=== PATIENT | female | born 1945 | race Caucasian/White ===

== ENCOUNTER → 2017-12-18 14:57 | Outpatient (CLI) | payer MEDICARE, OTHER, SELFPAY ==
--- NOTE | 2017-12-18 14:59 | RAD_ITS ---
STUDY: X-RAY CHEST REASON FOR EXAM: Female, 72 years old. COPD with acute exacerbation. TECHNIQUE: PA and lateral views of the chest. COMPARISON: October 24, 2016. FINDINGS: The lungs are hyperexpanded with chronic interstitial changes. There is no new mass or infiltrate. There is no demonstrated pleural abnormality. Normal size heart. There is evidence of median sternotomy and cardiac valvuloplasty unchanged from the prior study. Normal mediastinum and michele. Normal visualized pulmonary arteries. There is atherosclerotic calcification of the aortic arch with tortuosity. There are diffuse degenerative changes of the visualized thoracic spine. There is degenerative osteoarthritis of the bilateral shoulders. There is no demonstrated abnormality of the visualized soft tissue structures of the upper abdomen. RAD/Chest PA and Lateral IMPRESSION: Question COPD. There is no acute cardiopulmonary disease or interval change. Electronically Signed: Hector Alberts DO at 15:41 EDT Tel [phone], Service support ,
== END ==
PROVIDERS: Family Provider Nurse Practitioner; PCP Nurse Practitioner; Visit Provider Nurse Practitioner
DX: J44.1 Chronic obstructive pulmonary disease with (acute) exacerbation (principal)
CPT/HCPCS: 71046

== ENCOUNTER 2017-12-20 10:15 | Inpatient (IN) | payer MEDICARE, OTHER, SELFPAY ==
[2017-12-20] VITALS (12 sets, daily range): BP systolic 113–138; BP diastolic 53–75; PULSE 99–112; RESP 16–27; TEMP 36.6–37.3; O2SAT 92–96; BMI 27.9; BMI 28.0; BMI 28.1
--- NOTE | 2017-12-20 10:38 | EKG12_ITS ---
Test Reason : SOB Blood Pressure : / mmHG Vent. Rate : 108 BPM Atrial Rate : 108 BPM P-R Int : 152 ms QRS Dur : 078 ms QT Int : 362 ms P-R-T Axes : 080 -18 064 degrees QTc Int : 485 ms Sinus tachycardia Otherwise normal ECG Confirmed by KRISTOPHER WHATLEY, SERENA ([id number]), visual effects editor MAIKOL MCDOWELL ([id number] on 12/21/2017 2:32:38 PM Referred By: Mercy Elliott Confirmed By:SERENA SUMMERS MD
--- NOTE | 2017-12-20 10:38 | CT_ITS ---
STUDY: CTA CHEST REASON FOR EXAM: Female, 72 years old. Shortness of breath, cough and chest congestion. Check for pulmonary embolus. Antibiotics not working. RADIATION DOSAGE (If Supplied By Facility): CTDIvol = ( 10.87 ) mGy, DLP = ( 549.95 ) mGycm TECHNIQUE: The examination was performed with the intravenous administration of 100ML ml of Isovue 370 contrast material. Post-processing of the angiographic images was performed, with multiplanar reformation and 3D reconstruction. Individualized dose optimization techniques were used for this CT. COMPARISON: CTA chest 07/05/2015. FINDINGS: Admissions Recruiter scanogram imaging shows midline sternal wires, mitral valve replacement and an aortic valve replacement. Normal appearing enhancement of the dilated main pulmonary artery and right and left pulmonary arteries. Normal enhancement of the bilateral peripheral pulmonary arteries. There is no demonstrated pulmonary embolism. Normal thoracic aorta and visualized great vessels without dissection/transection or aneurysm identified. Normal heart and pericardium except mitral valve replacement and aortic valve replacements are seen. No pericardial effusion identified. Normal mediastinum. Normal hilar regions. Normal visualized trachea and bronchi. The lungs appear well expanded. Moderate bilateral upper lobe and left lower lobe peribronchial thickening is seen with fairly severe right lower lobe peribronchial thickening and moderate bronchiectasis. Normal pulmonary parenchyma except minimal bibasal groundglass and thin linear opacities are seen most consistent with atelectasis/scarring. Minimal biapical scarring noted without adjacent bony destruction/erosion. Normal chest wall structures. Normal osseous structures. Mild anterior loss pressing T1 vertebral body appears unchanged consistent with old compression fracture. Osteopenia. Normal visualized upper abdomen. No large adrenal identified. Liver again shows multiple round smooth margin low-attenuation lesions, largest is seen in the left hepatic lobe dome near the midline posteriorly, proximal and 1.4 x 1.6 cm with central Hounsfield units 12.3 consistent with a simple cyst which appears unchanged. Other scattered rounded low-attenuation hepatic lesions are seen, too small to characterize but are most likely cysts and also appear unchanged where comparable. Large body habitus suggested. CT/CTA Chest W/WO Contrast IMPRESSION: No CT finding of a demonstrated pulmonary embolism or arterial dissection. Bilateral moderate to severe peribronchial thickening and moderate right lower lobe bronchiectasis which can be seen in chronic infections. Fairly severe centrilobular emphysema, apparently upper lobes. Mitral valve replacement and aortic valve replacement. Old mild T1 anterior wedge compression fracture. No change hepatic low-attenuation lesions, likely cysts. Electronically Signed: Dave Borjas, at 12:43 EDT Tel , Service support ,
--- NOTE | 2017-12-20 10:44 | ED.VISSUMM ---
- ER Visit Summary Date of Service: 12/20/17 Chief Complaint: COPD exacerbation History of Present Illness: The patient is a 72 F with a COPD exacerbation. She has a history of COPD, asthma, pulmonary hypertension, bronchiectasis, seasonal allergies, rheumatic heart disease, and remote pulmonary embolism. She also has a history of CABG and heart valve replacements. She has had increasing shortness of breath over the past several days. She saw her PCP and had a normal x-ray. She had steroids, nebulizer treatments, and started on doxycycline, her symptoms are worsening. She does not have fever or chest pain. Physical Examination: Tachycardic but otherwise vitals are unremarkable. She has a dry cough. She is speaking in full sentences. She appears slightly uncomfortable but not in distress. Lungs show respiratory wheeze throughout. Heart regular. Extremities unremarkable. Test Results: We will check EKG, lab work, CT. Emergency Department Course and Treatment: Patient received nebulizers and Solu-Medrol while awaiting results. EKG showed sinus rhythm at a rate of 108. No sign of acute ischemia or infarction. CTA showed no PE or dissection. She has chronic and postoperative changes. Lab work was all unremarkable she has a white count of 25 and this is likely from steroid use. Creatinine is slightly elevated at 1.21 from her baseline. Troponin normal. BNP 270. I reevaluated the patient after her treatments, and she did not feel much better. Still had a little bit increased work of breathing. She was 90% on room air. She was 80% on room air with ambulation and felt short of breath. I called the hospitalist for admission. Treatment Plan: Above Disposition: Admission Impression: 1. COPD exacerbation 2. Hypoxia This note was generated with [facility] dictation software. It may contain incorrect words, spelling, and punctuation that were not noted in review of the chart prior to signing ED Disposition - Plan for ED Patient: Chief Complaint: Shortness of Breath Referrals: Mercy Elliott [Primary Care Provider] -
[2017-12-20] MEDS: MethylPREDNISolone 125 MG/2 ML Vial IV (10:54)
[2017-12-20] MEDS: Albuterol 2.5 MG/3 ML VIAL.NEB. INHALATION ×2 (10:58)
[2017-12-20 11:13] LABS: Absolute Lymphocyte Count 0.92 X10^3/ul (0.83-4.51); Absolute Neutrophil Count 22.5 X10^3/uL (2.0-7.7); Basophil# 0.01 X10^3/uL; Differential Indicated SCAN CRITERIA MET; Hematocrit 41.6 % (37-47); Hemoglobin 13.4 g/dl (12.0-15.0); Lymphocyte # 0.92 X10^3/ul (4.0); Lymphocyte % 3.6 % (19-41); Mean Corp Hgb Conc 32.2 g/gl (32-36); Mean Corpuscular Hgb 30.9 pg (27.0-32.0); Mean Corpuscular Volume 96.1 fL (81-99); Mean Platelet Vol. 11.4 fl (6.2-12.0); Monocyte# 2.04 X10^3/uL; Neutrophil # 22.53 X10^3/uL (2.7-7.7); Neutrophil % 88.1 % (47-70); POSITIVE COUNT NO; POSITIVE DIFFERENTIAL YES; POSITIVE MORPHOLOGY NO; Platelet Count 170 K/mm3 (150-450); RBC Distribution Width CV 14.4 % (11.6-14.6); RBC Distribution Width SD 50.9 fl (35.1-43.9); Red Blood Count 4.33 M/mm3 (4.2-5.4); White Blood Count 25.6 K/mm3 (4.4-11.0)
[2017-12-20 11:26] LABS: Anion Gap 11 (5-15); BUN 19 mg/dL (7-18); BUN/Creat Ratio 15.7 RATIO (10-20); Calcium,Total 8.8 mg/dL (8.5-10.1); Chloride 105 mmol/L (98-107); Creatinine, Serum 1.21 mg/dL (0.55-1.02); EST Glomerular Filtration Rate 47 mL/min (>60); Est Glom Filt Rate - Afr Amer 56 mL/min (>60); Estimated Creatinine Clearance 36.82 ml/min; Glucose 133 mg/dL (74-106); Potassium 3.8 mmol/L (3.5-5.1); Sodium Level 142 mmol/L (136-145)
--- NOTE | 2017-12-20 13:31 | PCM.HP.STD ---
Problem List (1) HTN (hypertension) Status: Chronic Qualifiers: Hypertension type: essential hypertension Qualified Code(s): I10 - Essential (primary) hypertension (2) COPD exacerbation Status: Acute (3) Rheumatic aortic stenosis with regurgitation Status: Chronic (4) Atherosclerotic heart disease of kaibab coronary artery without angina pectoris Status: Chronic Qualifiers: [place] vs. transplanted heart: unspecified whether kaibab or transplanted heart Qualified Code(s): I25.10 - Atherosclerotic heart disease of kaibab coronary artery without angina pectoris (5) H/O mitral valve replacement Status: Chronic Comment: MVR w/ 27mm Ivan-Menon bovine pericardial mitral valve. 10/14/15 (6) H/O coronary artery bypass surgery Status: Chronic Comment: CABG X 1 SVG- RCA, AVR w/ 19mm St Rusty Trifecta aortic valve (7) Occlusion and stenosis of right carotid artery Status: Chronic (8) Chronic diastolic heart failure Status: Chronic (9) Other secondary pulmonary hypertension Status: Chronic (10) Stroke Status: Chronic Qualifiers: CVA mechanism: unspecified Qualified Code(s): I63.9 - Cerebral infarction, unspecified (11) S/P PTCA (percutaneous transluminal coronary angioplasty) Status: Chronic Comment: PCI BMS to CX/OM 12/03/13 @ [facility] (12) CAD (coronary artery disease) Status: Chronic Qualifiers: Coronary Disease-Associated Artery/Lesion type: unspecified vessel or lesion type [place] vs. transplanted heart: unspecified whether kaibab or transplanted heart Associated angina: angina presence unspecified Qualified Code(s): I25.10 - Atherosclerotic heart disease of kaibab coronary artery without angina pectoris (13) COPD (chronic obstructive pulmonary disease) Status: Chronic Qualifiers: COPD type: unspecified COPD Qualified Code(s): J44.9 - Chronic obstructive pulmonary disease, unspecified (14) Essential tremor Status: Chronic (15) Chronic back pain Status: Chronic Qualifiers: Back pain location: back pain in unspecified location Back pain laterality: unspecified Qualified Code(s): M54.9 - Dorsalgia, unspecified; G89.29 - Other chronic pain (16) HLD (hyperlipidemia) Status: Chronic Qualifiers: Hyperlipidemia type: unspecified Qualified Code(s): E78.5 - Hyperlipidemia, unspecified (17) Asthma Status: Chronic Qualifiers: Asthma severity: unspecified severity Asthma persistence: unspecified Asthma complication type: unspecified Qualified Code(s): J45.909 - Unspecified asthma, uncomplicated History of Present Illness Date of Admission: 12/20/17 Chief Complaint: Dyspnea, cough, congestion The patient is a 72 y/o F w/ PMHx: HTN, HLD, GERD, Valvular Heart Disease s/p MVR (Bovine) and Aortic Stenosis s/p AVR (St Rusty Trifecta), CAD s/p CABG x 1 and PCI x 1, Essential Tremor, Asthma/Chronic COPD/Bronchiectasis, Hx PE Remotely, Hx CVA, Chronic Diastolic CHF, R Carotid Artery Stenosis who presents to the [facility] ED on 12/20/17 with history of ongoing cough, productive sputum, dyspnea worse with exertion x ~ 1 week despite PCP initiation of steroid taper and oral doxycycline regimen x 2 days. She notes several ill contacts with similar symptoms. In the ED work-up included AF, HR 103-->110, BP 114/58, RR 18-->20s, 94% on RA, CBC w/ WBC 25.6, Hgb 13.4, Plts 170 with L shift, BMP w/ BUN/Cr 19/1.21, glucose 133, trop 0.02, BNP 270, CTPA w/ no evidence PE/dissection/pneumonia. In the ED patient was administered duoneb, solumedrol. With exertion attempts while in the ED patient oxygen decreased to 87% on RA. Past Medical History Past Medical History (Chronic Problems): Chronic Problems (Last Updated 11/22/17 @ 09:25 by Francisco Javier Calvo) HTN (hypertension) (Chronic) Rheumatic aortic stenosis with regurgitation (Chronic) Atherosclerotic heart disease of kaibab coronary artery without angina pectoris (Chronic) H/O mitral valve replacement (Chronic) MVR w/ 27mm Ivan-Menon bovine pericardial mitral valve. 10/14/15 H/O coronary artery bypass surgery (Chronic) CABG X 1 SVG- RCA, AVR w/ 19mm St Rusty Trifecta aortic valve Occlusion and stenosis of right carotid artery (Chronic) Chronic diastolic heart failure (Chronic) Other secondary pulmonary hypertension (Chronic) Rheumatic mitral stenosis with insufficiency (Chronic) Stroke (Chronic) S/P PTCA (percutaneous transluminal coronary angioplasty) (Chronic) PCI BMS to CX/OM 12/03/13 @ [facility] CAD (coronary artery disease) (Chronic) Aortic valve disease (Chronic) Mitral valve disease (Chronic) MVR w/ 27mm Ivan-Menon bovine pericardial mitral valve. 10/14/15 COPD (chronic obstructive pulmonary disease) (Chronic) Essential tremor (Chronic) Chronic back pain (Chronic) HLD (hyperlipidemia) (Chronic) Asthma (Chronic) Allergies atorvastatin calcium [From Lipitor] Allergy (Verified 12/20/17 10:17) Unknown clopidogrel [From Plavix] Adverse Reaction (Intermediate, Verified 12/20/17 10:17) Blood Blisters levofloxacin [From Levaquin] Adverse Reaction (Verified 12/20/17 10:17) Itching pollen,animals Allergy (Uncoded 12/20/17 10:17) Unknown Home Medications: Ambulatory Orders Medication Instructions Recorded Cholecalciferol (Vitamin D3) 2,000 unit PO DAILY 02/25/14 [Vitamin D] Levothyroxine [Synthroid] 50 mcg PO DAILY 02/25/14 Tiotropium [place] [Spiriva 18 MCG] 1 puff INHALATION DAILY 02/25/14 Aspirin [Aspirin, Baby] 81 mg PO DAILY@0800 07/05/15 Calcium Carbonate/Vitamin D3 1 ea PO BID 11/23/15 [Calcium 600 + Vit D 800 Tab] Magnesium Oxide [Magnesium] 250 mg PO BID 11/23/15 Multivitamin [Daily Multiple 1 ea PO 11/23/15 Vitamin] omeprazole 20 mg capsule,delayed 20 mg PO BID 11/16/17 release fluticasone 200 mcg-vilanterol 25 1 puff INHALATION DAILY 30 Days #60 11/22/17 mcg/dose powder for inhalation montelukast 10 mg tablet 10 mg PO DAILY 30 Days #30 11/22/17 Albuterol Aerosols [Ventolin 2.5 mg INHALATION BID 12/20/17 Aerosols] Cheratussin Ac 6 mg PO QHS PRN 12/20/17 Cyclobenzaprine [Flexeril] 10 mg PO TID PRN PRN 12/20/17 Diltiazem CD [Cardizem CD] 180 mg PO DAILY 12/20/17 Doxycycline 100 mg PO BID 12/20/17 Furosemide [Lasix] 20 mg PO DAILY PRN 12/20/17 Oxycodone HCl/Acetaminophen 1 tablet PO Q6H PRN PRN 12/20/17 [Percocet 5/325] Prednisone 10 mg PO DAILY 12/20/17 Ranitidine HCl [Zantac 75] 75 mg PO DAILY 12/20/17 Rosuvastatin Calcium [Crestor] 5 mg PO QODAY 12/20/17 Ubidecarenone [Co Q-10] 200 mg PO DAILY 12/20/17 Surgical History: - - MVR and AVR, BL foot surgery, Nephrolithiasis interventions, PCI, CABG x 1, L THR. Psychiatric History: No pertinent psych hx GAMBLING BOX PERSON History: No pertinent GAMBLING BOX PERSON history Lives: Spouse/ Significant Other Smoking Status: Former smoker - Quit 3 years prior, 1 ppd usage since youth. Tobacco Use: Non-smoker Alcohol: Rare Drugs: None - *Family History Paternal History Items: Heart Disease, Hypertension Maternal History Items: Heart Disease, Hypertension Review of Systems Constitutional: Reports: Anorexia, Malaise, Weakness, Fatigue. Denies: Chills, Fever, Weight Change HEENT: Reports: Nasal Congestion, Post Nasal Drip, Sinus Congestion, Sinus Drainage, Sore Throat. Denies: Head Aches Cardiovascular: Denies: Chest Pain, Palpitations Respiratory: Reports: Cough, Shortness of Breath, Shortness of breath at rest, Shortness of breath upon exertion, Sputum production, Wheezing Gastrointestinal: Denies: Abdominal Pain, Nausea, Vomiting Genitourinary: Denies: Dysuria Musculoskeletal: Denies: Joint Pain, Joint Tenderness Skin: Denies: Rash, Wounds Neurological: Denies: Numbness, Tingling, Focal weakness Psychiatric: Denies: Anxiety, Depression, Homicidal Ideations, Suicidal Ideations Hematologic/ Lymphatic: Denies: Easy Bruising, Easy Bleeding VTE Information - Inpt Only VTE Present on Admission: No VTE Mechan Device Prophylaxis: SCD's VTE Pharm Prophylaxis ordered?: Yes Patient Problems: Active and Suspected Problems (Last Updated 11/22/17 @ 09:25 by Francisco Javier Calvo) COPD exacerbation (Acute) Subjective: Seated upright in the ED bed, fatigued appearance, some coughing with examination. Objective: Physical Examination: General: awake, alert, oriented x 3 and cooperative, seated upright in the ED bed in no apparent distress, fatigued appearance. Skin: normal color, turgor, no icterus, cyanosis. HEENT: AT/NC, EOMI, PERRLA, mildly dry MM, no carotid bruits or JVD noted, posterior OP erythema. Lungs: Diminished BS BL, > bases, mildly coarse, expiratory wheezing, decreased effort, coughing w/ increased effort. Heart: Mildly tachycardic with regular rhythm; no gallop, rub audible, s/p AVR, MVR. Abdomen: soft, overweight, NTTP, ND, normal BS, no HSM. Extremities: no cyanosis, clubbing, or edema. Neurological: patient awake, alert, oriented x 3; cognitive function intact; pupils equally reactive to light and accomodation; cranial nerves II-XII grossly normal, moving all 4 extremities, no focal deficits, strength moderately to severely globally decreased secondary to acute presentation. Psychiatric: affect appears normal, no acute evidence of depressive or anxiety feelings. - Physical Exam Vital Signs Temp Pulse Resp BP Pulse Ox 98 F 110 H 27 H 121/53 H 92 12/20/17 10:16 12/20/17 13:05 12/20/17 13:05 12/20/17 13:05 12/20/17 13:05 Oxygen Delivery Method Room Air Weight: 163 lb Body Mass Index (BMI) 27.9 Laboratory Tests Past 24 Hrs 12/20/17 12/20/17 12/20/17 10:55 10:55 10:55 WBC 25.6 H RBC 4.33 Hgb 13.4 Hct 41.6 MCV 96.1 MCH 30.9 MCHC 32.2 RDW 14.4 RDW Differential 50.9 H Plt Count 170 MPV 11.4 Immature Gran % (Auto) 0.300 Neut % (Auto) 88.1 H Lymph % (Auto) 3.6 L Long % (Auto) 8.0 Eos % (Auto) 0.0 Baso % (Auto) 0.0 Absolute Neuts (auto) 22.5 H Absolute Lymphs (auto) 0.92 Total Counted Not Reportable Differential Comment COMMENT Diff Path Review May foll Sodium 142 Potassium 3.8 Chloride 105 Carbon Dioxide 26.0 Anion Gap 11 BUN 19 H Creatinine 1.21 H Estim Creat Clear Calc 36.82 Est GFR (MDRD) Af Amer 56 L Est GFR (MDRD) Non-Af 47 L BUN/Creatinine Ratio 15.7 Glucose 133 H Calcium 8.8 Troponin I 0.02 B-Natriuretic Peptide 270.0 H Assessment/Plan Active and Suspected Problems (Last Updated 11/22/17 @ 09:25 by Francisco Javier Calvo) COPD exacerbation (Acute) The patient is a 72 y/o F w/ PMHx: HTN, HLD, GERD, Valvular Heart Disease s/p MVR (Bovine) and Aortic Stenosis s/p AVR (St Rusty Trifecta), CAD s/p CABG x 1 and PCI x 1, Essential Tremor, Asthma/Chronic COPD/Bronchiectasis, Hx PE Remotely, Hx CVA, Chronic Diastolic CHF, R Carotid Artery Stenosis who presents to the [facility] ED on 12/20/17 with history of ongoing cough, productive sputum, dyspnea worse with exertion x ~ week despite PCP initiation of steroid taper and oral doxycycline regimen x 2 days. (1) Acute Hypoxia with Acute on chronic COPD exacerbation, Failed outpatient therapies: CTPA w/ chronic changes, CBC on admission w/ WBC 25.6 with L shift but recent steroid regimen, afebrile upon ED presentation. Will admit to [facility], maintain on oxygen with wean as tolerated to room air, continue ATC duonebs, PRN albuterol, IV methylprednisolone, HOB, IS parameters, IV Doxycycline with pending sputum cultures, viral respiratory panel. (2) CAD: s/p CABG x 1 and PCI x 1, maintain on asa, statin, not on BB as on cardizem. (3) Hypertension: Maintain on home regimen cardizem, PRN hydralazine. (4) Hyperlipidemia: Maintain on home statin regimen. (5) Hx PE: Remotely, CTPA upon ED presentation without acute evidence PE or acute process. (6) Hypothyroidism: Continue home synthroid regimen. (7) Hx CVA: Maintain on asa, statin, BP regimen. (8) Chronic Diastolic CHF: Maintain on asa, statin, cardizem regimen. Not on diuretic or ACEI. (9) R Carotid Artery Stenosis, Hx: Encourage regular outpatient assessment/monitoring. (10) Valvular Heart Disease: s/p MVR (Bovine) and Aortic Stenosis s/p AVR (St Rusty Trifecta). (11) GERD: Famotidine. (12) DVT Prophylaxis: SCDs, heparin. Code Visit Inpatient E&M: 52659 Init Hosp L3
--- NOTE | 2017-12-20 13:36 | HP.PCM_ITS ---
Problem List (1) HTN (hypertension) Status: Chronic Qualifiers: Hypertension type: essential hypertension Qualified Code(s): I10 - Essential (primary) hypertension (2) COPD exacerbation Status: Acute (3) Rheumatic aortic stenosis with regurgitation Status: Chronic (4) Atherosclerotic heart disease of [place] coronary artery without angina pectoris Status: Chronic Qualifiers: [place] vs. transplanted heart: unspecified whether [place] or transplanted heart Qualified Code(s): I25.10 - Atherosclerotic heart disease of [place] coronary artery without angina pectoris (5) H/O mitral valve replacement Status: Chronic Comment: MVR w/ 27mm Ivan-Menon bovine pericardial mitral valve. 10/14/15 (6) H/O coronary artery bypass surgery Status: Chronic Comment: CABG X 1 SVG- RCA, AVR w/ 19mm [place] Rusty Trifecta aortic valve (7) Occlusion and stenosis of right carotid artery Status: Chronic (8) Chronic diastolic heart failure Status: Chronic (9) Other secondary pulmonary hypertension Status: Chronic (10) Stroke Status: Chronic Qualifiers: CVA mechanism: unspecified Qualified Code(s): I63.9 - Cerebral infarction, unspecified (11) S/P PTCA (percutaneous transluminal coronary angioplasty) Status: Chronic Comment: PCI BMS to CX/OM 12/03/13 @ [facility] (12) CAD (coronary artery disease) Status: Chronic Qualifiers: Coronary Disease-Associated Artery/Lesion type: unspecified vessel or lesion type [place] vs. transplanted heart: unspecified whether [place] or transplanted heart Associated angina: angina presence unspecified Qualified Code(s): I25.10 - Atherosclerotic heart disease of [place] coronary artery without angina pectoris (13) COPD (chronic obstructive pulmonary disease) Status: Chronic Qualifiers: COPD type: unspecified COPD Qualified Code(s): J44.9 - Chronic obstructive pulmonary disease, unspecified (14) Essential tremor Status: Chronic (15) Chronic back pain Status: Chronic Qualifiers: Back pain location: back pain in unspecified location Back pain laterality : unspecified Qualified Code(s): M54.9 - Dorsalgia, unspecified; G89.29 - Other chronic pain (16) HLD (hyperlipidemia) Status: Chronic Qualifiers: Hyperlipidemia type: unspecified Qualified Code(s): E78.5 - Hyperlipidemia , unspecified (17) Asthma Status: Chronic Qualifiers: Asthma severity: unspecified severity Asthma persistence: unspecified Asthma complication type: unspecified Qualified Code(s): J45.909 - Unspecified asthma, uncomplicated History of Present Illness Date of Admission: 12/20/17 Chief Complaint: Dyspnea, cough, congestion The patient is a 72 y/o F w/ PMHx: HTN, HLD, GERD, Valvular Heart Disease s/p MVR (Bovine) and Aortic Stenosis s/p AVR (St Rusty Trifecta), CAD s/p CABG x 1 and PCI x 1, Essential Tremor, Asthma/Chronic COPD/Bronchiectasis, Hx PE Remotely, Hx CVA, Chronic Diastolic CHF, R Carotid Artery Stenosis who presents to the [facility] ED on 12/20/17 with history of ongoing cough, productive sputum, dyspnea worse with exertion x ~ 1 week despite PCP initiation of steroid taper and oral doxycycline regimen x 2 days. She notes several ill contacts with similar symptoms. In the ED work-up included AF, HR 103-->110, BP 114/58, RR 18- ->20s, 94% on RA, CBC w/ WBC 25.6, Hgb 13.4, Plts 170 with L shift, BMP w/ BUN/ Cr 19/1.21, glucose 133, trop 0.02, BNP 270, CTPA w/ no evidence PE/dissection/ pneumonia. In the ED patient was administered duoneb, solumedrol. With exertion attempts while in the ED patient oxygen decreased to 87% on RA. Past Medical History Past Medical History (Chronic Problems): Chronic Problems (Last Updated 11/22/17 @ 09:25 by Francisco Javier Calvo) HTN (hypertension) (Chronic) Rheumatic aortic stenosis with regurgitation (Chronic) Atherosclerotic heart disease of [place] coronary artery without angina pectoris (Chronic) H/O mitral valve replacement (Chronic) MVR w/ 27mm Ivan-Menon bovine pericardial mitral valve. 10/14/15 H/O coronary artery bypass surgery (Chronic) CABG X 1 SVG- RCA, AVR w/ 19mm St Rusty Trifecta aortic valve Occlusion and stenosis of right carotid artery (Chronic) Chronic diastolic heart failure (Chronic) Other secondary pulmonary hypertension (Chronic) Rheumatic mitral stenosis with insufficiency (Chronic) Stroke (Chronic) S/P PTCA (percutaneous transluminal coronary angioplasty) (Chronic) PCI BMS to CX/OM 12/03/13 @ [facility] CAD (coronary artery disease) (Chronic) Aortic valve disease (Chronic) Mitral valve disease (Chronic) MVR w/ 27mm Ivan-Menon bovine pericardial mitral valve. 10/14/15 COPD (chronic obstructive pulmonary disease) (Chronic) Essential tremor (Chronic) Chronic back pain (Chronic) HLD (hyperlipidemia) (Chronic) Asthma (Chronic) Allergies atorvastatin calcium [From Lipitor] Allergy (Verified 12/20/17 10:17) Unknown clopidogrel [From Plavix] Adverse Reaction (Intermediate, Verified 12/20/17 10: 17) Blood Blisters levofloxacin [From Levaquin] Adverse Reaction (Verified 12/20/17 10:17) Itching pollen,animals Allergy (Uncoded 12/20/17 10:17) Unknown Home Medications: Ambulatory Orders Medication Instructions Recorded Cholecalciferol (Vitamin D3) 2,000 unit PO DAILY 02/25/14 [Vitamin D] Levothyroxine [Synthroid] 50 mcg PO DAILY 02/25/14 Tiotropium [place] [Spiriva 18 MCG] 1 puff INHALATION DAILY 02/25/14 Aspirin [Aspirin, Baby] 81 mg PO DAILY@0800 07/05/15 Calcium Carbonate/Vitamin D3 1 ea PO BID 11/23/15 [Calcium 600 + Vit D 800 Tab] Magnesium Oxide [Magnesium] 250 mg PO BID 11/23/15 Multivitamin [Daily Multiple 1 ea PO 11/23/15 Vitamin] omeprazole 20 mg capsule,delayed 20 mg PO BID 11/16/17 release fluticasone 200 mcg-vilanterol 25 1 puff INHALATION DAILY 30 Days #60 11/22/17 mcg/dose powder for inhalation montelukast 10 mg tablet 10 mg PO DAILY 30 Days #30 11/22/17 Albuterol Aerosols [Ventolin 2.5 mg INHALATION BID 12/20/17 Aerosols] Cheratussin Ac 6 mg PO QHS PRN 12/20/17 Cyclobenzaprine [Flexeril] 10 mg PO TID PRN PRN 12/20/17 Diltiazem CD [Cardizem CD] 180 mg PO DAILY 12/20/17 Doxycycline 100 mg PO BID 12/20/17 Furosemide [Lasix] 20 mg PO DAILY PRN 12/20/17 Oxycodone HCl/Acetaminophen 1 tablet PO Q6H PRN PRN 12/20/17 [Percocet 5/325] Prednisone 10 mg PO DAILY 12/20/17 Ranitidine HCl [Zantac 75] 75 mg PO DAILY 12/20/17 Rosuvastatin Calcium [Crestor] 5 mg PO QODAY 12/20/17 Ubidecarenone [Co Q-10] 200 mg PO DAILY 12/20/17 Surgical History: - - MVR and AVR, BL foot surgery, Nephrolithiasis interventions, PCI, CABG x 1, L THR. Psychiatric History: No pertinent psych hx REFRACTIVE SURGEON History: No pertinent REFRACTIVE SURGEON history Lives: Spouse/ Significant Other Smoking Status: Former smoker - Quit 3 years prior, 1 ppd usage since youth. Tobacco Use: Non-smoker Alcohol: Rare Drugs: None - *Family History Paternal History Items: Heart Disease, Hypertension Maternal History Items: Heart Disease, Hypertension Review of Systems Constitutional: Reports: Anorexia, Malaise, Weakness, Fatigue. Denies: Chills, Fever, Weight Change HEENT: Reports: Nasal Congestion, Post Nasal Drip, Sinus Congestion, Sinus Drainage, Sore Throat. Denies: Head Aches Cardiovascular: Denies: Chest Pain, Palpitations Respiratory: Reports: Cough, Shortness of Breath, Shortness of breath at rest, Shortness of breath upon exertion, Sputum production, Wheezing Gastrointestinal: Denies: Abdominal Pain, Nausea, Vomiting Genitourinary: Denies: Dysuria Musculoskeletal: Denies: Joint Pain, Joint Tenderness Skin: Denies: Rash, Wounds Neurological: Denies: Numbness, Tingling, Focal weakness Psychiatric: Denies: Anxiety, Depression, Homicidal Ideations, Suicidal Ideations Hematologic/ Lymphatic: Denies: Easy Bruising, Easy Bleeding VTE Information - Inpt Only VTE Present on Admission: No VTE Mechan Device Prophylaxis: SCD's VTE Pharm Prophylaxis ordered?: Yes Patient Problems: Active and Suspected Problems (Last Updated 11/22/17 @ 09:25 by Francisco Javier Calvo) COPD exacerbation (Acute) Subjective: Seated upright in the ED bed, fatigued appearance, some coughing with examination. Objective: Physical Examination: General: awake, alert, oriented x 3 and cooperative, seated upright in the ED bed in no apparent distress, fatigued appearance. Skin: normal color, turgor, no icterus, cyanosis. HEENT: AT/NC, EOMI, PERRLA, mildly dry MM, no carotid bruits or JVD noted, posterior OP erythema. Lungs: Diminished BS BL, > bases, mildly coarse, expiratory wheezing, decreased effort, coughing w/ increased effort. Heart: Mildly tachycardic with regular rhythm; no gallop, rub audible, s/p AVR, MVR. Abdomen: soft, overweight, NTTP, ND, normal BS, no HSM. Extremities: no cyanosis, clubbing, or edema. Neurological: patient awake, alert, oriented x 3; cognitive function intact; pupils equally reactive to light and accomodation; cranial nerves II-XII grossly normal, moving all 4 extremities, no focal deficits, strength moderately to severely globally decreased secondary to acute presentation. Psychiatric: affect appears normal, no acute evidence of depressive or anxiety feelings. - Physical Exam Vital Signs Temp Pulse Resp BP Pulse Ox 98 F 110 H 27 H 121/53 H 92 12/20/17 10:16 12/20/17 13:05 12/20/17 13:05 12/20/17 13:05 12/20/17 13:05 Oxygen Delivery Method Room Air Weight: 163 lb Body Mass Index (BMI) 27.9 Laboratory Tests Past 24 Hrs 12/20/17 12/20/17 12/20/17 10:55 10:55 10:55 WBC 25.6 H RBC 4.33 Hgb 13.4 Hct 41.6 MCV 96.1 MCH 30.9 MCHC 32.2 RDW 14.4 RDW Differential 50.9 H Plt Count 170 MPV 11.4 Immature Gran % (Auto) 0.300 Neut % (Auto) 88.1 H Lymph % (Auto) 3.6 L [place] % (Auto) 8.0 Eos % (Auto) 0.0 Baso % (Auto) 0.0 Absolute Neuts (auto) 22.5 H Absolute Lymphs (auto) 0.92 Total Counted Not Reportable Differential Comment COMMENT Diff Path Review May foll Sodium 142 Potassium 3.8 Chloride 105 Carbon Dioxide 26.0 Anion Gap 11 BUN 19 H Creatinine 1.21 H Estim Creat Clear Calc 36.82 Est GFR (MDRD) Af Amer 56 L Est GFR (MDRD) Non-Af 47 L BUN/Creatinine Ratio 15.7 Glucose 133 H Calcium 8.8 Troponin I 0.02 B-Natriuretic Peptide 270.0 H Assessment/Plan Active and Suspected Problems (Last Updated 11/22/17 @ 09:25 by Francisco Javier Calvo) COPD exacerbation (Acute) The patient is a 72 y/o F w/ PMHx: HTN, HLD, GERD, Valvular Heart Disease s/p MVR (Bovine) and Aortic Stenosis s/p AVR (St Rusty Trifecta), CAD s/p CABG x 1 and PCI x 1, Essential Tremor, Asthma/Chronic COPD/Bronchiectasis, Hx PE Remotely, Hx CVA, Chronic Diastolic CHF, R Carotid Artery Stenosis who presents to the [facility] ED on 12/20/17 with history of ongoing cough, productive sputum, dyspnea worse with exertion x ~ week despite PCP initiation of steroid taper and oral doxycycline regimen x 2 days. (1) Acute Hypoxia with Acute on chronic COPD exacerbation, Failed outpatient therapies: CTPA w/ chronic changes, CBC on admission w/ WBC 25.6 with L shift but recent steroid regimen, afebrile upon ED presentation. Will admit to [facility], maintain on oxygen with wean as tolerated to room air, continue ATC duonebs, PRN albuterol, IV methylprednisolone, HOB, IS parameters, IV Doxycycline with pending sputum cultures, viral respiratory panel. (2) CAD: s/p CABG x 1 and PCI x 1, maintain on asa, statin, not on BB as on cardizem. (3) Hypertension: Maintain on home regimen cardizem, PRN hydralazine. (4) Hyperlipidemia: Maintain on home statin regimen. (5) Hx PE: Remotely, CTPA upon ED presentation without acute evidence PE or acute process. (6) Hypothyroidism: Continue home synthroid regimen. (7) Hx CVA: Maintain on asa, statin, BP regimen. (8) Chronic Diastolic CHF: Maintain on asa, statin, cardizem regimen. Not on diuretic or ACEI. (9) R Carotid Artery Stenosis, Hx: Encourage regular outpatient assessment/ monitoring. (10) Valvular Heart Disease: s/p MVR (Bovine) and Aortic Stenosis s/p AVR (St Rusty Trifecta). (11) GERD: Famotidine. (12) DVT Prophylaxis: SCDs, heparin. Code Visit Inpatient E&M: 62352 Init Hosp L3
[2017-12-20] MEDS: 0.9% Normal Saline 1,000 ML 75 ML IV (15:53)
[2017-12-20 16:08] LABS: Magnesium 2.5 mg/dL (1.6-2.6)
[2017-12-20] MEDS: Acetaminophen 325 MG Tablet 650 MG PO (17:54)
[2017-12-20] MEDS: 0.9% NaCl Peripheral Flush Adult/Peds IV (18:54)
[2017-12-20] MEDS: Ipratropium/Albuterol Sulfate 3 ML AMPUL.NEB INHALATION ×2 (19:03→22:52)
[2017-12-20] MEDS: Magnesium Oxide 400 MG Tablet PO (21:28)
[2017-12-20] MEDS: guaiFENesin 1,200 MG Tablet 1200 MG PO (21:28)
[2017-12-21] VITALS (11 sets, daily range): BP systolic 123–139; BP diastolic 60–78; PULSE 98–115; RESP 15–20; TEMP 36.5–37.1; O2SAT 95–96
[2017-12-21] MEDS: guaiFENesin Dm 10 ML UDC PO (02:01)
[2017-12-21] MEDS: Acetaminophen 325 MG Tablet 650 MG PO ×3 (02:07→21:35)
[2017-12-21] MEDS: Ipratropium/Albuterol Sulfate 3 ML AMPUL.NEB INHALATION ×6 (02:45→22:55)
[2017-12-21] MEDS: 0.9% NaCl Peripheral Flush Adult/Peds IV ×3 (04:58→18:26)
[2017-12-21] MEDS: Levothyroxine 50 MCG Tablet PO (05:01)
[2017-12-21 06:18] LABS: Absolute Lymphocyte Count 0.89 X10^3/ul (0.83-4.51); Absolute Neutrophil Count 16.7 X10^3/uL (2.0-7.7); Basophil# 0.04 X10^3/uL; Basophil% 0.2 % (0-1); Hematocrit 38.9 % (37-47); Hemoglobin 12.7 g/dl (12.0-15.0); Lymphocyte # 0.89 X10^3/ul (4.0); Lymphocyte % 4.8 % (19-41); Mean Corp Hgb Conc 32.6 g/gl (32-36); Mean Corpuscular Hgb 31.7 pg (27.0-32.0); Mean Platelet Vol. 11.8 fl (6.2-12.0); Monocyte# 0.77 X10^3/uL; Monocyte% 4.2 % (0-10); Neutrophil % 90.3 % (47-70); Platelet Count 158 K/mm3 (150-450); RBC Distribution Width CV 14.8 % (11.6-14.6); RBC Distribution Width SD 50.5 fl (35.1-43.9); Red Blood Count 4.01 M/mm3 (4.2-5.4); White Blood Count 18.5 K/mm3 (4.4-11.0)
[2017-12-21 06:20] LABS: Differential Indicated SCAN CRITERIA MET; POSITIVE COUNT NO; POSITIVE DIFFERENTIAL NO; POSITIVE MORPHOLOGY YES
[2017-12-21 06:30] LABS: Anion Gap 11 (5-15); BUN 19 mg/dL (7-18); BUN/Creat Ratio 17.4 RATIO (10-20); Calcium,Total 8.3 mg/dL (8.5-10.1); Chloride 109 mmol/L (98-107); Creatinine, Serum 1.09 mg/dL (0.55-1.02); EST Glomerular Filtration Rate 53 mL/min (>60); Est Glom Filt Rate - Afr Amer 64 mL/min (>60); Estimated Creatinine Clearance 40.88 ml/min; Glucose 126 mg/dL (74-106); Potassium 3.8 mmol/L (3.5-5.1); Sodium Level 142 mmol/L (136-145)
[2017-12-21 07:49] LABS: Hemoglobin A1c 6.1 % (4.2-6.3)
[2017-12-21] MEDS: Aspirin 81 MG TAB.CHEW PO (08:20)
[2017-12-21] MEDS: Famotidine 20 MG Tablet PO (10:02)
[2017-12-21] MEDS: Doxycycline 100 MG CAPSULE PO ×2 (10:02→21:36)
[2017-12-21] MEDS: guaiFENesin 1,200 MG Tablet 1200 MG PO ×2 (10:02→21:35)
[2017-12-21] MEDS: Montelukast 10 MG Tablet PO (10:02)
[2017-12-21] MEDS: Magnesium Oxide 400 MG Tablet PO ×2 (10:02→21:34)
[2017-12-21] MEDS: dilTIAZem CD 180 MG Capsule PO (10:02)
[2017-12-21] MEDS: Rosuvastatin Calcium 5 MG Tablet PO (10:02)
--- NOTE | 2017-12-21 10:34 | CASEMGMT ---
CHRISTOPHER BETANCUR Face to Face with patient for initial transition planning/care coordination assessment. CHRISTOPHER BETANCUR introduced self and role at [facility]. Patient sitting in chair, alert and oriented. Patient willing to participate in assessment and is able to answer all questions appropriately. Care providers, pharmacy, and demographics verified. See link attached. Patient wishes to discharge home, denies need for home health at this time. Patient is requiring oxygen at this time and will continue to monitor need for home oxygen. Patient states she has no further needs or concerns at this time. CM to follow for discharge planning needs that may arise. Disposition Plan: Patient to discharge home with family support and follow-up plans in place. Will monitor for need for home oxygen.
--- NOTE | 2017-12-21 10:45 | PN_ITS ---
Patient Problems: Active and Suspected Problems (Last Updated 11/22/17 @ 09:25 by Francisco Javier Calvo) COPD exacerbation (Acute) Subjective: Patient is very short of breath, wheezing and coughing. She able to bring up mucus phlegm. Vitals/I&O's: Vital Signs Temp Pulse Resp BP Pulse Ox 98.2 F 115 H 20 H 139/71 H 96 12/21/17 08:17 12/21/17 08:17 12/21/17 08:17 12/21/17 08:17 12/21/17 08:17 Oxygen Flow Rate (L/min) 2 Oxygen Delivery Method Nasal Cannula Weight: 164 lb 3.91 oz Body Mass Index (BMI) 28.1 Intake and Output for Last 24 Hours 12/19/17 12/20/17 12/21/17 23:59 23:59 23:59 Intake Total 555 / 555 Balance 555 / 555 General: Alert, Oriented x3, Cooperative HEENT: Atraumatic, PERRLA, EOMI, Normocephalic Neck: Supple, No JVD, Negative Carotid Bruits Lungs: Diminished, Rhonchi, Short of Breath Cardiovascular: Regular rate, Regular Rhythm, Normal S1, No murmurs Abdomen: Bowel Sounds Present, Soft, Non Tender, Non-Distended Extremities: No edema, Capillary Refill Less than 3 Seconds Skin: No rashes, No breakdown Musculoskeletal: No Tenderness to Palpation of Joints or Extremities Neurological: Cranial nerves II-XII grossly intact Psych/Mental Status: Normal Affect, Appropriate Microbiology Past 72 Hours 12/20/17 16:00 Sputum, Expectorated/Coughed Gram Stain - Final 12/20/17 19:09 Mucosa - Nasopharyngeal Respiratory Panel (PCR) - Final Human [place] Laboratory Results 12/21/17 05:42: Hemoglobin A1c 6.1 12/21/17 05:42: Sodium 142, Potassium 3.8, Chloride 109 H, Carbon Dioxide 22.0, Anion Gap 11, BUN 19 H, Creatinine 1.09 H, Estim Creat Clear Calc 40.88, Est GFR (MDRD) Af Amer 64, Est GFR (MDRD) Non-Af 53 L, BUN/Creatinine Ratio 17.4, Glucose 126 H, Calcium 8.3 L 12/21/17 05:42: WBC 18.5 H, RBC 4.01 L, Hgb 12.7, Hct 38.9, MCV 97.0, MCH 31.7, MCHC 32.6, RDW 14.8 H, RDW Differential 50.5 H, Plt Count 158, MPV 11.8, Immature Gran % (Auto) 0.500, Neut % (Auto) 90.3 H, Lymph % (Auto) 4.8 L, [place] % (Auto) 4.2, Eos % (Auto) 0.0, Baso % (Auto) 0.2, Absolute Neuts (auto) 16.7 H , Absolute Lymphs (auto) 0.89, Total Counted Not Reportable Current Medications Acetaminophen (Tylenol) 650 mg PO Q6H PRN PRN PRN Reason: Mild Pain (scale 0-3)/T>100.7 Last Admin: 12/21/17 02:07 Dose: 650 mg Al Hydroxide/Mg Hydroxide (Mylanta Ii) 30 ml PO Q6H PRN PRN PRN Reason: Gastric burning Albuterol Sulfate (Ventolin Aerosols) 2.5 mg INHALATION Q2H PRN PRN PRN Reason: SHORTNESS OF BREATH Albuterol/Ipratropium (Duoneb) 3 ml INHALATION Q4H.RT [facility] Last Admin: 12/21/17 10:24 Dose: 3 ml Aspirin (Aspirin, Baby) 81 mg PO DAILY@0800 [facility] Last Admin: 12/21/17 08:20 Dose: 81 mg Cyclobenzaprine HCl (Flexeril) 10 mg PO TID PRN PRN PRN Reason: PAIN Diltiazem HCl (Cardizem Cd) 180 mg PO DAILY [facility] Last Admin: 12/21/17 10:02 Dose: 180 mg Diphenhydramine HCl (Benadryl) 25 mg IV Q6H PRN PRN PRN Reason: ITCHING Doxycycline Monohydrate (Doxycycline) 100 mg PO BID [facility] Last Admin: 12/21/17 10:02 Dose: 100 mg Famotidine (Pepcid) 20 mg PO DAILY [facility] Last Admin: 12/21/17 10:02 Dose: 20 mg Guaifenesin (Mucinex) 1,200 mg PO BID [facility] Last Admin: 12/21/17 10:02 Dose: 1,200 mg Guaifenesin (Robitussin Dm) 10 ml PO Q6H PRN PRN PRN Reason: COUGH Last Admin: 12/21/17 02:01 Dose: 10 ml Heparin Sodium (Porcine) (Heparin Na) 5,000 unit SC BID [facility] Last Admin: 12/21/17 10:02 Dose: 5,000 u Hydralazine HCl (Apresoline Iv) 10 mg IV Q4H PRN PRN PRN Reason: SBP > 160 Levothyroxine Sodium (Synthroid) 50 mcg PO DAILY@0600 [facility] Last Admin: 12/21/17 05:01 Dose: 50 mcg Magnesium Hydroxide (Milk Of Magnesia) 30 ml PO DAILY PRN PRN PRN Reason: Constipation Magnesium Oxide (Mag-Ox 400) 400 mg PO BID [facility] Last Admin: 12/21/17 10:02 Dose: 400 mg Methylprednisolone (Solu-Medrol) 40 mg IV Q8H [facility] Last Admin: 12/21/17 10:03 Dose: 40 mg Montelukast Sodium (Singulair) 10 mg PO DAILY [facility] Last Admin: 12/21/17 10:02 Dose: 10 mg Morphine Sulfate () 1 - 2 mg IV Q4H PRN PRN PRN Reason: Moderate Pain (pain scale 4-5) Morphine Sulfate () 2 - 4 mg IV Q3H PRN PRN PRN Reason: Severe Pain (pain scale 6-10) Ondansetron HCl (Zofran) 4 mg IV Q8H PRN PRN PRN Reason: NAUSEA Oxycodone HCl (Oxyir) 5 mg PO Q4H PRN PRN PRN Reason: Moderate Pain (pain scale 4-5) Promethazine HCl (Phenergan Iv) 12.5 mg IV Q6H PRN PRN PRN Reason: NAUSEA/VOMITING Rosuvastatin Calcium (Crestor) 5 mg PO QODAY [facility] Last Admin: 12/21/17 10:02 Dose: 5 mg Sodium Chloride () 5 - 30 ml IV UD PRN PRN Reason: SALINE FLUSH Last Admin: 12/21/17 10:03 Dose: 5 ml Medical Necessity - Tobacco Use Smoking Status: Former smoker Tobacco Use: Non-smoker Assessment/Plan Active and Suspected Problems (Last Updated 11/22/17 @ 09:25 by Francisco Javier Calvo) COPD exacerbation (Acute) This 72 year female with history of hypertension, dyslipidemia, GERD, Valvular Heart Disease s/p MVR (Bovine) and Aortic Stenosis s/p AVR (St Rusty Trifecta), CAD s/p CABG x 1 and PCI x 1, Essential Tremor, Asthma/Chronic COPD/ Bronchiectasis, Hx PE Remotely, Hx CVA, Chronic Diastolic CHF, R Carotid Artery Stenosis treated for severe cough with productive mucus sputum, dyspnea with mild exertion for about 1 week. She failed outpatient treatment with the steroid taper and oral doxycycline for about 2 days. 1. Acute hypoxic respiratory failure secondary to COPD exacerbation with moderate acute bronchitis; failed outpatient therapy: [facility]ogram chest shows chronic changes but no PE. On oxygen, bronchodilator, IV Solu-Medrol, incentive spirometry and IV doxycycline. Respiratory panel is positive of human [place] pneumo virus. Patient has leukocytosis most probably reactive secondary to steroid 2. Coronary artery disease status post CABG and PCI ?1 with valvular heart disease status post MVR, bovine aortic stenosis status post AVR as mentioned above: On aspirin, statin and on Cardizem. Patient is allergic or probably could not tolerate beta-bismark in the past. 3. Chronic diastolic heart failure: As mentioned above 4 other comorbidities include right carotid artery stenosis, history of CVA, hypothyroidism, hypertension, dyslipidemia, GERD: This complicates the present care and prolong recovery. Home medication reconciliation done. 5. DVT prophylaxis: SCDs and heparin. Code Visit Inpatient E&M: [id number] [facility] L3
[2017-12-21] MEDS: Acetylcysteine 800 MG/4 ML VIAL.NEB. INHALATION ×2 (13:29→17:04)
--- NOTE | 2017-12-21 15:39 | CHAPLAIN ---
Type of Pastoral Visit _x__ Initial Visit ___ Follow-up Visit ___ On-call Visit ___ General Patient Visit ___ Spiritual Assessment ___ Family Conference ___ Bereavement ___ Rapid Response ___ Code Blue ___ Other (describe below) Pastoral Care Referral From _x__ Patient ___ Family ___ Nurse ___ Physician ___ Instrumentation Engineer ___ Marine Electrician Apprentice ___ Other (describe below) Sacrament/Intervention _x__ Active listening ___ Anointing ___ Jain ___ Bereavement ___ Communion ___ Sarah exploration ___ _x__ Life review _x_ Prayer ___ Reconciliation ___ Sacrament of Sick ___ Supportive presence ___ Wedding ___ Other (describe below) Pastoral Comments
[2017-12-22] VITALS (13 sets, daily range): BP systolic 129–136; BP diastolic 69–95; PULSE 98–114; RESP 16–24; TEMP 36.5–36.8; O2SAT 91–94
[2017-12-22] MEDS: Ipratropium/Albuterol Sulfate 3 ML AMPUL.NEB INHALATION ×6 (03:15→23:08)
[2017-12-22] MEDS: 0.9% NaCl Peripheral Flush Adult/Peds IV ×3 (03:24→17:56)
[2017-12-22] MEDS: Levothyroxine 50 MCG Tablet PO (05:24)
[2017-12-22] MEDS: NYSTATIN 500,000 UNIT/5 ML UDC 500000 UNIT PO ×4 (05:24→22:28)
[2017-12-22] MEDS: Acetylcysteine 800 MG/4 ML VIAL.NEB. INHALATION ×4 (07:09→19:46)
[2017-12-22] MEDS: Aspirin 81 MG TAB.CHEW PO (10:45)
[2017-12-22] MEDS: Magnesium Oxide 400 MG Tablet PO ×2 (10:46→22:30)
[2017-12-22] MEDS: Doxycycline 100 MG CAPSULE PO ×2 (10:46→22:28)
[2017-12-22] MEDS: guaiFENesin 1,200 MG Tablet 1200 MG PO ×2 (10:46→22:30)
[2017-12-22] MEDS: dilTIAZem CD 180 MG Capsule PO (10:46)
[2017-12-22] MEDS: Famotidine 20 MG Tablet PO (10:46)
[2017-12-22] MEDS: Acetaminophen 325 MG Tablet 650 MG PO ×2 (10:46→17:56)
[2017-12-22] MEDS: Montelukast 10 MG Tablet PO (10:46)
[2017-12-22] MEDS: guaiFENesin Dm 10 ML UDC PO ×2 (10:47→17:53)
[2017-12-22 14:03] LABS: Pathologist Review Reviewed
--- NOTE | 2017-12-22 16:20 | PN_ITS ---
Patient Problems: Active and Suspected Problems (Last Updated 11/22/17 @ 09:25 by Francisco Javier Calvo) COPD exacerbation (Acute) Subjective: Patient is still short of breath with wheezing although better than yesterday. No fever overnight. Still requires 2 L oxygen. Patient is not on home oxygen. Vitals/I&O's: Vital Signs Temp Pulse Resp BP Pulse Ox 97.7 F L 104 H 18 136/69 H 94 12/22/17 16:00 12/22/17 16:00 12/22/17 16:00 12/22/17 16:00 12/22/17 16:00 Oxygen Flow Rate (L/min) 2 Oxygen Delivery Method Nasal Cannula Weight: 164 lb 3.91 oz Body Mass Index (BMI) 28.1 Intake and Output for Last 24 Hours 12/20/17 12/21/17 12/22/17 23:59 23:59 23:59 Intake Total 555 / 555 1800 / 1800 500 / 500 Balance 555 / 555 1800 / 1800 500 / 500 General: Alert, Oriented x3, Cooperative HEENT: Atraumatic, PERRLA, EOMI, Normocephalic Neck: Supple, No JVD, Negative Carotid Bruits Lungs: Diminished, Rhonchi, Short of Breath, - - Oxygen Cardiovascular: Regular rate, Regular Rhythm, Normal S1, Normal S2, No murmurs Abdomen: Bowel Sounds Present, Soft, Non Tender Extremities: No edema, Capillary Refill Less than 3 Seconds Skin: No rashes, No breakdown Musculoskeletal: No Tenderness to Palpation of Joints or Extremities Neurological: Cranial nerves II-XII grossly intact Psych/Mental Status: Normal Affect, Appropriate Microbiology Past 72 Hours 12/20/17 16:00 Sputum, Expectorated/Coughed Gram Stain - Final 12/20/17 16:00 Sputum, Expectorated/Coughed Respiratory Culture - Final 12/20/17 19:09 Mucosa - Nasopharyngeal Respiratory Panel (PCR) - Final Human [place] Current Medications Acetaminophen (Tylenol) 650 mg PO Q6H PRN PRN PRN Reason: Mild Pain (scale 0-3)/T>100.7 Last Admin: 12/22/17 10:46 Dose: 650 mg Acetylcysteine (Mucomyst) 800 mg INHALATION Q4HWA.RT JIM Last Admin: 12/22/17 15:37 Dose: 800 mg Al Hydroxide/Mg Hydroxide (Mylanta Ii) 30 ml PO Q6H PRN PRN PRN Reason: Gastric burning Albuterol Sulfate (Ventolin Aerosols) 2.5 mg INHALATION Q2H PRN PRN PRN Reason: SHORTNESS OF BREATH Albuterol/Ipratropium (Duoneb) 3 ml INHALATION Q4H.RT [facility] Last Admin: 12/22/17 15:37 Dose: 3 ml Aspirin (Aspirin, Baby) 81 mg PO DAILY@0800 [facility] Last Admin: 12/22/17 10:45 Dose: 81 mg Cyclobenzaprine HCl (Flexeril) 10 mg PO TID PRN PRN PRN Reason: PAIN Last Admin: 12/22/17 10:45 Dose: 10 mg Diltiazem HCl (Cardizem Cd) 180 mg PO DAILY [facility] Last Admin: 12/22/17 10:46 Dose: 180 mg Diphenhydramine HCl (Benadryl) 25 mg IV Q6H PRN PRN PRN Reason: ITCHING Doxycycline Monohydrate (Doxycycline) 100 mg PO BID [facility] Last Admin: 12/22/17 10:46 Dose: 100 mg Famotidine (Pepcid) 20 mg PO DAILY [facility] Last Admin: 12/22/17 10:46 Dose: 20 mg Guaifenesin (Mucinex) 1,200 mg PO BID [facility] Last Admin: 12/22/17 10:46 Dose: 1,200 mg Guaifenesin (Robitussin Dm) 10 ml PO Q6H PRN PRN PRN Reason: COUGH Last Admin: 12/22/17 10:47 Dose: 10 ml Heparin Sodium (Porcine) (Heparin Na) 5,000 unit SC BID [facility] Last Admin: 12/22/17 10:44 Dose: 5,000 u Hydralazine HCl (Apresoline Iv) 10 mg IV Q4H PRN PRN PRN Reason: SBP > 160 Levothyroxine Sodium (Synthroid) 50 mcg PO DAILY@0600 [facility] Last Admin: 12/22/17 05:24 Dose: 50 mcg Magnesium Hydroxide (Milk Of Magnesia) 30 ml PO DAILY PRN PRN PRN Reason: Constipation Magnesium Oxide (Mag-Ox 400) 400 mg PO BID [facility] Last Admin: 12/22/17 10:46 Dose: 400 mg Methylprednisolone (Solu-Medrol) 40 mg IV Q8H [facility] Last Admin: 12/22/17 10:44 Dose: 40 mg Montelukast Sodium (Singulair) 10 mg PO DAILY [facility] Last Admin: 12/22/17 10:46 Dose: 10 mg Morphine Sulfate () 1 - 2 mg IV Q4H PRN PRN PRN Reason: Moderate Pain (pain scale 4-5) Morphine Sulfate () 2 - 4 mg IV Q3H PRN PRN PRN Reason: Severe Pain (pain scale 6-10) Nutritional Formula (Lactose Free) (Ensure Enlive) 120 ml PO 4X/DAY [facility] Last Admin: 12/22/17 15:19 Dose: 120 ml Nystatin (Nystatin) 500,000 unit PO 4X/DAY [facility] Last Admin: 12/22/17 15:19 Dose: 500,000 unit Ondansetron HCl (Zofran) 4 mg IV Q8H PRN PRN PRN Reason: NAUSEA Oxycodone HCl (Oxyir) 5 mg PO Q4H PRN PRN PRN Reason: Moderate Pain (pain scale 4-5) Promethazine HCl (Phenergan Iv) 12.5 mg IV Q6H PRN PRN PRN Reason: NAUSEA/VOMITING Rosuvastatin Calcium (Crestor) 5 mg PO QODAY [facility] Last Admin: 12/21/17 10:02 Dose: 5 mg Sodium Chloride () 5 - 30 ml IV UD PRN PRN Reason: SALINE FLUSH Last Admin: 12/22/17 10:52 Dose: 10 ml Medical Necessity - Tobacco Use Smoking Status: Former smoker Tobacco Use: Non-smoker Assessment/Plan Active and Suspected Problems (Last Updated 11/22/17 @ 09:25 by Francisco Javier Calvo) COPD exacerbation (Acute) This 72 year female with history of hypertension, dyslipidemia, GERD, Valvular Heart Disease s/p MVR (Bovine) and Aortic Stenosis s/p AVR (St Rusty Trifecta), CAD s/p CABG x 1 and PCI x 1, Essential Tremor, Asthma/Chronic COPD/ Bronchiectasis, Hx PE Remotely, Hx CVA, Chronic Diastolic CHF, R Carotid Artery Stenosis treated for severe cough with productive mucus sputum, dyspnea with mild exertion for about 1 week. She failed outpatient treatment with the steroid taper and oral doxycycline for about 2 days. 1. Acute hypoxic respiratory failure secondary to COPD exacerbation with moderate acute bronchitis; failed outpatient therapy: [facility] angiogram chest shows chronic changes but no PE. On oxygen, bronchodilator, IV Solu-Medrol, incentive spirometry and IV doxycycline. Respiratory panel is positive of human [place] pneumo virus. Patient has leukocytosis most probably reactive secondary to steroid. 2. Coronary artery disease status post CABG and PCI ?1 with valvular heart disease status post MVR, bovine aortic stenosis status post AVR as mentioned above: On aspirin, statin and on Cardizem. Patient is allergic or probably could not tolerate beta-bismark in the past. 3. Chronic diastolic heart failure: As mentioned above 4 other comorbidities include right carotid artery stenosis, history of CVA, hypothyroidism, hypertension, dyslipidemia, GERD: This complicates the present care and prolong recovery. Home medication reconciliation done. 5. DVT prophylaxis: SCDs and heparin. Microbiology Past 72 Hours 12/20/17 16:00 Sputum, Expectorated/Coughed Gram Stain - Final 12/20/17 16:00 Sputum, Expectorated/Coughed Respiratory Culture - Final 12/20/17 19:09 Mucosa - Nasopharyngeal Respiratory Panel (PCR) - Final Human [place] Laboratory Results 12/20/17 10:55: Diff Path Review Reviewed Clinical Impression(s) from Imaging Studies Chest CTA 12/20/17 10:38 IMPRESSION: No CT finding of a demonstrated pulmonary embolism or arterial dissection. Bilateral moderate to severe peribronchial thickening and moderate right lower lobe bronchiectasis which can be seen in chronic infections. Fairly severe centrilobular emphysema, apparently upper lobes. Mitral valve replacement and aortic valve replacement. Old mild T1 anterior wedge compression fracture. No change hepatic low-attenuation lesions, likely cysts. Electronically Signed: Dave Borjas, at 12:43 EDT Tel , Service support , Code Visit Inpatient E&M: [id number] Subs Hosp L3
[2017-12-22] MEDS: oxyCODONE 5 MG Tablet PO ×2 (17:57→22:48)
[2017-12-23] VITALS (14 sets, daily range): BP systolic 113–121; BP diastolic 64–65; PULSE 102–110; RESP 16–20; TEMP 36.8–36.9; O2SAT 2–95
[2017-12-23] MEDS: Ipratropium/Albuterol Sulfate 3 ML AMPUL.NEB INHALATION ×6 (02:58→22:40)
[2017-12-23] MEDS: 0.9% NaCl Peripheral Flush Adult/Peds IV ×3 (03:20→18:45)
[2017-12-23] MEDS: Levothyroxine 50 MCG Tablet PO (05:29)
[2017-12-23] MEDS: oxyCODONE 5 MG Tablet PO ×2 (05:29→18:44)
[2017-12-23] MEDS: Acetylcysteine 800 MG/4 ML VIAL.NEB. INHALATION ×4 (06:55→19:05)
[2017-12-23] MEDS: dilTIAZem CD 180 MG Capsule PO (07:57)
[2017-12-23] MEDS: NYSTATIN 500,000 UNIT/5 ML UDC 500000 UNIT PO ×4 (07:57→21:47)
[2017-12-23] MEDS: Famotidine 20 MG Tablet PO (07:58)
[2017-12-23] MEDS: Aspirin 81 MG TAB.CHEW PO (07:58)
[2017-12-23] MEDS: Montelukast 10 MG Tablet PO (07:58)
[2017-12-23] MEDS: Magnesium Oxide 400 MG Tablet PO ×2 (07:58→21:49)
[2017-12-23] MEDS: Doxycycline 100 MG CAPSULE PO ×2 (07:58→21:48)
[2017-12-23] MEDS: guaiFENesin 1,200 MG Tablet 1200 MG PO (07:58)
[2017-12-23] MEDS: Rosuvastatin Calcium 5 MG Tablet PO (07:58)
[2017-12-23] MEDS: Acetaminophen 325 MG Tablet 650 MG PO ×3 (14:07→21:49)
--- NOTE | 2017-12-23 15:27 | PCM.PN.HOSP ---
Patient Problems: Active and Suspected Problems (Last Updated 11/22/17 @ 09:25 by Francisco Javier Calvo) COPD exacerbation (Acute) Subjective: Patient shortness of breath has improved. No fever or chills. Patient is still tachypneic and requires 2 L of oxygen. Vitals/I&O's: Vital Signs Temp Pulse Resp BP Pulse Ox 98.4 F 102 H 20 H 121/65 H 94 12/23/17 14:04 12/23/17 14:28 12/23/17 14:28 12/23/17 14:04 12/23/17 14:04 Oxygen Flow Rate (L/min) 2 Oxygen Delivery Method Nasal Cannula Weight: 164 lb 3.91 oz Body Mass Index (BMI) 28.1 Intake and Output for Last 24 Hours 12/21/17 12/22/17 12/23/17 23:59 23:59 23:59 Intake Total 1800 / 1800 1000 / 1000 1100 / 1100 Balance 1800 / 1800 1000 / 1000 1100 / 1100 General: Alert, Oriented x3, Cooperative HEENT: Atraumatic, PERRLA, EOMI, Normocephalic Neck: Supple, No JVD, Negative Carotid Bruits Lungs: Diminished, Rhonchi, Tachypneic, Wheezes Cardiovascular: Regular rate, Regular Rhythm, Normal S1, Normal S2, No murmurs Abdomen: Bowel Sounds Present, Soft, Non Tender, Non-Distended Extremities: Capillary Refill Less than 3 Seconds, Edema Skin: No rashes, No breakdown Musculoskeletal: No Tenderness to Palpation of Joints or Extremities Neurological: Cranial nerves II-XII grossly intact Psych/Mental Status: Normal Affect, Appropriate Microbiology Past 72 Hours 12/20/17 16:00 Sputum, Expectorated/Coughed Gram Stain - Final 12/20/17 16:00 Sputum, Expectorated/Coughed Respiratory Culture - Final 12/20/17 19:09 Mucosa - Nasopharyngeal Respiratory Panel (PCR) - Final Human [place] Current Medications Acetaminophen (Tylenol) 650 mg PO Q6H PRN PRN PRN Reason: Mild Pain (scale 0-3)/T>100.7 Last Admin: 12/23/17 14:07 Dose: 650 mg Acetylcysteine (Mucomyst) 800 mg INHALATION Q4HWA.RT JIM Last Admin: 12/23/17 14:28 Dose: 800 mg Al Hydroxide/Mg Hydroxide (Mylanta Ii) 30 ml PO Q6H PRN PRN PRN Reason: Gastric burning Albuterol Sulfate (Ventolin Aerosols) 2.5 mg INHALATION Q2H PRN PRN PRN Reason: SHORTNESS OF BREATH Albuterol/Ipratropium (Duoneb) 3 ml INHALATION Q4H.RT [facility] Last Admin: 12/23/17 14:28 Dose: 3 ml Aspirin (Aspirin, Baby) 81 mg PO DAILY@0800 [facility] Last Admin: 12/23/17 07:58 Dose: 81 mg Cyclobenzaprine HCl (Flexeril) 10 mg PO TID PRN PRN PRN Reason: PAIN Last Admin: 12/23/17 11:27 Dose: 10 mg Diltiazem HCl (Cardizem Cd) 180 mg PO DAILY [facility] Last Admin: 12/23/17 07:57 Dose: 180 mg Diphenhydramine HCl (Benadryl) 25 mg IV Q6H PRN PRN PRN Reason: ITCHING Doxycycline Monohydrate (Doxycycline) 100 mg PO BID [facility] Last Admin: 12/23/17 07:58 Dose: 100 mg Famotidine (Pepcid) 20 mg PO DAILY [facility] Last Admin: 12/23/17 07:58 Dose: 20 mg Guaifenesin (Mucinex) 1,200 mg PO BID [facility] Last Admin: 12/23/17 07:58 Dose: 1,200 mg Guaifenesin (Robitussin Dm) 10 ml PO Q6H PRN PRN PRN Reason: COUGH Last Admin: 12/23/17 00:00 Dose: 10 ml Heparin Sodium (Porcine) (Heparin Na) 5,000 unit SC BID [facility] Last Admin: 12/23/17 07:58 Dose: 5,000 u Hydralazine HCl (Apresoline Iv) 10 mg IV Q4H PRN PRN PRN Reason: SBP > 160 Levothyroxine Sodium (Synthroid) 50 mcg PO DAILY@0600 [facility] Last Admin: 12/23/17 05:29 Dose: 50 mcg Magnesium Hydroxide (Milk Of Magnesia) 30 ml PO DAILY PRN PRN PRN Reason: Constipation Magnesium Oxide (Mag-Ox 400) 400 mg PO BID [facility] Last Admin: 12/23/17 07:58 Dose: 400 mg Methylprednisolone (Solu-Medrol) 40 mg IV Q8H [facility] Last Admin: 12/23/17 11:27 Dose: 40 mg Montelukast Sodium (Singulair) 10 mg PO DAILY [facility] Last Admin: 12/23/17 07:58 Dose: 10 mg Morphine Sulfate () 1 - 2 mg IV Q4H PRN PRN PRN Reason: Moderate Pain (pain scale 4-5) Morphine Sulfate () 2 - 4 mg IV Q3H PRN PRN PRN Reason: Severe Pain (pain scale 6-10) Nutritional Formula (Lactose Free) (Ensure Enlive) 120 ml PO 4X/DAY [facility] Last Admin: 12/23/17 14:08 Dose: 120 ml Nystatin (Nystatin) 500,000 unit PO 4X/DAY [facility] Last Admin: 12/23/17 14:07 Dose: 500,000 unit Ondansetron HCl (Zofran) 4 mg IV Q8H PRN PRN PRN Reason: NAUSEA Oxycodone HCl (Oxyir) 5 mg PO Q4H PRN PRN PRN Reason: Moderate Pain (pain scale 4-5) Last Admin: 12/23/17 05:29 Dose: 5 mg Promethazine HCl (Phenergan Iv) 12.5 mg IV Q6H PRN PRN PRN Reason: NAUSEA/VOMITING Rosuvastatin Calcium (Crestor) 5 mg PO QODAY [facility] Last Admin: 12/23/17 07:58 Dose: 5 mg Sodium Chloride () 5 - 30 ml IV UD PRN PRN Reason: SALINE FLUSH Last Admin: 12/23/17 11:27 Dose: 10 ml Medical Necessity - Tobacco Use Smoking Status: Former smoker Tobacco Use: Non-smoker Assessment/Plan Active and Suspected Problems (Last Updated 11/22/17 @ 09:25 by Francisco Javier Calvo) COPD exacerbation (Acute) This 72 year female with history of hypertension, dyslipidemia, GERD, Valvular Heart Disease s/p MVR (Bovine) and Aortic Stenosis s/p AVR (St Rusty Trifecta), CAD s/p CABG x 1 and PCI x 1, Essential Tremor, Asthma/Chronic COPD/Bronchiectasis, Hx PE Remotely, Hx CVA, Chronic Diastolic CHF, R Carotid Artery Stenosis treated for severe cough with productive mucus sputum, dyspnea with mild exertion for about 1 week. She failed outpatient treatment with the steroid taper and oral doxycycline for about 2 days. 1. Acute hypoxic respiratory failure secondary to COPD exacerbation with moderate acute bronchitis due to Human Metapneumo virus; failed outpatient therapy: [facility] chest shows chronic changes but no PE. On oxygen, bronchodilator, IV Solu-Medrol, incentive spirometry and IV doxycycline. Respiratory panel is positive of human [place] pneumo virus. Patient has leukocytosis most probably reactive secondary to steroid. 2. Coronary artery disease status post CABG and PCI ?1 with valvular heart disease status post MVR, bovine aortic stenosis status post AVR as mentioned above: On aspirin, statin and on Cardizem. Patient is allergic or probably could not tolerate beta-bismark in the past. 3. Chronic diastolic heart failure: Patient had echo in March 2016 which shows normal LV size and systolic function with EF 50%. Normal right and left atrium. Normal right ventricle. Mild aortic stenosis with bioprosthetic aortic valve. Bioprosthetic mitral valve. 4 other comorbidities include right carotid artery stenosis, history of CVA, hypothyroidism, hypertension, dyslipidemia, GERD: This complicates the present care and prolong recovery. Home medication reconciliation done. 5. DVT prophylaxis: SCDs and heparin. Microbiology Past 72 Hours 12/20/17 16:00 Sputum, Expectorated/Coughed Gram Stain - Final 12/20/17 16:00 Sputum, Expectorated/Coughed Respiratory Culture - Final 12/20/17 19:09 Mucosa - Nasopharyngeal Respiratory Panel (PCR) - Final Human [place] Clinical Impression(s) from Imaging Studies Chest CTA 12/20/17 10:38 IMPRESSION: No CT finding of a demonstrated pulmonary embolism or arterial dissection. Bilateral moderate to severe peribronchial thickening and moderate right lower lobe bronchiectasis which can be seen in chronic infections. Fairly severe centrilobular emphysema, apparently upper lobes. Mitral valve replacement and aortic valve replacement. Old mild T1 anterior wedge compression fracture. No change hepatic low-attenuation lesions, likely cysts. Electronically Signed: Dave Borjas, at 12:43 EDT Tel , Service support , Code Visit Inpatient E&M: [id number] Subs Hosp L3
--- NOTE | 2017-12-23 15:31 | PN_ITS ---
Patient Problems: Active and Suspected Problems (Last Updated 11/22/17 @ 09:25 by Francisco Javier Calvo) COPD exacerbation (Acute) Subjective: Patient shortness of breath has improved. No fever or chills. Patient is still tachypneic and requires 2 L of oxygen. Vitals/I&O's: Vital Signs Temp Pulse Resp BP Pulse Ox 98.4 F 102 H 20 H 121/65 H 94 12/23/17 14:04 12/23/17 14:28 12/23/17 14:28 12/23/17 14:04 12/23/17 14:04 Oxygen Flow Rate (L/min) 2 Oxygen Delivery Method Nasal Cannula Weight: 164 lb 3.91 oz Body Mass Index (BMI) 28.1 Intake and Output for Last 24 Hours 12/21/17 12/22/17 12/23/17 23:59 23:59 23:59 Intake Total 1800 / 1800 1000 / 1000 1100 / 1100 Balance 1800 / 1800 1000 / 1000 1100 / 1100 General: Alert, Oriented x3, Cooperative HEENT: Atraumatic, PERRLA, EOMI, Normocephalic Neck: Supple, No JVD, Negative Carotid Bruits Lungs: Diminished, Rhonchi, Tachypneic, Wheezes Cardiovascular: Regular rate, Regular Rhythm, Normal S1, Normal S2, No murmurs Abdomen: Bowel Sounds Present, Soft, Non Tender, Non-Distended Extremities: Capillary Refill Less than 3 Seconds, Edema Skin: No rashes, No breakdown Musculoskeletal: No Tenderness to Palpation of Joints or Extremities Neurological: Cranial nerves II-XII grossly intact Psych/Mental Status: Normal Affect, Appropriate Microbiology Past 72 Hours 12/20/17 16:00 Sputum, Expectorated/Coughed Gram Stain - Final 12/20/17 16:00 Sputum, Expectorated/Coughed Respiratory Culture - Final 12/20/17 19:09 Mucosa - Nasopharyngeal Respiratory Panel (PCR) - Final Human [place] Current Medications Acetaminophen (Tylenol) 650 mg PO Q6H PRN PRN PRN Reason: Mild Pain (scale 0-3)/T>100.7 Last Admin: 12/23/17 14:07 Dose: 650 mg Acetylcysteine (Mucomyst) 800 mg INHALATION Q4HWA.RT JIM Last Admin: 12/23/17 14:28 Dose: 800 mg Al Hydroxide/Mg Hydroxide (Mylanta Ii) 30 ml PO Q6H PRN PRN PRN Reason: Gastric burning Albuterol Sulfate (Ventolin Aerosols) 2.5 mg INHALATION Q2H PRN PRN PRN Reason: SHORTNESS OF BREATH Albuterol/Ipratropium (Duoneb) 3 ml INHALATION Q4H.RT [facility] Last Admin: 12/23/17 14:28 Dose: 3 ml Aspirin (Aspirin, Baby) 81 mg PO DAILY@0800 [facility] Last Admin: 12/23/17 07:58 Dose: 81 mg Cyclobenzaprine HCl (Flexeril) 10 mg PO TID PRN PRN PRN Reason: PAIN Last Admin: 12/23/17 11:27 Dose: 10 mg Diltiazem HCl (Cardizem Cd) 180 mg PO DAILY [facility] Last Admin: 12/23/17 07:57 Dose: 180 mg Diphenhydramine HCl (Benadryl) 25 mg IV Q6H PRN PRN PRN Reason: ITCHING Doxycycline Monohydrate (Doxycycline) 100 mg PO BID [facility] Last Admin: 12/23/17 07:58 Dose: 100 mg Famotidine (Pepcid) 20 mg PO DAILY [facility] Last Admin: 12/23/17 07:58 Dose: 20 mg Guaifenesin (Mucinex) 1,200 mg PO BID [facility] Last Admin: 12/23/17 07:58 Dose: 1,200 mg Guaifenesin (Robitussin Dm) 10 ml PO Q6H PRN PRN PRN Reason: COUGH Last Admin: 12/23/17 00:00 Dose: 10 ml Heparin Sodium (Porcine) (Heparin Na) 5,000 unit SC BID [facility] Last Admin: 12/23/17 07:58 Dose: 5,000 u Hydralazine HCl (Apresoline Iv) 10 mg IV Q4H PRN PRN PRN Reason: SBP > 160 Levothyroxine Sodium (Synthroid) 50 mcg PO DAILY@0600 [facility] Last Admin: 12/23/17 05:29 Dose: 50 mcg Magnesium Hydroxide (Milk Of Magnesia) 30 ml PO DAILY PRN PRN PRN Reason: Constipation Magnesium Oxide (Mag-Ox 400) 400 mg PO BID [facility] Last Admin: 12/23/17 07:58 Dose: 400 mg Methylprednisolone (Solu-Medrol) 40 mg IV Q8H [facility] Last Admin: 12/23/17 11:27 Dose: 40 mg Montelukast Sodium (Singulair) 10 mg PO DAILY [facility] Last Admin: 12/23/17 07:58 Dose: 10 mg Morphine Sulfate () 1 - 2 mg IV Q4H PRN PRN PRN Reason: Moderate Pain (pain scale 4-5) Morphine Sulfate () 2 - 4 mg IV Q3H PRN PRN PRN Reason: Severe Pain (pain scale 6-10) Nutritional Formula (Lactose Free) (Ensure Enlive) 120 ml PO 4X/DAY [facility] Last Admin: 12/23/17 14:08 Dose: 120 ml Nystatin (Nystatin) 500,000 unit PO 4X/DAY [facility] Last Admin: 12/23/17 14:07 Dose: 500,000 unit Ondansetron HCl (Zofran) 4 mg IV Q8H PRN PRN PRN Reason: NAUSEA Oxycodone HCl (Oxyir) 5 mg PO Q4H PRN PRN PRN Reason: Moderate Pain (pain scale 4-5) Last Admin: 12/23/17 05:29 Dose: 5 mg Promethazine HCl (Phenergan Iv) 12.5 mg IV Q6H PRN PRN PRN Reason: NAUSEA/VOMITING Rosuvastatin Calcium (Crestor) 5 mg PO QODAY [facility] Last Admin: 12/23/17 07:58 Dose: 5 mg Sodium Chloride () 5 - 30 ml IV UD PRN PRN Reason: SALINE FLUSH Last Admin: 12/23/17 11:27 Dose: 10 ml Medical Necessity - Tobacco Use Smoking Status: Former smoker Tobacco Use: Non-smoker Assessment/Plan Active and Suspected Problems (Last Updated 11/22/17 @ 09:25 by Francisco Javier Calvo) COPD exacerbation (Acute) This 72 year female with history of hypertension, dyslipidemia, GERD, Valvular Heart Disease s/p MVR (Bovine) and Aortic Stenosis s/p AVR (St Rusty Trifecta), CAD s/p CABG x 1 and PCI x 1, Essential Tremor, Asthma/Chronic COPD/ Bronchiectasis, Hx PE Remotely, Hx CVA, Chronic Diastolic CHF, R Carotid Artery Stenosis treated for severe cough with productive mucus sputum, dyspnea with mild exertion for about 1 week. She failed outpatient treatment with the steroid taper and oral doxycycline for about 2 days. 1. Acute hypoxic respiratory failure secondary to COPD exacerbation with moderate acute bronchitis due to Human Metapneumo virus; failed outpatient therapy: [facility]ogram chest shows chronic changes but no PE. On oxygen, bronchodilator, IV Solu- Medrol, incentive spirometry and IV doxycycline. Respiratory panel is positive of human [place] pneumo virus. Patient has leukocytosis most probably reactive secondary to steroid. 2. Coronary artery disease status post CABG and PCI ?1 with valvular heart disease status post MVR, bovine aortic stenosis status post AVR as mentioned above: On aspirin, statin and on Cardizem. Patient is allergic or probably could not tolerate beta-bismark in the past. 3. Chronic diastolic heart failure: Patient had echo in March 2016 which shows normal LV size and systolic function with EF 50%. Normal right and left atrium. Normal right ventricle. Mild aortic stenosis with bioprosthetic aortic valve. Bioprosthetic mitral valve. 4 other comorbidities include right carotid artery stenosis, history of CVA, hypothyroidism, hypertension, dyslipidemia, GERD: This complicates the present care and prolong recovery. Home medication reconciliation done. 5. DVT prophylaxis: SCDs and heparin. Microbiology Past 72 Hours 12/20/17 16:00 Sputum, Expectorated/Coughed Gram Stain - Final 12/20/17 16:00 Sputum, Expectorated/Coughed Respiratory Culture - Final 12/20/17 19:09 Mucosa - Nasopharyngeal Respiratory Panel (PCR) - Final Human [place] Clinical Impression(s) from Imaging Studies Chest CTA 12/20/17 10:38 IMPRESSION: No CT finding of a demonstrated pulmonary embolism or arterial dissection. Bilateral moderate to severe peribronchial thickening and moderate right lower lobe bronchiectasis which can be seen in chronic infections. Fairly severe centrilobular emphysema, apparently upper lobes. Mitral valve replacement and aortic valve replacement. Old mild T1 anterior wedge compression fracture. No change hepatic low-attenuation lesions, likely cysts. Electronically Signed: Dave Borjas, at 12:43 EDT Tel , Service support , Code Visit Inpatient E&M: [id number] Subs Hosp L3
[2017-12-23] MEDS: guaiFENesin Dm 10 ML UDC PO ×3 (17:26→21:47)
[2017-12-23] MEDS: guaiFENesin 600 MG Tablet PO (21:47)
[2017-12-24 03:07] VITALS: PULSE 93; RESP 18; O2SAT 95
[2017-12-24] MEDS: Ipratropium/Albuterol Sulfate 3 ML AMPUL.NEB INHALATION ×3 (03:07→11:05)
[2017-12-24 03:27] VITALS: BP 112/63; PULSE 99; RESP 16; TEMP 36.4; O2SAT 95
[2017-12-24] MEDS: 0.9% NaCl Peripheral Flush Adult/Peds IV (03:30)
[2017-12-24] MEDS: guaiFENesin Dm 10 ML UDC PO ×3 (05:55→14:04)
[2017-12-24] MEDS: Levothyroxine 50 MCG Tablet PO (05:55)
[2017-12-24 06:45] VITALS: PULSE 88; RESP 16; O2SAT 95
[2017-12-24] MEDS: Acetylcysteine 800 MG/4 ML VIAL.NEB. INHALATION ×2 (06:45→11:05)
[2017-12-24 08:18] LABS: Anion Gap 7 (5-15); BUN 31 mg/dL (7-18); BUN/Creat Ratio 34.9 RATIO (10-20); Calcium,Total 7.9 mg/dL (8.5-10.1); Chloride 102 mmol/L (98-107); Creatinine, Serum 0.89 mg/dL (0.55-1.02); EST Glomerular Filtration Rate 67 mL/min (>60); Est Glom Filt Rate - Afr Amer 81 mL/min (>60); Estimated Creatinine Clearance 50.06 ml/min; Glucose 181 mg/dL (74-106); Potassium 4.4 mmol/L (3.5-5.1); Sodium Level 139 mmol/L (136-145)
[2017-12-24 09:45] VITALS: BP 148/75; PULSE 103; RESP 18; TEMP 36.7; O2SAT 95
[2017-12-24] MEDS: Famotidine 20 MG Tablet PO (09:52)
[2017-12-24] MEDS: Montelukast 10 MG Tablet PO (09:52)
[2017-12-24] MEDS: dilTIAZem CD 180 MG Capsule PO (09:52)
[2017-12-24] MEDS: Doxycycline 100 MG CAPSULE PO (09:52)
[2017-12-24] MEDS: guaiFENesin 600 MG Tablet PO (09:52)
[2017-12-24] MEDS: Magnesium Oxide 400 MG Tablet PO (09:52)
[2017-12-24] MEDS: NYSTATIN 500,000 UNIT/5 ML UDC 500000 UNIT PO ×2 (09:52→14:04)
[2017-12-24] MEDS: Aspirin 81 MG TAB.CHEW PO (09:52)
[2017-12-24] MEDS: oxyCODONE 5 MG Tablet PO (10:00)
[2017-12-24 11:05] VITALS: PULSE 101; RESP 20
--- NOTE | 2017-12-24 11:33 | CPS ---
SPO2 on room air at rest 87% after 2 minutes. Placed back on nasal o2 @2 l/m. Spo2 97%
--- NOTE | 2017-12-24 12:11 | PCM.DC ---
- Discharge Diagnoses Current Active Problems: Current Active and Chronic Problems (Last Updated 11/22/17 @ 09:25 by Francisco Javier Calvo) HTN (hypertension) (Chronic) COPD exacerbation (Acute) You will use the following diet at home:: Cardiac Discharge Activity: May not drive while taking narcotic pain medications. Additional Instructions: Patient requires home oxygen and patient is mobile inside the home and in the community requiring oxygen with portability. Allergies/Adverse Reactions: Allergies levofloxacin [From Levaquin] Allergy (Verified 12/20/17 14:31) Itching/rash clopidogrel [From Plavix] Adverse Reaction (Intermediate, Verified 12/20/17 10:17) Blood Blisters atorvastatin calcium [From Lipitor] Adverse Reaction (Verified 12/20/17 14:31) muscle pains beta blockers Allergy (Uncoded 12/20/17 14:31) CHF pollen,animals Allergy (Uncoded 12/20/17 10:17) Unknown Medications to take at Discharge Cholecalciferol (Vitamin D3) [Vitamin D] 2,000 unit PO DAILY 02/25/14 Levothyroxine [Synthroid] 50 mcg PO DAILY 02/25/14 Tiotropium [place] [Spiriva 18 MCG] 1 puff INHALATION DAILY 02/25/14 Aspirin [Aspirin, Baby] 81 mg PO DAILY@0800 07/05/15 Calcium Carbonate/Vitamin D3 [Calcium 600-Vit D3 800 Tablet] 1 ea PO BID 11/23/15 Magnesium Oxide [Magnesium] 500 mg PO QHS 11/23/15 Multivitamin [Daily Multiple Vitamin] 1 ea PO DAILY 11/23/15 omeprazole 20 mg capsule,delayed release 20 mg PO BID 11/16/17 fluticasone 200 mcg-vilanterol 25 mcg/dose powder for inhalation 1 puff INHALATION DAILY 30 Days #60 11/22/17 montelukast 10 mg tablet 10 mg PO QHS 30 Days #30 11/22/17 Albuterol Aerosols [Ventolin Aerosols] 2.5 mg INHALATION BID PRN 12/20/17 Cyclobenzaprine [Flexeril] 10 mg PO TID PRN PRN 12/20/17 Diltiazem CD [Cardizem CD] 180 mg PO DAILY 12/20/17 Furosemide [Lasix] 20 mg PO DAILY PRN 12/20/17 Oxycodone HCl/Acetaminophen [Percocet 5-325] 1 tablet PO Q6H PRN PRN 12/20/17 Ranitidine HCl [Zantac 75] 75 mg PO DAILY PRN 12/20/17 Rosuvastatin Calcium [Crestor] 5 mg PO QODAY 12/20/17 Ubidecarenone [Co Q-10] 200 mg PO DAILY 12/20/17 Doxycycline 100 mg PO BID #10 12/24/17 Guaifenesin Dm [Robitussin Dm] 10 ml PO Q4HWA 7 Days udc 12/24/17 Prednisone See Taper PO DAILY #30 tab 12/24/17 The following prescriptions were given: Prednisone See Taper PO DAILY #30 tab Primary Care Physician: Mercy Elliott [Primary Care Provider] - Please follow up with your Primary Care Physician in: IN 2 WEEKS Please Follow Up With: Des Marino MD When: in 4 weeks for COPD
--- NOTE | 2017-12-24 12:14 | DCINST_ITS ---
- Discharge Diagnoses Current Active Problems: Current Active and Chronic Problems (Last Updated 11/22/17 @ 09:25 by Francisco Javier Calvo) HTN (hypertension) (Chronic) COPD exacerbation (Acute) You will use the following diet at home:: Cardiac Discharge Activity: May not drive while taking narcotic pain medications. Additional Instructions: Patient requires home oxygen and patient is mobile inside the home and in the community requiring oxygen with portability. Allergies/Adverse Reactions: Allergies levofloxacin [From Levaquin] Allergy (Verified 12/20/17 14:31) Itching/rash clopidogrel [From Plavix] Adverse Reaction (Intermediate, Verified 12/20/17 10: 17) Blood Blisters atorvastatin calcium [From Lipitor] Adverse Reaction (Verified 12/20/17 14:31) muscle pains beta blockers Allergy (Uncoded 12/20/17 14:31) CHF pollen,animals Allergy (Uncoded 12/20/17 10:17) Unknown Medications to take at Discharge Cholecalciferol (Vitamin D3) [Vitamin D] 2,000 unit PO DAILY 02/25/14 Levothyroxine [Synthroid] 50 mcg PO DAILY 02/25/14 Tiotropium [place] [Spiriva 18 MCG] 1 puff INHALATION DAILY 02/25/14 Aspirin [Aspirin, Baby] 81 mg PO DAILY@0800 07/05/15 Calcium Carbonate/Vitamin D3 [Calcium 600-Vit D3 800 Tablet] 1 ea PO BID Magnesium Oxide [Magnesium] 500 mg PO QHS 11/23/15 Multivitamin [Daily Multiple Vitamin] 1 ea PO DAILY 11/23/15 omeprazole 20 mg capsule,delayed release 20 mg PO BID 11/16/17 fluticasone 200 mcg-vilanterol 25 mcg/dose powder for inhalation 1 puff INHALATION DAILY 30 Days #60 11/22/17 montelukast 10 mg tablet 10 mg PO QHS 30 Days #30 11/22/17 Albuterol Aerosols [Ventolin Aerosols] 2.5 mg INHALATION BID PRN 12/20/17 Cyclobenzaprine [Flexeril] 10 mg PO TID PRN PRN 12/20/17 Diltiazem CD [Cardizem CD] 180 mg PO DAILY 12/20/17 Furosemide [Lasix] 20 mg PO DAILY PRN 12/20/17 Oxycodone HCl/Acetaminophen [Percocet 5-325] 1 tablet PO Q6H PRN PRN 12/20/17 Ranitidine HCl [Zantac 75] 75 mg PO DAILY PRN 12/20/17 Rosuvastatin Calcium [Crestor] 5 mg PO QODAY 12/20/17 Ubidecarenone [Co Q-10] 200 mg PO DAILY 12/20/17 Doxycycline 100 mg PO BID #10 12/24/17 Guaifenesin Dm [Robitussin Dm] 10 ml PO Q4HWA 7 Days udc 12/24/17 Prednisone See Taper PO DAILY #30 tab 12/24/17 The following prescriptions were given: Prednisone See Taper PO DAILY #30 tab Primary Care Physician: Mercy Elliott [Primary Care Provider] - Please follow up with your Primary Care Physician in: IN 2 WEEKS Please Follow Up With: Des Marino MD When: in 4 weeks for COPD
--- NOTE | 2017-12-24 12:14 | PCM.DC.SUM ---
Discharge Date and Diagnosis - Problem List Patient Problems: Active and Suspected Problems (Last Updated 11/22/17 @ 09:25 by [employer]) COPD exacerbation (Acute) Date of Admission: 12/20/17 Date of Discharge: 12/24/17 - Primary Discharge Diagnosis Active and Suspected Problems (Last Updated 11/22/17 @ 09:25 by Francisco Javier [employer]) 1. Acute hypoxic respiratory failure secondary to COPD exacerbation with moderate acute bronchitis due to Human Metapneumo virus; failed outpatient therapy: Patient has acute viral bronchitis due to human Raven pneumo virus. 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 10/14/15 COPD (chronic obstructive pulmonary disease) (Chronic) Essential tremor (Chronic) Chronic back pain (Chronic) HLD (hyperlipidemia) (Chronic) Asthma (Chronic) Hospital Course and Treatment Operations: None Summary of Care Provided: The patient is a 72 year old F [] This 72 year female with history of hypertension, dyslipidemia, GERD, Valvular Heart Disease s/p MVR (Bovine) and Aortic Stenosis s/p AVR (St Rusty Trifecta), CAD s/p CABG x 1 and PCI x 1, Essential Tremor, Asthma/Chronic COPD/Bronchiectasis, Hx PE Remotely, Hx CVA, Chronic Diastolic CHF, R Carotid Artery Stenosis treated for severe cough with productive mucus sputum, dyspnea with mild exertion for about 1 week. She failed outpatient treatment with the steroid taper and oral doxycycline for about 2 days. 1. Acute hypoxic respiratory failure secondary to COPD exacerbation with moderate acute bronchitis due to Human Metapneumo virus; failed outpatient therapy: Patient is being admitted to the regular [facility] floor. CT angiogram chest shows chronic changes but no PE. On oxygen, bronchodilator, IV Solu-Medrol, incentive spirometry and IV doxycycline. Respiratory panel is positive of human Raven pneumo virus. Patient has leukocytosis most probably reactive secondary to steroid. Patient has acute viral bronchitis due to human Raven pneumo virus. This might be the trigger for COPD exacerbation 2. Coronary artery disease status post CABG and PCI ?1 with valvular heart disease status post MVR, bovine aortic stenosis status post AVR as mentioned above: On aspirin, statin and on Cardizem. Patient is allergic or probably could not tolerate beta-bismark in the past. 3. Chronic diastolic heart failure: Patient had echo in March 2016 which shows normal LV size and systolic function with EF 50%. Normal right and left atrium. Normal right ventricle. Mild aortic stenosis with bioprosthetic aortic valve. Bioprosthetic mitral valve. 4 other comorbidities include right carotid artery stenosis, history of CVA, hypothyroidism, hypertension, dyslipidemia, GERD: This complicates the present care and prolong recovery. 5. DVT prophylaxis: SCDs and heparin. Patient requires home oxygen and patient is mobile inside the home and in the community requiring oxygen with portability. Pulse ox is 95% on 3 L of oxygen at rest. The patient is discharged home on oxygen. Medication reconciliation done. Follow-up instructions completed. Discharged on tapering dose of prednisone and doxycycline. Total time spent, exact 32 minutes on discharge meds reconciliation, examination, review of imaging and blood test and discussion with the patient on follow-up instructions. Discharge Activity: May not drive while taking narcotic pain medications. Home Medications: Medications to take at Discharge Cholecalciferol (Vitamin D3) [Vitamin D] 2,000 unit PO DAILY 02/25/14 Levothyroxine [Synthroid] 50 mcg PO DAILY 02/25/14 Tiotropium [place] [Spiriva 18 MCG] 1 puff INHALATION DAILY 02/25/14 Aspirin [Aspirin, Baby] 81 mg PO DAILY@0800 07/05/15 Calcium Carbonate/Vitamin D3 [Calcium 600-Vit D3 800 Tablet] 1 ea PO BID 11/23/15 Magnesium Oxide [Magnesium] 500 mg PO QHS 11/23/15 Multivitamin [Daily Multiple Vitamin] 1 ea PO DAILY 11/23/15 omeprazole 20 mg capsule,delayed release 20 mg PO BID 11/16/17 fluticasone 200 mcg-vilanterol 25 mcg/dose powder for inhalation 1 puff INHALATION DAILY 30 Days #60 11/22/17 montelukast 10 mg tablet 10 mg PO QHS 30 Days #30 11/22/17 Albuterol Aerosols [Ventolin Aerosols] 2.5 mg INHALATION BID PRN 12/20/17 Cyclobenzaprine [Flexeril] 10 mg PO TID PRN PRN 12/20/17 Diltiazem CD [Cardizem CD] 180 mg PO DAILY 12/20/17 Furosemide [Lasix] 20 mg PO DAILY PRN 12/20/17 Oxycodone HCl/Acetaminophen [Percocet 5-325] 1 tablet PO Q6H PRN PRN 12/20/17 Ranitidine HCl [Zantac 75] 75 mg PO DAILY PRN 12/20/17 Rosuvastatin Calcium [Crestor] 5 mg PO QODAY 12/20/17 Ubidecarenone [Co Q-10] 200 mg PO DAILY 12/20/17 Doxycycline 100 mg PO BID #10 cap 12/24/17 Guaifenesin Dm [Robitussin Dm] 10 ml PO Q4HWA 7 Days udc 12/24/17 Prednisone See Taper PO DAILY #30 tab 12/24/17 Following Prescrptions Were Given to Patient: Prednisone See Taper PO DAILY #30 tab Doxycycline 100 mg PO BID #10 cap Primary Care Physician: Mercy Elliott [Primary Care Provider] - Please follow up with your Primary Care Physician in: IN 2 WEEKS Please Follow Up With: Des Marino MD When: in 4 weeks for COPD Medical Necessity - Tobacco Use Smoking Status: Former smoker Tobacco Use: Non-smoker Meaningful Use Info Meaningful Use Diagnoses (Choose all that apply): None applicable Code Visit Inpatient E&M: 89768 Disch Hosp
[2017-12-24 14:06] VITALS: BP 133/74; PULSE 110; RESP 18; TEMP 36.7; O2SAT 94
== END 2017-12-24 14:56 | disposition home or self-care (01) | DRG 190 ==
LOC: ED 11:07 → MS3 14:20
PROVIDERS: Admitting Provider Family Medicine; Emergency Provider Emergency Medicine; Family Provider Nurse Practitioner; PCP Nurse Practitioner; Visit Provider Internal Medicine
DX: J44.1 Chronic obstructive pulmonary disease with (acute) exacerbation (principal); J96.01 Acute respiratory failure with hypoxia; I27.20 Pulmonary hypertension, unspecified; I50.32 Chronic diastolic (congestive) heart failure; I11.0 Hypertensive heart disease with heart failure; J20.8 Acute bronchitis due to other specified organisms; J44.0 Chronic obstructive pulmonary disease with (acute) lower respiratory infection; G25.0 Essential tremor; G89.29 Other chronic pain; M54.9 Dorsalgia, unspecified; E78.5 Hyperlipidemia, unspecified; K21.9 Gastro-esophageal reflux disease without esophagitis; I06.0 Rheumatic aortic stenosis; I25.10 Atherosclerotic heart disease of native coronary artery without angina pectoris; I65.21 Occlusion and stenosis of right carotid artery; E03.9 Hypothyroidism, unspecified; Z86.73 Personal history of transient ischemic attack (TIA), and cerebral infarction without residual deficits; Z95.1 Presence of aortocoronary bypass graft; Z79.82 Long term (current) use of aspirin; Z95.3 Presence of xenogenic heart valve; Z79.899 Other long term (current) drug therapy; Z86.711 Personal history of pulmonary embolism; Z87.891 Personal history of nicotine dependence
CPT/HCPCS: 36415; 71046; 71275; 80048; 83036; 83735; 83880; 84484; 85025; 87070; 87205; 87633; 93005; 94640; 94668; 97161; 97165; 97802; 99285; J7030; Q9967; A4216

== ENCOUNTER → 2018-01-31 13:51 | Outpatient (CLI) | payer MEDICARE, OTHER, SELFPAY ==
--- NOTE | 2018-01-31 13:55 | RAD_ITS ---
STUDY: X-RAY - RIGHT ANKLE REASON FOR EXAM: Female, 72 years old. Trauma, status post fall TECHNIQUE: 3 view(s) of the ankle. COMPARISON: None. FINDINGS: The bones are demineralized. There is a nondisplaced fracture of the distal fibula. Normal tibiotalar articulation and ankle mortise. Normal visualized talus and calcaneus. The visualized subtalar, talonavicular, calcaneocuboid and tarsal articulations are normal. There is lateral soft tissue swelling. RAD/Ankle min 3 Views IMPRESSION: Nondisplaced distal fibular fracture. Electronically Signed: Miguelito Quick DO at 15:18 EDT Tel , Service support ,
--- NOTE | 2018-01-31 13:55 | RAD_ITS ---
STUDY: X-RAY - RIGHT SHOULDER REASON FOR EXAM: Female, 72 years old. Right shoulder pain, status post fall TECHNIQUE: 4 view(s) of the shoulder. COMPARISON: None. FINDINGS: Normal glenohumeral articulation. There is degenerative arthrosis of the acromioclavicular joint without inferior osseous spur formation. Normal acromion. The bones are demineralized. Normal humeral head and visualized proximal humerus. Sternal wires are visualized. Normal visualized pulmonary apex. RAD/Shoulder min 2 Views IMPRESSION: Degenerative changes. No acute bony abnormality. Electronically Signed: Miguelito Quick DO at 15:19 EDT Tel , Service support ,
== END ==
PROVIDERS: Family Provider Nurse Practitioner; PCP Nurse Practitioner; Visit Provider Nurse Practitioner Gerontology
DX: M25.511 Pain in right shoulder (principal); M25.571 Pain in right ankle and joints of right foot
CPT/HCPCS: 73030; 73610

== ENCOUNTER 2018-02-06 12:05 | Inpatient (IN) | payer MEDICARE, OTHER, SELFPAY ==
[2018-02-06] VITALS (13 sets, daily range): BP systolic 101–136; BP diastolic 47–74; PULSE 110–143; RESP 16–22; TEMP 36–39.3; O2SAT 89–98; BMI 28.3; BMI 28.7
[2018-02-06 12:54] LABS: Absolute Lymphocyte Count 2.53 X10^3/ul (0.83-4.51); Absolute Neutrophil Count 19.2 X10^3/uL (2.0-7.7); Basophil# 0.03 X10^3/uL; Basophil% 0.1 % (0-1); Eosinophil# 0.09 X10^3/uL; Eosinophils% 0.4 % (0-5); Hematocrit 43.1 % (37-47); Lymphocyte # 2.53 X10^3/ul (4.0); Lymphocyte % 10.1 % (19-41); Mean Corp Hgb Conc 32.5 g/gl (32-36); Mean Corpuscular Hgb 30.8 pg (27.0-32.0); Mean Corpuscular Volume 94.9 fL (81-99); Mean Platelet Vol. 12.4 fl (6.2-12.0); Monocyte# 3.15 X10^3/uL; Monocyte% 12.5 % (0-10); Neutrophil % 76.3 % (47-70); Platelet Count 86 K/mm3 (150-450); RBC Distribution Width CV 14.3 % (11.6-14.6); RBC Distribution Width SD 49.4 fl (35.1-43.9); Red Blood Count 4.54 M/mm3 (4.2-5.4); White Blood Count 25.1 K/mm3 (4.4-11.0)
[2018-02-06 12:57] LABS: Anion Gap 11 (5-15); BUN 24 mg/dL (7-18); BUN/Creat Ratio 15.3 RATIO (10-20); Calcium,Total 8.9 mg/dL (8.5-10.1); Chloride 101 mmol/L (98-107); Creatinine, Serum 1.57 mg/dL (0.55-1.02); EST Glomerular Filtration Rate 35 mL/min (>60); Est Glom Filt Rate - Afr Amer 42 mL/min (>60); Estimated Creatinine Clearance 27.19 ml/min; Glucose 109 mg/dL (74-106); Potassium 4.3 mmol/L (3.5-5.1); Sodium Level 137 mmol/L (136-145)
[2018-02-06 12:58] LABS: Differential Indicated SCAN CRITERIA MET; POSITIVE COUNT NO; POSITIVE DIFFERENTIAL YES; POSITIVE MORPHOLOGY NO
[2018-02-06 13:26] LABS: Color, Urine Yellow (Yellow); Glucose, Dipstick Normal (Normal); Ketone-Dipstick 50 mg/dl (Negative); Leukocyte Esterase-Dipstick 500 /ul (Negative); Nitrite-Dipstick Negative (Negative); Occult Blood-Urine 150 /ul (Negative); Protein-Dipstick 100 mg/dl (Negative); Specific Gravity, Urine 1.025 (1.002-1.030); Urine Clarity Sl. Cloudy (Clear); Urine Urobilinogen 1 mg/dl (Normal)
[2018-02-06 13:28] LABS: Urine Bilirubin Dipstick 1 mg/dL (Negative)
[2018-02-06 13:33] LABS: Bacteria 2+ /hpf (None Seen); Mucous, Urine 1+ /hpf (<or=2+); Red Blood Cells-Urine 10-25 SEEN /hpf (0-5); Squamous Epithelial Cells - UA 0-5 SEEN /hpf (5-10); White Blood Cells 50-100 SEEN /hpf (0-5)
--- NOTE | 2018-02-06 13:49 | EKG12_ITS ---
Test Reason : GEN ILLNESS Blood Pressure : / mmHG Vent. Rate : 104 BPM Atrial Rate : 104 BPM P-R Int : 150 ms QRS Dur : 072 ms QT Int : 354 ms P-R-T Axes : 076 -22 057 degrees QTc Int : 465 ms Sinus tachycardia Otherwise normal ECG Confirmed by KRISTOPHER WHATLEY, SERENA ([id number]), map editor MAIKOL MCDOWELL ([id number]) on 02/09/2018 1:58:39 PM Referred By: Mary Schmid Confirmed By:SERENA SUMMERS MD
--- NOTE | 2018-02-06 13:49 | RAD_ITS ---
STUDY: X-RAY CHEST REASON FOR EXAM: Female, 72 years old. Recent fall. TECHNIQUE: PA and lateral views of the chest. COMPARISON: December 18, 2017 FINDINGS: There is hyperinflation of the lungs consistent with chronic obstructive lung disease (COPD). There are interstitial fibrotic changes of the lungs. There is no demonstrated pleural abnormality. Sternal cerclage wires are present from a prior sternotomy. There is mitral and aortic valve replacement . Normal mediastinum and michele. Normal visualized pulmonary arteries. Normal visualized aortic arch and descending thoracic aorta. There are diffuse degenerative changes of the visualized thoracic spine. Normal visualized ribs, clavicles, and shoulders. There is no demonstrated abnormality of the visualized soft tissue structures of the upper abdomen. RAD/Chest PA and Lateral IMPRESSION: Degenerative changes, as described above. No demonstrated acute cardiopulmonary process. Electronically Signed: Fred Gomez MD at 15:53 EDT , Service support ,
--- NOTE | 2018-02-06 13:50 | CT_ITS ---
STUDY: CT BRAIN WITHOUT CONTRAST REASON FOR EXAM: Female, 72 years old. Fall 1 week ago. Head injury. Dizziness. RADIATION DOSAGE (If Supplied By Facility): CTDIvol = ( 44.99 ) mGy, DLP = ( 745.49 ) mGycm TECHNIQUE: Transaxial CT imaging of the brain was performed without administration of intravenous contrast material. Individualized dose optimization techniques were used for this CT. COMPARISON: MRI July 31, 2013. FINDINGS: Normal soft tissue structures. Normal calvarium. There is mild right mastoid opacification. Normal size ventricles and extra-axial spaces for the patient's age. There are areas of decreased attenuation within the white matter tracts of the supratentorial brain, consistent with microvascular disease changes. Normal basal ganglia and thalami. Normal brainstem. Infarcts of the right and left cerebellum. There is no intracranial hemorrhage. There are no findings of an acute ischemic infarction. Normal visualized paranasal sinuses. CT/Brain/Head without Contrast IMPRESSION: Chronic involutional changes of the brain. No hemorrhage. Electronically Signed: Fred Gomez MD at 15:33 EDT , Service support ,
[2018-02-06] MEDS: 0.9% Normal Saline 1,000 ML 1000 ML IV (14:17)
--- NOTE | 2018-02-06 16:16 | ED.VISSUMM ---
- ER Visit Summary Date of Service: 02/06/18 Chief Complaint: Multiple complaints History of Present Illness: The patient is a 72 F who presents with multiple complaints. She fell last week. She was seen by her primary care provider and by orthopedics. She has a right fibular fracture and some bruising on left leg as well. She also hit her head. She was told by orthopedics that if she developed any headache nausea or dizziness that she should be seen in the ER. She notes some head pressure and is lightheaded but believes this may be related to dehydration. She is also had urinary frequency and urgency. She woke a couple of nights ago and felt short of breath and had chills and then had one episode of nonbloody nonbilious emesis. She had similar symptoms again last night. She complains of some back pain but this is chronic. She is intermittently felt short of breath but does not currently. She has a nonproductive cough. She was started on steroids by her primary care provider as well. Physical Examination: Heart rate 110 vitals otherwise normal Moist mucous membranes Heart regular rhythm slightly tachycardic Lungs are clear Abdomen soft, nontender to palpation Alert oriented GCS 15 no focal or lateralizing neurological deficits Test Results: EKG shows sinus rhythm at a rate of 104. Laboratory studies notable for white blood cell count 25,000 and platelets of 86,000. BUN is 24 with creatinine 1.57. Urinalysis shows 500 leukocyte esterase, 50-100 WBCs, 10-25 RBCs. Lactic acid pending and blood cultures have been sent. Chest x-ray shows no acute process. CT of the head shows chronic changes only. Emergency Department Course and Treatment: She was treated with IV fluids. She does have significant leukocytosis on labs and evidence of acute kidney injury. Her heart rate was less than 100 but on repeat is ranging from 100-120. UA is consistent with infection. Given acute kidney injury she meet severe sepsis criteria. She was treated with IV Zosyn. A 30 cc/kg IV fluid boluses been ordered. She will be admitted. Blood pressure is stable. Repeat temperature normal. Skin normal on reexamination as well, no mottling. Treatment Plan: [] Disposition: Admit Impression: UTI Acute kidney injury Severe sepsis Thrombus cytopenia This note was generated with [employer] dictation software. It may contain incorrect words, spelling, and punctuation that were not noted in review of the chart prior to signing ED Disposition - Plan for ED Patient: Chief Complaint: General Illness Referrals: Mercy Elliott [Primary Care Provider] -
[2018-02-06] MEDS: 0.9% Normal Saline 1,000 ML 999 ML IV ×2 (16:21→18:49)
--- NOTE | 2018-02-06 16:38 | NURSING ---
107 SEVERE SEPSIS WITH UTI LOWELL
[2018-02-06] MEDS: 0.9% Normal Saline 1,000 ML 250 ML IV (16:47)
--- NOTE | 2018-02-06 17:05 | PCM.HP.STD ---
<Michelle Quick - Last Filed: 02/06/18 17:44> Problem List (1) HTN (hypertension) Status: Chronic (2) Rheumatic aortic stenosis with regurgitation Status: Chronic (3) Atherosclerotic heart disease of [place] coronary artery without angina pectoris Status: Chronic (4) H/O mitral valve replacement Status: Chronic Comment: MVR w/ 27mm Ivan-Menon bovine pericardial mitral valve. 10/14/15 (5) H/O coronary artery bypass surgery Status: Chronic Comment: CABG X 1 SVG- RCA, AVR w/ 19mm St Rusty Trifecta aortic valve (6) Occlusion and stenosis of right carotid artery Status: Chronic (7) Chronic diastolic heart failure Status: Chronic (8) Other secondary pulmonary hypertension Status: Chronic (9) Rheumatic mitral stenosis with insufficiency Status: Chronic (10) Stroke Status: Chronic (11) Family history of ischemic heart disease Status: Chronic (12) S/P PTCA (percutaneous transluminal coronary angioplasty) Status: Chronic Comment: PCI BMS to CX/OM 12/03/13 @ [facility] (13) CAD (coronary artery disease) Status: Chronic (14) Aortic valve disease Status: Chronic (15) Mitral valve disease Status: Chronic Comment: MVR w/ 27mm Ivan-Menon bovine pericardial mitral valve. 10/14/15 (16) COPD (chronic obstructive pulmonary disease) Status: Chronic (17) Essential tremor Status: Chronic (18) Chronic back pain Status: Chronic (19) HLD (hyperlipidemia) Status: Chronic (20) Asthma Status: Chronic (21) UTI (urinary tract infection) Status: Acute (22) Hypothyroidism Status: Chronic (23) GERD (gastroesophageal reflux disease) Status: Chronic History of Present Illness Date of Admission: 02/06/18 Chief Complaint: Nausea, vomiting, chills, shortness of breath, cough, wheezing. The patient is a 72 year old F who presents to the emergency room with multiple complaints including nausea, vomiting, chills, lower back pain, shortness of breath, nonproductive cough, wheezing. She denies urinary symptoms. No diarrhea. She denies exposure to sick persons. She does state she was admitted approximately a month ago with RSV and COPD exacerbation and was discharged at that time with home oxygen which she uses as needed. Patient denies history of UTIs. She recently had a fall which resulted in right fibular fracture. She was seen by orthopedics and is to follow-up later this week. Her right foot is in currently in a brace. Patient follows with Dr. Pickard for COPD who prescribed a prednisone taper which she began taking 01/29/2018. Patient's past medical history includes COPD, hypertension, hyperlipidemia, chronic diastolic CHF, aortic and mitral valvular disease status post mitral valve replacement, CAD status post PCI, CVA, carotid artery disease. Past Medical History Past Medical History (Chronic Problems): Chronic Problems (Last Updated 11/22/17 @ 09:25 by Francisco Javier Calvo) HTN (hypertension) (Chronic) Hypothyroidism (Chronic) GERD (gastroesophageal reflux disease) (Chronic) Rheumatic aortic stenosis with regurgitation (Chronic) Atherosclerotic heart disease of [place] coronary artery without angina pectoris (Chronic) H/O mitral valve replacement (Chronic) MVR w/ 27mm Ivan-Menon bovine pericardial mitral valve. 10/14/15 H/O coronary artery bypass surgery (Chronic) CABG X 1 SVG- RCA, AVR w/ 19mm St Rusty Trifecta aortic valve Occlusion and stenosis of right carotid artery (Chronic) Chronic diastolic heart failure (Chronic) Other secondary pulmonary hypertension (Chronic) Rheumatic mitral stenosis with insufficiency (Chronic) Stroke (Chronic) Family history of ischemic heart disease (Chronic) S/P PTCA (percutaneous transluminal coronary angioplasty) (Chronic) PCI BMS to CX/OM 12/03/13 @ [facility] CAD (coronary artery disease) (Chronic) Aortic valve disease (Chronic) Mitral valve disease (Chronic) MVR w/ 27mm Ivan-Menon bovine pericardial mitral valve. 10/14/15 COPD (chronic obstructive pulmonary disease) (Chronic) Essential tremor (Chronic) Chronic back pain (Chronic) HLD (hyperlipidemia) (Chronic) Asthma (Chronic) Allergies levofloxacin [From Levaquin] Allergy (Verified 02/06/18 12:10) Itching/rash clopidogrel [From Plavix] Adverse Reaction (Intermediate, Verified 02/06/18 12:10) Blood Blisters atorvastatin calcium [From Lipitor] Adverse Reaction (Verified 02/06/18 12:10) muscle pains beta blockers Allergy (Uncoded 02/06/18 12:10) CHF pollen,animals Allergy (Uncoded 02/06/18 12:10) Unknown Home Medications: Ambulatory Orders Medication Instructions Recorded Cholecalciferol (Vitamin D3) 2,000 unit PO BID 02/25/14 [Vitamin D] Levothyroxine [Synthroid] 50 mcg PO DAILY 02/25/14 Tiotropium [place] [Spiriva 18 MCG] 1 puff INHALATION DAILY 02/25/14 Aspirin [Aspirin, Baby] 81 mg PO DAILY@0800 07/05/15 Calcium Carbonate/Vitamin D3 1 ea PO BID 11/23/15 [Calcium 600-Vit D3 800 Tablet] Magnesium Oxide [Magnesium] 500 mg PO QHS 11/23/15 Multivitamin [Daily Multiple 1 ea PO DAILY 11/23/15 Vitamin] fluticasone 200 mcg-vilanterol 25 1 puff INHALATION DAILY 30 Days #60 11/22/17 mcg/dose powder for inhalation montelukast 10 mg tablet 10 mg PO QHS 30 Days #30 11/22/17 Albuterol Aerosols [Ventolin 2.5 mg INHALATION BID PRN PRN 12/20/17 Aerosols] Diltiazem CD [Cardizem CD] 180 mg PO DAILY 12/20/17 Furosemide [Lasix] 20 mg PO DAILY PRN 12/20/17 Oxycodone HCl/Acetaminophen 1 tablet PO Q6H PRN PRN 12/20/17 [Percocet 5-325] Ranitidine HCl [Zantac 75] 75 mg PO QHS 12/20/17 Rosuvastatin Calcium [Crestor] 5 mg PO QODAY 12/20/17 Ubidecarenone [Co Q-10] 200 mg PO DAILY 12/20/17 Prednisone See Taper PO DAILY #30 tab 12/24/17 omeprazole 20 mg capsule,delayed 20 mg PO BID #180 cap 01/22/18 release Surgical History: - - MVR and AVR, BL foot surgery, Nephrolithiasis interventions, PCI, CABG x 1, L THR. Psychiatric History: No pertinent psych hx DEPARTMENT ASSISTANT History: No pertinent DEPARTMENT ASSISTANT history Lives: Spouse/ Significant Other Smoking Status: Former smoker Alcohol: None Drugs: None - *Family History Maternal History Items: Heart Disease, Hypertension Paternal History Items: Heart Disease, Hypertension Review of Systems Constitutional: Reports: Chills, Malaise, Fatigue HEENT: Denies: Head Aches, Sinus Congestion, Sinus Drainage Cardiovascular: Reports: Light Headedness. Denies: Chest Pain, Edema, Palpitations, Syncope Respiratory: Reports: Cough, Shortness of Breath, Wheezing Gastrointestinal: Reports: Nausea, Vomiting. Denies: Abdominal Pain, Constipation, Diarrhea Genitourinary: Denies: Dysuria, Frequency, Urgency Musculoskeletal: Denies: Joint Pain, Joint Tenderness Skin: Denies: Rash, Wounds Neurological: Denies: Numbness, Tingling, Focal weakness Psychiatric: Denies: Anxiety, Depression, Homicidal Ideations, Suicidal Ideations Hematologic/ Lymphatic: Denies: Easy Bruising, Easy Bleeding VTE Information - Inpt Only VTE Present on Admission: No VTE Mechan Device Prophylaxis: None VTE Pharm Prophylaxis ordered?: Yes Patient Problems: Active and Suspected Problems (Last Updated 11/22/17 @ 09:25 by Francisco Javier Calvo) UTI (urinary tract infection) (Acute) - Physical Exam General: Alert, Oriented x3, Cooperative HEENT: Atraumatic, PERRLA, EOMI, Normocephalic Neck: Supple, No JVD, Negative Carotid Bruits Lungs: Diminished, Wheezes Cardiovascular: Regular Rhythm, Normal S1, Normal S2, Tachycardic Abdomen: Bowel Sounds Present, Soft, Non Tender, Non-Distended, Obese Extremities: No clubbing, No cyanosis, No edema, Capillary Refill Less than 3 Seconds Skin: No rashes, No breakdown Musculoskeletal: No Tenderness to Palpation of Joints or Extremities, - - Right foot in boot/brace Neurological: Cranial nerves II-XII grossly intact Psych/Mental Status: Normal Affect, Appropriate Vital Signs Temp Pulse Resp BP Pulse Ox 98.4 F 120 H 18 123/60 H 96 02/06/18 16:15 02/06/18 17:01 02/06/18 17:01 02/06/18 17:01 02/06/18 17:01 Assessment/Plan Active and Suspected Problems (Last Updated 11/22/17 @ 09:25 by Francisco Javier Calvo) UTI (urinary tract infection) (Acute) 1. Severe sepsis secondary to acute UTI-patient with positive urinalysis, leukocytosis, tachycardia, acute kidney injury on admission. Patient received fluid bolus and IV Zosyn in ER. Continue IV fluids. Begin IV rocephin. Tylenol as needed for fever. Zofran as needed for nausea. Blood culture sent. Obtain urine culture. 2. Acute kidney injury- IV fluids. Repeat BMP in a.m. 3. Chronic COPD with chronic hypoxic respiratory failure- recent exacerbation. Finishing prednisone taper prescibed by Dr. Pickard 01/29/18. Patient with wheezing on examination. She states her breathing is improving. Continue taper as previously prescribed. If breathing worsens or continues to have significant wheezing, transition to IV Solu-Medrol. Patient discharged 12/24/17 with home oxygen which she uses as needed. She was hospitalized at that time for COPD exacerbation secondary to human metapneumo virus. Check respiratory panel given continued sx. 4. Recent nondisplaced distal fibular fracture secondary to mechanical fall prior to admission-continue right foot boot/brace. Continue outpatient follow-up as previously scheduled with orthopedic surgery. PT/OT. PRN pain regimen. 5. CAD status post CABG ?1 and PCI-continue aspirin, statin. 6. Hypertension-stable, continue home regimen. 7. Hyperlipidemia-continue statin. 8. History of CVA-continue aspirin, statin. 9. Hypothyroidism-continue Synthroid. 10. Chronic diastolic CHF-maintain on aspirin, statin, Cardizem. Lasix on hold secondary to #2. 11. Right coronary artery stenosis-continue outpatient follow-up. 12. Valvular heart disease-rheumatic aortic stenosis status post aortic valve replacement, status post mitral valve replacement (bovine). 13. GERD-continue omeprazole. 14. History of PE-remotely. No recurrence. 15. Chronic back pain-as needed pain regimen. DVT prophylaxis- Heparin SC This patient was seen by Michelle Quick NP-C under the supervision of Dr. Tolbert. <Carlos A Tolbert - Last Filed: 02/06/18 19:47> History of Present Illness Seen and examined. Patient was admitted with multiple complaints as mentioned above including progressive worsening of shortness of breath, cough with sometimes clear sputum, wheezing vomiting nausea. She follows Dr. Pickard and his history of COPD with recent RSV infection about a month ago. I think she also has bronchiectasis, coronary artery status post mitral and aortic valve replacement but denies arrhythmia. Patient found to have sinus tachycardia, heart rate going upto high 140/min. [] Past Medical History Allergies levofloxacin [From Levaquin] Allergy (Verified 02/06/18 12:10) Itching/rash clopidogrel [From Plavix] Adverse Reaction (Intermediate, Verified 02/06/18 12:10) Blood Blisters atorvastatin calcium [From Lipitor] Adverse Reaction (Verified 02/06/18 12:10) muscle pains beta blockers Allergy (Uncoded 02/06/18 12:10) CHF pollen,animals Allergy (Uncoded 02/06/18 12:10) Unknown - Physical Exam Lungs: Diminished, Wheezes Cardiovascular: Regular Rhythm, Normal S1, Normal S2, Tachycardic Extremities: Edema Musculoskeletal: - Vital Signs Temp Pulse Resp BP Pulse Ox 98.1 F 143 H 22 H 136/74 H 96 02/06/18 17:33 02/06/18 19:04 02/06/18 17:33 02/06/18 17:33 02/06/18 17:33 Oxygen Delivery Method Room Air Weight: 162 lb Body Mass Index (BMI) 28.7 Intake and Output for Last 24 Hours 02/04/18 02/05/18 02/06/18 23:59 23:59 23:59 Intake Total 120 / 120 Balance 120 / 120 Assessment/Plan This patient was seen in conjunction with Michelle LEVIN. I have independently interviewed and examined the patient and reviewed pertinent history, examination findings, laboratory and plan of management. I have reviewed the note and agree with the documented findings with the few additional points. In brief, patient is admitted for severe sepsis most probably from UTI or possible bronchiectasis/COPD exacerbation. Patient found to have sinus tachycardia with mild hypotension, blood pressure 103/54. On IV fluid normal saline bolus. On IV Rocephin and Zithromax. Follow urine culture and urinary antigens for Streptococcus and Legionella. Chest x-ray does not show acute change. EKG shows sinus tachycardia. Lactic acid normal. Patient also has acute kidney injury; on IV fluid normal saline resuscitation I have discussed my assessment with Michelle LEVIN and orders have been reviewed. Code Visit Inpatient E&M: 12042 Init Hosp L3
[2018-02-06 17:06] LABS: Lactic Acid 1.3 mmol/L (0.4-2.0)
--- NOTE | 2018-02-06 17:15 | HP.PCM_ITS ---
<Michelle Quick - Last Filed: 02/06/18 17:44> Problem List (1) HTN (hypertension) Status: Chronic (2) Rheumatic aortic stenosis with regurgitation Status: Chronic (3) Atherosclerotic heart disease of [place] coronary artery without angina pectoris Status: Chronic (4) H/O mitral valve replacement Status: Chronic Comment: MVR w/ 27mm Ivan-Menon bovine pericardial mitral valve. 10/14/15 (5) H/O coronary artery bypass surgery Status: Chronic Comment: CABG X 1 SVG- RCA, AVR w/ 19mm St Rusty Trifecta aortic valve (6) Occlusion and stenosis of right carotid artery Status: Chronic (7) Chronic diastolic heart failure Status: Chronic (8) Other secondary pulmonary hypertension Status: Chronic (9) Rheumatic mitral stenosis with insufficiency Status: Chronic (10) Stroke Status: Chronic (11) Family history of ischemic heart disease Status: Chronic (12) S/P PTCA (percutaneous transluminal coronary angioplasty) Status: Chronic Comment: PCI BMS to CX/OM 12/03/13 @ [facility] (13) CAD (coronary artery disease) Status: Chronic (14) Aortic valve disease Status: Chronic (15) Mitral valve disease Status: Chronic Comment: MVR w/ 27mm Ivan-Menon bovine pericardial mitral valve. 10/14/15 (16) COPD (chronic obstructive pulmonary disease) Status: Chronic (17) Essential tremor Status: Chronic (18) Chronic back pain Status: Chronic (19) HLD (hyperlipidemia) Status: Chronic (20) Asthma Status: Chronic (21) UTI (urinary tract infection) Status: Acute (22) Hypothyroidism Status: Chronic (23) GERD (gastroesophageal reflux disease) Status: Chronic History of Present Illness Date of Admission: 02/06/18 Chief Complaint: Nausea, vomiting, chills, shortness of breath, cough, wheezing. The patient is a 72 year old F who presents to the emergency room with multiple complaints including nausea, vomiting, chills, lower back pain, shortness of breath, nonproductive cough, wheezing. She denies urinary symptoms. No diarrhea. She denies exposure to sick persons. She does state she was admitted approximately a month ago with RSV and COPD exacerbation and was discharged at that time with home oxygen which she uses as needed. Patient denies history of UTIs. She recently had a fall which resulted in right fibular fracture. She was seen by orthopedics and is to follow-up later this week. Her right foot is in currently in a brace. Patient follows with Dr. Pickard for COPD who prescribed a prednisone taper which she began taking 2017. Patient's past medical history includes COPD, hypertension, hyperlipidemia, chronic diastolic CHF, aortic and mitral valvular disease status post mitral valve replacement, CAD status post PCI, CVA, carotid artery disease. Past Medical History Past Medical History (Chronic Problems): Chronic Problems (Last Updated 11/22/17 @ 09:25 by Francisco Javier Calvo) HTN (hypertension) (Chronic) Hypothyroidism (Chronic) GERD (gastroesophageal reflux disease) (Chronic) Rheumatic aortic stenosis with regurgitation (Chronic) Atherosclerotic heart disease of k[place] coronary artery without angina pectoris (Chronic) H/O mitral valve replacement (Chronic) MVR w/ 27mm Ivan-Menon bovine pericardial mitral valve. 10/14/15 H/O coronary artery bypass surgery (Chronic) CABG X 1 SVG- RCA, AVR w/ 19mm St Rusty Trifecta aortic valve Occlusion and stenosis of right carotid artery (Chronic) Chronic diastolic heart failure (Chronic) Other secondary pulmonary hypertension (Chronic) Rheumatic mitral stenosis with insufficiency (Chronic) Stroke (Chronic) Family history of ischemic heart disease (Chronic) S/P PTCA (percutaneous transluminal coronary angioplasty) (Chronic) PCI BMS to CX/OM 12/03/13 @ [facility] CAD (coronary artery disease) (Chronic) Aortic valve disease (Chronic) Mitral valve disease (Chronic) MVR w/ 27mm Ivan-Menon bovine pericardial mitral valve. 10/14/15 COPD (chronic obstructive pulmonary disease) (Chronic) Essential tremor (Chronic) Chronic back pain (Chronic) HLD (hyperlipidemia) (Chronic) Asthma (Chronic) Allergies levofloxacin [From Levaquin] Allergy (Verified 02/06/18 12:10) Itching/rash clopidogrel [From Plavix] Adverse Reaction (Intermediate, Verified 02/06/18 12: 10) Blood Blisters atorvastatin calcium [From Lipitor] Adverse Reaction (Verified 02/06/18 12:10) muscle pains beta blockers Allergy (Uncoded 02/06/18 12:10) CHF pollen,animals Allergy (Uncoded 02/06/18 12:10) Unknown Home Medications: Ambulatory Orders Medication Instructions Recorded Cholecalciferol (Vitamin D3) 2,000 unit PO BID 02/25/14 [Vitamin D] Levothyroxine [Synthroid] 50 mcg PO DAILY 02/25/14 Tiotropium [place] [Spiriva 18 MCG] 1 puff INHALATION DAILY 02/25/14 Aspirin [Aspirin, Baby] 81 mg PO DAILY@0800 07/05/15 Calcium Carbonate/Vitamin D3 1 ea PO BID 11/23/15 [Calcium 600-Vit D3 800 Tablet] Magnesium Oxide [Magnesium] 500 mg PO QHS 11/23/15 Multivitamin [Daily Multiple 1 ea PO DAILY 11/23/15 Vitamin] fluticasone 200 mcg-vilanterol 25 1 puff INHALATION DAILY 30 Days #60 11/22/17 mcg/dose powder for inhalation montelukast 10 mg tablet 10 mg PO QHS 30 Days #30 11/22/17 Albuterol Aerosols [Ventolin 2.5 mg INHALATION BID PRN PRN 12/20/17 Aerosols] Diltiazem CD [Cardizem CD] 180 mg PO DAILY 12/20/17 Furosemide [Lasix] 20 mg PO DAILY PRN 12/20/17 Oxycodone HCl/Acetaminophen 1 tablet PO Q6H PRN PRN 12/20/17 [Percocet 5-325] Ranitidine HCl [Zantac 75] 75 mg PO QHS 12/20/17 Rosuvastatin Calcium [Crestor] 5 mg PO QODAY 12/20/17 Ubidecarenone [Co Q-10] 200 mg PO DAILY 12/20/17 Prednisone See Taper PO DAILY #30 tab 12/24/17 omeprazole 20 mg capsule,delayed 20 mg PO BID #180 cap 01/22/18 release Surgical History: - - MVR and AVR, BL foot surgery, Nephrolithiasis interventions, PCI, CABG x 1, L THR. 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 Denies: Chest Pain, Edema, Palpitations, Syncope Respiratory: Reports: Cough, Shortness of Breath, Wheezing Gastrointestinal: Reports: Nausea, Vomiting. Denies: Abdominal Pain, Constipation, Diarrhea Genitourinary: Denies: Dysuria, Frequency, Urgency Musculoskeletal: Denies: Joint Pain, Joint Tenderness Skin: Denies: Rash, Wounds Neurological: Denies: Numbness, Tingling, Focal weakness Psychiatric: Denies: Anxiety, Depression, Homicidal Ideations, Suicidal Ideations Hematologic/ Lymphatic: Denies: Easy Bruising, Easy Bleeding VTE Information - Inpt Only VTE Present on Admission: No VTE Mechan Device Prophylaxis: None VTE Pharm Prophylaxis ordered?: Yes Patient Problems: Active and Suspected Problems (Last Updated 11/22/17 @ 09:25 by Francisco Javier Calvo) UTI (urinary tract infection) (Acute) - Physical Exam General: Alert, Oriented x3, Cooperative HEENT: Atraumatic, PERRLA, EOMI, Normocephalic Neck: Supple, No JVD, Negative Carotid Bruits Lungs: Diminished, Wheezes Cardiovascular: Regular Rhythm, Normal S1, Normal S2, Tachycardic Abdomen: Bowel Sounds Present, Soft, Non Tender, Non-Distended, Obese Extremities: No clubbing, No cyanosis, No edema, Capillary Refill Less than 3 Seconds Skin: No rashes, No breakdown Musculoskeletal: No Tenderness to Palpation of Joints or Extremities, - - Right foot in boot/brace Neurological: Cranial nerves II-XII grossly intact Psych/Mental Status: Normal Affect, Appropriate Vital Signs Temp Pulse Resp BP Pulse Ox 98.4 F 120 H 18 123/60 H 96 02/06/18 16:15 02/06/18 17:01 02/06/18 17:01 02/06/18 17:01 02/06/18 17:01 Assessment/Plan Active and Suspected Problems (Last Updated 11/22/17 @ 09:25 by Francisco Javier Calvo) UTI (urinary tract infection) (Acute) 1. Severe sepsis secondary to acute UTI-patient with positive urinalysis, leukocytosis, tachycardia, acute kidney injury on admission. Patient received fluid bolus and IV Zosyn in ER. Continue IV fluids. Begin IV rocephin. Tylenol as needed for fever. Zofran as needed for nausea. Blood culture sent. Obtain urine culture. 2. Acute kidney injury- IV fluids. Repeat BMP in a.m. 3. Chronic COPD with chronic hypoxic respiratory failure- recent exacerbation. Finishing prednisone taper prescibed by Dr. Pickard 01/29/18. Patient with wheezing on examination. She states her breathing is improving. Continue taper as previously prescribed. If breathing worsens or continues to have significant wheezing, transition to IV Solu-Medrol. Patient discharged 12/24/17 with home oxygen which she uses as needed. She was hospitalized at that time for COPD exacerbation secondary to human metapneumo virus. Check respiratory panel given continued sx. 4. Recent nondisplaced distal fibular fracture secondary to mechanical fall prior to admission-continue right foot boot/brace. Continue outpatient follow- up as previously scheduled with orthopedic surgery. PT/OT. PRN pain regimen. 5. CAD status post CABG ?1 and PCI-continue aspirin, statin. 6. Hypertension-stable, continue home regimen. 7. Hyperlipidemia-continue statin. 8. History of CVA-continue aspirin, statin. 9. Hypothyroidism-continue Synthroid. 10. Chronic diastolic CHF-maintain on aspirin, statin, Cardizem. Lasix on hold secondary to #2. 11. Right coronary artery stenosis-continue outpatient follow-up. 12. Valvular heart disease-rheumatic aortic stenosis status post aortic valve replacement, status post mitral valve replacement (bovine). 13. GERD-continue omeprazole. 14. History of PE-remotely. No recurrence. 15. Chronic back pain-as needed pain regimen. DVT prophylaxis- Heparin SC This patient was seen by Michelle Quick NP-C under the supervision of Dr. Tolbert. <Carlos A Tolbert - Last Filed: 02/06/18 19:47> History of Present Illness Seen and examined. Patient was admitted with multiple complaints as mentioned above including progressive worsening of shortness of breath, cough with sometimes clear sputum , wheezing vomiting nausea. She follows Dr. Pickard and his history of COPD with recent RSV infection about a month ago. I think she also has bronchiectasis, coronary artery status post mitral and aortic valve replacement but denies arrhythmia. Patient found to have sinus tachycardia, heart rate going upto high 140/min. [] Past Medical History Allergies levofloxacin [From Levaquin] Allergy (Verified 02/06/18 12:10) Itching/rash clopidogrel [From Plavix] Adverse Reaction (Intermediate, Verified 02/06/18 12: 10) Blood Blisters atorvastatin calcium [From Lipitor] Adverse Reaction (Verified 02/06/18 12:10) muscle pains beta blockers Allergy (Uncoded 02/06/18 12:10) CHF pollen,animals Allergy (Uncoded 02/06/18 12:10) Unknown - Physical Exam Lungs: Diminished, Wheezes Cardiovascular: Regular Rhythm, Normal S1, Normal S2, Tachycardic Extremities: Edema Musculoskeletal: - Vital Signs Temp Pulse Resp BP Pulse Ox 98.1 F 143 H 22 H 136/74 H 96 02/06/18 17:33 02/06/18 19:04 02/06/18 17:33 02/06/18 17:33 02/06/18 17:33 Oxygen Delivery Method Room Air Weight: 162 lb Body Mass Index (BMI) 28.7 Intake and Output for Last 24 Hours 02/04/18 02/05/18 02/06/18 23:59 23:59 23:59 Intake Total 120 / 120 Balance 120 / 120 Assessment/Plan This patient was seen in conjunction with Michelle LEVIN. I have independently interviewed and examined the patient and reviewed pertinent history, examination findings, laboratory and plan of management. I have reviewed the note and agree with the documented findings with the few additional points. In brief, patient is admitted for severe sepsis most probably from UTI or possible bronchiectasis/COPD exacerbation. Patient found to have sinus tachycardia with mild hypotension, blood pressure 103/54. On IV fluid normal saline bolus. On IV Rocephin and Zithromax. Follow urine culture and urinary antigens for Streptococcus and Legionella. Chest x-ray does not show acute change. EKG shows sinus tachycardia. Lactic acid normal. Patient also has acute kidney injury; on IV fluid normal saline resuscitation I have discussed my assessment with Michelle LEVIN and orders have been reviewed. Code Visit Inpatient E&M: 94622 Init Hosp L3
--- NOTE | 2018-02-06 19:00 | EKG12_ITS ---
Test Reason : TACHYCARDIA Blood Pressure : / mmHG Vent. Rate : 140 BPM Atrial Rate : 140 BPM P-R Int : 152 ms QRS Dur : 080 ms QT Int : 274 ms P-R-T Axes : 077 -03 070 degrees QTc Int : 418 ms Sinus tachycardia Low voltage QRS Borderline ECG When compared with ECG of 06-FEB-2018 18:23, MANUAL COMPARISON REQUIRED, DATA IS UNCONFIRMED Confirmed by KRISTOPHER WHATLEY, SERENA ([id number]), field map editor MAIKOL MCDOWELL ([id number]) on 02/09/2018 3:08:57 PM Referred By: Mary Schmid Confirmed By:SERENA SUMMERS MD
[2018-02-06] MEDS: oxyCODONE 5 MG Tablet PO (19:11)
[2018-02-06] MEDS: 0.9% Normal Saline 1,000 ML 500 ML IV (19:16)
--- NOTE | 2018-02-06 19:50 | CPS ---
SpO2 89%. while sleeping. 2L NC added. Pt wears this @ home PRN
[2018-02-06] MEDS: dilTIAZem 25 MG/5 ML Vial 10 MG IV BOLUS (20:00)
[2018-02-06] MEDS: dilTIAZem 60 MG Tablet PO (20:37)
[2018-02-06] MEDS: 0.9% Normal Saline 1,000 ML 100 ML IV (22:30)
[2018-02-06] MEDS: Heparin Injection (Vial) 5,000 UNIT/ML VIAL 5000 UNIT SC (22:31)
[2018-02-06] MEDS: Famotidine 20 MG Tablet 10 MG PO (22:32)
[2018-02-06] MEDS: Magnesium Oxide 400 MG Tablet PO (22:32)
[2018-02-06] MEDS: Calcium Carb/Vitamin D 1 TABLET Tablet PO (22:33)
[2018-02-06] MEDS: Pantoprazole Sodium 20 MG Tablet PO (22:33)
[2018-02-06] MEDS: Montelukast 10 MG Tablet PO (22:35)
[2018-02-07] VITALS (16 sets, daily range): BP systolic 99–108; BP diastolic 45–63; PULSE 88–113; RESP 16–20; TEMP 36.4–37.1; O2SAT 94–98
[2018-02-07] MEDS: oxyCODONE 5 MG Tablet PO ×3 (01:49→21:45)
[2018-02-07 03:25] LABS: M R Staph aureus DNA By PCR Negative (Negative); Probe Check PASS; Specimen Processing Control PASS
[2018-02-07] MEDS: Piperacil/Tazobactam 3.375 GM/50 ML ML IV (03:45)
[2018-02-07 04:18] LABS: Hemoglobin 11.6 g/dl (12.0-15.0); Mean Corp Hgb Conc 33.1 g/gl (32-36); Mean Corpuscular Hgb 31.6 pg (27.0-32.0); Mean Corpuscular Volume 95.4 fL (81-99); Mean Platelet Vol. 12.5 fl (6.2-12.0); Platelet Count 63 K/mm3 (150-450); RBC Distribution Width CV 14.4 % (11.6-14.6); RBC Distribution Width SD 48.3 fl (35.1-43.9); Red Blood Count 3.67 M/mm3 (4.2-5.4); Scan Indicated on CBC? Y/N NO; White Blood Count 28.9 K/mm3 (4.4-11.0)
[2018-02-07 04:26] LABS: Anion Gap 9 (5-15); BUN 19 mg/dL (7-18); BUN/Creat Ratio 15.1 RATIO (10-20); Calcium,Total 7.4 mg/dL (8.5-10.1); Chloride 110 mmol/L (98-107); Creatinine, Serum 1.26 mg/dL (0.55-1.02); EST Glomerular Filtration Rate 44 mL/min (>60); Est Glom Filt Rate - Afr Amer 54 mL/min (>60); Estimated Creatinine Clearance 33.88 ml/min; Glucose 137 mg/dL (74-106); Potassium 4.1 mmol/L (3.5-5.1); Sodium Level 140 mmol/L (136-145)
[2018-02-07] MEDS: Levothyroxine 50 MCG Tablet PO (06:15)
[2018-02-07] MEDS: Heparin Injection (Vial) 5,000 UNIT/ML VIAL 5000 UNIT SC ×3 (06:15→21:34)
[2018-02-07] MEDS: Ipratropium/Albuterol Sulfate 3 ML AMPUL.NEB INHALATION ×4 (06:45→19:01)
[2018-02-07] MEDS: predniSONE 20 MG Tablet 40 MG PO (08:34)
[2018-02-07] MEDS: 0.9% Normal Saline 1,000 ML 100 ML IV ×2 (08:35→17:12)
[2018-02-07] MEDS: Aspirin 81 MG TAB.CHEW PO (08:35)
[2018-02-07] MEDS: dilTIAZem CD 180 MG Capsule PO (09:47)
[2018-02-07] MEDS: Pantoprazole Sodium 20 MG Tablet PO ×2 (09:48→21:37)
[2018-02-07] MEDS: Calcium Carb/Vitamin D 1 TABLET Tablet PO ×2 (09:48→21:36)
--- NOTE | 2018-02-07 13:02 | PN_ITS ---
Patient Problems: Active and Suspected Problems (Last Updated 11/22/17 @ 09:25 by Francisco Javier Calvo) UTI (urinary tract infection) (Acute) Subjective: Patient seen and examined. States she feels improved from admission. Denies further chills. Lower back pain improved. Nausea and vomiting improved. Denies other current complaints. Patient denies increased shortness of breath, cough, fever. - Physical Exam General: Alert, Oriented x3, Cooperative, No apparent distress HEENT: Atraumatic, PERRLA, EOMI, Normocephalic Neck: Supple, No JVD, Negative Carotid Bruits Lungs: Diminished, Wheezes Cardiovascular: Regular rate, Regular Rhythm, Normal S1, Normal S2, No murmurs Abdomen: Bowel Sounds Present, Soft, Non Tender, Non-Distended, Obese Extremities: No clubbing, No cyanosis, No edema, Capillary Refill Less than 3 Seconds Skin: No rashes, No breakdown Musculoskeletal: No Tenderness to Palpation of Joints or Extremities Neurological: Cranial nerves II-XII grossly intact, Neuro grossly intact Psych/Mental Status: Normal Affect, Appropriate Vital Signs Temp Pulse Resp BP Pulse Ox 98 F 93 20 H 99/48 L 94 02/07/18 09:35 02/07/18 11:02 02/07/18 10:49 02/07/18 09:35 02/07/18 09:35 Oxygen Flow Rate (L/min) 2 Oxygen Delivery Method Room Air Weight: 73.482 kg Body Mass Index (BMI) 28.7 Intake and Output for Last 24 Hours 02/05/18 02/06/18 02/07/18 23:59 23:59 23:59 Intake Total 120 / 120 3311.5 / 3311.5 Output Total 450 / 450 Balance 120 / 120 2861.5 / 2861.5 Microbiology Past 72 Hours 02/07/18 10:00 Gram Stain - Final Sputum, Expectorated/Coughed 02/06/18 16:30 Blood Culture - Preliminary Blood Culture (Wb) - Venous 02/06/18 19:50 Respiratory Panel (PCR) - Final Mucosa - Nose Laboratory Tests Past 24 Hrs 02/07/18 02/07/18 02/07/18 01:30 03:54 03:54 WBC 28.9 H RBC 3.67 L Hgb 11.6 L Hct 35.0 L MCV 95.4 MCH 31.6 MCHC 33.1 RDW 14.4 RDW Differential 48.3 H Plt Count 63 L MPV 12.5 H Sodium 140 Potassium 4.1 Chloride 110 H Carbon Dioxide 21.0 Anion Gap 9 BUN 19 H Creatinine 1.26 H Estim Creat Clear Calc 33.88 Est GFR (MDRD) Af Amer 54 L Est GFR (MDRD) Non-Af 44 L BUN/Creatinine Ratio 15.1 Glucose 137 H Calcium 7.4 L MRSA (PCR) Negative Medical Necessity - Tobacco Use Smoking Status: Former smoker Tobacco Use: Cigarettes Assessment/Plan Active and Suspected Problems (Last Updated 11/22/17 @ 09:25 by Francisco Javier Calvo) UTI (urinary tract infection) (Acute) Patient is a 72-year-old female admitted 02/06/2018 due to nausea, vomiting, chills, shortness of breath, cough, wheezing. Patient's past medical history includes COPD, hypertension, hyperlipidemia, chronic diastolic CHF, aortic and mitral valvular disease status post mitral valve replacement, CAD status post PCI, CVA, carotid artery disease. 1. Severe sepsis secondary to presumptive acute E. coli UTI-patient with positive urinalysis, leukocytosis, tachycardia, acute kidney injury on admission. Patient received fluid bolus and IV Zosyn in ER. Continue IV fluids. Continue IV rocephin. Tylenol as needed for fever. Zofran as needed for nausea. Urine cultures shows presumptive E. coli. Blood cultures preliminary showing gram-negative rods. 2. Acute kidney injury- IV fluids. Creatinine improved with IV fluids. Continue to monitor BMP. 3. Chronic COPD with chronic hypoxic respiratory failure- recent exacerbation. Finishing prednisone taper prescibed by Dr. Pickard 01/29/18. Patient has 3 more days of prednisone 10 mg daily. She states her breathing is improving. No further antibiotics necessary. Patient discharged 12/24/17 with home oxygen which she uses as needed. She was hospitalized at that time for COPD exacerbation secondary to human metapneumo virus. Respiratory panel negative. 4. Recent nondisplaced distal fibular fracture secondary to mechanical fall prior to admission-continue right foot boot/brace. Continue outpatient follow- up as previously scheduled with orthopedic surgery. PT/OT. PRN pain regimen. 5. CAD status post CABG ?1 and PCI-continue aspirin, statin. 6. Hypertension-stable, continue home regimen. 7. Hyperlipidemia-continue statin. 8. History of CVA-continue aspirin, statin. 9. Hypothyroidism-continue Synthroid. 10. Chronic diastolic CHF-maintain on aspirin, statin, Cardizem. Lasix on hold secondary to #2. 11. Right coronary artery stenosis-continue outpatient follow-up. 12. Valvular heart disease-rheumatic aortic stenosis status post aortic valve replacement, status post mitral valve replacement (bovine). 13. GERD-continue omeprazole. 14. History of PE-remotely. No recurrence. 15. Chronic back pain-as needed pain regimen. DVT prophylaxis- Heparin SC This patient was seen by BRADLY Hoffman under the supervision of Dr. Thayer.
--- NOTE | 2018-02-07 13:05 | CASEMGMT ---
Face to Face with patient for initial transition planning/care coordination assessment. RN PIPE introduced self and role at [facility], pt voices understanding and consents to assessment at this time. Pt is sitting up in bed in no distress at this time. Pt is A/O x4 at this time and answers all questions appropriately at this time. Care providers, pharmacy, and demographics verified. See attached link. Pt voices no further concerns/needs at this time. Advised pt to ask for CM if any further questions/concerns/needs arise, voices understanding. CM to follow for any further discharge planning/needs. PLAN: [place] CHRISTOPHER BETANCUR
[2018-02-07 14:53] LABS: Pathologist Review Reviewed
--- NOTE | 2018-02-07 15:42 | CHAPLAIN ---
Type of Pastoral Visit _x__ Initial Visit ___ Follow-up Visit ___ On-call Visit ___ General Patient Visit ___ Spiritual Assessment ___ Family Conference ___ Bereavement ___ Rapid Response ___ Code Blue ___ Other (describe below) Pastoral Care Referral From _x__ Patient ___ Family ___ Nurse ___ Physician ___ Hedge Fund Trader ___ In Store Demonstrator ___ Other (describe below) Sacrament/Intervention _x__ Active listening ___ Anointing ___ Temple ___ Bereavement ___ Communion ___ Sarah exploration ___ ___ Life review _x__ Prayer ___ Reconciliation ___ Sacrament of Sick _x__ Supportive presence ___ Wedding ___ Other (describe below) Pastoral Comments
[2018-02-07] MEDS: Montelukast 10 MG Tablet PO (21:35)
[2018-02-07] MEDS: Magnesium Oxide 400 MG Tablet PO (21:35)
[2018-02-07] MEDS: Rosuvastatin Calcium 5 MG Tablet PO (21:35)
[2018-02-07] MEDS: Famotidine 20 MG Tablet 10 MG PO (21:36)
[2018-02-08 03:11] VITALS: PULSE 101
[2018-02-08 03:33] VITALS: BP 114/64; PULSE 104; RESP 16; TEMP 36.6; O2SAT 95
[2018-02-08] MEDS: 0.9% Normal Saline 1,000 ML 100 ML IV (03:42)
[2018-02-08] MEDS: Levothyroxine 50 MCG Tablet PO (06:23)
[2018-02-08] MEDS: Heparin Injection (Vial) 5,000 UNIT/ML VIAL 5000 UNIT SC (06:23)
[2018-02-08 06:34] LABS: Hematocrit 31.6 % (37-47); Hemoglobin 10.2 g/dl (12.0-15.0); Mean Corp Hgb Conc 32.3 g/gl (32-36); Mean Corpuscular Hgb 30.3 pg (27.0-32.0); Mean Corpuscular Volume 93.8 fL (81-99); Mean Platelet Vol. 12.4 fl (6.2-12.0); Platelet Count 76 K/mm3 (150-450); RBC Distribution Width CV 14.4 % (11.6-14.6); RBC Distribution Width SD 49.5 fl (35.1-43.9); Red Blood Count 3.37 M/mm3 (4.2-5.4); White Blood Count 24.7 K/mm3 (4.4-11.0)
[2018-02-08 06:39] LABS: Anion Gap 8 (5-15); BUN 19 mg/dL (7-18); BUN/Creat Ratio 18.1 RATIO (10-20); Calcium,Total 8.2 mg/dL (8.5-10.1); Chloride 112 mmol/L (98-107); Creatinine, Serum 1.05 mg/dL (0.55-1.02); EST Glomerular Filtration Rate 55 mL/min (>60); Est Glom Filt Rate - Afr Amer 66 mL/min (>60); Estimated Creatinine Clearance 40.65 ml/min; Glucose 119 mg/dL (74-106); Potassium 3.4 mmol/L (3.5-5.1); Scan Indicated on CBC? Y/N NO; Sodium Level 143 mmol/L (136-145)
[2018-02-08 06:54] VITALS: PULSE 95; RESP 18; O2SAT 94
[2018-02-08] MEDS: Ipratropium/Albuterol Sulfate 3 ML AMPUL.NEB INHALATION (06:54)
[2018-02-08 06:56] VITALS: PULSE 93
[2018-02-08] MEDS: predniSONE 10 MG Tablet PO (08:32)
[2018-02-08] MEDS: Aspirin 81 MG TAB.CHEW PO (08:32)
--- NOTE | 2018-02-08 09:12 | PCM.DC ---
- Discharge Diagnoses Current Active Problems: Current Active and Chronic Problems (Last Updated 11/22/17 @ 09:25 by Francisco Javier Calvo) UTI (urinary tract infection) (Acute) Hypothyroidism (Chronic) GERD (gastroesophageal reflux disease) (Chronic) You will use the following diet at home:: No restrictions Your food should be the consistency of: Regular Your liquids should be the consistency of: Regular/Thin Discharge Activity: Return to Normal Activity Weight Bearing Status: Full weight bearing Allergies/Adverse Reactions: Allergies levofloxacin [From Levaquin] Allergy (Verified 02/06/18 12:10) Itching/rash clopidogrel [From Plavix] Adverse Reaction (Intermediate, Verified 02/06/18 12:10) Blood Blisters atorvastatin calcium [From Lipitor] Adverse Reaction (Verified 02/06/18 12:10) muscle pains beta blockers Allergy (Uncoded 02/06/18 12:10) CHF pollen,animals Allergy (Uncoded 02/06/18 12:10) Unknown Medications to take at Discharge Cholecalciferol (Vitamin D3) [Vitamin D] 2,000 unit PO BID 02/25/14 Levothyroxine [Synthroid] 50 mcg PO DAILY 02/25/14 Tiotropium [place] [Spiriva 18 MCG] 1 puff INHALATION DAILY 02/25/14 Aspirin [Aspirin, Baby] 81 mg PO DAILY@0800 07/05/15 Calcium Carbonate/Vitamin D3 [Calcium 600-Vit D3 800 Tablet] 1 ea PO BID 11/23/15 Magnesium Oxide [Magnesium] 500 mg PO QHS 11/23/15 Multivitamin [Daily Multiple Vitamin] 1 ea PO DAILY 11/23/15 fluticasone 200 mcg-vilanterol 25 mcg/dose powder for inhalation 1 puff INHALATION DAILY 30 Days #60 11/22/17 montelukast 10 mg tablet 10 mg PO QHS 30 Days #30 11/22/17 Albuterol Aerosols [Ventolin Aerosols] 2.5 mg INHALATION BID PRN PRN 12/20/17 Diltiazem CD [Cardizem CD] 180 mg PO DAILY 12/20/17 Oxycodone HCl/Acetaminophen [Percocet 5-325] 1 tablet PO Q6H PRN PRN 12/20/17 Ranitidine HCl [Zantac 75] 75 mg PO QHS 12/20/17 Rosuvastatin Calcium [Crestor] 5 mg PO QODAY 12/20/17 Ubidecarenone [Co Q-10] 200 mg PO DAILY 12/20/17 omeprazole 20 mg capsule,delayed release 20 mg PO BID #180 cap 01/22/18 Cephalexin [Keflex] 500 mg PO 4X/DAY #28 cap 02/08/18 The following prescriptions were given: Cephalexin [Keflex] 500 mg PO 4X/DAY #28 cap Primary Care Physician: Mercy Elliott [Primary Care Provider] - Please follow up with your Primary Care Physician in: in one week
[2018-02-08 09:25] VITALS: BP 110/51; PULSE 102; RESP 16; TEMP 36.6; O2SAT 97
[2018-02-08] MEDS: Pantoprazole Sodium 20 MG Tablet PO (09:32)
[2018-02-08] MEDS: dilTIAZem CD 180 MG Capsule PO (09:32)
[2018-02-08] MEDS: Calcium Carb/Vitamin D 1 TABLET Tablet PO (09:32)
--- NOTE | 2018-02-08 16:08 | PCM.DC.SUM ---
Discharge Date and Diagnosis Date of Admission: 02/06/18 Date of Discharge: 02/08/18 - Primary Discharge Diagnosis #1 acute sepsis secondary to E. coli from E. coli cystitis #2 E. coli cystitis #3 acute kidney injury #4 thrombocytopenia secondary to acute sepsis #5 chronic obstructive pulmonary disease #6 coronary artery disease #7 hypertension - Secondary Discharge Diagnosis Chronic Problems (Last Updated 11/22/17 @ 09:25 by Francisco Javeir Calvo) HTN (hypertension) (Chronic) Hypothyroidism (Chronic) GERD (gastroesophageal reflux disease) (Chronic) Rheumatic aortic stenosis with regurgitation (Chronic) Atherosclerotic heart disease of [place] coronary artery without angina pectoris (Chronic) H/O mitral valve replacement (Chronic) MVR w/ 27mm Ivan-Menon bovine pericardial mitral valve. 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 10/14/15 COPD (chronic obstructive pulmonary disease) (Chronic) Essential tremor (Chronic) Chronic back pain (Chronic) HLD (hyperlipidemia) (Chronic) Asthma (Chronic) Hospital Course and Treatment Operations: None Procedures: None Summary of Care Provided: The patient is a 72 year old F seen in the emergency room at [facility] with complaints of urinary frequency and urgency, she also complained of chills and lightheadedness. Workup in the emergency room revealed her white blood cell count to be elevated, platelet count was decreased, creatinine was elevated and BUN were elevated. Urinalysis showed evidence of an acute urinary tract infection, chest x-ray showed no active process. Patient was felt to have sepsis and acute kidney injury as well as acute cystitis. Patient was given fluids and IV Zosyn in the emergency room and admitted to PCU. Patient's antibiotics were changed to IV Rocephin on PCU, patient improved during her hospital stay, urine culture was positive for E. coli and her blood cultures were positive for a gram-negative lactose fermenting mckay (this was also felt to be E. coli by this examiner). On 02/08/18, patient was seen and examined and felt to be in stable condition for discharge home. Additional note: Patient was never felt to be in severe sepsis. Discharge Activity: Return to Normal Activity Weight Bearing Status: Full weight bearing Home Medications: Medications to take at Discharge Cholecalciferol (Vitamin D3) [Vitamin D] 2,000 unit PO BID 02/25/14 Levothyroxine [Synthroid] 50 mcg PO DAILY 02/25/14 Tiotropium [place] [Spiriva 18 MCG] 1 puff INHALATION DAILY 02/25/14 Aspirin [Aspirin, Baby] 81 mg PO DAILY@0800 07/05/15 Calcium Carbonate/Vitamin D3 [Calcium 600-Vit D3 800 Tablet] 1 ea PO BID 11/23/15 Magnesium Oxide [Magnesium] 500 mg PO QHS 11/23/15 Multivitamin [Daily Multiple Vitamin] 1 ea PO DAILY 11/23/15 fluticasone 200 mcg-vilanterol 25 mcg/dose powder for inhalation 1 puff INHALATION DAILY 30 Days #60 11/22/17 montelukast 10 mg tablet 10 mg PO QHS 30 Days #30 11/22/17 Albuterol Aerosols [Ventolin Aerosols] 2.5 mg INHALATION BID PRN PRN 12/20/17 Diltiazem CD [Cardizem CD] 180 mg PO DAILY 12/20/17 Oxycodone HCl/Acetaminophen [Percocet 5-325] 1 tablet PO Q6H PRN PRN 12/20/17 Ranitidine HCl [Zantac 75] 75 mg PO QHS 12/20/17 Rosuvastatin Calcium [Crestor] 5 mg PO QODAY 12/20/17 Ubidecarenone [Co Q-10] 200 mg PO DAILY 12/20/17 omeprazole 20 mg capsule,delayed release 20 mg PO BID #180 cap 01/22/18 Cephalexin [Keflex] 500 mg PO 4X/DAY #28 cap 02/08/18 Following Prescrptions Were Given to Patient: Cephalexin [Keflex] 500 mg PO 4X/DAY #28 cap Primary Care Physician: Mercy Elliott [Primary Care Provider] - Please follow up with your Primary Care Physician in: in one week Please Follow Up With: Mercy Elliott Disposition: Home Minutes spent on discharge:: 32 Patient Condition:: Stable Medical Necessity - Tobacco Use Smoking Status: Former smoker Tobacco Use: Cigarettes Meaningful Use Info Meaningful Use Diagnoses (Choose all that apply): None applicable Code Visit Inpatient E&M: 04894 Disch Hosp
--- NOTE | 2018-02-08 16:14 | DS.PCM_ITS ---
Discharge Date and Diagnosis Date of Admission: 02/06/18 Date of Discharge: 02/08/18 - Primary Discharge Diagnosis #1 acute sepsis secondary to E. coli from E. coli cystitis #2 E. coli cystitis #3 acute kidney injury #4 thrombocytopenia secondary to acute sepsis #5 chronic obstructive pulmonary disease #6 coronary artery disease #7 hypertension - Secondary Discharge Diagnosis Chronic Problems (Last Updated 11/22/17 @ 09:25 by Francisco Javier Calvo) HTN (hypertension) (Chronic) Hypothyroidism (Chronic) GERD (gastroesophageal reflux disease) (Chronic) Rheumatic aortic stenosis with regurgitation (Chronic) Atherosclerotic heart disease of [place] coronary artery without angina pectoris (Chronic) H/O mitral valve replacement (Chronic) MVR w/ 27mm Ivan-Menon bovine pericardial mitral valve. 10/14/15 H/O coronary artery bypass surgery (Chronic) CABG X 1 SVG- RCA, AVR w/ 19mm St Rusty Trifecta aortic valve Occlusion and stenosis of right carotid artery (Chronic) Chronic diastolic heart failure (Chronic) Other secondary pulmonary hypertension (Chronic) Rheumatic mitral stenosis with insufficiency (Chronic) Stroke (Chronic) Family history of ischemic heart disease (Chronic) S/P PTCA (percutaneous transluminal coronary angioplasty) (Chronic) PCI BMS to CX/OM 12/03/13 @ [facility] CAD (coronary artery disease) (Chronic) Aortic valve disease (Chronic) Mitral valve disease (Chronic) MVR w/ 27mm Ivan-Menon bovine pericardial mitral valve. 10/14/15 COPD (chronic obstructive pulmonary disease) (Chronic) Essential tremor (Chronic) Chronic back pain (Chronic) HLD (hyperlipidemia) (Chronic) Asthma (Chronic) Hospital Course and Treatment Operations: None Procedures: None Summary of Care Provided: The patient is a 72 year old F seen in the emergency room at [facility] with complaints of urinary frequency and urgency, she also complained of chills and lightheadedness. Workup in the emergency room revealed her white blood cell count to be elevated, platelet count was decreased, creatinine was elevated and BUN were elevated. Urinalysis showed evidence of an acute urinary tract infection, chest x-ray showed no active process. Patient was felt to have sepsis and acute kidney injury as well as acute cystitis. Patient was given fluids and IV Zosyn in the emergency room and admitted to PCU. Patient's antibiotics were changed to IV Rocephin on PCU, patient improved during her hospital stay, urine culture was positive for E. coli and her blood cultures were positive for a gram-negative lactose fermenting mckay (this was also felt to be E. coli by this examiner). On 02/08/18, patient was seen and examined and felt to be in stable condition for discharge home. Additional note: Patient was never felt to be in severe sepsis. Discharge Activity: Return to Normal Activity Weight Bearing Status: Full weight bearing Home Medications: Medications to take at Discharge Cholecalciferol (Vitamin D3) [Vitamin D] 2,000 unit PO BID 02/25/14 Levothyroxine [Synthroid] 50 mcg PO DAILY 02/25/14 Tiotropium [place] [Spiriva 18 MCG] 1 puff INHALATION DAILY 02/25/14 Aspirin [Aspirin, Baby] 81 mg PO DAILY@0800 07/05/15 Calcium Carbonate/Vitamin D3 [Calcium 600-Vit D3 800 Tablet] 1 ea PO BID Magnesium Oxide [Magnesium] 500 mg PO QHS 11/23/15 Multivitamin [Daily Multiple Vitamin] 1 ea PO DAILY 11/23/15 fluticasone 200 mcg-vilanterol 25 mcg/dose powder for inhalation 1 puff INHALATION DAILY 30 Days #60 11/22/17 montelukast 10 mg tablet 10 mg PO QHS 30 Days #30 11/22/17 Albuterol Aerosols [Ventolin Aerosols] 2.5 mg INHALATION BID PRN PRN 12/20/17 Diltiazem CD [Cardizem CD] 180 mg PO DAILY 12/20/17 Oxycodone HCl/Acetaminophen [Percocet 5-325] 1 tablet PO Q6H PRN PRN 12/20/17 Ranitidine HCl [Zantac 75] 75 mg PO QHS 12/20/17 Rosuvastatin Calcium [Crestor] 5 mg PO QODAY 12/20/17 Ubidecarenone [Co Q-10] 200 mg PO DAILY 12/20/17 omeprazole 20 mg capsule,delayed release 20 mg PO BID #180 cap 01/22/18 Cephalexin [Keflex] 500 mg PO 4X/DAY #28 cap 02/08/18 Following Prescrptions Were Given to Patient: Cephalexin [Keflex] 500 mg PO 4X/DAY #28 cap Primary Care Physician: Mercy Elliott [Primary Care Provider] - Please follow up with your Primary Care Physician in: in one week Please Follow Up With: Mercy Elliott Disposition: Home Minutes spent on discharge:: 32 Patient Condition:: Stable Medical Necessity - Tobacco Use Smoking Status: Former smoker Tobacco Use: Cigarettes Meaningful Use Info Meaningful Use Diagnoses (Choose all that apply): None applicable Code Visit Inpatient E&M: 12373 Disch Hosp
--- NOTE | 2018-02-09 15:41 | CASEMGMT ---
RN CM DC F/U phone call note. Attempted call to pt's listed phone. No answer. Cody HEDRICKN RN ACM
== END 2018-02-08 11:08 | disposition home or self-care (01) | DRG 872 ==
LOC: ED 14:55 → PCU 16:41
PROVIDERS: Nurse Practitioner Family; Admitting Provider Internal Medicine; Emergency Provider Emergency Medicine; Family Provider Nurse Practitioner; PCP Nurse Practitioner; Visit Provider Internal Medicine
DX: A41.51 Sepsis due to Escherichia coli [E. coli] (principal); N30.00 Acute cystitis without hematuria; I50.32 Chronic diastolic (congestive) heart failure; N17.9 Acute kidney failure, unspecified; J96.11 Chronic respiratory failure with hypoxia; B96.20 Unspecified Escherichia coli [E. coli] as the cause of diseases classified elsewhere; J44.9 Chronic obstructive pulmonary disease, unspecified; I25.10 Atherosclerotic heart disease of native coronary artery without angina pectoris; I11.0 Hypertensive heart disease with heart failure; D69.59 Other secondary thrombocytopenia; E03.9 Hypothyroidism, unspecified; K21.9 Gastro-esophageal reflux disease without esophagitis; E78.5 Hyperlipidemia, unspecified; G89.29 Other chronic pain; M54.5 Low back pain; J45.909 Unspecified asthma, uncomplicated; G25.0 Essential tremor; Z95.1 Presence of aortocoronary bypass graft; Z95.2 Presence of prosthetic heart valve; Z87.891 Personal history of nicotine dependence; S82.839D Other fracture of upper and lower end of unspecified fibula, subsequent encounter for closed fracture with routine healing; W18.39XD Other fall on same level, subsequent encounter; Z86.711 Personal history of pulmonary embolism
CPT/HCPCS: 36415; 70450; 71046; 80048; 81001; 83605; 85025; 85027; 87040; 87070; 87077; 87086; 87088; 87186; 87205; 87449; 87633; 87641; 93005; 94640; 97161; 97165; 97802; 99284; J7030; A4216; J0696

== ENCOUNTER → 2018-02-09 15:54 | Outpatient (CLI) | payer MEDICARE, OTHER, SELFPAY ==
[2018-02-09 17:33] LABS: Absolute Lymphocyte Count 2.58 X10^3/ul (0.83-4.51); Absolute Neutrophil Count 10.2 X10^3/uL (2.0-7.7); Basophil# 0.01 X10^3/uL; Basophil% 0.1 % (0-1); Eosinophil# 0.22 X10^3/uL; Eosinophils% 1.4 % (0-5); Hematocrit 35.8 % (37-47); Hemoglobin 11.6 g/dl (12.0-15.0); Lymphocyte # 2.58 X10^3/ul (4.0); Lymphocyte % 16.9 % (19-41); Mean Corp Hgb Conc 32.4 g/gl (32-36); Mean Corpuscular Hgb 30.2 pg (27.0-32.0); Mean Corpuscular Volume 93.2 fL (81-99); Mean Platelet Vol. 12.2 fl (6.2-12.0); Monocyte% 13.7 % (0-10); Neutrophil # 10.23 X10^3/uL (2.7-7.7); Neutrophil % 66.9 % (47-70); Platelet Count 122 K/mm3 (150-450); RBC Distribution Width CV 14.2 % (11.6-14.6); RBC Distribution Width SD 48.2 fl (35.1-43.9); Red Blood Count 3.84 M/mm3 (4.2-5.4); White Blood Count 15.3 K/mm3 (4.4-11.0)
[2018-02-09 17:40] LABS: Differential Indicated SCAN CRITERIA MET; POSITIVE COUNT NO; POSITIVE DIFFERENTIAL YES; POSITIVE MORPHOLOGY NO
[2018-02-09 17:58] LABS: Platelet Estimate SLT DEC (ADEQ)
[2018-02-09 18:06] LABS: ALB/GLOB Ratio 0.8 RATIO (0.9-2.4); AST(SGOT) 20 U/L (15-37); Alanine Aminotransfer ALT/SGPT 23 U/L (13-56); Albumin, Serum 2.9 g/dL (3.2-5.0); Alkaline Phosphatase 89 U/L (45-117); Anion Gap 10 (5-15); BUN 12 mg/dL (7-18); BUN/Creat Ratio 11.8 RATIO (10-20); Calcium,Total 8.7 mg/dL (8.5-10.1); Chloride 108 mmol/L (98-107); Creatinine, Serum 1.02 mg/dL (0.55-1.02); EST Glomerular Filtration Rate 57 mL/min (>60); Est Glom Filt Rate - Afr Amer 69 mL/min (>60); Globulin 3.5 g/dL (2.2-4.2); Glucose 91 mg/dL (74-106); Potassium 3.4 mmol/L (3.5-5.1); Protein, Total 6.4 g/dL (6.4-8.2); Sodium Level 146 mmol/L (136-145); Thyroid Stim Hormone (TSH) 2.35 uIU/mL (0.358-3.74)
[2018-02-09 18:12] LABS: D-Dimer Quantitative (DVT/PE) 1.35 FEU/ug/m (0.27-0.49)
[2018-02-09 18:30] LABS: BNP,B-Type NATRIURETIC PEPTIDE 344.1 pg/mL (0-100)
[2018-02-12 12:03] LABS: Pathologist Review Reviewed
== END ==
PROVIDERS: Family Provider Nurse Practitioner; PCP Nurse Practitioner; Visit Provider Internal Medicine
DX: R06.02 Shortness of breath (principal); R60.9 Edema, unspecified
CPT/HCPCS: 36415; 80053; 83880; 84443; 84484; 85025; 85379

== ENCOUNTER 2018-02-09 18:51 | Emergency (ER) | payer MEDICARE, OTHER, SELFPAY ==
[2018-02-09 18:53] VITALS: BP 133/76; PULSE 106; RESP 18; TEMP 36.7; O2SAT 98; BMI 29.4
--- NOTE | 2018-02-09 19:21 | CT_ITS ---
STUDY: CTA CHEST REASON FOR EXAM: Female, 72 years old. Shortness of breath. RADIATION DOSAGE (If Supplied By Facility): CTDIvol = ( 10.24 ) mGy, DLP = ( 383.83 ) mGycm TECHNIQUE: The examination was performed with the intravenous administration of 75ml ml of Isovue 370 contrast material. Post-processing of the angiographic images was performed, with multiplanar reformation and 3D reconstruction. Individualized dose optimization techniques were used for this CT. COMPARISON: 12/20/2017 FINDINGS: There are stable emphysematous changes noted in the lungs, predominantly in the upper lobes. There are no pulmonary nodules or masses. There are no pulmonary infiltrates or pleural effusions. There is dependent atelectasis noted in the lungs. There is stable bronchiectasis with associated bronchial wall thickening, predominantly in the lower lobes. There are no filling defects within the pulmonary arteries to suggest pulmonary embolus. The pulmonary arteries are normal in caliber. There is no evidence of thoracic aortic aneurysm or dissection. The heart and pericardium are within normal limits. The patient is status post sternotomy, coronary artery bypass, aortic valve repair and mitral valve repair. There is no thoracic lymphadenopathy. Images through the upper abdomen demonstrate no significant abnormality. There are no destructive osseous lesions. CT/CTA Chest W/WO Contrast IMPRESSION: No evidence of pulmonary embolus. No evidence of thoracic aortic aneurysm or dissection. Bibasilar atelectasis. No infiltrate or effusion. Stable bronchiectasis with associated bronchial wall thickening, predominantly in the lower lobes. This can be seen with chronic bronchitis. Stable emphysema. Electronically Signed: Andre Macias, at 20:34 EDT Tel , Service support ,
--- NOTE | 2018-02-09 19:22 | EKG12_ITS ---
Test Reason : Blood Pressure : / mmHG Vent. Rate : 096 BPM Atrial Rate : 096 BPM P-R Int : 154 ms QRS Dur : 080 ms QT Int : 366 ms P-R-T Axes : 071 -29 054 degrees QTc Int : 462 ms Normal sinus rhythm Leftward axis Poor R wave progression Anterior AR, age undetermined, cannot be excluded Inferior AR, age undetermined, cannot be excluded Confirmed by NEEMA WHATLEY, BOBBY ([id number]), subeditor MAIKOL MCDOWELL ([id number]) on 02/13/2018 2:21:50 PM Referred By: Celeste Cates Confirmed By:BOBBY BETHEA MD
--- NOTE | 2018-02-09 19:50 | US_ITS ---
STUDY: VENOUS DOPPLER ULTRASOUND - LEFT LOWER EXTREMITY REASON FOR EXAM: Female, 72 years old. Swelling. TECHNIQUE: Ultrasound evaluation of the deep vein system to include simon-scale imaging and compression was performed. Simon-scale imaging and Doppler sonographic evaluation, including duplex spectral analysis and qualitative color flow sonography, was performed. COMPARISON: None. FINDINGS: Common Femoral Vein: Normal compression, spontaneity and augmentation. Normal color Doppler. Common Femoral Vein/Greater Saphenous Junction: Normal compression, spontaneity and augmentation. Normal color Doppler. Femoral Proximal: Normal compression, spontaneity and augmentation. Normal color Doppler. Femoral Middle: Normal compression, spontaneity and augmentation. Normal color Doppler. Femoral Distal: Normal compression, spontaneity and augmentation. Normal color Doppler. Popliteal Vein: Normal compression, spontaneity and augmentation. Normal color Doppler. Posterior Tibial Vein: Normal compression, spontaneity and augmentation. Normal color Doppler. Peroneal Vein: Normal compression, spontaneity and augmentation. Normal color Doppler. US/Venous Duplex Imag/Limited/Uni IMPRESSION: Normal venous Doppler ultrasound of the lower extremity. Electronically Signed: Andre Macias, at 20:41 EDT Tel , Service support ,
--- NOTE | 2018-02-09 19:50 | ED.DCSUM_ITS ---
- ER Visit Summary Date of Service: 02/09/18 Chief Complaint: Leg swelling History of Present Illness: The patient is a 72 F with a recent admission for a right tibia fracture and a UTI with sepsis. She was discharged 2 days ago. Over the past 4 days she has gained 6 pounds. She feels short of breath with exertion. She also noted swelling in her lower extremities, worse on the left side. No history of DVT. She does have a history of heart disease and CHF, but typically does not get leg swelling. Her doctor checked some laboratory studies as an outpatient today. She continues to have signs of a UTI. Her white count is 15. She was changed to a different antibiotic, but she is not sure the name of the antibiotic. She also had a normal troponin, normal EKG, BNP of 344, and d-dimer of 1.35. She was sent here to rule out PE. Physical Examination: Afebrile and vitals unremarkable except for a heart rate of 106. She is sitting comfortably and appears in no acute distress. Heart regular and lungs clear. Extremities show mild edema worse on the left. Right lower extremity is in a boot orthosis. Skin appears normal. Test Results: EKG showed sinus rhythm at a rate of 96. No sign of acute ischemia or infarction pattern. I reviewed her laboratory studies from earlier today. We will recheck a troponin and coags. Will also check a CTA chest. Emergency Department Course and Treatment: Patient was placed on a monitor. We are awaiting results. Repeat EKG and troponin were unremarkable. CTA was performed and showed evidence of bronchiectasis without PE or dissection. Patient has a urinary tract infection and was switched to a new antibiotic. She has an elevated white count but no fever or other signs of sepsis. She has a BNP of 344. She may take her home diuretics. I spoke with Dr. dee, and the patient will follow-up in the office next week. Return sooner for any new or worsening issues. Treatment Plan: As above Disposition: Discharged Impression: 1. UTI, cystitis 2. CHF This note was generated with Trendal[employer] software. It may contain incorrect words, spelling, and punctuation that were not noted in review of the chart prior to signing ED Disposition - Plan for ED Patient: Chief Complaint: Edema Referrals: Mercy Elliott [Primary Care Provider] -
[2018-02-09 20:09] LABS: Prothrombin Time (Protime)PT. 13.3 SECONDS (11.7-14.9)
[2018-02-09 21:24] VITALS: BP 114/64; PULSE 100; RESP 22
--- NOTE | 2018-02-09 21:24 | ED.DEP ---
ED Disposition - Plan for ED Patient: Chief Complaint: Edema Instructions: ED CHF General Referrals: Mercy Elliott [Primary Care Provider] -
[2018-02-09 21:31] VITALS: BP 114/64; PULSE 99; RESP 24; O2SAT 95
--- NOTE | 2018-02-09 21:32 | ED.RN ---
REVIEWED D/C INSTRUCTIONS, FOLLOW UP CARE, AND S/S THAT WOULD WARRANT A RETURN TO THE ED WITH PT. PT VERBALIZED AN UNDERSTANDING AND DENIES FURTHER QUESTIONS FOR THIS RN. PT SKIN P/W/D, RESP EVEN AND UNLABORED, PT A&O X 3, NO DISTRESS NOTED. PT AMBULATED OUT OF ED, GAIT STEADY.
== END 2018-02-09 21:33 | disposition home or self-care (01) ==
LOC: ED 19:28
PROVIDERS: Emergency Provider Emergency Medicine; Family Provider Nurse Practitioner; PCP Nurse Practitioner
DX: N39.0 Urinary tract infection, site not specified (principal); I11.0 Hypertensive heart disease with heart failure; I50.9 Heart failure, unspecified; I25.10 Atherosclerotic heart disease of native coronary artery without angina pectoris; J44.9 Chronic obstructive pulmonary disease, unspecified; K21.9 Gastro-esophageal reflux disease without esophagitis; E78.00 Pure hypercholesterolemia, unspecified; I27.20 Pulmonary hypertension, unspecified; I35.0 Nonrheumatic aortic (valve) stenosis; Z86.19 Personal history of other infectious and parasitic diseases; Z87.440 Personal history of urinary (tract) infections; Z86.73 Personal history of transient ischemic attack (TIA), and cerebral infarction without residual deficits; Z87.891 Personal history of nicotine dependence; Z95.1 Presence of aortocoronary bypass graft; Z79.82 Long term (current) use of aspirin; Z79.899 Other long term (current) drug therapy
CPT/HCPCS: 36415; 71275; 80053; 83880; 84443; 84484; 85025; 85379; 85610; 85730; 93005; 93971; 99284; Q9967; A4216

== ENCOUNTER → 2018-04-10 15:03 | Outpatient (CLI) | payer MEDICARE, OTHER, SELFPAY ==
--- NOTE | 2018-04-10 15:04 | BI_ITS ---
MAMMOGRAPHY - BILATERAL SCREENING REASON FOR EXAM: Female, 72 years old. Routine annual screening examination. PERTINENT HISTORY: Non-contributory. TECHNIQUE: Digital bilateral breast sarah (3D mammographic acquisition) in the CC and MLO projections. 2-D mediolateral oblique (MLO) and craniocaudad (CC) views of both breasts were obtained. CAD: Full Field Digital Mammography with Computer Added Detection was performed. COMPARISON: Comparison is made with prior study dated January 04, 2017 and November 05, 2013. FINDINGS: Breast Composition: The breasts are heterogeneously dense, which may obscure small masses. There is been a slight progression of the linear calcifications in the inferior medial portion of the right breast. The patient will be recalled for additional views including magnification spot views. Stable benign-appearing bilateral axillary lymph nodes. No other significant abnormalities are identified. BI/SCREENING MAMM (CAD), BILAT IMPRESSION: Slight increase in number of the linear calcifications in the inferior medial portion of the right breast as described. The patient will be recalled for additional views. Recall Side: Right Breast ASSESSMENT CATEGORY: BIRADS Category 0: Incomplete. Need additional imaging evaluation. A letter regarding these results will be sent to the patient by the facility within 30 days. Approximately 10% of breast cancers are not detected by mammography. A normal mammogram should not delay biopsy of a clinically suspicious abnormality. [id number] Electronically Signed: Dino Mueller MD at 9:24 EDT Tel [phone], Service support ,
--- NOTE | 2018-04-10 15:23 | BD_ITS ---
STUDY: DUAL ENERGY X-RAY ABSORPTIOMETRY / DXA REASON FOR EXAM: Female, 72 years old. The patient is postmenopausal. Loss of height. TECHNIQUE: Bone Mineral Density (BMD) measurements of lumbar spine and right hip were obtained. The patient is status post left hip replacement. COMPARISON: Comparison is made with prior examination dated January 03, 2012. FINDINGS: Lumbar Spine (L1-L4): g/cm2 (1.045) / T-score (-1.1) / Z-score (0.6) Findings are suggestive of osteopenia with a moderate fracture risk. Right Femur Total: g/cm2 (0.753) / T-score (-2.0) / Z-score (-0.5) Right Femoral Neck: g/cm2 (0.684) / T-score (-2.5) / Z-score (-0.8) The T-Scores on the most recent prior examination were: Lumbar Spine (L1-L4): There has been worsening of bone density since the previous examination. Right Femur Total: which represents a worsening of 12.5%. BD/Dexa Bone Density Study IMPRESSION: The patient is considered osteopenic as outlined below according to World Jorge A Organization (WHO) criteria with a moderate fracture risk. There has been worsening of bone density since the previous examination. Reference Information: The T-score is the number of standard deviations above or below the standard which is normal for young adults at their peak bone mineral density. The World Health Organization (WHO) interprets the T-scores as follows: Above -1 Normal bone density Between -1 and -2.5 Osteopenia Equal to / or below -2.5 Osteoporosis As a practical clinical guideline, osteopenia may be graded as follows: Mild -1 through -1.5 Moderate -1.6 through -2.0 Severe -2.1 through -2.4 The Z-score is the number of standard deviations above or below age-matched controls. A Z-score of less than -1.5 would be considered abnormal. References: 1. NIH Osteoporosis and Related Bone Diseases http://www.osteo.org 2. International Society for Clinical Densitometry http://www.iscd.org 3. National Osteoporosis Foundation http://www.nof.org Electronically Signed: Dino Mueller MD at 11:17 EDT Tel [phone], Service support ,
== END ==
PROVIDERS: Family Provider Nurse Practitioner; PCP Nurse Practitioner; Visit Provider Nurse Practitioner
DX: Z12.31 Encounter for screening mammogram for malignant neoplasm of breast (principal); Z78.0 Asymptomatic menopausal state
CPT/HCPCS: 77063; 77067; 77080

== ENCOUNTER → 2018-04-12 13:20 | Outpatient (CLI) | payer MEDICARE, OTHER, SELFPAY ==
--- NOTE | 2018-04-12 13:24 | BI_ITS ---
MAMMOGRAPHY - UNILATERAL DIAGNOSTIC: RIGHT BREAST REASON FOR EXAM: Female, 72 years old. Abnormal screening mammogram. PERTINENT HISTORY: Non-contributory. TECHNIQUE: 90 degree lateral as well as compression spot views were obtained. CAD: Full Field Digital Mammography with Computer Added Detection was performed. COMPARISON: Comparison is made with prior study dated April 10, 2018. FINDINGS: Breast Composition: The breasts are heterogeneously dense, which may obscure small masses. There has been a slight increase in number of the branching calcifications in the inferior medial portion of the right breast. A biopsy is recommended. No other significant abnormalities are identified. BI/DIAG MAMM W/CAD, UNILAT IMPRESSION: Slight progression in the number of the linear calcifications as described. A biopsy is recommended. ASSESSMENT CATEGORY: BIRADS Category 4: Suspicious - Biopsy Should Be Considered. A letter regarding these results will be sent to the patient by the facility within 30 days. Approximately 10% of breast cancers are not detected by mammography. A normal mammogram should not delay biopsy of a clinically suspicious abnormality. Electronically Signed: Dnio Mueller MD at 14:23 EDT Tel [phone], Service support ,
== END ==
PROVIDERS: Family Provider Nurse Practitioner; PCP Nurse Practitioner; Visit Provider Nurse Practitioner
DX: R92.8 Other abnormal and inconclusive findings on diagnostic imaging of breast (principal)
CPT/HCPCS: 77065

== ENCOUNTER → 2018-05-01 10:20 | Outpatient (CLI) | payer MEDICARE, OTHER, SELFPAY ==
--- NOTE | 2018-05-01 11:20 | BRBX_PTH ---
PATIENT: KARINA CHRISTINA LOC: [facility] U#:[id number] AGE/SX: 80/F ROOM: RE05/01/[address]: Dr. Shaquille Scherer MD : [id number] BED: DIS: SPEC #: [id number] RECD: 05/01/18 12:28 STATUS: DEVAN DAMARIS #: [id number] VANESSA: 05/01/18 11:[address]: Shaquille Scherer DEPT: SURGICAL PATHOLOGY RECD BY: Yeyo Michael ENTERED: 05/01/18 13:20 SP TYPE: BREAST BX OTHR DR: BRADLY Preciado Tissues: Right breast, NOS Procedures: Surgery Specimen Level IV HEADER OPERATION: Right breast stereotactic biopsy PRE-OP DIAGNOSIS: Right breast calcifications inferior medial TISSUE SUBMITTED: Right breast core tissue ISCHEMIC TIME: 1 minute FIXATION TIME: 8 hours MICROSCOPIC DIAGNOSIS Right breast calcifications, inferior medial, stereotactic core biopsy: Fragments of fatty breast tissue with lobular involution and focal dense fibrosis. Focal microcalcifications. Negative for atypia or malignancy. CHENG:haroon 05/02/18 COMMENT Correlation with clinical, radiologic findings and appropriate follow up are necessary. MICROSCOPIC DESCRIPTION Slides are reviewed. GROSS DESCRIPTION Received is one container labeled with the patient's name and not further designated. The specimen consists of multiple elongated fragments of owen-yellow fibroadipose tissue that in aggregate measure 7.5 x 3 x 0.3 cm. The entire specimen is submitted in three cassettes. / CHENG:haroon 05/01/18 TC:5 CPT: 83580
--- NOTE | 2018-05-01 11:40 | OP.PCM_ITS ---
Problem List (1) Microcalcification of right breast on mammogram Status: Acute Report of Operation Date of Procedure: 05/01/18 Pre-Operative Diagnosis: 92.0 microcalcifications of the right breast Post-Operative Diagnosis: Same Surgery/Procedure Performed:: Right stereotactic breast biopsy Type of Anesthesia:: Local Description of Procedure: Patient was brought into the mammography unit placed in the supine position on the [place] table. The right breast was brought down through the opening. A medial to lateral view was obtained. Microcalcifications were identified. ?15 ? views were obtained a targeted on the microcalcifications. The breast was prepped with Betadine. 1% lidocaine plain was injected. A small skin adrian was made. The needle was placed in the prefire position. 2 more stereo views were obtained showing the area of the microcalcifications to be adequately targeted. Fired the needle. 360? circumferential biopsies were obtained. I x-ray my specimen. Microcalcifications were present. I backed the needle off 9 mm. A small Gelfoam titanium clip was placed in the wound. Remove the needle. X-ray of the breast. Clip was in good placement. Sterile dressings were applied. Patient tolerated the procedure well. Standard mammogram was obtained post procedure. - Admit VTE Documentation VTE Present on Admission: No VTE Mechan Device Prophylaxis: None VTE Pharm Prophylaxis ordered?: No Reason prophylaxis not ordered:: Treatment Not Indicated
== END ==
PROVIDERS: Family Provider Nurse Practitioner; PCP Nurse Practitioner; Visit Provider Surgery
DX: N60.31 Fibrosclerosis of right breast (principal); R92.0 Mammographic microcalcification found on diagnostic imaging of breast; I25.10 Atherosclerotic heart disease of native coronary artery without angina pectoris; I11.0 Hypertensive heart disease with heart failure; I50.32 Chronic diastolic (congestive) heart failure; J44.9 Chronic obstructive pulmonary disease, unspecified; E78.5 Hyperlipidemia, unspecified; I65.21 Occlusion and stenosis of right carotid artery; I35.9 Nonrheumatic aortic valve disorder, unspecified; I05.9 Rheumatic mitral valve disease, unspecified; I05.2 Rheumatic mitral stenosis with insufficiency; I27.29 Other secondary pulmonary hypertension; M19.90 Unspecified osteoarthritis, unspecified site; R01.1 Cardiac murmur, unspecified; K21.9 Gastro-esophageal reflux disease without esophagitis; Z95.1 Presence of aortocoronary bypass graft; Z86.73 Personal history of transient ischemic attack (TIA), and cerebral infarction without residual deficits; Z79.82 Long term (current) use of aspirin; Z79.899 Other long term (current) drug therapy; Z87.891 Personal history of nicotine dependence
CPT/HCPCS: 19081; 88305; J7050; A4648

== ENCOUNTER → 2018-05-10 08:30 | Outpatient (CLI) | payer MEDICARE, OTHER, SELFPAY | PROVIDERS: Family Provider Nurse Practitioner; PCP Nurse Practitioner; Visit Provider Psychiatry & Neurology Neurology | DX: I65.21 Occlusion and stenosis of right carotid artery (principal) | CPT/HCPCS: 93880 ==

== ENCOUNTER 2018-05-14 06:47 | Day surgery (SDC) | payer MEDICARE, OTHER, SELFPAY ==
--- NOTE | 2018-05-14 | COLBX_PTH ---
PATIENT: KARINA CHRISTINA LOC: EN U#:[id number] AGE/SX: 72/F ROOM: RE05/14/[address]: Dr. Shaquille Scherer MD : [id number] BED: DIS: 05/14/2018 SPEC #: [id number] RECD: 05/14/18 13:22 STATUS: DEVAN DAMARIS #: [id number] VANESSA: 05/14/18 00:[address]: Shaquille Scherer DEPT: SURGICAL PATHOLOGY RECD BY: Bethel Shin ENTERED: 05/14/18 13:23 SP TYPE: COLON BX OTHR DR: Mercy Elliott, [facility] Tissues: Rectum, NOS Procedures: Surgery Specimen Level IV HEADER OPERATION: Colonoscopy (MAC) PRE-OP DIAGNOSIS: Screening TISSUE SUBMITTED: Rectal polyp MICROSCOPIC DIAGNOSIS Rectal polyp, biopsy: Fragments of tubular adenoma. SJ:haroon 05/15/18 MICROSCOPIC DESCRIPTION Slides are reviewed. GROSS DESCRIPTION Received in fixative is one container labeled with the patient's name and designated rectal polyp. The specimen consists of two pieces of owen-pink polyp measuring 0.5 x 0.5 x 0.3 cm and 0.4 x 0.4 x 0.3 cm. The entire specimen is submitted in one cassette. / SJ:rg 05/14/18 TC:1 CPT: 21957
[2018-05-14 07:02] VITALS: BP 121/70; PULSE 94; RESP 20; TEMP 36.1; O2SAT 95; BMI 27.5
--- NOTE | 2018-05-14 08:08 | PCM.OPRPT ---
Problem List (1) Colon cancer screening Status: Acute Report of Operation Date of Procedure: 05/14/18 Pre-Operative Diagnosis: z12.11 screening for colon cancer Post-Operative Diagnosis: Same Surgery/Procedure Performed:: [id number] colonoscopy with snare polypectomy Type of Anesthesia:: MAC Description of Procedure: Patient was brought into the endoscopy suite placed in left lateral decubitus position was given graded anesthesia. The colonoscope was inserted into the rectum. The scope was directed through the sigmoid colon, descending colon, transverse colon, descending colon, to the cecum. Operative findings: 1. Cecum: Normal appearance no mass lesions normal ileocecal valve. 2. Ascending colon: Normal appearance no mass lesions. 3. Transverse colon: Normal appearance no mass lesions. 4. Descending colon: Normal appearance no mass lesions. 5. Sigmoid colon: Normal appearance no mass lesions scattered diverticuli were identified. 6. Rectum: Normal appearance no mass lesions polyp was identified in the distal rectum and removed with snare cautery technique and brought back to the channel the scope without difficulty. Good hemostasis was noted. Patient did have a few internal hemorrhoids. Scope was withdrawn. Digital rectal exam showed no masses within the anus. Patient will need to have another colonoscopy in 3 years unless this is a tubulovillous adenoma in which case she will need one in one year. - Admit VTE Documentation VTE Present on Admission: No VTE Mechan Device Prophylaxis: None VTE Pharm Prophylaxis ordered?: No Reason prophylaxis not ordered:: Treatment Not Indicated
[2018-05-14 08:10] VITALS: BP 121/70; BP 93/50; PULSE 87; RESP 12; TEMP 36.2; O2SAT 96
[2018-05-14 08:15] VITALS: BP 121/70; BP 95/51; PULSE 92; RESP 16; O2SAT 99
[2018-05-14 08:20] VITALS: BP 107/52; BP 121/70; PULSE 86; RESP 16; O2SAT 98
[2018-05-14 08:25] VITALS: BP 121/70; BP 95/63; PULSE 85; RESP 16; TEMP 36.3; O2SAT 87
[2018-05-14 08:47] VITALS: BP 121/70
== END 2018-05-14 08:56 | disposition home or self-care (01) ==
LOC: EN 06:48 → AC 06:48
PROVIDERS: Family Provider Nurse Practitioner; PCP Nurse Practitioner; Visit Provider Surgery
PROC: 0DJD8ZZ Inspection of Lower Intestinal Tract, Via Natural or Artificial Opening Endoscopic (ICD-10-PCS; CPT 45378; principal; 2018-05-14 07:55)
DX: Z12.11 Encounter for screening for malignant neoplasm of colon (principal); D12.8 Benign neoplasm of rectum; K57.30 Diverticulosis of large intestine without perforation or abscess without bleeding; K64.8 Other hemorrhoids; J44.9 Chronic obstructive pulmonary disease, unspecified; I25.10 Atherosclerotic heart disease of native coronary artery without angina pectoris; I27.29 Other secondary pulmonary hypertension; E78.00 Pure hypercholesterolemia, unspecified; M19.90 Unspecified osteoarthritis, unspecified site; K21.9 Gastro-esophageal reflux disease without esophagitis; I50.32 Chronic diastolic (congestive) heart failure; I65.21 Occlusion and stenosis of right carotid artery; E06.9 Thyroiditis, unspecified; R01.1 Cardiac murmur, unspecified; I35.9 Nonrheumatic aortic valve disorder, unspecified; I05.9 Rheumatic mitral valve disease, unspecified; I06.2 Rheumatic aortic stenosis with insufficiency; R92.0 Mammographic microcalcification found on diagnostic imaging of breast; Z86.73 Personal history of transient ischemic attack (TIA), and cerebral infarction without residual deficits; Z86.718 Personal history of other venous thrombosis and embolism; Z87.442 Personal history of urinary calculi; Z78.0 Asymptomatic menopausal state; Z96.642 Presence of left artificial hip joint; Z95.1 Presence of aortocoronary bypass graft; Z95.2 Presence of prosthetic heart valve; Z79.82 Long term (current) use of aspirin; Z79.899 Other long term (current) drug therapy; Z87.891 Personal history of nicotine dependence
CPT/HCPCS: 45385; 88305; J7120

== ENCOUNTER 2018-05-31 12:00 | Outpatient (RCR) | payer MEDICARE, OTHER, SELFPAY ==
--- NOTE | 2018-05-03 16:34 | HP.PTEVAL_ITS ---
Patient's Visit Information KARINA CHRISTINA is a 72 year old F referred to Physical Therapy by Danish Acevedo MD with a diagnosis of Gait instability. Date of Evaluation: 05/03/18 Physical Therapist: Hi Sargent PT, - Visit Plan Frequency: 2x /Week Duration: 2 Months Plan: B LE strengthening, core stab ex's, balance and proprio, gait training, and HEP - Subjective Subjective: Pt reports she has been unsteady for the past few months. Pt reports she has been falling a lot lately. Pt reports 4 falls over the past year. Pt reports she fractured her shoulder in Jul 2017 from falling, and fractured her R ankle in January of 2018 from falling. Pt reports there is no reason for her falls as she hasnt tripped over anything. Pt has good feeling in her feet. Pt denies being dizzy or feeling light headed. Pt reports she just feels really weak in her LE's. Pt reports she has a Hx of LBP, and when that is sore, her legs feel weak. Pt is scheduled for a nerve conduction test in a month. Pt has stairs at home, and has difficulty with negotiating them. Pt notes everytime she has broken a bone, it was on stairs. LBP 11/04 this date. - Pain LBP Pain Intensity (Out of 10): 2 - Objective Neuro: B LE sensation is WNL to light touch. B patellar tendon reflex= 3/3. LE MMT: R LE is grossly 4+/5 throughout. L LE is grossly 4-/5 throughout. L/S ROM : Pt is moderately limited with forward flexion, and severely limited with extension. No limitations with SB. Repeated movements: DKTC stretches has NE on LBP. stairs: Pt is able to reciprocally negotiate 10 stairs, - Goals Goal 1:: Increase B LE strength x 1 grade to aid with stair negotiation Goal Time Frame: 6-8 Weeks Goal 2:: Increase core stability x 1 grade to aid with decreasing LBP Goal Time Frame: 6-8 Weeks Goal 3:: Increase Standing dynamic balance x 1 grade to aid with preventing future falls Goal Time Frame: 6-8 Weeks Goal 4:: I with HEP Goal Time Frame: 6-8 Weeks - Rehabilitation Potential Physical Therapy Diagnosis: Pt has LE weakness, decreased balance, and gait instability secondary to degenerative changes in LB and LE's. Rehabilitation Potential: Good - Anticipated Interventions Patient/Client Instruction: Educate patient on: Condition, Plan of Care For the Purpose of:: To improve self management Therapeutic Exercise to Include: Strength training, Endurance training, Balance training, Postural training, Gait and locomotor training, Dynamic Lumbar Stabilization For the Purpose of:: To decrease pain, To increase ROM, To improve muscle performance and motor function Cryotherapy (ice pack, ice massage): Yes Thermo therapy (hot pack): Yes For the Purpose of:: To decrease pain Thank you for the opportunity to evaluate your patient. For Medicare and Medicare HMO plans, please review the plan of care and approve it. It will need to be FAXED BACK to us at [phone] for Medicare purposes. Please let me know if there are questions or concerns regarding this plan of care. Physician Signature: Date:
--- NOTE | 2018-05-31 13:37 | HP.PTDCSUM ---
HP - PT D/C Summary It has been my pleasure to treat KARINA CHRISTINA under orders from Danish Acevedo MD, for the diagnosis of Gait instability for a total of 9 visit(s). Discharge Date: Please see the following information for a summary of their discharge status. - Subjective Subjective: Pt notes minor pain this date. - Pain LBP Pain Intensity (Out of 10): 1 - Objective Objective/Function: LBP= 1/10. LE MMT: B LE's 5/5 throughout. SLS: Pt can SLS for greater than 5 sec bilaterally. Stairs: Pt can negotiate 1 flight without difficultyqq. Gait: Pt is able to ambulate over 700 feet without limitation. Rx goals achieved - Goals Goal 1:: Increase B LE strength x 1 grade to aid with stair negotiation Goal Progress: Goal Met Goal 2:: Increase core stability x 1 grade to aid with decreasing LBP Goal Progress: Goal Met Goal 3:: Increase Standing dynamic balance x 1 grade to aid with preventing future falls Goal Progress: Goal Met Goal 4:: I with HEP Goal Progress: Goal Met - Plan Plan: Discharge - D/C Information If there are questions or concerns regarding this patient's physical therapy, please feel free to call me at [phone]. Thank you for the referral of this patient. Sincerely, Hi Sargent, PT,
== END 2018-05-31 16:17 | disposition home or self-care (01) ==
LOC: PT 12:00
PROVIDERS: Family Provider Nurse Practitioner; PCP Nurse Practitioner; Visit Provider Psychiatry & Neurology Neurology
DX: R26.89 Other abnormalities of gait and mobility (principal)
CPT/HCPCS: 97110; 97162; 97530

== ENCOUNTER → 2018-06-22 10:08 | Outpatient (CLI) | payer MEDICARE, OTHER, SELFPAY ==
--- NOTE | 2018-06-22 10:10 | ECHOD_ITS ---
Reason For Study: ARRYTHMIA Procedure This was a 2D Doppler, Color Flow transthoracic echocardiogram. Exam performed in department. Left Ventricle Normal LV size. Left ventricular systolic function is normal. The estimated ejection fraction is 55 %. Stage 1 diastolic dysfunction. No regional wall motion abnormalities noted. Right Ventricle Normal RV size. Normal systolic function. Atria Normal left atrium. Normal right atrium. Mitral Valve Peak transmitral valve gradient 9 mmHg. Mean transmitral valve gradient 5 mmHg. Mitral valve area. 2.4cm^. Stable appearing bioprosthetic mitral valve apparatus. Tricuspid Valve Normal tricuspid valve. Mild tricuspid valve insufficiency. Pulmonary artery systolic pressure is 36 mmHg. Aortic Valve Peak aortic valve gradient 26 mmHg. Mean aortic valve gradient 17 mmHg. Mild aortic stenosis. Calculated aortic valve area (continuity equation) is 1.1 cm2. Stable appearing bioprosthetic aortic valve apparatus. Great Vessels Normal aortic root. The pulmonary artery is normal size. Pericardium/Pleural No pericardial effusion. MMode/2D Measurements & Calculations LVIDd: 4.2 cm IVSd: 0.84 cm LVOT diam: 2.0 cm LVIDs: 2.9 cm LVPWd: 0.91 cm LVOT area: 3.0 cm2 RVDd: 3.1 cm FS: 31.7 % LA dimension: 3.3 cm LAV(MOD-bp): 41.7 ml LVAd ap4: 19.9 cm2 LAV(MOD-bp) Indexed: 24.1 ml/m2 EDV(MOD-sp4): 51.4 ml LAV(MOD-sp2): 39.6 ml EDV(sp4-el): 53.7 ml LAV(MOD-sp4): 42.2 ml LVAs ap4: 11.3 cm2 ESV(MOD-sp4): 20.2 ml ESV(sp4-el): 20.6 ml EF(MOD-sp4): 60.6 % EF(sp4-el): 61.5 % SV(MOD-sp4): 31.1 ml SV(sp4-el): 33.0 ml LA A4 area: 15.6 cm2 RA A4 area: 10.8 cm2 Time Measurements MV dec time: 0.29 sec Doppler Measurements & Calculations MV E max phill: 105.8 cm/sec Lat Peak E' Phill: 5.2 cm/sec Med Peak E' Phill: 6.0 cm/sec MV A max phill: 121.4 cm/sec E/E' lat: 20.2 E/E' med: 17.6 MV E/A: 0.87 MV V2 max: 149.5 cm/sec MV P1/2t max phill: 148.8 cm/sec Ao V2 max: 255.2 cm/sec MV max P.9 mmHg MV P1/2t: 73.7 msec Ao max P.1 mmHg MV V2 mean: 103.7 cm/sec MV dec slope: 591.6 cm/sec2 Ao V2 mean: 195.6 cm/sec MV mean P.6 mmHg MVA(P1/2t): 3.0 cm2 Ao mean P.7 mmHg MV V2 VTI: 31.0 cm Ao V2 VTI: 61.6 cm MVA(VTI): 2.4 cm2 YORDY(I,D): 1.2 cm2 YORDY(V,D): 1.1 cm2 LV V1 max: 96.0 cm/sec SV(LVOT): 73.7 ml PA V2 max: 103.5 cm/sec LV V1 max P.7 mmHg LV V1 mean P.4 mmHg LV V1 mean: 72.2 cm/sec LV V1 VTI: 24.6 cm TR max phill: 283.1 cm/sec TR max P.0 mmHg Interpretation Summary Normal LV size. Left ventricular systolic function is normal. The estimated ejection fraction is 55 %. Stage 1 diastolic dysfunction. Mean transmitral valve gradient 5 mmHg. Mitral valve area. 2.4cm^ Mean aortic valve gradient 17 mmHg. Calculated aortic valve area (continuity equation) is 1.1 cm2. Stable appearing bioprosthetic aortic valve apparatus. Stable appearing bioprosthetic mitral valve apparatus. Compared to prior study, there is no significant change. Ordering Physician: Abdi Acosta Referring Physician: TIFFANIE CHILEL Performed By: Ruchi Briggs RDCS
== END ==
PROVIDERS: Family Provider Nurse Practitioner; PCP Nurse Practitioner; Referring Provider Internal Medicine Cardiovascular Disease; Visit Provider Internal Medicine Cardiovascular Disease
DX: R29.6 Repeated falls (principal); R42 Dizziness and giddiness; I25.10 Atherosclerotic heart disease of native coronary artery without angina pectoris
CPT/HCPCS: 93225; 93226; 93306

== ENCOUNTER → 2018-06-28 09:55 | Outpatient (CLI) | payer MEDICARE, OTHER, SELFPAY ==
--- NOTE | 2018-06-28 10:01 | MRI_ITS ---
STUDY: MRI BRAIN WITHOUT CONTRAST REASON FOR EXAM: Female, 72 years old. LIGHTHEADEDNESS X 6 MONS C/O DULL POSTERIOR PAIN TECHNIQUE: Standardized multiplanar fat and water weighted pulse sequences were obtained. COMPARISON: CT of the head dated February 06, 2018 FINDINGS: There are multiple linear areas of restricted diffusion involving the posterior insula and right parietal lobe. Some of these areas demonstrate decreased ADC map signal, consistent with acute infarction. However there is edema which is confined to the white matter which is atypical for infarction. There is mild cerebral atrophy with widening of the extra-axial spaces and ventricular dilatation. There are multiple white matter hyperintensities, distributed throughout the deep white matter tracts of the cerebral hemispheres, consistent with moderate chronic white matter ischemic changes. Normal bilateral basal ganglia. Normal thalami. There is no extra-axial fluid accumulation. Normal flow voids within the major intracranial circulation suggesting patency by spin echo criteria. Normal sella turcica, pituitary gland, infundibular stalk, optic chiasm and hypothalamus. Normal tectal plate and pineal gland. There are chronic white matter ischemic changes of the asim. The midbrain and medulla are otherwise normal. Again noted are the bilateral cerebellar chronic lacunar infarcts MRI/Brain without Contrast IMPRESSION: Right temporoparietal areas of restricted diffusion, concerning for acute infarction. Atypical associated edema. Neurology consultation is recommended. Bilateral cerebellar chronic lacunar infarcts. N.B. : The above information has been verbally conveyed by Lalito Miner MD to HARSHIL Dobson, on 06/28/2018 13:08:05 (ET). Electronically Signed: Lalito Miner MD at 12:03 EDT Tel , Service support ,
== END ==
PROVIDERS: Family Provider Nurse Practitioner; PCP Nurse Practitioner; Referring Provider Psychiatry & Neurology Neurology; Visit Provider Psychiatry & Neurology Neurology
DX: Z86.73 Personal history of transient ischemic attack (TIA), and cerebral infarction without residual deficits (principal)
CPT/HCPCS: 70551

== ENCOUNTER 2018-06-28 13:07 | Observation (INO) | payer MEDICARE, OTHER, SELFPAY ==
[2018-06-28] VITALS (9 sets, daily range): BP systolic 100–130; BP diastolic 55–72; PULSE 85–103; RESP 16–20; TEMP 36.6–37.1; O2SAT 92–96; BMI 26.4; BMI 26.9
--- NOTE | 2018-06-28 13:29 | EKG12_ITS ---
Test Reason : NEURO Blood Pressure : / mmHG Vent. Rate : 093 BPM Atrial Rate : 093 BPM P-R Int : 164 ms QRS Dur : 068 ms QT Int : 390 ms P-R-T Axes : 085 -32 047 degrees QTc Int : 484 ms Normal sinus rhythm Possible Left atrial enlargement Left axis deviation Pulmonary disease pattern Septal infarct , age undetermined Abnormal ECG Confirmed by KRISTOPHER WHATLEY, SERENA ([id number]), subeditor MAIKOL MCDOWELL ([id number]) on 07/02/2018 2:26:03 PM Referred By: Danish Acevedo Confirmed By:SERENA SUMMERS MD
[2018-06-28] MEDS: 0.9% Normal Saline 1,000 ML 150 ML IV (14:00)
[2018-06-28 14:03] LABS: Absolute Lymphocyte Count 2.54 X10^3/ul (0.83-4.51); Absolute Neutrophil Count 3.4 X10^3/uL (2.0-7.7); Basophil# 0.06 X10^3/uL; Basophil% 0.9 % (0-1); Eosinophil# 0.17 X10^3/uL; Eosinophils% 2.4 % (0-5); Hematocrit 43.2 % (37-47); Hemoglobin 14.2 g/dl (12.0-15.0); Lymphocyte # 2.54 X10^3/ul (4.0); Lymphocyte % 36.3 % (19-41); Mean Corp Hgb Conc 32.9 g/gl (32-36); Mean Corpuscular Hgb 30.1 pg (27.0-32.0); Mean Corpuscular Volume 91.5 fL (81-99); Mean Platelet Vol. 11.1 fl (6.2-12.0); Monocyte# 0.78 X10^3/uL; Monocyte% 11.2 % (0-10); Neutrophil # 3.43 X10^3/uL (2.7-7.7); Neutrophil % 49.1 % (47-70); POSITIVE COUNT NO; POSITIVE DIFFERENTIAL NO; POSITIVE MORPHOLOGY NO; Platelet Count 217 K/mm3 (150-450); RBC Distribution Width CV 14.1 % (11.6-14.6); RBC Distribution Width SD 46.7 fl (35.1-43.9); Red Blood Count 4.72 M/mm3 (4.2-5.4)
[2018-06-28 14:14] LABS: Prothrombin Time (Protime)PT. 13.2 SECONDS (11.7-14.9)
[2018-06-28 14:15] LABS: Partial Thromboplast Time 26.2 Seconds (24.1-36.2)
[2018-06-28 14:19] LABS: Anion Gap 6 (5-15); BUN 10 mg/dL (7-18); BUN/Creat Ratio 9.2 RATIO (10-20); Calcium,Total 9.6 mg/dL (8.5-10.1); Chloride 104 mmol/L (98-107); Creatinine, Serum 1.09 mg/dL (0.55-1.02); EST Glomerular Filtration Rate 52 mL/min (>60); Est Glom Filt Rate - Afr Amer 64 mL/min (>60); Estimated Creatinine Clearance 40.88 ml/min; Glucose 100 mg/dL (74-106); Sodium Level 137 mmol/L (136-145)
--- NOTE | 2018-06-28 14:38 | CT_ITS ---
STUDY: CTA OF THE BRAIN REASON FOR EXAM: Female, 72 years old. POSITIVE FOR ACUTE INFARCTION ON MRI THIS A.M, FALLS X 1 MONTH. RADIATION DOSAGE (If Supplied By Facility): CTDIvol = ( 44.99 ) mGy, DLP = ( 767.99 ) mGycm TECHNIQUE: CT angiography was performed with a multi-detector CT scanner. Data acquisition was obtained from the skull base through the vertex following intravenous administration of ml of . MIP images were reconstructed from the axial data set. Post-processing of the angiographic images was performed, with multiplanar reformation and 3D reconstruction. Individualized dose optimization techniques were used for this CT. COMPARISON: MRI 06/28/2018 FINDINGS: Normal bilateral petrous carotid arteries. There is calcified plaque formation of the right cavernous carotid artery, without a cross-sectional luminal stenosis. Normal left cavernous carotid artery with a normal supraclinoid bifurcation. Normal right A1 segments of the anterior cerebral artery. Normal left A1 segments of the anterior cerebral artery. Normal intact anterior communicating artery (ACOM). Normal bilateral A2 segments of the anterior cerebral arteries. Normal right M1 and M2 segments of the middle cerebral arteries, with a normal M1 bifurcation. Normal left M1 and M2 segments of the middle cerebral arteries, with a normal M1 bifurcation. There is non-visualization of the right posterior communicating artery (PCOM). 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 Normal bilateral vertebral arteries. Normal basilar artery with a normal basilar bifurcation. The visualized bilateral superior cerebellar (SCA) arteries are normal. Normal bilateral posterior cerebral arteries. There is no demonstrated aneurysm of the teller of [place]. Noncontrast CT of the brain demonstrate right parietal hypodensity corresponding to the area of increased diffusion on the prior MRI. CT/CTA Head W/WO Contrast IMPRESSION: No major occlusion or significant stenosis. Electronically Signed: Lalito Miner MD at 15:17 EDT Tel , Service support ,
--- NOTE | 2018-06-28 14:38 | CT_ITS ---
STUDY: CTA NECK WITH CONTRAST REASON FOR EXAM: Female, 72 years old. POSITIVE FOR ACUTE INFARCTION ON MRI THIS A.M, FALLS X 1 MONTH. RADIATION DOSAGE (If Supplied By Facility): CTDIvol = ( 19.53 ) mGy, DLP = ( 700.90 ) mGycm TECHNIQUE: CT angiography with multi-detector data acquisition was performed from the aortic arch to the skull base following intravenous administration of 100 ml of Isovue 370 contrast. MIP images were reconstructed from the axial data set. Post-processing of the angiographic images was performed, with multiplanar reformation and 3D reconstruction. Individualized dose optimization techniques were used for this CT. COMPARISON: None. FINDINGS: AORTIC ARCH: There is mild atherosclerotic plaque of the aortic arch RIGHT CAROTID ARTERIES: Normal right common carotid artery (CCA). There is moderate atherosclerotic plaque formation with moderate narrowing of the right carotid bulb. There is moderate atherosclerotic plaque formation of the origin of the right internal carotid artery with an estimated stenosis of 50% stenosis. There is atherosclerotic tortuous elongation and mild atherosclerotic plaque of the cervical portion of the right internal carotid artery. Normal origin of the right external carotid artery (ECA). LEFT CAROTID ARTERIES: Normal left common carotid artery (CCA). There is mild atherosclerotic plaque formation with minimal narrowing of the left carotid bulb. Normal origin of the left internal carotid (ICA) artery without a hemodynamically significant stenosis. There is atherosclerotic tortuous elongation of the cervical portion of the left internal carotid artery. Normal origin of the left external carotid artery (ECA). VERTEBRAL ARTERIES: Normal bilateral vertebral arteries. CT/CTA Neck W/WO Contrast IMPRESSION: 50% stenosis of the right ICA. Electronically Signed: Lalito Miner MD at 15:20 EDT Tel , Service support ,
--- NOTE | 2018-06-28 14:41 | ED.VISSUMM ---
- ER Visit Summary Date of Service: 06/28/18 Chief Complaint: [Stroke] History of Present Illness: The patient is a 72 F [presents the emergency department with complaint of a stroke on the MRI that she had done today as an outpatient. Patient states that she has been seeing her neurologist Dr. Acevedo because patient has been falling over the last year she is fallen 4 times. Patient had an outpatient MRI of her brain ordered today that showed a right temporal parietal area of restricted diffusion concerning for acute infarct as well as atypical associated edema. Patient was advised to come to the emergency department. Patient denies any difficulty with speech or vision. She denies any weakness or paresthesias. She denies any falls or head injuries. She denies headache currently but has had intermittent headaches. Patient does have a history of an essential tremor. Patient also with history of coronary artery disease as she has had a one-vessel bypass and 2 valve replacements. Patient has had history of TIAs. Physical Examination: [HEENT-PERRLA, EOMI. Cranial nerves II through XII grossly intact. TMs clear. Mucous membranes moist. No adenopathy. Cardiovascular-regular rate and rhythm with 2 out of 6 systolic ejection murmur Lungs-clear to auscultation, chest wall stable without crepitus or subcu emphysema Abdomen-normoactive bowel sounds, soft, nontender, no rebound or rigidity, no peritoneal signs. Neuro [id number] and heel colon testing within normal limits, negative Romberg, negative for drift, fundi benign. NIH stroke scale was 0. Extremities-intact ?4, normal range of motion, normal pulses, atraumatic] Test Results: [EKG obtained on arrival showed a sinus rhythm with a ventricular rate of 93 bpm with old septal infarct noted and left atrial enlargement. CBC with differential is normal. Chemistries unremarkable. Troponin was less than 0.015. Case was discussed with Dr. Lukas Arredondo who is on for neurology who recommended admission and further workup] Emergency Department Course and Treatment: [Patient case will be discussed with hospitalist will evaluate patient for admission. I did order CTAs of the head and neck which will be pending.] Treatment Plan: [Admit] Disposition: [Admit] Impression: [CVA] This note was generated with [employer] dictation software. It may contain incorrect words, spelling, and punctuation that were not noted in review of the chart prior to signing ED Disposition - Plan for ED Patient: Chief Complaint: Neuro S/Sx Referrals: [facility] Elliott [Primary Care Provider] -
--- NOTE | 2018-06-28 14:44 | ED.DCSUM_ITS ---
- ER Visit Summary Date of Service: 06/28/18 Chief Complaint: [Stroke] History of Present Illness: The patient is a 72 F [presents the emergency department with complaint of a stroke on the MRI that she had done today as an outpatient. Patient states that she has been seeing her neurologist Dr. Acevedo because patient has been falling over the last year she is fallen 4 times. Patient had an outpatient MRI of her brain ordered today that showed a right temporal parietal area of restricted diffusion concerning for acute infarct as well as atypical associated edema. Patient was advised to come to the emergency department. Patient denies any difficulty with speech or vision. She denies any weakness or paresthesias. She denies any falls or head injuries. She denies headache currently but has had intermittent headaches. Patient does have a history of an essential tremor. Patient also with history of coronary artery disease as she has had a one-vessel bypass and 2 valve replacements. Patient has had history of TIAs. Physical Examination: [HEENT-PERRLA, EOMI. Cranial nerves II through XII grossly intact. TMs clear. Mucous membranes moist. No adenopathy. Cardiovascular-regular rate and rhythm with 2 out of 6 systolic ejection murmur Lungs-clear to auscultation, chest wall stable without crepitus or subcu emphysema Abdomen-normoactive bowel sounds, soft, nontender, no rebound or rigidity, no peritoneal signs. Neuro [id number] and heel colon testing within normal limits, negative Romberg, negative for drift, fundi benign. NIH stroke scale was 0. Extremities-intact ?4, normal range of motion, normal pulses, atraumatic] Test Results: [EKG obtained on arrival showed a sinus rhythm with a ventricular rate of 93 bpm with old septal infarct noted and left atrial enlargement. CBC with differential is normal. Chemistries unremarkable. Troponin was less than 0.015. Case was discussed with Dr. Luksa Arredondo who is on for neurology who recommended admission and further workup] Emergency Department Course and Treatment: [Patient case will be discussed with hospitalist will evaluate patient for admission. I did order CTAs of the head and neck which will be pending.] Treatment Plan: [Admit] Disposition: [Admit] Impression: [CVA] This note was generated with [email or web address] / [employer] dictation software. It may contain incorrect words, spelling, and punctuation that were not noted in review of the chart prior to signing ED Disposition - Plan for ED Patient: Chief Complaint: Neuro S/Sx Referrals: [facility] [Primary Care Provider] -
--- NOTE | 2018-06-28 15:50 | PCM.HP.STD ---
Problem List (1) CVA (cerebral vascular accident) Status: Acute History of Present Illness Date of Admission: 06/28/18 Chief Complaint: falls The patient is a 72 year old F who has been having falls. Patient stated that she would just get weak and then fall. Never lose consciousness, however. Patient sustained injury to shoulder and hip with these falls. Patient saw a neurologist, Dr. Acevedo and patient underwent an MRI today. The MRI report showed limited diffusion in the right temporal lobe concerning for stroke. Patient was then brought to the emergency room underwent CT angiogram of the head and neck which were unremarkable. ER spoke with neurology who advised admission. Patient states her last fall was back in January states that she does get dizzy at times that occur spontaneously but resolved spontaneously. [place]coe that the dizziness is probably more of an inner ear process. Patient states that her falls were dizziness, however. For her falls as well, patient is seeing cardiology and had a carotid Doppler which is negative and echocardiogram was also unremarkable. She did undergo a 24-hour Holter monitor just recently but the results are not yet available. [] Past Medical History Past Medical History (Chronic Problems): Chronic Problems (Last Reviewed 06/14/18 @ 11:41 by Abdi Acosta MD) HTN (hypertension) (Chronic) Hypothyroidism (Chronic) GERD (gastroesophageal reflux disease) (Chronic) Rheumatic aortic stenosis with regurgitation (Chronic) Atherosclerotic heart disease of [place] coronary artery without angina pectoris (Chronic) H/O mitral valve replacement (Chronic) MVR w/ 27mm Ivan-Menon bovine pericardial mitral valve. 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 10/14/15 COPD (chronic obstructive pulmonary disease) (Chronic) Essential tremor (Chronic) Chronic back pain (Chronic) HLD (hyperlipidemia) (Chronic) Asthma (Chronic) Medical History: Medical History (Last Reviewed 06/28/18 @ 15:52 by Amos Allen DO) Rheumatic aortic stenosis with regurgitation (Chronic) I06.2 Atherosclerotic heart disease of [place] coronary artery without angina pectoris (Chronic) I25.10 Occlusion and stenosis of right carotid artery (Chronic) I65.21 Chronic diastolic heart failure (Chronic) I50.32 Other secondary pulmonary hypertension (Chronic) I27.29 Rheumatic mitral stenosis with insufficiency (Chronic) I05.2 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 10/14/15 COPD (chronic obstructive pulmonary disease) (Chronic) J44.9 HLD (hyperlipidemia) (Chronic) E78.5 Allergies levofloxacin [From Levaquin] Allergy (Verified 06/28/18 13:09) Itching/rash clopidogrel [From Plavix] Adverse Reaction (Intermediate, Verified 06/28/18 13:09) Blood Blisters atorvastatin calcium [From Lipitor] Adverse Reaction (Verified 06/28/18 13:09) muscle pains beta blockers Allergy (Uncoded 06/28/18 13:09) CHF pollen,animals Allergy (Uncoded 06/28/18 13:09) Unknown Home Medications: Ambulatory Orders Medication Instructions Recorded Levothyroxine [Synthroid] 50 mcg PO DAILY 02/25/14 Tiotropium [place] [Spiriva 18 MCG] 1 puff INHALATION DAILY 02/25/14 Magnesium Oxide [Magnesium] 250 mg PO BID 11/23/15 fluticasone 200 mcg-vilanterol 25 1 puff INHALATION DAILY 30 Days #60 11/22/17 mcg/dose powder for inhalation Albuterol Aerosols [Ventolin 2.5 mg INHALATION BID PRN PRN 12/20/17 Aerosols] Ranitidine HCl [Zantac 75] 75 mg PO QHS 12/20/17 Rosuvastatin Calcium [Crestor] 5 mg PO DAILY 12/20/17 Ubidecarenone [Co Q-10] 200 mg PO DAILY 12/20/17 omeprazole 20 mg capsule,delayed 20 mg PO BID #180 cap 01/22/18 release fluoxetine 20 mg capsule 20 mg PO QDAY 04/20/18 diltiazem CD 180 mg 180 mg PO DAILY #90 cap 06/14/18 capsule,extended release 24 hr Albuterol Sulfate [Proair Hfa] 2 puff IH BID 06/28/18 Aspirin [Aspirin, Baby] 81 mg PO DAILY 06/28/18 Bacitracin Ointment 1 applic TOPICAL PRN PRN 06/28/18 Calcium Carbonate/Vitamin D3 1 tab PO BID 06/28/18 [Calcium 600-Vit D3 200 Tablet] Cetirizine HCl [Zyrtec] 10 mg PO QHS 06/28/18 Cholecalciferol (Vitamin D3) 2,000 unit PO DAILY 06/28/18 [D3-2000] Nystatin 1 applicatio TP PRN PRN 06/28/18 Surgical History: Surgical History (Last Reviewed 06/28/18 @ 15:52 by Amos Allen DO) Hx of foot surgery (Acute) Z98.890 right foot Hx of colonoscopy (Acute) Z98.890 History of left hip replacement (Acute) Z96.642 Hx of tonsillectomy (Acute) Z90.89 H/O mitral valve replacement (Chronic) Z95.2 MVR w/ 27mm Ivan-Menon bovine pericardial mitral valve. 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 Smoking Status: Former smoker Tobacco Use: Non-smoker Alcohol: None Drugs: None - *Family History Maternal Family History: Family History (Last Reviewed 06/28/18 @ 15:52 by Amos Allen DO) Father CAD (coronary artery disease) Arthritis Heart disease Hypertension Mother Asthma Arthritis Heart disease Hypertension Thyroid disorder Daughter Autoimmune disease Other Family history of ischemic heart disease History Items: Heart Disease, Hypertension Paternal Family History: Family History (Last Reviewed 06/28/18 @ 15:52 by Amos Allen DO) Father CAD (coronary artery disease) Arthritis Heart disease Hypertension Mother Asthma Arthritis Heart disease Hypertension Thyroid disorder Daughter Autoimmune disease Other Family history of ischemic heart disease History Items: Heart Disease, Hypertension Review of Systems Constitutional: Denies: Anorexia, Chills, Fever, Night Sweats Eyes: Denies: Blurred vision, Double vision HEENT: Denies: Head Aches, Sinus Congestion, Sinus Drainage Cardiovascular: Denies: Chest Pain, Palpitations Respiratory: Denies: Cough, Shortness of breath at rest, Sputum production Gastrointestinal: Denies: Abdominal Pain, Nausea, Vomiting Genitourinary: Denies: Dysuria Musculoskeletal: Denies: Joint Pain, Joint Tenderness Skin: Reports: - - Bruising. Denies: Rash, Wounds Neurological: Reports: Balance problems, Tremor. Denies: Focal weakness, Incoordination, Seizures Psychiatric: Denies: Anxiety, Depression Endocrine: Denies: Change in Body Habitus, Heat/ Cold Intolerance Hematologic/ Lymphatic: Reports: Easy Bruising, Easy Bleeding. Denies: Hx of blood clot Comment: All review of systems are negative except as mentioned in the history of present illness and the other review of systems. VTE Information - Inpt Only VTE Present on Admission: No VTE Pharm Prophylaxis ordered?: Yes Patient Problems: Active and Suspected Problems (Last Reviewed 06/14/18 @ 11:41 by Abdi Acosta MD) CVA (cerebral vascular accident) (Acute) - Physical Exam General: Alert, Oriented x3, Cooperative, No apparent distress HEENT: Atraumatic, PERRLA, EOMI, Normocephalic Oral: Moist Mucosa, No Gingival or Mucosal Lesions/ Ulcerations Neck: No Nodes, Thyroid Normal Size and Texture Lungs: Clear to auscultation, Normal air movement, No rhonchi, No wheeze Cardiovascular: Regular rate, Regular Rhythm, Normal S1, Normal S2, No murmurs Abdomen: Bowel Sounds Present, Soft, Non Tender, Non-Distended, No Hepato-splenomegaly Extremities: No edema, No Calf Tenderness Skin: No rashes, No breakdown Musculoskeletal: No Tenderness to Palpation of Joints or Extremities, No Muscle Wasting Neurological: Cranial nerves II-XII grossly intact, Neuro grossly intact, Motor Exam 5/5 strength throughout, Sensory exam intact to light touch and pain, Coordination normal, - - NIH of 0 Psych/Mental Status: Normal Affect, Appropriate Vital Signs Temp Pulse Resp BP Pulse Ox 36.6 C 89 20 H 126/69 H 95 06/28/18 13:09 06/28/18 15:00 06/28/18 15:00 06/28/18 15:00 06/28/18 15:00 Oxygen Delivery Method Room Air Weight: 69.853 kg Body Mass Index (BMI) 26.4 Finger Stick Blood Glucose 100 Laboratory Tests Past 24 Hrs 06/28/18 06/28/18 06/28/18 13:40 13:40 13:40 WBC 7.0 RBC 4.72 Hgb 14.2 Hct 43.2 MCV 91.5 MCH 30.1 MCHC 32.9 RDW 14.1 RDW Differential 46.7 H Plt Count 217 MPV 11.1 Immature Gran % (Auto) 0.100 Neut % (Auto) 49.1 Lymph % (Auto) 36.3 [place] % (Auto) 11.2 H Eos % (Auto) 2.4 Baso % (Auto) 0.9 Absolute Neuts (auto) 3.4 Absolute Lymphs (auto) 2.54 Total Counted Not Reportable PT 13.2 INR 1.0 APTT 26.2 Sodium 137 Potassium 4.0 Chloride 104 Carbon Dioxide 27.0 Anion Gap 6 BUN 10 Creatinine 1.09 H Estim Creat Clear Calc 40.88 Est GFR (MDRD) Af Amer 64 Est GFR (MDRD) Non-Af 52 L BUN/Creatinine Ratio 9.2 L Glucose 100 Calcium 9.6 Troponin I < 0.015 Clinical Impression(s) from Imaging Studies Head CTA 06/28/18 14:38 IMPRESSION: No major occlusion or significant stenosis. Electronically Signed: Lalito Miner MD at 15:17 EDT Tel , Service support , Neck CTA 06/28/18 14:38 IMPRESSION: 50% stenosis of the right ICA. Electronically Signed: Lalito Miner MD at 15:20 EDT Tel , Service support , MRI of the brain:Right temporoparietal areas of restricted diffusion, concerning for acute infarction. Atypical associated edema. Assessment/Plan All Active Problems (Last Reviewed 06/14/18 @ 11:41 by Abdi Acosta MD) CVA (cerebral vascular accident) (Acute) Microcalcification of right breast on mammogram (Acute) Colon cancer screening (Acute) Hx of foot surgery (Acute) Hx of colonoscopy (Acute) History of left hip replacement (Acute) Hx of tonsillectomy (Acute) UTI (urinary tract infection) (Acute) 1. CVA Patient has already had a MRI, CT Angelita Guero of the head and neck. Patient had an echocardiogram 1 week ago that showed ejection fraction of 55% Patient is already on aspirin and will continue with that will defer to neurology if they feel that any additional anticoagulant or antiplatelet medication will be necessary Patient is on Crestor 5 mg a day. Patient has tried simvastatin in the past but did not tolerate that due to myalgias. The current Crestor dose is all that she can tolerate without development of myalgias. Patient will be seen by physical and occupational therapy She passed her bedside swallow evaluation so she can eat Neurology consultation Patient be brought in under observation status as most of her stroke workup has already been completed prior to admission and her current NIH is 0. 2. COPD Stable Continue with bronchodilators 3. Heart failure with preserved ejection fraction EF of 55% from echocardiogram on Currently compensated at this time Follow-up with Dr. Acosta as outpt 4. Falls Unclear etiology if this is related with stroke, vertigo or other Therapy to evaluate and treat 5. DVT prophylaxis with Lovenox Code Visit OBSV E&M: 52746 Initial observation care L3
--- NOTE | 2018-06-28 15:54 | HP.PCM_ITS ---
Problem List (1) CVA (cerebral vascular accident) Status: Acute History of Present Illness Date of Admission: 06/28/18 Chief Complaint: falls The patient is a 72 year old F who has been having falls. Patient stated that she would just get weak and then fall. Never lose consciousness, however. Patient sustained injury to shoulder and hip with these falls. Patient saw a neurologist, Dr. Acevedo and patient underwent an MRI today. The MRI report showe d limited diffusion in the right temporal lobe concerning for stroke. Patient was then brought to the emergency room underwent CT angiogram of the head and neck which were unremarkable. ER spoke with neurology who advised admission. Patient states her last fall was back in January states that she does get dizzy at times that occur spontaneously but resolved spontaneously. [place] that the dizziness is probably more of an inner ear process. Patient states that her falls were dizziness, however. For her falls as well, patient is seeing cardiology and had a carotid Doppler which is negative and echocardiogram was also unremarkable. She did undergo a 24-hour Holter monitor just recently but the results are not yet available. 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 10/14/15 H/O coronary artery bypass surgery (Chronic) CABG X 1 SVG- RCA, AVR w/ 19mm St Rusty Trifecta aortic valve Occlusion and stenosis of right carotid artery (Chronic) Chronic diastolic heart failure (Chronic) Other secondary pulmonary hypertension (Chronic) Rheumatic mitral stenosis with insufficiency (Chronic) Other physician liaison (current) drug therapy (Chronic) Stroke (Chronic) Family history of ischemic heart disease (Chronic) S/P PTCA (percutaneous transluminal coronary angioplasty) (Chronic) PCI BMS to CX/OM 12/03/13 @ [facility] CAD (coronary artery disease) (Chronic) Aortic valve disease (Chronic) Mitral valve disease (Chronic) MVR w/ 27mm Ivan-Menon bovine pericardial mitral valve. 10/14/15 COPD (chronic obstructive pulmonary disease) (Chronic) Essential tremor (Chronic) Chronic back pain (Chronic) HLD (hyperlipidemia) (Chronic) Asthma (Chronic) Medical History: Medical History (Last Reviewed 06/28/18 @ 15:52 by Amos Allen DO) Rheumatic aortic stenosis with regurgitation (Chronic) I06.2 Atherosclerotic heart disease of [place] coronary artery without angina pectoris (Chronic) I25.10 Occlusion and stenosis of right carotid artery (Chronic) I65.21 Chronic diastolic heart failure (Chronic) I50.32 Other secondary pulmonary hypertension (Chronic) I27.29 Rheumatic mitral stenosis with insufficiency (Chronic) I05.2 Other physician liaison (current) drug therapy (Chronic) Z79.899 Stroke (Chronic) I63.9 CAD (coronary artery disease) (Chronic) I25.10 Aortic valve disease (Chronic) I35.9 Mitral valve disease (Chronic) I05.9 MVR w/ 27mm Ivan-Menon bovine pericardial mitral valve. 10/14/15 COPD (chronic obstructive pulmonary disease) (Chronic) J44.9 HLD (hyperlipidemia) (Chronic) E78.5 Allergies levofloxacin [From Levaquin] Allergy (Verified 06/28/18 13:09) Itching/rash clopidogrel [From Plavix] Adverse Reaction (Intermediate, Verified 06/28/18 13:09) Blood Blisters atorvastatin calcium [From Lipitor] Adverse Reaction (Verified 06/28/18 13:09) muscle pains beta blockers Allergy (Uncoded 06/28/18 13:09) CHF pollen,animals Allergy (Uncoded 06/28/18 13:09) Unknown Home Medications: Ambulatory Orders Medication Instructions Recorded Levothyroxine [Synthroid] 50 mcg PO DAILY 02/25/14 Tiotropium [place] [Spiriva 18 MCG] 1 puff INHALATION DAILY 02/25/14 Magnesium Oxide [Magnesium] 250 mg PO BID 11/23/15 fluticasone 200 mcg-vilanterol 25 1 puff INHALATION DAILY 30 Days #60 11/22/17 mcg/dose powder for inhalation Albuterol Aerosols [Ventolin 2.5 mg INHALATION BID PRN PRN 12/20/17 Aerosols] Ranitidine HCl [Zantac 75] 75 mg PO QHS 12/20/17 Rosuvastatin Calcium [Crestor] 5 mg PO DAILY 12/20/17 Ubidecarenone [Co Q-10] 200 mg PO DAILY 12/20/17 omeprazole 20 mg capsule,delayed 20 mg PO BID #180 cap 01/22/18 release fluoxetine 20 mg capsule 20 mg PO QDAY 04/20/18 diltiazem CD 180 mg 180 mg PO DAILY #90 cap 06/14/18 capsule,extended release 24 hr Albuterol Sulfate [Proair Hfa] 2 puff IH BID 06/28/18 Aspirin [Aspirin, Baby] 81 mg PO DAILY 06/28/18 Bacitracin Ointment 1 applic TOPICAL PRN PRN 06/28/18 Calcium Carbonate/Vitamin D3 1 tab PO BID 06/28/18 [Calcium 600-Vit D3 200 Tablet] Cetirizine HCl [Zyrtec] 10 mg PO QHS 06/28/18 Cholecalciferol (Vitamin D3) 2,000 unit PO DAILY 06/28/18 [D3-2000] Nystatin 1 applicatio TP PRN PRN 06/28/18 Surgical History: Surgical History (Last Reviewed 06/28/18 @ 15:52 by Amos Allen DO) Hx of foot surgery (Acute) Z98.890 right foot Hx of colonoscopy (Acute) Z98.890 History of left hip replacement (Acute) Z96.642 Hx of tonsillectomy (Acute) Z90.89 H/O mitral valve replacement (Chronic) Z95.2 MVR w/ 27mm Ivan-Menon bovine pericardial mitral valve. 10/14/15 H/O coronary artery bypass surgery (Chronic) Z95.1 CABG X 1 SVG- RCA, AVR w/ 19mm St Rusty Trifecta aortic valve S/P PTCA (percutaneous transluminal coronary angioplasty) (Chronic) Z98.61 PCI BMS to CX/OM 12/03/13 @ [facility] Surgical History: - Psychiatric History: No pertinent psych hx MEDICAL HISTORIAN History: No pertinent MEDICAL HISTORIAN history Smoking Status: Former smoker Tobacco Use: Non-smoker Alcohol: None Drugs: None - *Family History Maternal Family History: Family History (Last Reviewed 06/28/18 @ 15:52 by Amos Allen DO) Father CAD (coronary artery disease) Arthritis Heart disease Hypertension Mother Asthma Arthritis Heart disease Hypertension Thyroid disorder Daughter Autoimmune disease Other Family history of ischemic heart disease History Items: Heart Disease, Hypertension Paternal Family History: Family History (Last Reviewed 06/28/18 @ 15:52 by Amos Allen DO) Father CAD (coronary artery disease) Arthritis Heart disease Hypertension Mother Asthma Arthritis Heart disease Hypertension Thyroid disorder Daughter Autoimmune disease Other Family history of ischemic heart disease History Items: Heart Disease, Hypertension Review of Systems Constitutional: Denies: Anorexia, Chills, Fever, Night Sweats Eyes: Denies: Blurred vision, Double vision HEENT: Denies: Head Aches, Sinus Congestion, Sinus Drainage Cardiovascular: Denies: Chest Pain, Palpitations Respiratory: Denies: Cough, Shortness of breath at rest, Sputum production Gastrointestinal: Denies: Abdominal Pain, Nausea, Vomiting Genitourinary: Denies: Dysuria Musculoskeletal: Denies: Joint Pain, Joint Tenderness Skin: Reports: - - Bruising. Denies: Rash, Wounds Neurological: Reports: Balance problems, Tremor. Denies: Focal weakness, Incoordination, Seizures Psychiatric: Denies: Anxiety, Depression Endocrine: Denies: Change in Body Habitus, Heat/ Cold Intolerance Hematologic/ Lymphatic: Reports: Easy Bruising, Easy Bleeding. Denies: Hx of blood clot Comment: All review of systems are negative except as mentioned in the history of present illness and the other review of systems. VTE Information - Inpt Only VTE Present on Admission: No VTE Pharm Prophylaxis ordered?: Yes Patient Problems: Active and Suspected Problems (Last Reviewed 06/14/18 @ 11:41 by Abdi Acosta MD) CVA (cerebral vascular accident) (Acute) - Physical Exam General: Alert, Oriented x3, Cooperative, No apparent distress HEENT: Atraumatic, PERRLA, EOMI, Normocephalic Oral: Moist Mucosa, No Gingival or Mucosal Lesions/ Ulcerations Neck: No Nodes, Thyroid Normal Size and Texture Lungs: Clear to auscultation, Normal air movement, No rhonchi, No wheeze Cardiovascular: Regular rate, Regular Rhythm, Normal S1, Normal S2, No murmurs Abdomen: Bowel Sounds Present, Soft, Non Tender, Non-Distended, No Hepato- splenomegaly Extremities: No edema, No Calf Tenderness Skin: No rashes, No breakdown Musculoskeletal: No Tenderness to Palpation of Joints or Extremities, No Muscle Wasting Neurological: Cranial nerves II-XII grossly intact, Neuro grossly intact, Motor Exam 5/5 strength throughout, Sensory exam intact to light touch and pain, Coordination normal, - - NIH of 0 Psych/Mental Status: Normal Affect, Appropriate Vital Signs Temp Pulse Resp BP Pulse Ox 36.6 C 89 20 H 126/69 H 95 06/28/18 13:09 06/28/18 15:00 06/28/18 15:00 06/28/18 15:00 06/28/18 15:00 Oxygen Delivery Method Room Air Weight: 69.853 kg Body Mass Index (BMI) 26.4 Finger Stick Blood Glucose 100 Laboratory Tests Past 24 Hrs 06/28/18 06/28/18 06/28/18 13:40 13:40 13:40 WBC 7.0 RBC 4.72 Hgb 14.2 Hct 43.2 MCV 91.5 MCH 30.1 MCHC 32.9 RDW 14.1 RDW Differential 46.7 H Plt Count 217 MPV 11.1 Immature Gran % (Auto) 0.100 Neut % (Auto) 49.1 Lymph % (Auto) 36.3 [place] % (Auto) 11.2 H Eos % (Auto) 2.4 Baso % (Auto) 0.9 Absolute Neuts (auto) 3.4 Absolute Lymphs (auto) 2.54 Total Counted Not Reportable PT 13.2 INR 1.0 APTT 26.2 Sodium 137 Potassium 4.0 Chloride 104 Carbon Dioxide 27.0 Anion Gap 6 BUN 10 Creatinine 1.09 H Estim Creat Clear Calc 40.88 Est GFR (MDRD) Af Amer 64 Est GFR (MDRD) Non-Af 52 L BUN/Creatinine Ratio 9.2 L Glucose 100 Calcium 9.6 Troponin I < 0.015 Clinical Impression(s) from Imaging Studies Head CTA 06/28/18 14:38 IMPRESSION: No major occlusion or significant stenosis. Electronically Signed: Lalito Miner MD at 15:17 EDT Tel , Service support , Neck CTA 06/28/18 14:38 IMPRESSION: 50% stenosis of the right ICA. Electronically Signed: Lalito Miner MD at 15:20 EDT Tel , Service support , MRI of the brain:Right temporoparietal areas of restricted diffusion, concerning for acute infarction. Atypical associated edema. Assessment/Plan All Active Problems (Last Reviewed 06/14/18 @ 11:41 by Abdi Acosta MD) CVA (cerebral vascular accident) (Acute) Microcalcification of right breast on mammogram (Acute) Colon cancer screening (Acute) Hx of foot surgery (Acute) Hx of colonoscopy (Acute) History of left hip replacement (Acute) Hx of tonsillectomy (Acute) UTI (urinary tract infection) (Acute) 1. CVA * Patient has already had a MRI, CT Angelita Jack of the head and neck. Patient had an echocardiogram 1 week ago that showed ejection fraction of 55% * Patient is already on aspirin and will continue with that will defer to neurology if they feel that any additional anticoagulant or antiplatelet medication will be necessary * Patient is on Crestor 5 mg a day. Patient has tried simvastatin in the past b ut did not tolerate that due to myalgias. The current Crestor dose is all that she can tolerate without development of myalgias. * Patient will be seen by physical and occupational therapy * She passed her bedside swallow evaluation so she can eat * Neurology consultation * Patient be brought in under observation status as most of her stroke workup has already been completed prior to admission and her current NIH is 0. 2. COPD * Stable * Continue with bronchodilators 3. Heart failure with preserved ejection fraction * EF of 55% from echocardiogram on 928 * Currently compensated at this time * Follow-up with Dr. Acosta as outpt 4. Falls * Unclear etiology if this is related with stroke, vertigo or other * Therapy to evaluate and treat 5. DVT prophylaxis with Lovenox Code Visit OBSV E&M: 12447 Initial observation care L3
[2018-06-28] MEDS: Loratadine 10 MG Tablet PO (21:50)
[2018-06-28] MEDS: Magnesium Oxide 400 MG Tablet PO (21:51)
[2018-06-28] MEDS: Rosuvastatin Calcium 5 MG Tablet PO (21:51)
[2018-06-28] MEDS: Famotidine 20 MG Tablet PO (21:51)
[2018-06-28] MEDS: Pantoprazole Sodium 20 MG Tablet PO (21:51)
[2018-06-28] MEDS: traZODone 50 MG Tablet 25 MG PO (22:57)
[2018-06-29] VITALS (9 sets, daily range): BP systolic 107–128; BP diastolic 62–67; PULSE 80–110; RESP 16–20; TEMP 36.4–36.8; O2SAT 92–96; BMI 26.9
[2018-06-29] MEDS: Levothyroxine 50 MCG Tablet PO (06:05)
[2018-06-29 06:22] LABS: Cholesterol 198 mg/dL (200); High Density Lipoprotein 85 mg/dL; Triglycerides 106 mg/dL; Very Low Density Lipoprotein 21 mg/dL (5-40)
[2018-06-29] MEDS: Pantoprazole Sodium 20 MG Tablet PO (09:00)
[2018-06-29] MEDS: Calcium Carb/Vitamin D 1 TABLET Tablet PO (09:00)
[2018-06-29] MEDS: Aspirin 81 MG TAB.CHEW PO (09:00)
[2018-06-29] MEDS: dilTIAZem CD 180 MG Capsule PO (09:01)
[2018-06-29] MEDS: Magnesium Oxide 400 MG Tablet PO (09:01)
[2018-06-29] MEDS: Enoxaparin 40 MG/0.4 ML Syringe SC (09:01)
[2018-06-29] MEDS: Nystatin Powder 15gm Bottle 1 APPLIC TOPICAL (09:01)
[2018-06-29] MEDS: FLUoxetine 20 MG Capsule PO (09:02)
[2018-06-29] MEDS: Albuterol 2.5 MG/3 ML VIAL.NEB. INHALATION (12:46)
[2018-06-29] MEDS: Ipratropium 0.5 MG/2.5 ML SOLUTION INHALATION (12:46)
[2018-06-29] MEDS: Budesonide Respules 0.5 MG/2 ML AMPUL.NEB. INHALATION (12:46)
--- NOTE | 2018-06-29 14:14 | PCM.CONS.GEN ---
Reason for Consult Date of Consultation: 06/29/18 Reason for Consultation: CVA History of Present Illness: The patient is a 72 year old F Per admit H&P: The patient is a 72 year old F who has been having falls. Patient stated that she would just get weak and then fall. Never lose consciousness, however. Patient sustained injury to shoulder and hip with these falls. Patient saw a neurologist, Dr. Acevedo and patient underwent an MRI today. The MRI report showed limited diffusion in the right temporal lobe concerning for stroke. Patient was then brought to the emergency room underwent CT angiogram of the head and neck which were unremarkable. ER spoke with neurology who advised admission. Patient states her last fall was back in January states that she does get dizzy at times that occur spontaneously but resolved spontaneously. [place] that the dizziness is probably more of an inner ear process. Patient states that her falls were dizziness, however. For her falls as well, patient is seeing cardiology and had a carotid Doppler which is negative and echocardiogram was also unremarkable. She did undergo a 24-hour Holter monitor just recently but the results are not yet available. Past Medical History Past Medical History (Chronic Problems): Chronic Problems (Last Reviewed 06/28/18 @ 15:52 by Amos Allen DO) HTN (hypertension) (Chronic) Hypothyroidism (Chronic) GERD (gastroesophageal reflux disease) (Chronic) Rheumatic aortic stenosis with regurgitation (Chronic) Atherosclerotic heart disease of [place] coronary artery without angina pectoris (Chronic) H/O mitral valve replacement (Chronic) MVR w/ 27mm Ivan-Menon bovine pericardial mitral valve. 10/14/15 H/O coronary artery bypass surgery (Chronic) CABG X 1 SVG- RCA, AVR w/ 19mm St Rusty Trifecta aortic valve Occlusion and stenosis of right carotid artery (Chronic) Chronic diastolic heart failure (Chronic) Other secondary pulmonary hypertension (Chronic) Rheumatic mitral stenosis with insufficiency (Chronic) Other terminologist (current) drug therapy (Chronic) Stroke (Chronic) Family history of ischemic heart disease (Chronic) S/P PTCA (percutaneous transluminal coronary angioplasty) (Chronic) PCI BMS to CX/OM 12/03/13 @ [facility] CAD (coronary artery disease) (Chronic) Aortic valve disease (Chronic) Mitral valve disease (Chronic) MVR w/ 27mm Ivan-Menon bovine pericardial mitral valve. 10/14/15 COPD (chronic obstructive pulmonary disease) (Chronic) Essential tremor (Chronic) Chronic back pain (Chronic) HLD (hyperlipidemia) (Chronic) Asthma (Chronic) Medical History: Medical History (Last Reviewed 06/28/18 @ 15:52 by Amos Allen DO) Rheumatic aortic stenosis with regurgitation (Chronic) I06.2 Atherosclerotic heart disease of [place] coronary artery without angina pectoris (Chronic) I25.10 Occlusion and stenosis of right carotid artery (Chronic) I65.21 Chronic diastolic heart failure (Chronic) I50.32 Other secondary pulmonary hypertension (Chronic) I27.29 Rheumatic mitral stenosis with insufficiency (Chronic) I05.2 Other chcf (current) drug therapy (Chronic) Z79.899 Stroke (Chronic) I63.9 CAD (coronary artery disease) (Chronic) I25.10 Aortic valve disease (Chronic) I35.9 Mitral valve disease (Chronic) I05.9 MVR w/ 27mm Ivan-Menon bovine pericardial mitral valve. 10/14/15 COPD (chronic obstructive pulmonary disease) (Chronic) J44.9 HLD (hyperlipidemia) (Chronic) E78.5 Allergies levofloxacin [From Levaquin] Allergy (Verified 06/28/18 13:09) Itching/rash clopidogrel [From Plavix] Adverse Reaction (Intermediate, Verified 06/28/18 13:09) Blood Blisters atorvastatin calcium [From Lipitor] Adverse Reaction (Verified 06/28/18 13:09) muscle pains beta blockers Allergy (Uncoded 06/28/18 13:09) CHF pollen,animals Allergy (Uncoded 06/28/18 13:09) Unknown Home Medications: Ambulatory Orders Medication Instructions Recorded Levothyroxine [Synthroid] 50 mcg PO DAILY 02/25/14 Tiotropium [place] [Spiriva 18 MCG] 1 puff INHALATION DAILY 02/25/14 Magnesium Oxide [Magnesium] 250 mg PO BID 11/23/15 fluticasone 200 mcg-vilanterol 25 1 puff INHALATION DAILY 30 Days #60 11/22/17 mcg/dose powder for inhalation Albuterol Aerosols [Ventolin 2.5 mg INHALATION BID PRN PRN 12/20/17 Aerosols] Ranitidine HCl [Zantac 75] 75 mg PO QHS 12/20/17 Rosuvastatin Calcium [Crestor] 5 mg PO DAILY 12/20/17 Ubidecarenone [Co Q-10] 200 mg PO DAILY 12/20/17 omeprazole 20 mg capsule,delayed 20 mg PO BID #180 cap 01/22/18 release fluoxetine 20 mg capsule 20 mg PO QDAY 04/20/18 diltiazem CD 180 mg 180 mg PO DAILY #90 cap 06/14/18 capsule,extended release 24 hr Albuterol Sulfate [Proair Hfa] 2 puff IH BID 06/28/18 Aspirin [Aspirin, Baby] 81 mg PO DAILY 06/28/18 Bacitracin Ointment 1 applic TOPICAL PRN PRN 06/28/18 Calcium Carbonate/Vitamin D3 1 tab PO BID 06/28/18 [Calcium 600-Vit D3 200 Tablet] Cetirizine HCl [Zyrtec] 10 mg PO QHS 06/28/18 Cholecalciferol (Vitamin D3) 2,000 unit PO DAILY 06/28/18 [D3-2000] Nystatin 1 applicatio TP PRN PRN 06/28/18 Surgical History: Surgical History (Last Reviewed 06/28/18 @ 15:52 by Amos Allen DO) Hx of foot surgery (Acute) Z98.890 right foot Hx of colonoscopy (Acute) Z98.890 History of left hip replacement (Acute) Z96.642 Hx of tonsillectomy (Acute) Z90.89 H/O mitral valve replacement (Chronic) Z95.2 MVR w/ 27mm Ivan-Menon bovine pericardial mitral valve. 10/14/15 H/O coronary artery bypass surgery (Chronic) Z95.1 CABG X 1 SVG- RCA, AVR w/ 19mm St Rusty Trifecta aortic valve S/P PTCA (percutaneous transluminal coronary angioplasty) (Chronic) Z98.61 PCI BMS to CX/OM 12/03/13 @ [facility] Surgical History: - Psychiatric History: No pertinent psych hx ATTENDANCE CLERK History: No pertinent ATTENDANCE CLERK history Smoking Status: Former smoker Tobacco Use: Non-smoker Alcohol: None Drugs: None - *Family History Maternal Family History: Family History (Last Reviewed 06/28/18 @ 15:52 by Amos Allen DO) Father CAD (coronary artery disease) Arthritis Heart disease Hypertension Mother Asthma Arthritis Heart disease Hypertension Thyroid disorder Daughter Autoimmune disease Other Family history of ischemic heart disease History Items: Heart Disease, Hypertension Paternal Family History: Family History (Last Reviewed 06/28/18 @ 15:52 by Amos Allen DO) Father CAD (coronary artery disease) Arthritis Heart disease Hypertension Mother Asthma Arthritis Heart disease Hypertension Thyroid disorder Daughter Autoimmune disease Other Family history of ischemic heart disease History Items: Heart Disease, Hypertension Patient Problems: Active and Suspected Problems (Last Reviewed 06/28/18 @ 15:52 by Amos Allen DO) CVA (cerebral vascular accident) (Acute) - Physical Exam Vital Signs Temp Pulse Resp BP Pulse Ox 36.8 C 96 18 128/62 H 96 06/29/18 12:50 06/29/18 12:50 06/29/18 12:50 06/29/18 12:50 06/29/18 12:50 Oxygen Delivery Method Room Air Weight: 71.5 kg Body Mass Index (BMI) 26.9 Finger Stick Blood Glucose 100 Intake and Output for Last 24 Hours 06/27/18 06/28/18 06/29/18 23:59 23:59 23:59 Intake Total 480 / 480 1400 / 1400 Balance 480 / 480 1400 / 1400 Laboratory Tests Past 24 Hrs 06/28/18 06/28/18 06/29/18 13:40 13:40 05:33 PT 13.2 INR 1.0 APTT 26.2 Sodium 137 Potassium 4.0 Chloride 104 Carbon Dioxide 27.0 Anion Gap 6 BUN 10 Creatinine 1.09 H Estim Creat Clear Calc 40.88 Est GFR (MDRD) Af Amer 64 Est GFR (MDRD) Non-Af 52 L BUN/Creatinine Ratio 9.2 L Glucose 100 Calcium 9.6 Troponin I < 0.015 Triglycerides 106 Cholesterol 198 LDL Cholesterol 92 VLDL Cholesterol 21 HDL Cholesterol 85 Current Medications Generic Name Dose Route Start Last Admin Trade Name Freq PRN Reason Stop Dose Admin Acetaminophen 650 mg 06/28/18 17:00 Tylenol PO Q4H PRN PRN Headache/Temp>99F Acetaminophen 650 mg 06/28/18 17:00 Tylenol RECTAL Q4H PRN PRN Headache/Temp>99F Acetaminophen 650 mg 06/28/18 17:00 Tylenol Liquid NG Q4H PRN PRN Headache/Temp>99F Albuterol Sulfate 2.5 mg 06/28/18 17:00 Ventolin Aerosols INHALATION BID PRN PRN SOB &/OR WHEEZING Albuterol Sulfate 2.5 mg 06/28/18 22:00 06/29/18 12:46 Ventolin Aerosols INHALATION 2.5 mg BID JIM Administration Aspirin 81 mg 06/29/18 08:00 06/29/18 09:00 Aspirin, Baby PO 81 mg DAILYCM [facility] Administration Bacitracin 1 applic 06/28/18 17:00 Bacitracin Ointment TOPICAL PRN PRN INFECTION Protocol Budesonide 0.5 mg 06/28/18 19:45 06/29/18 12:46 Pulmicort Aerosol INHALATION 0.5 mg Q12H.RT JIM Administration Calcium/Vitamin D 1 tablet 06/29/18 08:00 06/29/18 09:00 Os-Vin 500mg + D PO 1 tablet BIDCM [facility] Administration Cholecalciferol 2,000 unit 06/29/18 10:00 06/29/18 09:00 Vitamin D PO 2,000 unit DAILY JIM Administration Diltiazem HCl 180 mg 06/29/18 10:00 06/29/18 09:01 Cardizem Cd PO 180 mg DAILY JIM Administration Enoxaparin Sodium 40 mg 06/29/18 10:00 06/29/18 09:01 Lovenox SC 40 mg DAILY@1000 JIM Administration Famotidine 20 mg 06/28/18 22:00 06/28/18 21:51 Pepcid PO 20 mg QHS JIM Administration Fluoxetine HCl 20 mg 06/29/18 10:00 06/29/18 09:02 Prozac PO 20 mg DAILY JIM Administration Ipratropium [place] 0.5 mg 06/28/18 19:30 06/29/18 12:46 Atrovent INHALATION 0.5 mg Q6HWA.RT JIM Administration Levothyroxine Sodium 50 mcg 06/29/18 06:00 06/29/18 06:05 Synthroid PO 50 mcg DAILY@0600 JIM Administration Loratadine 10 mg 06/28/18 22:00 06/28/18 21:50 Claritin PO 10 mg QHS JIM Administration Magnesium Hydroxide 30 ml 06/28/18 17:00 Milk Of Magnesia PO DAILY PRN Constipation Magnesium Oxide 400 mg 06/28/18 22:00 06/29/18 09:01 Mag-Ox 400 PO 400 mg BID JIM Administration Nystatin 1 applic 06/29/18 10:00 06/29/18 09:01 Mycostatin Powder TOPICAL 1 applic BID JIM Administration Protocol Pantoprazole Sodium 20 mg 06/28/18 22:00 06/29/18 09:00 Protonix PO 20 mg BID JIM Administration Rosuvastatin Calcium 5 mg 06/28/18 22:00 06/28/18 21:51 Crestor PO 5 mg QHS JIM Administration Sodium Chloride 5 - 30 ml 06/28/18 19:00 IV UD PRN SALINE FLUSH Trazodone HCl 25 mg 06/28/18 18:17 06/28/18 22:57 Desyrel PO 25 mg QHS PRN Administration SLEEP MRI reviewed. This shows an acute/subacute right posterior MCA distribution infarct occupying approximately one third of the MCA distribution. CTA of the head and neck reviewed I do not see any significant stenosis. Assessment/Plan All Active Problems (Last Reviewed 06/28/18 @ 15:52 by Amos Allen DO) CVA (cerebral vascular accident) (Acute) Microcalcification of right breast on mammogram (Acute) Colon cancer screening (Acute) Hx of foot surgery (Acute) Hx of colonoscopy (Acute) History of left hip replacement (Acute) Hx of tonsillectomy (Acute) UTI (urinary tract infection) (Acute)
--- NOTE | 2018-06-29 14:18 | CON.PCM_ITS ---
Reason for Consult Date of Consultation: 06/29/18 Reason for Consultation: CVA History of Present Illness: The patient is a 72 year old F Per admit H&P: The patient is a 72 year old F who has been having falls. Patient stated that she would just get weak and then fall. Never lose consciousness, however. Patient sustained injury to shoulder and hip with these falls. Patient saw a neurologist, Dr. Acevedo and patient underwent an MRI today. The MRI report showed limited diffusion in the right temporal lobe concerning for stroke. Patient was then brought to the emergency room underwent CT angiogram of the head and neck which were unremarkable. ER spoke with neurology who advised admission. Patient states her last fall was back in January states that she does get dizzy at times that occur spontaneously but resolved spontaneously. [place] that the dizziness is probably more of an inner ear process. Patient states that her falls were dizziness, however. For her falls as well, patient is seeing cardiology and had a carotid Doppler which is negative and echocardiogram was also unremarkable. She did undergo a 24-hour Holter monitor just recently but the results are not yet available. 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 10/14/15 COPD (chronic obstructive pulmonary disease) (Chronic) Essential tremor (Chronic) Chronic back pain (Chronic) HLD (hyperlipidemia) (Chronic) Asthma (Chronic) Medical History: Medical History (Last Reviewed 06/28/18 @ 15:52 by Amos Allen DO) Rheumatic aortic stenosis with regurgitation (Chronic) I06.2 Atherosclerotic heart disease of [place] coronary artery without angina pectoris (Chronic) I25.10 Occlusion and stenosis of right carotid artery (Chronic) I65.21 Chronic diastolic heart failure (Chronic) I50.32 Other secondary pulmonary hypertension (Chronic) I27.29 Rheumatic mitral stenosis with insufficiency (Chronic) I05.2 Other long-term (current) drug therapy (Chronic) Z79.899 Stroke (Chronic) I63.9 CAD (coronary artery disease) (Chronic) I25.10 Aortic valve disease (Chronic) I35.9 Mitral valve disease (Chronic) I05.9 MVR w/ 27mm Ivan-Menon bovine pericardial mitral valve. 10/14/15 COPD (chronic obstructive pulmonary disease) (Chronic) J44.9 HLD (hyperlipidemia) (Chronic) E78.5 Allergies levofloxacin [From Levaquin] Allergy (Verified 06/28/18 13:09) Itching/rash clopidogrel [From Plavix] Adverse Reaction (Intermediate, Verified 06/28/18 13:09) Blood Blisters atorvastatin calcium [From Lipitor] Adverse Reaction (Verified 06/28/18 13:09) muscle pains beta blockers Allergy (Uncoded 06/28/18 13:09) CHF pollen,animals Allergy (Uncoded 06/28/18 13:09) Unknown Home Medications: Ambulatory Orders Medication Instructions Recorded Levothyroxine [Synthroid] 50 mcg PO DAILY 02/25/14 Tiotropium [place] [Spiriva 18 MCG] 1 puff INHALATION DAILY 02/25/14 Magnesium Oxide [Magnesium] 250 mg PO BID 11/23/15 fluticasone 200 mcg-vilanterol 25 1 puff INHALATION DAILY 30 Days #60 11/22/17 mcg/dose powder for inhalation Albuterol Aerosols [Ventolin 2.5 mg INHALATION BID PRN PRN 12/20/17 Aerosols] Ranitidine HCl [Zantac 75] 75 mg PO QHS 12/20/17 Rosuvastatin Calcium [Crestor] 5 mg PO DAILY 12/20/17 Ubidecarenone [Co Q-10] 200 mg PO DAILY 12/20/17 omeprazole 20 mg capsule,delayed 20 mg PO BID #180 cap 01/22/18 release fluoxetine 20 mg capsule 20 mg PO QDAY 04/20/18 diltiazem CD 180 mg 180 mg PO DAILY #90 cap 06/14/18 capsule,extended release 24 hr Albuterol Sulfate [Proair Hfa] 2 puff IH BID 06/28/18 Aspirin [Aspirin, Baby] 81 mg PO DAILY 06/28/18 Bacitracin Ointment 1 applic TOPICAL PRN PRN 06/28/18 Calcium Carbonate/Vitamin D3 1 tab PO BID 06/28/18 [Calcium 600-Vit D3 200 Tablet] Cetirizine HCl [Zyrtec] 10 mg PO QHS 06/28/18 Cholecalciferol (Vitamin D3) 2,000 unit PO DAILY 06/28/18 [D3-2000] Nystatin 1 applicatio TP PRN PRN 06/28/18 Surgical History: Surgical History (Last Reviewed 06/28/18 @ 15:52 by Amos Allen DO) Hx of foot surgery (Acute) Z98.890 right foot Hx of colonoscopy (Acute) Z98.890 History of left hip replacement (Acute) Z96.642 Hx of tonsillectomy (Acute) Z90.89 H/O mitral valve replacement (Chronic) Z95.2 MVR w/ 27mm Ivan-Menon bovine pericardial mitral valve. 10/14/15 H/O coronary artery bypass surgery (Chronic) Z95.1 CABG X 1 SVG- RCA, AVR w/ 19mm St Rusty Trifecta aortic valve S/P PTCA (percutaneous transluminal coronary angioplasty) (Chronic) Z98.61 PCI BMS to CX/OM 12/03/13 @ [facility] Surgical History: - Psychiatric History: No pertinent psych hx TEACHER'S AIDE History: No pertinent TEACHER'S AIDE history Smoking Status: Former smoker Tobacco Use: Non-smoker Alcohol: None Drugs: None - *Family History Maternal Family History: Family History (Last Reviewed 06/28/18 @ 15:52 by Amos Allen DO) Father CAD (coronary artery disease) Arthritis Heart disease Hypertension Mother Asthma Arthritis Heart disease Hypertension Thyroid disorder Daughter Autoimmune disease Other Family history of ischemic heart disease History Items: Heart Disease, Hypertension Paternal Family History: Family History (Last Reviewed 06/28/18 @ 15:52 by Amos Allen DO) Father CAD (coronary artery disease) Arthritis Heart disease Hypertension Mother Asthma Arthritis Heart disease Hypertension Thyroid disorder Daughter Autoimmune disease Other Family history of ischemic heart disease History Items: Heart Disease, Hypertension Patient Problems: Active and Suspected Problems (Last Reviewed 06/28/18 @ 15:52 by Amos Allen DO) CVA (cerebral vascular accident) (Acute) - Physical Exam Vital Signs Temp Pulse Resp BP Pulse Ox 36.8 C 96 18 128/62 H 96 06/29/18 12:50 06/29/18 12:50 06/29/18 12:50 06/29/18 12:50 06/29/18 12:50 Oxygen Delivery Method Room Air Weight: 71.5 kg Body Mass Index (BMI) 26.9 Finger Stick Blood Glucose 100 Intake and Output for Last 24 Hours 06/27/18 06/28/18 06/29/18 23:59 23:59 23:59 Intake Total 480 / 480 1400 / 1400 Balance 480 / 480 1400 / 1400 Laboratory Tests Past 24 Hrs 06/28/18 06/28/18 06/29/18 13:40 13:40 05:33 PT 13.2 INR 1.0 APTT 26.2 Sodium 137 Potassium 4.0 Chloride 104 Carbon Dioxide 27.0 Anion Gap 6 BUN 10 Creatinine 1.09 H Estim Creat Clear Calc 40.88 Est GFR (MDRD) Af Amer 64 Est GFR (MDRD) Non-Af 52 L BUN/Creatinine Ratio 9.2 L Glucose 100 Calcium 9.6 Troponin I < 0.015 Triglycerides 106 Cholesterol 198 LDL Cholesterol 92 VLDL Cholesterol 21 HDL Cholesterol 85 Current Medications Generic Name Dose Route Start Last Admin Trade Name Freq PRN Reason Stop Dose Admin Acetaminophen 650 mg 06/28/18 17:00 Tylenol PO Q4H PRN PRN Headache/Temp>99F Acetaminophen 650 mg 06/28/18 17:00 Tylenol RECTAL Q4H PRN PRN Headache/Temp>99F Acetaminophen 650 mg 06/28/18 17:00 Tylenol Liquid NG Q4H PRN PRN Headache/Temp>99F Albuterol Sulfate 2.5 mg 06/28/18 17:00 Ventolin Aerosols INHALATION BID PRN PRN SOB &/OR WHEEZING Albuterol Sulfate 2.5 mg 06/28/18 22:00 06/29/18 12:46 Ventolin Aerosols INHALATION 2.5 mg BID JIM Administration Aspirin 81 mg 06/29/18 08:00 06/29/18 09:00 Aspirin, Baby PO 81 mg DAILYCM [facility] Administration Bacitracin 1 applic 06/28/18 17:00 Bacitracin Ointment TOPICAL PRN PRN INFECTION Protocol Budesonide 0.5 mg 06/28/18 19:45 06/29/18 12:46 Pulmicort Aerosol INHALATION 0.5 mg Q12H.RT JIM Administration Calcium/Vitamin D 1 tablet 06/29/18 08:00 06/29/18 09:00 Os-Vin 500mg + D PO 1 tablet BIDCM [facility] Administration Cholecalciferol 2,000 unit 06/29/18 10:00 06/29/18 09:00 Vitamin D PO 2,000 unit DAILY JIM Administration Diltiazem HCl 180 mg 06/29/18 10:00 06/29/18 09:01 Cardizem Cd PO 180 mg DAILY JIM Administration Enoxaparin Sodium 40 mg 06/29/18 10:00 06/29/18 09:01 Lovenox SC 40 mg DAILY@1000 JIM Administration Famotidine 20 mg 06/28/18 22:00 06/28/18 21:51 Pepcid PO 20 mg QHS JIM Administration Fluoxetine HCl 20 mg 06/29/18 10:00 06/29/18 09:02 Prozac PO 20 mg DAILY JIM Administration Ipratropium [place] 0.5 mg 06/28/18 19:30 06/29/18 12:46 Atrovent INHALATION 0.5 mg Q6HWA.RT JIM Administration Levothyroxine Sodium 50 mcg 06/29/18 06:00 06/29/18 06:05 Synthroid PO 50 mcg DAILY@0600 JIM Administration Loratadine 10 mg 06/28/18 22:00 06/28/18 21:50 Claritin PO 10 mg QHS JIM Administration Magnesium Hydroxide 30 ml 06/28/18 17:00 Milk Of Magnesia PO DAILY PRN Constipation Magnesium Oxide 400 mg 06/28/18 22:00 06/29/18 09:01 Mag-Ox 400 PO 400 mg BID JIM Administration Nystatin 1 applic 06/29/18 10:00 06/29/18 09:01 Mycostatin Powder TOPICAL 1 applic BID JIM Administration Protocol Pantoprazole Sodium 20 mg 06/28/18 22:00 06/29/18 09:00 Protonix PO 20 mg BID JIM Administration Rosuvastatin Calcium 5 mg 06/28/18 22:00 06/28/18 21:51 Crestor PO 5 mg QHS JIM Administration Sodium Chloride 5 - 30 ml 06/28/18 19:00 IV UD PRN SALINE FLUSH Trazodone HCl 25 mg 06/28/18 18:17 06/28/18 22:57 Desyrel PO 25 mg QHS PRN Administration SLEEP MRI reviewed. This shows an acute/subacute right posterior MCA distribution infarct occupying approximately one third of the MCA distribution. CTA of the head and neck reviewed I do not see any significant stenosis. Assessment/Plan All Active Problems (Last Reviewed 06/28/18 @ 15:52 by Amos Allen DO) CVA (cerebral vascular accident) (Acute) Microcalcification of right breast on mammogram (Acute) Colon cancer screening (Acute) Hx of foot surgery (Acute) Hx of colonoscopy (Acute) History of left hip replacement (Acute) Hx of tonsillectomy (Acute) UTI (urinary tract infection) (Acute)
--- NOTE | 2018-06-29 15:43 | PCM.DC ---
- Discharge Diagnoses Current Active Problems: Current Active and Chronic Problems (Last Reviewed 06/28/18 @ 15:52 by Amos Allen DO) CVA (cerebral vascular accident) (Acute) You will use the following diet at home:: Cardiac Your food should be the consistency of: Regular Your liquids should be the consistency of: Regular/Thin Discharge Activity: No Restrictions Call your doctor if you observe: Numbness or Tingling, Dizziness, Fainting spells, Chest pain, Increased palpitations (irregular heartbeat) Allergies/Adverse Reactions: Allergies levofloxacin [From Levaquin] Allergy (Verified 06/28/18 13:09) Itching/rash clopidogrel [From Plavix] Adverse Reaction (Intermediate, Verified 06/28/18 13:09) Blood Blisters atorvastatin calcium [From Lipitor] Adverse Reaction (Verified 06/28/18 13:09) muscle pains beta blockers Allergy (Uncoded 06/28/18 13:09) CHF pollen,animals Allergy (Uncoded 06/28/18 13:09) Unknown Medications to take at Discharge Levothyroxine [Synthroid] 50 mcg PO DAILY 02/25/14 Tiotropium [place] [Spiriva 18 MCG] 1 puff INHALATION DAILY 02/25/14 Magnesium Oxide [Magnesium] 250 mg PO BID 11/23/15 fluticasone 200 mcg-vilanterol 25 mcg/dose powder for inhalation 1 puff INHALATION DAILY 30 Days #60 11/22/17 Albuterol Aerosols [Ventolin Aerosols] 2.5 mg INHALATION BID PRN PRN 12/20/17 Ranitidine HCl [Zantac 75] 75 mg PO QHS 12/20/17 Rosuvastatin Calcium [Crestor] 5 mg PO DAILY 12/20/17 Ubidecarenone [Co Q-10] 200 mg PO DAILY 12/20/17 omeprazole 20 mg capsule,delayed release 20 mg PO BID #180 cap 01/22/18 fluoxetine 20 mg capsule 20 mg PO QDAY 04/20/18 diltiazem CD 180 mg capsule,extended release 24 hr 180 mg PO DAILY #90 cap 06/14/18 Albuterol Sulfate [Proair Hfa] 2 puff IH BID 06/28/18 Aspirin [Aspirin, Baby] 81 mg PO DAILY 06/28/18 Bacitracin Ointment 1 applic TOPICAL PRN PRN 06/28/18 Calcium Carbonate/Vitamin D3 [Calcium 600-Vit D3 200 Tablet] 1 tab PO BID 06/28/18 Cetirizine HCl [Zyrtec] 10 mg PO QHS 06/28/18 Cholecalciferol (Vitamin D3) [D3-2000] 2,000 unit PO DAILY 06/28/18 Nystatin 1 applicatio TP PRN PRN 06/28/18 Primary Care Physician: Mercy Elliott [Primary Care Provider] - Please follow up with your Primary Care Physician in: in 3-5 days Test Results: Test results from this visit will be discussed in further detail at your follow-up appointment, if applicable.
--- NOTE | 2018-06-29 15:58 | DS.PCM_ITS ---
Discharge Date and Diagnosis - Problem List Patient Problems: Active and Suspected Problems (Last Reviewed 06/28/18 @ 15:52 by Amos Allen DO) CVA (cerebral vascular accident) (Acute) Date of Admission: 06/28/18 Date of Discharge: 06/29/18 - Primary Discharge Diagnosis Active and Suspected Problems (Last Reviewed 06/28/18 @ 15:52 by Amos Allen DO) CVA (cerebral vascular accident) (Acute) - Secondary Discharge Diagnosis Chronic Problems (Last Reviewed 06/28/18 @ 15:52 by Amos Allen DO) HTN (hypertension) (Chronic) Hypothyroidism (Chronic) GERD (gastroesophageal reflux disease) (Chronic) Rheumatic aortic stenosis with regurgitation (Chronic) Atherosclerotic heart disease of [place] coronary artery without angina pectoris (Chronic) H/O mitral valve replacement (Chronic) MVR w/ 27mm Ivan-Menon bovine pericardial mitral valve. 10/14/15 H/O coronary artery bypass surgery (Chronic) CABG X 1 SVG- RCA, AVR w/ 19mm St Rusty Trifecta aortic valve Occlusion and stenosis of right carotid artery (Chronic) Chronic diastolic heart failure (Chronic) Other secondary pulmonary hypertension (Chronic) Rheumatic mitral stenosis with insufficiency (Chronic) Other fci (current) drug therapy (Chronic) Stroke (Chronic) Family history of ischemic heart disease (Chronic) S/P PTCA (percutaneous transluminal coronary angioplasty) (Chronic) PCI BMS to CX/OM 12/03/13 @ [facility] CAD (coronary artery disease) (Chronic) Aortic valve disease (Chronic) Mitral valve disease (Chronic) MVR w/ 27mm Ivan-Menon bovine pericardial mitral valve. 10/14/15 COPD (chronic obstructive pulmonary disease) (Chronic) Essential tremor (Chronic) Chronic back pain (Chronic) HLD (hyperlipidemia) (Chronic) Asthma (Chronic) Hospital Course and Treatment Imaging Results: CTA Head IMPRESSION: No major occlusion or significant stenosis. CTA Neck: IMPRESSION: 50% stenosis of the right ICA. MRI Brain: IMPRESSION: Right temporoparietal areas of restricted diffusion, concerning for acute infarction. Atypical associated edema. Neurology consultation is recommended. Bilateral cerebellar chronic lacunar infarcts. Consults: Neurology Operations: None Procedures: None Summary of Care Provided: HPI: The patient is a 72 year old F who has been having falls. Patient stated that she would just get weak and then fall. Never lose consciousness, however. Patient sustained injury to shoulder and hip with these falls. Patient saw a neurologist, Dr. Acevedo and patient underwent an MRI today. The MRI report show ed limited diffusion in the right temporal lobe concerning for stroke. Patient was then brought to the emergency room underwent CT angiogram of the head and neck which were unremarkable. ER spoke with neurology who advised admission. Patient states her last fall was back in January states that she does get dizzy at times that occur spontaneously but resolved spontaneously. [place] that the dizziness is probably more of an inner ear process. Patient states that her falls were dizziness, however. For her falls as well, patient is seeing cardiology and had a carotid Doppler which is negative and echocardiogram was also unremarkable. She did undergo a 24-hour Holter monitor just recently but the results are not yet available. Vital Signs - 24 hr Temp Pulse Resp BP Pulse Ox 06/29/18 15:13 110 H 06/29/18 12:50 98.3 F 96 18 128/62 H 96 06/29/18 12:46 88 20 H 06/29/18 11:26 90 06/29/18 08:52 97.5 F L 95 18 107/64 96 06/29/18 07:07 82 06/29/18 05:00 98.1 F 86 17 110/67 92 06/29/18 04:02 80 06/29/18 01:00 98 F 89 16 119/66 93 06/28/18 23:59 85 06/28/18 21:00 98.7 F 85 16 111/71 92 06/28/18 20:01 93 06/28/18 17:00 98.0 F 92 16 100/55 L 06/28/18 16:38 90 06/28/18 16:07 86 20 H 117/70 94 General: Alert, Oriented x3, Cooperative, No apparent distress HEENT: Atraumatic, PERRLA, EOMI, Normocephalic Oral: Moist Mucosa Neck: Supple, No JVD Lungs: Clear to auscultation, Normal air movement, No rhonchi, No wheeze, No rales Cardiovascular: Regular rate, Regular Rhythm, Normal S1, Normal S2, No murmurs Abdomen: Soft, Non Tender, Non-Distended, No Hepato-splenomegaly Extremities: No edema, Capillary Refill Less than 3 Seconds Skin: No rashes, No breakdown Musculoskeletal: No Tenderness to Palpation of Joints or Extremities Neurological: Cranial nerves II-XII grossly intact, Motor Exam 5/5 strength throughout, Sensory exam intact to light touch and pain Psych/Mental Status: Normal Affect, Appropriate Hospital Course: 1. Falls/R MCA CVA - A large portion of her work-up was performed as an outpatient. She was asked to come to the hospital after her MRI demonstrated a R MCA CVA. She had an echo as an outpatient for these falls about a week ago and that was normal. She had a carotid doppler with 50% stenosis on the R ICA. She had an outpatient 24 hour event monitor which was also unremarkable. Neurology was consulted and given the work-up, the medical therapy and the NIH of 0, felt she was ok for DC with outpatient follow-up with her neurologist. They did recommend a 30 day event monitor as an outpatient. PT/OT also evaluated her and felt she was safe to return home. In discussion with her, she does not tolerate an lipitor or other high intensity statins, except for Crestor, and she can not tolerate a dose greater than 5 mg. She also cannot tolerate plavix and she does not want to take any other anticoagulants. I do ask that she does not drive until these falling spells resolve, otherwise can resume her other normal activity. 2. Her other home medications were continued where appropriate Discharge Activity: No Restrictions, May Not Drive Call your doctor if you observe: Numbness or Tingling, Dizziness, Fainting spells, Chest pain, Increased palpitations (irregular heartbeat) Home Medications: Medications to take at Discharge Levothyroxine [Synthroid] 50 mcg PO DAILY 02/25/14 Tiotropium [place] [Spiriva 18 MCG] 1 puff INHALATION DAILY 02/25/14 Magnesium Oxide [Magnesium] 250 mg PO BID 11/23/15 fluticasone 200 mcg-vilanterol 25 mcg/dose powder for inhalation 1 puff INHALATION DAILY 30 Days #60 11/22/17 Albuterol Aerosols [Ventolin Aerosols] 2.5 mg INHALATION BID PRN PRN 12/20/17 Ranitidine HCl [Zantac 75] 75 mg PO QHS 12/20/17 Rosuvastatin Calcium [Crestor] 5 mg PO DAILY 12/20/17 Ubidecarenone [Co Q-10] 200 mg PO DAILY 12/20/17 omeprazole 20 mg capsule,delayed release 20 mg PO BID #180 cap 01/22/18 fluoxetine 20 mg capsule 20 mg PO QDAY 04/20/18 diltiazem CD 180 mg capsule,extended release 24 hr 180 mg PO DAILY #90 cap 06/14/18 Albuterol Sulfate [Proair Hfa] 2 puff IH BID 06/28/18 Aspirin [Aspirin, Baby] 81 mg PO DAILY 06/28/18 Bacitracin Ointment 1 applic TOPICAL PRN PRN 06/28/18 Calcium Carbonate/Vitamin D3 [Calcium 600-Vit D3 200 Tablet] 1 tab PO BID 06/28/18 Cetirizine HCl [Zyrtec] 10 mg PO QHS 06/28/18 Cholecalciferol (Vitamin D3) [D3-2000] 2,000 unit PO DAILY 06/28/18 Nystatin 1 applicatio TP PRN PRN 06/28/18 Primary Care Physician: Mercy Elliott [Primary Care Provider] - Please follow up with your Primary Care Physician in: in 3-5 days Disposition: Home Minutes spent on discharge:: 35 Patient Condition:: Good Medical Necessity - Tobacco Use Smoking Status: Former smoker Tobacco Use: Non-smoker Meaningful Use Info Meaningful Use Diagnoses (Choose all that apply): Ischemic CVA - CVA Therapy Assessed for PT,OT and/or ST?: Yes - Ischemic Stroke Antithrombotic order at d/c?: Yes Dx of Atrial fib/flutter?: No Statins at discharge?: Yes Primary Dx Acute Ischemic CVA?: Yes IV tPA ordered during stay?: No Reason IV t-PA not ordered: Treatment not Indicated Code Visit OBSV E&M: [id number] Observation care discharge
== END 2018-06-29 15:44 | disposition home or self-care (01) ==
LOC: ED 15:19 → PCU 16:15
PROVIDERS: Emergency Provider Emergency Medicine; Family Provider Nurse Practitioner; PCP Nurse Practitioner; Visit Provider Family Medicine
DX: I63.9 Cerebral infarction, unspecified (principal); R29.700 NIHSS score 0; K21.9 Gastro-esophageal reflux disease without esophagitis; E03.9 Hypothyroidism, unspecified; I25.10 Atherosclerotic heart disease of native coronary artery without angina pectoris; J44.9 Chronic obstructive pulmonary disease, unspecified; I11.0 Hypertensive heart disease with heart failure; I50.32 Chronic diastolic (congestive) heart failure; E78.5 Hyperlipidemia, unspecified; I27.29 Other secondary pulmonary hypertension; G25.0 Essential tremor; Z87.891 Personal history of nicotine dependence; Z79.51 Long term (current) use of inhaled steroids; Z95.2 Presence of prosthetic heart valve; Z79.899 Other long term (current) drug therapy; Z82.49 Family history of ischemic heart disease and other diseases of the circulatory system
CPT/HCPCS: 36415; 70496; 70498; 70551; 80048; 80061; 84484; 85025; 85610; 85730; 93005; 94640; 96360; 96361; 96372; 99218; 99283; Q9967; G0378

== ENCOUNTER → 2018-07-05 12:34 | Outpatient (CLI) | payer MEDICARE, OTHER, SELFPAY ==
--- NOTE | 2018-07-05 12:38 | RAD_ITS ---
STUDY: X-RAY CHEST REASON FOR EXAM: Female, 73 years old. Cough x2 weeks. TECHNIQUE: PA and lateral views of the chest. COMPARISON: February 06, 2018. FINDINGS: There is a stable moderate hyperinflation. There is a stable mild prominence of the interstitium, predominantly in a perihilar and lower lobe distribution. There is no focal alveolar opacification. There is no pleural effusion. There is no pneumothorax. Normal size heart. The patient is status post median sternotomy and mitral valve replacement. There is no demonstrated mediastinal lymphadenopathy or mediastinal mass lesion. Normal visualized pulmonary arteries. There is atherosclerotic calcification of the aortic arch with tortuosity. Again seen is diffuse demineralization without evident acute osseous abnormality. There is no demonstrated abnormality of the visualized soft tissue structures of the upper abdomen. RAD/Chest PA and Lateral IMPRESSION: Stable examination. No evident acute cardiopulmonary disease. COPD and interstitial fibrosis. Atherosclerotic peripheral vascular disease. No pleural effusion. No pneumothorax. Electronically Signed: Ish Heredia MD at 13:27 EDT , Service support ,
== END ==
PROVIDERS: Family Provider Nurse Practitioner; PCP Nurse Practitioner; Referring Provider Nurse Practitioner; Visit Provider Nurse Practitioner
DX: R05 Cough (principal)
CPT/HCPCS: 71046

== ENCOUNTER 2018-07-10 11:00 | Outpatient (RCR) | payer MEDICARE, OTHER, SELFPAY ==
--- NOTE | 2018-06-20 11:45 | HP.PTEVAL_ITS ---
Patient's Visit Information KARINA CHRISTINA is a 72 year old F referred to Physical Therapy by Danish Acevedo MD with a diagnosis of vertigo. Date of Evaluation: 06/20/18 Physical Therapist: Amos Jack DPT, [place] - Visit Plan Frequency: 1x/Week Duration: 4-6 Weeks Plan: Weekly x 4-6 to progress adaptationa dn monitor MSQ.habituation as needed. - Subjective Subjective: Recently saw Hi PT for balance and strength adn now is coming on her own. F/U with Dr. Acevedo adamy he wanted vestibular therapy. One week ago got unsteady getting out of car with vertigo type thing. 3-4 weeks ago coughed real hard and got dizzy spinning for a minute. Bending over can cause it also. Bed mobility is fine. Balance and strength feel Ok when not dizzy. Daughter thought her balance was off the other day. No falls in the last month. No cane or walker. Was sent to [facility] due to falls from Dr. Sims. Had MRI of LB which thought she may need surgery for LB. [facility] did nerve conduction test which was good and carotid which was good. Will have MRI of head next week.\. Sleeps well but wakes up off and on. Basic ADLS are OK, avoids steps due to pain in LB. Not employed. Hobbies include reading, started working working at [employer] 3x/week adn no problems with that. - Objective VOR walking is cjallenging but safe. Steps up without rail and d escending needs rail. Slight lightheadedness descending. - B hallpike. - roll test. Oculomotor: no nystagmus with gaze or head shake. Pursuit and saccades are normal. - skew eye deviation. convergence was OK. VOR causes symptoms after 20-30 seconds, 60 seconds gives 4/10 for 30 seconds. - head thrust. - Balance Scores Functional Gait Assessment Score: 27 % Disability: 10.0000 CATSIB Score (Max score 120 seconds): 120 - Goals Goal 1:: Abolish vertigo feeling with arising and in am. Goal Time Frame: 4-6 Weeks Goal 2:: Pt feel 90% better and score those improvements on DHI Goal Time Frame: 4-6 Weeks - Rehabilitation Potential Physical Therapy Diagnosis: vertigo Rehabilitation Potential: Fair - Anticipated Interventions Patient/Client Instruction: Educate patient on: Condition, Plan of Care Other: to diminish dizzyness. Comment: adaptation adn habituation as needed. Other: to diminish dizzyness. Thank you for the opportunity to evaluate your patient. For Medicare and Medicare HMO plans, please review the plan of care and approve it. It will need to be FAXED BACK to us at [phone] for Medicare purposes. Please let me know if there are questions or concerns regarding this plan of care. Physician Signature: Date:
--- NOTE | 2018-07-10 11:33 | HP.PTDCSUM ---
HP - PT D/C Summary It has been my pleasure to treat KARINA CHRISTINA under orders from Danish Acevedo MD, for the diagnosis of vertigo for a total of 3 visit(s). Discharge Date: 07/10/18 Please see the following information for a summary of their discharge status. - Subjective Subjective: Been on interesting two weeks. Had MRI, Dr. Acevedo office said she had stroke and to go to ER. Admittted for 24 hours. Now has 30 day monitor. Got respiratory infection last week. Has tick bite on ankle from this weekend. Feeling OK, about the same if she bends over and stands up. Has not done exercises. Has AND[place] from stroke. To Dr. Acevedo 08/03. ready to be done with PT due to so much going on in life. - Objective Objective/Function: FGA is good and positional tests are - B. Slight transient dizzyness with horiz VOR but not vertical. MSQ negative except up from B knee. - Goals Goal 1:: Abolish vertigo feeling with arising and in am. Goal Progress: Progressing Goal 2:: Pt feel 90% better and score those improvements on DHI Goal Progress: Not Progressing - Plan Plan: D/C pt request. - D/C Information Discharge Comments: patient will work on up from knee at home and see in 3 weeks. If there are questions or concerns regarding this patient's physical therapy, please feel free to call me at [phone]. Thank you for the referral of this patient. Sincerely, Amos Jack, DPT, OC
== END 2018-07-10 19:00 | disposition home or self-care (01) ==
LOC: PT 11:00
PROVIDERS: Family Provider Nurse Practitioner; PCP Nurse Practitioner; Visit Provider Psychiatry & Neurology Neurology
DX: R42 Dizziness and giddiness (principal)
CPT/HCPCS: 97110; 97162; 97164; 97530

== ENCOUNTER → 2018-07-30 13:59 | Outpatient (CLI) | payer MEDICARE, OTHER, SELFPAY ==
[2018-08-02 12:19] LABS: B. pertussis IgG 1.19 index (0.00-0.94); B. pertussis IgM < 1.0 index (0.0-0.9)
== END ==
PROVIDERS: Family Provider Nurse Practitioner; PCP Nurse Practitioner; Referring Provider Internal Medicine Pulmonary Disease; Visit Provider Internal Medicine Pulmonary Disease
DX: J47.9 Bronchiectasis, uncomplicated (principal); R05 Cough; J44.9 Chronic obstructive pulmonary disease, unspecified
CPT/HCPCS: 36415

== ENCOUNTER → 2018-07-31 12:34 | Outpatient (CLI) | payer MEDICARE, OTHER, SELFPAY | PROVIDERS: Family Provider Nurse Practitioner; PCP Nurse Practitioner; Referring Provider Internal Medicine Pulmonary Disease; Visit Provider Internal Medicine Pulmonary Disease | DX: J47.9 Bronchiectasis, uncomplicated (principal); R05 Cough | CPT/HCPCS: 87015; 87070; 87116; 87205; 87206 ==

== ENCOUNTER → 2018-08-01 10:58 | Outpatient (CLI) | payer MEDICARE, OTHER, SELFPAY | PROVIDERS: Family Provider Nurse Practitioner; PCP Nurse Practitioner; Referring Provider Internal Medicine Pulmonary Disease; Visit Provider Internal Medicine Pulmonary Disease | DX: J47.9 Bronchiectasis, uncomplicated (principal); R05 Cough | CPT/HCPCS: 87015; 87116; 87206 ==

== ENCOUNTER → 2018-08-02 11:52 | Outpatient (CLI) | payer MEDICARE, OTHER, SELFPAY | PROVIDERS: Family Provider Nurse Practitioner; PCP Nurse Practitioner; Referring Provider Internal Medicine Pulmonary Disease; Visit Provider Internal Medicine Pulmonary Disease | DX: J47.9 Bronchiectasis, uncomplicated (principal); R05 Cough | CPT/HCPCS: 87015; 87116; 87206 ==

== ENCOUNTER 2018-09-19 05:19 | Inpatient (IN) | payer MEDICARE, OTHER, SELFPAY ==
[2018-09-19] VITALS (18 sets, daily range): BP systolic 116–141; BP diastolic 65–82; PULSE 98–112; RESP 18–36; TEMP 36.6–37.1; O2SAT 92–97; BMI 26.6; BMI 26.2
--- NOTE | 2018-09-19 05:33 | EKG12_ITS ---
Test Reason : SOB Blood Pressure : / mmHG Vent. Rate : 101 BPM Atrial Rate : 101 BPM P-R Int : 156 ms QRS Dur : 086 ms QT Int : 386 ms P-R-T Axes : 078 -30 074 degrees QTc Int : 500 ms Sinus tachycardia Possible Left atrial enlargement Left axis deviation Low voltage QRS Septal infarct , age undetermined Abnormal ECG Confirmed by NEEMA WHATLEY, BOBBY ([id number]), managing editor MAIKOL MCDOWELL ([id number] on 09/24/2018 1:00:34 PM Referred By: MARGRET Confirmed By:BOBBY BETHEA MD
[2018-09-19] MEDS: Ipratropium/Albuterol Sulfate 3 ML AMPUL.NEB INHALATION ×5 (05:41→23:17)
[2018-09-19] MEDS: Albuterol 2.5 MG/3 ML VIAL.NEB. INHALATION ×2 (05:42→06:03)
[2018-09-19] MEDS: MethylPREDNISolone 125 MG/2 ML Vial IV (05:45)
[2018-09-19] MEDS: 0.9% Normal Saline 1,000 ML 150 ML IV (05:45)
--- NOTE | 2018-09-19 05:50 | RAD_ITS ---
HISTORY: INCREASED SOB X 2 DAYS. HX COPD. EXAM: XR Chest 1 View: COMPARISON: 07/05/2018 and 02/06/2018 FINDINGS: EKG leads in place. With compared to previous, no significant change. Normal heart size. The upper lobes are emphysematous. Stable soft tissue prominence of the right hilum. No acute infiltrate. No vascular congestion or pleural effusion. No pneumothorax. Atherosclerotic thoracic aorta. Aortic and mitral valve replacement RAD/Chest 1 View (Portable) IMPRESSION: 1. No definite acute disease or significant change. 2. Chronic lung disease with emphysema. 3. Aortic and mitral valve replacement at 0616 Reported and signed by: Bonifacio Ahuja MD Electronically Signed: Bonifacio Ahuja, at 6:15 EST Tel , Service support ,
[2018-09-19 05:52] LABS: Absolute Neutrophil Count 5.8 X10^3/uL (2.0-7.7); Basophil# 0.05 X10^3/uL; Basophil% 0.6 % (0-1); Eosinophil# 0.03 X10^3/uL; Eosinophils% 0.4 % (0-5); Hematocrit 45.2 % (37-47); Hemoglobin 14.6 g/dl (12.0-15.0); Lymphocyte % 16.6 % (19-41); Mean Corp Hgb Conc 32.3 g/gl (32-36); Mean Corpuscular Hgb 30.3 pg (27.0-32.0); Mean Corpuscular Volume 93.8 fL (81-99); Monocyte# 1.08 X10^3/uL; Monocyte% 12.8 % (0-10); Neutrophil # 5.84 X10^3/uL (2.7-7.7); Neutrophil % 69.4 % (47-70); Platelet Count 149 K/mm3 (150-450); RBC Distribution Width CV 14.4 % (11.6-14.6); RBC Distribution Width SD 48.4 fl (35.1-43.9); Red Blood Count 4.82 M/mm3 (4.2-5.4); White Blood Count 8.4 K/mm3 (4.4-11.0)
[2018-09-19 05:53] LABS: POSITIVE COUNT NO; POSITIVE DIFFERENTIAL NO; POSITIVE MORPHOLOGY NO
[2018-09-19 05:54] LABS: Anion Gap 10 (5-15); BUN 11 mg/dL (7-18); BUN/Creat Ratio 10.6 RATIO (10-20); Calcium,Total 8.5 mg/dL (8.5-10.1); Chloride 103 mmol/L (98-107); Creatinine, Serum 1.04 mg/dL (0.55-1.02); EST Glomerular Filtration Rate 55 mL/min (>60); Est Glom Filt Rate - Afr Amer 67 mL/min (>60); Estimated Creatinine Clearance 42.22 ml/min; Glucose 141 mg/dL (74-106); Sodium Level 139 mmol/L (136-145)
--- NOTE | 2018-09-19 06:23 | ED.VISSUMM ---
- ER Visit Summary Date of Service: 09/19/18 Chief Complaint: Shortness of breath History of Present Illness: The patient is a 73 F with a history of COPD. She developed URI symptoms last week and has noted increased shortness of breath over the past 2 days. She reports cough with yellow to white sputum. She does not normally wear home oxygen but she did start using it yesterday. She denies fever. Past history also significant for prior CVA, coronary disease, CHF, asthma, hypertension, reflux disease, hypothyroidism, kidney stones. She has had her aortic and mitral valve replaced and does have cardiac stent. Physical Examination: Blood pressure is 141/82, temperature 98.3, heart rate 106, respiratory rate 33, pulse ox 95% on 4 L nasal cannula. Patient is sitting upright in bed. She is speaking 5-6 word sentences. Head and neck examination unremarkable. Heart is tachycardic. Lungs sounds are with inspiratory and expiratory wheezes throughout and decreased air movement. She is tachypneic. Abdomen is soft nontender. Test Results: EKG is sinus at 101 with no acute ischemia. Portable chest x-ray shows chronic lung disease with emphysema. No acute disease. CBC reveals normal white count. Chemistry studies unremarkable. Troponin 0.216. Emergency Department Course and Treatment: Patient received IV Solu-Medrol along with a DuoNeb followed by 2 albuterol treatments. On repeat exam patient does have increased air movement throughout, but still has significant inspiratory and expiratory wheezes and tachypnea. She will require admission for further steroids and breathing treatments. She will be given a dose of Rocephin and Zithromax for COPD exacerbation as she does have an allergy noted to Levaquin. Treatment Plan: [] Disposition: Admit Impression: 1. COPD exacerbation 2. Elevated troponin This note was generated with [employer] dictation software. It may contain incorrect words, spelling, and punctuation that were not noted in review of the chart prior to signing ED Disposition - Plan for ED Patient: Chief Complaint: Shortness of Breath Referrals: Mercy Elliott, POONAM-C [Primary Care Provider] -
--- NOTE | 2018-09-19 06:42 | PCM.HP.STD ---
Problem List (1) COPD with exacerbation Status: Acute (2) Microcalcification of right breast on mammogram Status: Chronic History of Present Illness Date of Admission: 09/19/18 Chief Complaint: shortness of breath The patient is a 73 year old F with a significant history of CVA; CAD status post stent and CABG; rheumatic heart disease status post mitral valve replacement and aortic valve replacement; COPD; former smoker; chronic diastolic heart failure who presented with a 2 days history of progressively worsening shortness of breath at rest which increases with exertion. her symptoms is a productive cough of white to yellow thick sputum. She denies fever but reports chills. Patient reports that about 3 weeks ago she had cold-like symptoms of nasal congestion; sneezing; coughing and rhinorrhea. Past Medical History Past Medical History (Chronic Problems): Chronic Problems (Last Reviewed 09/19/18 @ 07:32 by Juvencio Stone MD) Microcalcification of right breast on mammogram (Chronic) HTN (hypertension) (Chronic) Hypothyroidism (Chronic) GERD (gastroesophageal reflux disease) (Chronic) Rheumatic aortic stenosis with regurgitation (Chronic) Atherosclerotic heart disease of [place] coronary artery without angina pectoris (Chronic) H/O mitral valve replacement (Chronic) MVR w/ 27mm Ivan-Menon bovine pericardial mitral valve. 10/14/15 H/O coronary artery bypass surgery (Chronic) CABG X 1 SVG- RCA, AVR w/ 19mm St Rusty Trifecta aortic valve Occlusion and stenosis of right carotid artery (Chronic) Chronic diastolic heart failure (Chronic) Other secondary pulmonary hypertension (Chronic) Rheumatic mitral stenosis with insufficiency (Chronic) Other [place] [facility] (current) drug therapy (Chronic) Stroke (Chronic) Family history of ischemic heart disease (Chronic) S/P PTCA (percutaneous transluminal coronary angioplasty) (Chronic) PCI BMS to CX/OM 12/03/13 @ [facility] CAD (coronary artery disease) (Chronic) Aortic valve disease (Chronic) Mitral valve disease (Chronic) MVR w/ 27mm Ivan-Menon bovine pericardial mitral valve. 10/14/15 COPD (chronic obstructive pulmonary disease) (Chronic) Essential tremor (Chronic) Chronic back pain (Chronic) HLD (hyperlipidemia) (Chronic) Asthma (Chronic) Medical History: Medical History (Last Reviewed 09/19/18 @ 07:32 by Juvencio Stone MD) Rheumatic aortic stenosis with regurgitation (Chronic) I06.2 Atherosclerotic heart disease of [place] coronary artery without angina pectoris (Chronic) I25.10 Occlusion and stenosis of right carotid artery (Chronic) I65.21 Chronic diastolic heart failure (Chronic) I50.32 Other secondary pulmonary hypertension (Chronic) I27.29 Rheumatic mitral stenosis with insufficiency (Chronic) I05.2 Other [employer] (current) drug therapy (Chronic) Z79.899 Stroke (Chronic) I63.9 CAD (coronary artery disease) (Chronic) I25.10 Aortic valve disease (Chronic) I35.9 Mitral valve disease (Chronic) I05.9 MVR w/ 27mm Ivan-Menon bovine pericardial mitral valve. 10/14/15 COPD (chronic obstructive pulmonary disease) (Chronic) J44.9 HLD (hyperlipidemia) (Chronic) E78.5 Allergies levofloxacin [From Levaquin] Allergy (Verified 09/19/18 05:25) Itching/rash clopidogrel [From Plavix] Adverse Reaction (Intermediate, Verified 09/19/18 05:25) Blood Blisters atorvastatin calcium [From Lipitor] Adverse Reaction (Verified 09/19/18 05:25) muscle pains beta blockers Allergy (Uncoded 09/19/18 05:25) CHF pollen,animals Allergy (Uncoded 09/19/18 05:25) Unknown Home Medications: Ambulatory Orders Medication Instructions Recorded Levothyroxine [Synthroid] 50 mcg PO DAILY 02/25/14 Tiotropium [place] [Spiriva 18 MCG] 1 puff INHALATION DAILY 02/25/14 Magnesium Oxide [Magnesium] 250 mg PO BID 11/23/15 fluticasone 200 mcg-vilanterol 25 1 puff INHALATION DAILY 30 Days #60 11/22/17 mcg/dose powder for inhalation Albuterol Aerosols [Ventolin 2.5 mg INHALATION BID PRN PRN 12/20/17 Aerosols] Ranitidine HCl [Zantac 75] 75 mg PO QHS 12/20/17 Rosuvastatin Calcium [Crestor] 5 mg PO DAILY 12/20/17 Ubidecarenone [Co Q-10] 200 mg PO DAILY 12/20/17 omeprazole 20 mg capsule,delayed 20 mg PO BID #180 cap 01/22/18 release fluoxetine 20 mg capsule 20 mg PO QDAY 04/20/18 diltiazem CD 180 mg 180 mg PO DAILY #90 cap 06/14/18 capsule,extended release 24 hr Albuterol Sulfate [Proair Hfa] 2 puff IH BID 06/28/18 Aspirin [Aspirin, Baby] 324 mg PO DAILY 06/28/18 Calcium Carbonate/Vitamin D3 1 tab PO BID 06/28/18 [Calcium 600-Vit D3 200 Tablet] Cetirizine HCl [Zyrtec] 10 mg PO QHS 06/28/18 Cholecalciferol (Vitamin D3) 2,000 unit PO DAILY 06/28/18 [D3-2000] Nystatin 1 applicatio TP PRN PRN 06/28/18 Surgical History: Surgical History (Last Reviewed 09/19/18 @ 07:32 by Juvencio Stone MD) Hx of foot surgery (Inactive) Z98.890 right foot Hx of colonoscopy (Inactive) Z98.890 History of left hip replacement (Inactive) Z96.642 Hx of tonsillectomy (Inactive) Z90.89 H/O mitral valve replacement (Chronic) Z95.2 MVR w/ 27mm Ivan-Menon bovine pericardial mitral valve. 10/14/15 H/O coronary artery bypass surgery (Chronic) Z95.1 CABG X 1 SVG- RCA, AVR w/ 19mm St Rusty Trifecta aortic valve S/P PTCA (percutaneous transluminal coronary angioplasty) (Chronic) Z98.61 PCI BMS to CX/OM 12/03/13 @ 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 Smoking Status: Never smoker - *Family History Maternal Family History: Family History (Last Reviewed 09/19/18 @ 07:32 by Juvencio Stone MD) Father CAD (coronary artery disease) Arthritis Heart disease Hypertension Mother Asthma Arthritis Heart disease Hypertension Thyroid disorder Daughter Autoimmune disease Other Family history of ischemic heart disease History Items: Heart Disease, Hypertension Paternal Family History: Family History (Last Reviewed 09/19/18 @ 07:32 by Juvencio Stone MD) Father CAD (coronary artery disease) Arthritis Heart disease Hypertension Mother Asthma Arthritis Heart disease Hypertension Thyroid disorder Daughter Autoimmune disease Other Family history of ischemic heart disease History Items: Heart Disease, Hypertension Review of Systems Constitutional: Reports: Chills. Denies: Fever, Weight Change HEENT: Reports: Sinus Congestion, Sinus Drainage. Denies: Head Aches Cardiovascular: Denies: Chest Pain, Palpitations Respiratory: Reports: Cough, Shortness of Breath. Denies: Sputum production Gastrointestinal: Denies: Abdominal Pain, Nausea, Vomiting Genitourinary: Denies: Dysuria Musculoskeletal: Reports: Back Pain - Chronic back pain; and now with generalized back pain that she attributes to coughing. Denies: Joint Pain, Joint Tenderness Skin: Denies: Rash, Wounds Neurological: Denies: Numbness, Tingling, Focal weakness Psychiatric: Denies: Homicidal Ideations, Suicidal Ideations Hematologic/ Lymphatic: Denies: Easy Bruising, Easy Bleeding VTE Information - Inpt Only VTE Present on Admission: No VTE Mechan Device Prophylaxis: None VTE Pharm Prophylaxis ordered?: Yes Patient Problems: Active and Suspected Problems (Last Reviewed 09/19/18 @ 07:32 by Juvencio Stone MD) COPD with exacerbation (Acute) - Physical Exam General: Alert, Oriented x3, Cooperative HEENT: Atraumatic, PERRLA, EOMI, Normocephalic Neck: Supple, No JVD, Negative Carotid Bruits Lungs: Diminished, Tachypneic, Wheezes Cardiovascular: No murmurs, Tachycardic Abdomen: Bowel Sounds Present, Soft, Non Tender Extremities: No edema, Capillary Refill Less than 3 Seconds Skin: No rashes, No breakdown Musculoskeletal: No Muscle Wasting Lymphatic: No Cervical, Supraclavicular, or Inguinal Adenopathy Neurological: Neuro grossly intact Psych/Mental Status: Normal Affect, Appropriate Vital Signs Temp Pulse Resp BP Pulse Ox 98.3 F 108 H 32 H 141/82 H 96 09/19/18 05:23 09/19/18 06:03 09/19/18 06:03 09/19/18 05:23 09/19/18 05:27 Oxygen Flow Rate (L/min) 4 Oxygen Delivery Method Nasal Cannula Weight: 70.3 kg Body Mass Index (BMI) 26.6 Finger Stick Blood Glucose 100 Laboratory Tests Past 24 Hrs 09/19/18 09/19/18 05:25 05:25 WBC 8.4 RBC 4.82 Hgb 14.6 Hct 45.2 MCV 93.8 MCH 30.3 MCHC 32.3 RDW 14.4 RDW Differential 48.4 H Plt Count 149 L MPV 12.0 Immature Gran % (Auto) 0.200 Neut % (Auto) 69.4 Lymph % (Auto) 16.6 L [place] % (Auto) 12.8 H Eos % (Auto) 0.4 Baso % (Auto) 0.6 Absolute Neuts (auto) 5.8 Absolute Lymphs (auto) 1.40 Total Counted Not Reportable Sodium 139 Potassium 4.0 Chloride 103 Carbon Dioxide 26.0 Anion Gap 10 BUN 11 Creatinine 1.04 H Estim Creat Clear Calc 42.22 Est GFR (MDRD) Af Amer 67 Est GFR (MDRD) Non-Af 55 L BUN/Creatinine Ratio 10.6 Glucose 141 H Calcium 8.5 Troponin I 0.216 H Assessment/Plan All Active Problems (Last Reviewed 09/19/18 @ 07:32 by Juvencio Stone MD) CVA (cerebral vascular accident) (Resolved) COPD with exacerbation (Acute) UTI (urinary tract infection) (Resolved) The patient is a 73 year old F with a significant history of CAD status post stent and CABG; rheumatic heart disease status post mitral valve replacement and aortic valve replacement; COPD; former smoker; chronic diastolic heart failure who presented with a 2 days history of progressively worsening shortness of breath; productive cough; tachycardia and tachypnea consistent with likely COPD exacerbation Acute COPD exacerbation With patient history of COPD and with tachypnea; tachycardia; shortness of breath; wheezing and unremarkable chest x-ray likely patient has COPD exacerbation. At emergency department patient received ceftriaxone; azithromycin; methylprednisone and breathing treatments.. We will continue patient on azithromycin; methylprednisone; DuoNeb and albuterol inhalation. Oxygen per nasal cannula titrate to keep oxygen saturation more than 90%. We will get comprehensive respiratory panel. Chest physiotherapy and incentive spirometer ordered. Elevated troponin On admission her troponin was 0.216 Patient has no chest pain. We will trend troponin at this time. Hypertension On admission her blood pressure was not within goal. Cardizem continued Trend blood pressures. CAD status post stents and CABG Stable with no chest pain Aspirin and Crestor continued. CoQ10 continued. Hypothyroidism Synthroid continued Depression Fluoxetine continued GERD Omeprazole continued DVT prophylaxis Code Visit Inpatient E&M: 83476 Init Hosp L3
[2018-09-19] MEDS: Ceftriaxone 1 GM/50 ML BAG IV (06:43)
--- NOTE | 2018-09-19 07:34 | EKG12_ITS ---
Test Reason : Blood Pressure : / mmHG Vent. Rate : 106 BPM Atrial Rate : 106 BPM P-R Int : 162 ms QRS Dur : 082 ms QT Int : 370 ms P-R-T Axes : 082 -11 067 degrees QTc Int : 491 ms Sinus tachycardia Low voltage QRS (limb leads) Possible Left atrial enlargement Poor R wave progression Septal infarct , cannot be excluded Abnormal ECG Confirmed by NEEMA WHATLEY, BOBBY ([id number]), order editor MAIKOL MCDOWELL ([id number]) on 09/21/2018 3:36:40 PM Referred By: DAKOTAH Confirmed By:BOBBY BETHEA MD
[2018-09-19] MEDS: Aspirin 81 MG TAB.CHEW 324 MG PO (09:45)
[2018-09-19] MEDS: Pantoprazole Sodium 20 MG Tablet PO ×2 (09:45→22:21)
[2018-09-19] MEDS: Magnesium Oxide 400 MG Tablet PO ×2 (09:45→22:12)
[2018-09-19] MEDS: dilTIAZem CD 180 MG Capsule PO (09:45)
[2018-09-19] MEDS: Enoxaparin 40 MG/0.4 ML Syringe SC (09:45)
[2018-09-19] MEDS: 0.9% NaCl Peripheral Flush Adult/Peds IV ×3 (09:59→22:11)
--- NOTE | 2018-09-19 10:44 | CASEMGMT ---
CHRISTOPHER BETANCUR Assessment. Presentation: Pt presented to ER with shortness of breath, cough. Has Home O2, but used only intermittently. Started to use day prior to admission. Intro role of CM to patient in room. Pt is able to participate in DC Planning. PCP: Mercy Elliott NP Preferred [facility]acy: [facility] Insurance: [facility] Prescription Benefit: yes LNOK: Harsh Juarez Living Arrangements: lives independently with . Transportation: drives DME/HHC: Has Home oxygen, nebulizer through [employer], now through [employer]. Pt states she has portable tanks @ home, but hasn't used in months. CHRISTOPHER BETANCUR requested pt have her verify tanks are full and functional as she may need them on dc. Phone numbers given for [employer]. DC PLAN: Home
[2018-09-19] MEDS: FLUoxetine 20 MG Capsule PO (11:14)
[2018-09-19] MEDS: Calcium Carb/Vitamin D 1 TABLET Tablet PO ×2 (11:14→16:56)
[2018-09-19] MEDS: guaiFENesin 1,200 MG Tablet 1200 MG PO ×2 (11:15→22:11)
--- NOTE | 2018-09-19 15:02 | PCM.PN.HOSP ---
Patient Problems: Active and Suspected Problems (Last Reviewed 09/19/18 @ 07:32 by Juvencio Stone MD) COPD with exacerbation (Acute) RSV bronchitis (Acute) Elevated troponin (Acute) Subjective: still short of breath, but some better. Feels that her airway has dried up. Vitals/I&O's: Vital Signs Temp Pulse Resp BP Pulse Ox 36.6 C 101 H 18 119/69 95 09/19/18 14:47 09/19/18 14:47 09/19/18 14:47 09/19/18 14:47 09/19/18 14:47 Oxygen Flow Rate (L/min) 4 Oxygen Delivery Method Nasal Cannula Weight: 69.201 kg Body Mass Index (BMI) 26.2 Finger Stick Blood Glucose 100 Intake and Output for Last 24 Hours 09/17/18 09/18/18 09/19/18 23:59 23:59 23:59 Intake Total 492 / 492 Balance 492 / 492 General: Alert, Cooperative, No apparent distress HEENT: Atraumatic, Normocephalic Oral: Moist Mucosa, No Gingival or Mucosal Lesions/ Ulcerations Neck: No Nodes, Thyroid Normal Size and Texture Lungs: Diminished, Wheezes Cardiovascular: Regular rate, Regular Rhythm, Normal S1, Normal S2, No murmurs Abdomen: Bowel Sounds Present, Soft, Non Tender, Non-Distended, No Hepato-splenomegaly Extremities: No edema, No Calf Tenderness Skin: No rashes, No breakdown Musculoskeletal: No Tenderness to Palpation of Joints or Extremities, No Muscle Wasting Psych/Mental Status: Normal Affect, Appropriate Microbiology Past 72 Hours 09/19/18 08:15 Mucosa - Nasopharyngeal Respiratory Panel (PCR) - Final RSV B Laboratory Results 09/19/18 05:25: WBC 8.4, RBC 4.82, Hgb 14.6, Hct 45.2, MCV 93.8, MCH 30.3, MCHC 32.3, RDW 14.4, RDW Differential 48.4 H, Plt Count 149 L, MPV 12.0, Immature Gran % (Auto) 0.200, Neut % (Auto) 69.4, Lymph % (Auto) 16.6 L, [place] % (Auto) 12.8 H, Eos % (Auto) 0.4, Baso % (Auto) 0.6, Absolute Neuts (auto) 5.8, Absolute Lymphs (auto) 1.40, Total Counted Not Reportable 09/19/18 05:25: Sodium 139, Potassium 4.0, Chloride 103, Carbon Dioxide 26.0, Anion Gap 10, BUN 11, Creatinine 1.04 H, Estim Creat Clear Calc 42.22, Est GFR (MDRD) Af Amer 67, Est GFR (MDRD) Non-Af 55 L, BUN/Creatinine Ratio 10.6, Glucose 141 H, Calcium 8.5, Troponin I 0.216 H 09/19/18 08:30: Troponin I 0.198 H 09/19/18 11:14: Troponin I 0.161 H Current Medications Albuterol Sulfate (Ventolin Aerosols) 2.5 mg INHALATION Q2H PRN PRN PRN Reason: SHORTNESS OF BREATH Albuterol/Ipratropium (Duoneb) 3 ml INHALATION Q4H.RT [facility] Last Admin: 09/19/18 10:57 Dose: 3 ml Aspirin (Aspirin, Baby) [facility] Last Admin: 09/19/18 09:45 Dose: 324 mg Bisacodyl (Dulcolax) 5 mg PO DAILY PRN PRN PRN Reason: Constipation Budesonide (Pulmicort Aerosol) 0.5 mg INHALATION Q12H.RT [facility] Calcium/Vitamin D (Os-Vin 500mg + D) 1 tablet [facility] Last Admin: 09/19/18 11:14 Dose: 1 tablet Cholecalciferol (Vitamin D) 2,000 unit PO DAILY [facility] Last Admin: 09/19/18 11:15 Dose: 2,000 unit Diltiazem HCl (Cardizem Cd) 180 mg PO DAILY [facility] Last Admin: 09/19/18 09:45 Dose: 180 mg Enoxaparin Sodium (Lovenox) 40 mg SC DAILY@1000 [facility] Last Admin: 09/19/18 09:45 Dose: 40 mg Famotidine (Pepcid) 20 mg PO QHS [facility] Fluoxetine HCl (Prozac) 20 mg PO DAILY [facility] Last Admin: 09/19/18 11:14 Dose: 20 mg Guaifenesin (Mucinex) 1,200 mg PO BID [facility] Last Admin: 09/19/18 11:15 Dose: 1,200 mg Azithromycin 500 mg/ Dextrose 255 mls @ 250 mls/hr IV Q24 [facility] Stop: 09/21/18 11:02 Last Admin: 09/19/18 09:52 Dose: Not Given Levothyroxine Sodium (Synthroid) 50 mcg PO DAILY@0600 [facility] Loratadine (Claritin) 10 mg PO QHS [facility] Magnesium Hydroxide (Milk Of Magnesia) 30 ml PO DAILY PRN PRN Reason: Constipation Magnesium Oxide (Mag-Ox 400) 400 mg PO BID [facility] Last Admin: 09/19/18 09:45 Dose: 400 mg Methylprednisolone (Solu-Medrol) 40 mg IV Q8 [facility] Last Admin: 09/19/18 14:48 Dose: 40 mg Nystatin (Mycostatin) 1 applic TOPICAL PRN PRN PRN Reason: YEAST INFECTION Ondansetron HCl (Zofran) 4 mg IV Q8H PRN PRN PRN Reason: Nausea Pantoprazole Sodium (Protonix) 20 mg PO BID [facility] Last Admin: 09/19/18 09:45 Dose: 20 mg Rosuvastatin Calcium (Crestor) 5 mg PO QHS [facility] Sodium Chloride () 5 - 15 ml IV UD PRN PRN Reason: SALINE FLUSH Last Admin: 09/19/18 14:48 Dose: 10 ml Medical Necessity - Tobacco Use Smoking Status: Never smoker Assessment/Plan All Active Problems (Last Reviewed 09/19/18 @ 07:32 by Juvencio Stone MD) CVA (cerebral vascular accident) (Resolved) COPD with exacerbation (Acute) RSV bronchitis (Acute) Elevated troponin (Acute) UTI (urinary tract infection) (Resolved) 1. Acute respiratory insufficiency 2/2 AECOPD and RSV bronchitis supportive mgmt 2. AECOPD continue Solumedrol and BDs 3. RSV bronchitis supportive mgmt apparently her 2nd round this year. 4. Elevated troponins: known CAD suspect demand check stress continue ASA 5. DVT proph: LMWH Code Visit Inpatient E&M: 38151 Subs Hosp L2
--- NOTE | 2018-09-19 15:06 | PN_ITS ---
Patient Problems: Active and Suspected Problems (Last Reviewed 09/19/18 @ 07:32 by Juvencio Stone MD) COPD with exacerbation (Acute) RSV bronchitis (Acute) Elevated troponin (Acute) Subjective: still short of breath, but some better. Feels that her airway has dried up. Vitals/I&O's: Vital Signs Temp Pulse Resp BP Pulse Ox 36.6 C 101 H 18 119/69 95 09/19/18 14:47 09/19/18 14:47 09/19/18 14:47 09/19/18 14:47 09/19/18 14:47 Oxygen Flow Rate (L/min) 4 Oxygen Delivery Method Nasal Cannula Weight: 69.201 kg Body Mass Index (BMI) 26.2 Finger Stick Blood Glucose 100 Intake and Output for Last 24 Hours 09/17/18 09/18/18 09/19/18 23:59 23:59 23:59 Intake Total 492 / 492 Balance 492 / 492 General: Alert, Cooperative, No apparent distress HEENT: Atraumatic, Normocephalic Oral: Moist Mucosa, No Gingival or Mucosal Lesions/ Ulcerations Neck: No Nodes, Thyroid Normal Size and Texture Lungs: Diminished, Wheezes Cardiovascular: Regular rate, Regular Rhythm, Normal S1, Normal S2, No murmurs Abdomen: Bowel Sounds Present, Soft, Non Tender, Non-Distended, No Hepato- splenomegaly Extremities: No edema, No Calf Tenderness Skin: No rashes, No breakdown Musculoskeletal: No Tenderness to Palpation of Joints or Extremities, No Muscle Wasting Psych/Mental Status: Normal Affect, Appropriate Microbiology Past 72 Hours 09/19/18 08:15 Mucosa - Nasopharyngeal Respiratory Panel (PCR) - Final RSV B Laboratory Results 09/19/18 05:25: WBC 8.4, RBC 4.82, Hgb 14.6, Hct 45.2, MCV 93.8, MCH 30.3, MCHC 32.3, RDW 14.4, RDW Differential 48.4 H, Plt Count 149 L, MPV 12.0, Immature Gran % (Auto) 0.200, Neut % (Auto) 69.4, Lymph % (Auto) 16.6 L, [place] % (Auto) 12.8 H, Eos % (Auto) 0.4, Baso % (Auto) 0.6, Absolute Neuts (auto) 5.8, Absolute Lymphs (auto) 1.40, Total Counted Not Reportable 09/19/18 05:25: Sodium 139, Potassium 4.0, Chloride 103, Carbon Dioxide 26.0, Anion Gap 10, BUN 11, Creatinine 1.04 H, Estim Creat Clear Calc 42.22, Est GFR (MDRD) Af Amer 67, Est GFR (MDRD) Non-Af 55 L, BUN/Creatinine Ratio 10.6, Glucose 141 H, Calcium 8.5, Troponin I 0.216 H 09/19/18 08:30: Troponin I 0.198 H 09/19/18 11:14: Troponin I 0.161 H Current Medications Albuterol Sulfate (Ventolin Aerosols) 2.5 mg INHALATION Q2H PRN PRN PRN Reason: SHORTNESS OF BREATH Albuterol/Ipratropium (Duoneb) 3 ml INHALATION Q4H.RT [facility] Last Admin: 09/19/18 10:57 Dose: 3 ml [facility] Last Admin: 09/19/18 09:45 Dose: 324 mg Bisacodyl (Dulcolax) 5 mg PO DAILY PRN PRN PRN Reason: Constipation Budesonide (Pulmicort Aerosol) 0.5 mg INHALATION Q12H.RT [facility] Calcium/Vitamin D (Os-Vin 500mg + D) [facility] Last Admin: 09/19/18 11:14 Dose: 1 tablet Cholecalciferol (Vitamin D) 2,000 unit PO DAILY [facility] Last Admin: 09/19/18 11:15 Dose: 2,000 unit Diltiazem HCl (Cardizem Cd) 180 mg PO DAILY [facility] Last Admin: 09/19/18 09:45 Dose: 180 mg Enoxaparin Sodium (Lovenox) 40 mg SC DAILY@1000 [facility] Last Admin: 09/19/18 09:45 Dose: 40 mg Famotidine (Pepcid) 20 mg PO QHS [facility] Fluoxetine HCl (Prozac) 20 mg PO DAILY [facility] Last Admin: 09/19/18 11:14 Dose: 20 mg Guaifenesin (Mucinex) 1,200 mg PO BID [facility] Last Admin: 09/19/18 11:15 Dose: 1,200 mg Azithromycin 500 mg/ Dextrose 255 mls @ 250 mls/hr IV Q24 [facility] Stop: 09/21/18 11:02 Last Admin: 09/19/18 09:52 Dose: Not Given Levothyroxine Sodium (Synthroid) 50 mcg PO DAILY@0600 [facility] Loratadine (Claritin) 10 mg PO QHS [facility] Magnesium Hydroxide (Milk Of Magnesia) 30 ml PO DAILY PRN PRN Reason: Constipation Magnesium Oxide (Mag-Ox 400) 400 mg PO BID [facility] Last Admin: 09/19/18 09:45 Dose: 400 mg Methylprednisolone (Solu-Medrol) 40 mg IV Q8 [facility] Last Admin: 09/19/18 14:48 Dose: 40 mg Nystatin (Mycostatin) 1 applic TOPICAL PRN PRN PRN Reason: YEAST INFECTION Ondansetron HCl (Zofran) 4 mg IV Q8H PRN PRN PRN Reason: Nausea Pantoprazole Sodium (Protonix) 20 mg PO BID [facility] Last Admin: 09/19/18 09:45 Dose: 20 mg Rosuvastatin Calcium (Crestor) 5 mg PO QHS [facility] Sodium Chloride () 5 - 15 ml IV UD PRN PRN Reason: SALINE FLUSH Last Admin: 09/19/18 14:48 Dose: 10 ml Medical Necessity - Tobacco Use Smoking Status: Never smoker Assessment/Plan All Active Problems (Last Reviewed 09/19/18 @ 07:32 by Juvencio Stone MD) CVA (cerebral vascular accident) (Resolved) COPD with exacerbation (Acute) RSV bronchitis (Acute) Elevated troponin (Acute) UTI (urinary tract infection) (Resolved) 1. Acute respiratory insufficiency * 2/2 AECOPD and RSV bronchitis * supportive mgmt 2. AECOPD * continue Solumedrol and BDs 3. RSV bronchitis * supportive mgmt * apparently her 2nd round this year. 4. Elevated troponins: * known CAD * suspect demand * check stress * continue ASA 5. DVT proph: LMWH Code Visit Inpatient E&M: 67152 Subs Hosp L2
[2018-09-19] MEDS: Acetaminophen 500 MG Tablet 1000 MG PO (19:06)
[2018-09-19] MEDS: Budesonide Respules 0.5 MG/2 ML AMPUL.NEB. INHALATION (20:20)
[2018-09-19] MEDS: Loratadine 10 MG Tablet PO (22:12)
[2018-09-19] MEDS: Famotidine 20 MG Tablet PO (22:12)
[2018-09-19] MEDS: Acetaminophen 325 MG Tablet PO (22:12)
[2018-09-19] MEDS: oxyCODONE 5 MG Tablet PO (22:13)
[2018-09-19] MEDS: Rosuvastatin Calcium 5 MG Tablet PO (22:14)
[2018-09-19] MEDS: guaiFENesin 10 ML UDC (200MG/10ML) PO (22:59)
[2018-09-20] VITALS (19 sets, daily range): BP systolic 97–124; BP diastolic 57–77; PULSE 84–113; RESP 16–20; TEMP 36.5–36.9; O2SAT 92–96
[2018-09-20 05:43] LABS: Anion Gap 10 (5-15); BUN 19 mg/dL (7-18); BUN/Creat Ratio 21.5 RATIO (10-20); Calcium,Total 8.3 mg/dL (8.5-10.1); Chloride 104 mmol/L (98-107); Creatinine, Serum 0.88 mg/dL (0.55-1.02); EST Glomerular Filtration Rate 67 mL/min (>60); Est Glom Filt Rate - Afr Amer 81 mL/min (>60); Glucose 144 mg/dL (74-106); Potassium 4.2 mmol/L (3.5-5.1); Sodium Level 140 mmol/L (136-145)
[2018-09-20 05:50] LABS: International Normalized Ratio 0.9; Prothrombin Time (Protime)PT. 12.5 SECONDS (11.7-14.9)
[2018-09-20 05:51] LABS: Partial Thromboplast Time 28.6 Seconds (24.1-36.2)
[2018-09-20 05:52] LABS: Absolute Lymphocyte Count 1.01 X10^3/ul (0.83-4.51); Absolute Neutrophil Count 8.3 X10^3/uL (2.0-7.7); Basophil# 0.04 X10^3/uL; Basophil% 0.4 % (0-1); Hematocrit 41.2 % (37-47); Hemoglobin 13.3 g/dl (12.0-15.0); Lymphocyte # 1.01 X10^3/ul (4.0); Lymphocyte % 10.3 % (19-41); Mean Corp Hgb Conc 32.3 g/gl (32-36); Mean Platelet Vol. 11.9 fl (6.2-12.0); Monocyte# 0.43 X10^3/uL; Monocyte% 4.4 % (0-10); Neutrophil # 8.29 X10^3/uL (2.7-7.7); Neutrophil % 84.7 % (47-70); Platelet Count 151 K/mm3 (150-450); RBC Distribution Width CV 14.1 % (11.6-14.6); RBC Distribution Width SD 46.9 fl (35.1-43.9); Red Blood Count 4.43 M/mm3 (4.2-5.4); White Blood Count 9.8 K/mm3 (4.4-11.0)
--- NOTE | 2018-09-20 05:55 | EKG12_ITS ---
Test Reason : AM EKG Blood Pressure : / mmHG Vent. Rate : 097 BPM Atrial Rate : 097 BPM P-R Int : 158 ms QRS Dur : 074 ms QT Int : 400 ms P-R-T Axes : 080 -13 066 degrees QTc Int : 508 ms Normal sinus rhythm Possible Left atrial enlargement Low voltage QRS Septal infarct , age undetermined Abnormal ECG Confirmed by NEEMA WHATLEY, BOBBY ([id number]), art editor MAIKOL MCDOWELL ([id number]) on 09/24/2018 1:40:19 PM Referred By: CHARBEL Confirmed By:BOBBY BETHEA MD
[2018-09-20] MEDS: Aspirin 81 MG TAB.CHEW 324 MG PO (06:09)
[2018-09-20] MEDS: Levothyroxine 50 MCG Tablet PO (06:09)
[2018-09-20] MEDS: guaiFENesin 10 ML UDC (200MG/10ML) PO ×4 (06:10→22:03)
[2018-09-20 06:21] LABS: Differential Indicated SCAN CRITERIA MET; POSITIVE COUNT NO; POSITIVE DIFFERENTIAL NO; POSITIVE MORPHOLOGY YES
[2018-09-20] MEDS: Ipratropium/Albuterol Sulfate 3 ML AMPUL.NEB INHALATION ×4 (07:02→23:10)
[2018-09-20] MEDS: Budesonide Respules 0.5 MG/2 ML AMPUL.NEB. INHALATION ×2 (07:03→19:04)
[2018-09-20 07:10] LABS: Differential Comment SCAN; Reactive Lymphocyte 1+
[2018-09-20] MEDS: Acetaminophen 500 MG Tablet 1000 MG PO ×2 (10:42→22:13)
--- NOTE | 2018-09-20 13:12 | STRESSREP ---
Stress Test Report Date: 09/20/2018 Procedure: Pharmacologic stress nuclear imaging study Indications: CAD; PCI; valvular heart disease status post AVR and MVR; abnormal cardiac enzymes; respiratory tract related infection Consent: Per the patient Procedure: The patient underwent pharmacologic (Regadenoson) evaluation with a peak heart rate of 113 beats per minute (76 predicted maximal heart rate) and a peak blood pressure of 118/72 mmHg. The baseline ECG demonstrated sinus rhythm; poor R wave progression; anterior [place] pattern of indeterminate age cannot be excluded. The peak pharmacologic ECG demonstrated no obvious ECG changes. There were no cardiac dysrhythmias pretest, during pharmacologic infusion, or recovery. There was no complaint of chest discomfort during pharmacologic infusion or recovery. The examination was discontinued secondary to completion of protocol. Impression: 1. Pharmacologic (Regadenoson) evaluation 2. Peak pharmacologic ECG with no obvious ECG changes. 3. There were no cardiac dysrhythmias pretest, during pharmacologic infusion, or recovery. 4. Nuclear images pending Myocardial perfusion imaging study: Technique: The patient was injected with 12 millicuries of technetium 99m Cardiolite and subsequently rest SPECT Cardiolite nuclear imaging was obtained in the horizontal long, vertical long, and short axis views. The patient underwent pharmacologic (Regadenoson) evaluation with a peak heart rate of 113 beats per minute (76 % percent predicted maximal heart rate) and a peak blood pressure of 118/72 mmHg. The patient was injected with 33.8 millicuries of technetium 99m Cardiolite and subsequently stress SPECT Cardiolite nuclear imaging was obtained in the horizontal long, vertical long, and short axis views. A gated Cardiolite study at peak stress was obtained. Interpretation: Rest and stress SPECT Cardiolite nuclear imaging status post realignment, normalization, and attenuation correction demonstrate an area of diminished tracer uptake near the apical segments without significant change between rest and stress. There is end systolic thickening and brightening. The gated Cardiolite study demonstrates myocardial thickening and inward wall motion. The reported LVEF is 71%. Impression: 1. Rest and stress SPECT cardiac nuclear imaging demonstrate myocardial perfusion changes potentially compatible with an area of physiologic apical thinning although an area of previous myocardial injury/infarction involving the apical segments cannot necessarily be excluded. There are no myocardial perfusion changes considered diagnostic for associated stress-induced myocardial ischemia. 2. The gated Cardiolite study reports an LVEF of 71 %. This note was generated with Dragon dictation software. It may contain incorrect words, spelling, and punctuation that were not noted in checking the note before signing.
[2018-09-20] MEDS: Albuterol 2.5 MG/3 ML VIAL.NEB. INHALATION (13:15)
--- NOTE | 2018-09-20 13:17 | STRESSREP_ITS ---
Stress Test Report Date: 09/20/2018 Procedure: Pharmacologic stress nuclear imaging study Indications: CAD; PCI; valvular heart disease status post AVR and MVR; abnormal cardiac enzymes; respiratory tract related infection Consent: Per the patient Procedure: The patient underwent pharmacologic (Regadenoson) evaluation with a peak heart rate of 113 beats per minute (76 predicted maximal heart rate) and a peak blood pressure of 118/72 mmHg. The baseline ECG demonstrated sinus rhythm; poor R wave progression; anterior [place] pattern of indeterminate age cannot be excluded. The peak pharmacologic ECG demonstrated no obvious ECG changes. There were no cardiac dysrhythmias pretest, during pharmacologic infusion, or recovery. There was no complaint of chest discomfort during pharmacologic infusion or recovery. The examination was discontinued secondary to completion of protocol. Impression: 1. Pharmacologic (Regadenoson) evaluation 2. Peak pharmacologic ECG with no obvious ECG changes. 3. There were no cardiac dysrhythmias pretest, during pharmacologic infusion, or recovery. 4. Nuclear images pending Myocardial perfusion imaging study: Technique: The patient was injected with 12 millicuries of technetium 99m Cardiolite and subsequently rest SPECT Cardiolite nuclear imaging was obtained in the horizontal long, vertical long, and short axis views. The patient underwent pharmacologic (Regadenoson) evaluation with a peak heart rate of 113 beats per minute (76 % percent predicted maximal heart rate) and a peak blood pressure of 118/72 mmHg. The patient was injected with 33.8 millicuries of technetium 99m Cardiolite and subsequently stress SPECT Cardiolite nuclear imaging was obtained in the horizontal long, vertical long, and short axis views. A gated Cardiolite study at peak stress was obtained. Interpretation: Rest and stress SPECT Cardiolite nuclear imaging status post realignment, normalization, and attenuation correction demonstrate an area of diminished tracer uptake near the apical segments without significant change between rest and stress. There is end systolic thickening and brightening. The gated Cardi olite study demonstrates myocardial thickening and inward wall motion. The reported LVEF is 71%. Impression: 1. Rest and stress SPECT cardiac nuclear imaging demonstrate myocardial perfusion changes potentially compatible with an area of physiologic apical thinning although an area of previous myocardial injury/infarction involving the apical segments cannot necessarily be excluded. There are no myocardial perfusion changes considered diagnostic for associated stress-induced myocardial ischemia. 2. The gated Cardiolite study reports an LVEF of 71 %. This note was generated with [employer] software. It may contain incorrect words, spelling, and punctuation that were not noted in checking the note before signing.
[2018-09-20] MEDS: FLUoxetine 20 MG Capsule PO (13:31)
[2018-09-20] MEDS: Pantoprazole Sodium 20 MG Tablet PO ×2 (13:31→22:03)
[2018-09-20] MEDS: Magnesium Oxide 400 MG Tablet PO ×2 (13:31→22:03)
[2018-09-20] MEDS: Enoxaparin 40 MG/0.4 ML Syringe SC (13:31)
[2018-09-20] MEDS: guaiFENesin 1,200 MG Tablet 1200 MG PO ×2 (13:32→22:03)
[2018-09-20] MEDS: dilTIAZem CD 180 MG Capsule PO (13:32)
[2018-09-20] MEDS: Calcium Carb/Vitamin D 1 TABLET Tablet PO ×2 (13:35→16:28)
[2018-09-20] MEDS: 0.9% NaCl Peripheral Flush Adult/Peds IV (13:37)
--- NOTE | 2018-09-20 14:29 | PN_ITS ---
Patient Problems: Active and Suspected Problems (Last Reviewed 09/19/18 @ 07:32 by Juvencio Stone MD) Elevated troponin (Acute) RSV bronchitis (Acute) COPD with exacerbation (Acute) Subjective: breathing better. no chest pain. Vitals/I&O's: Vital Signs Temp Pulse Resp BP Pulse Ox 36.8 C 89 20 H 124/71 H 94 09/20/18 10:41 09/20/18 13:15 09/20/18 13:15 09/20/18 10:41 09/20/18 10:41 Oxygen Flow Rate (L/min) 2 Oxygen Delivery Method Nasal Cannula Weight: 69.201 kg Body Mass Index (BMI) 26.2 Finger Stick Blood Glucose 100 Intake and Output for Last 24 Hours 09/18/18 09/19/18 09/20/18 23:59 23:59 23:59 Intake Total 952 / 952 480 / 480 Balance 952 / 952 480 / 480 General: Alert, Cooperative, No apparent distress HEENT: Atraumatic, Normocephalic Oral: Moist Mucosa, No Gingival or Mucosal Lesions/ Ulcerations Neck: No Nodes, Thyroid Normal Size and Texture Lungs: Clear to auscultation, No rhonchi, No wheeze, Diminished Cardiovascular: Regular rate, Regular Rhythm, Normal S1, Normal S2 Extremities: No edema, No Calf Tenderness Skin: No rashes, No breakdown Psych/Mental Status: Normal Affect, Appropriate Microbiology Past 72 Hours 09/19/18 08:15 Mucosa - Nasopharyngeal Respiratory Panel (PCR) - Final RSV B Laboratory Results 09/20/18 05:05: WBC 9.8, RBC 4.43, Hgb 13.3, Hct 41.2, MCV 93.0, MCH 30.0, MCHC 32.3, RDW 14.1, RDW Differential 46.9 H, Plt Count 151, MPV 11.9, Immature Gran % (Auto) 0.200, Neut % (Auto) 84.7 H, Lymph % (Auto) 10.3 L, [place] % (Auto) 4.4, Eos % (Auto) 0.0, Baso % (Auto) 0.4, Absolute Neuts (auto) 8.3 H, Absolute Lymphs (auto) 1.01, Total Counted Not Reportable, Differential Comment SCAN, Reactive Lymphocytes 1+ 09/20/18 05:05: PT 12.5, INR 0.9, APTT 28.6 09/20/18 05:05: Sodium 140, Potassium 4.2, Chloride 104, Carbon Dioxide 26.0, Anion Gap 10, BUN 19 H, Creatinine 0.88, Estim Creat Clear Calc 49.90, Est GFR (MDRD) Af Amer 81, Est GFR (MDRD) Non-Af 67, BUN/Creatinine Ratio 21.5 H, Glucose 144 H, Calcium 8.3 L Current Medications Acetaminophen (Tylenol) 1,000 mg PO TID PRN PRN Reason: MILD-MOD PAIN (1-02/01) Last Admin: 09/20/18 10:42 Dose: 1,000 mg Albuterol Sulfate (Ventolin Aerosols) 2.5 mg INHALATION Q2H PRN PRN PRN Reason: SHORTNESS OF BREATH Last Admin: 09/20/18 13:15 Dose: 2.5 mg Albuterol/Ipratropium (Duoneb) 3 ml INHALATION Q4H.RT [facility] Last Admin: 09/20/18 07:02 Dose: 3 ml [facility] Last Admin: 09/20/18 06:09 Dose: 324 mg Bisacodyl (Dulcolax) 5 mg PO DAILY PRN PRN PRN Reason: Constipation Budesonide (Pulmicort Aerosol) 0.5 mg INHALATION Q12H.RT [facility] Last Admin: 09/20/18 07:03 Dose: 0.5 mg Calcium/Vitamin D (Os-Vin 500mg + D) 1 tablet PO BIDCM [facility] Last Admin: 09/20/18 13:35 Dose: 1 tablet Cholecalciferol (Vitamin D) 2,000 unit PO DAILY [facility] Last Admin: 09/20/18 13:31 Dose: 2,000 unit Diltiazem HCl (Cardizem Cd) 180 mg PO DAILY [facility] Last Admin: 09/20/18 13:32 Dose: 180 mg Enoxaparin Sodium (Lovenox) 40 mg SC DAILY@1000 [facility] Last Admin: 09/20/18 13:31 Dose: 40 mg Famotidine (Pepcid) 20 mg PO QHS [facility] Last Admin: 09/19/18 22:12 Dose: 20 mg Fluoxetine HCl (Prozac) 20 mg PO DAILY [facility] Last Admin: 09/20/18 13:31 Dose: 20 mg Guaifenesin (Mucinex) 1,200 mg PO BID [facility] Last Admin: 09/20/18 13:32 Dose: 1,200 mg Guaifenesin (Robitussin) 10 ml PO Q4H PRN PRN PRN Reason: COUGH Last Admin: 09/20/18 13:35 Dose: 10 ml Azithromycin 500 mg/ Dextrose 255 mls @ 250 mls/hr IV Q24 [facility] Stop: 09/21/18 11:02 Last Admin: 09/20/18 13:32 Dose: 250 mls/hr Levothyroxine Sodium (Synthroid) 50 mcg PO DAILY@0600 [facility] Last Admin: 09/20/18 06:09 Dose: 50 mcg Loratadine (Claritin) 10 mg PO QHS [facility] Last Admin: 09/19/18 22:12 Dose: 10 mg Magnesium Hydroxide (Milk Of Magnesia) 30 ml PO DAILY PRN PRN Reason: Constipation Magnesium Oxide (Mag-Ox 400) 400 mg PO BID [facility] Last Admin: 09/20/18 13:31 Dose: 400 mg Methylprednisolone (Solu-Medrol) 40 mg IV Q8 [facility] Last Admin: 09/20/18 13:31 Dose: 40 mg Nystatin (Mycostatin) 1 applic TOPICAL PRN PRN PRN Reason: YEAST INFECTION Ondansetron HCl (Zofran) 4 mg IV Q8H PRN PRN PRN Reason: Nausea Oxycodone HCl (Oxyir) 5 mg PO Q6H PRN PRN PRN Reason: PAIN Pantoprazole Sodium (Protonix) 20 mg PO BID [facility] Last Admin: 09/20/18 13:31 Dose: 20 mg Rosuvastatin Calcium (Crestor) 5 mg PO QHS [facility] Last Admin: 09/19/18 22:14 Dose: 5 mg Sodium Chloride () 5 - 15 ml IV UD PRN PRN Reason: SALINE FLUSH Last Admin: 09/20/18 13:37 Dose: 10 ml Medical Necessity - Tobacco Use Smoking Status: Never smoker Assessment/Plan All Active Problems (Last Reviewed 09/19/18 @ 07:32 by Juvencio Stone MD) Elevated troponin (Acute) RSV bronchitis (Acute) CVA (cerebral vascular accident) (Resolved) COPD with exacerbation (Acute) UTI (urinary tract infection) (Resolved) 1. Acute respiratory insufficiency * 2/2 AECOPD and RSV bronchitis * supportive mgmt * improved 2. AECOPD * continue Solumedrol and BDs * wean solumedrol, and if does ok, change to prednisone 40 for 5 days. 3. RSV bronchitis * supportive mgmt * apparently her 2nd round this year. 4. Elevated troponins: * known CAD * suspect demand * stress negative. * continue ASA 5. DVT proph: LMWH 6. Disposition: plan for dc home 09/21, if remains stable or continues to improve. Code Visit Inpatient E&M: 98933 Subs Hosp L2
[2018-09-20] MEDS: Famotidine 20 MG Tablet PO (22:03)
[2018-09-20] MEDS: BENZOCAINE/MENTHOL 1 LOZENGE MUCOUS MEM (22:03)
[2018-09-20] MEDS: oxyCODONE 5 MG Tablet PO (22:13)
[2018-09-20] MEDS: Loratadine 10 MG Tablet PO (22:13)
[2018-09-20] MEDS: Rosuvastatin Calcium 5 MG Tablet PO (22:14)
[2018-09-21] VITALS (9 sets, daily range): BP systolic 106–117; BP diastolic 58–71; PULSE 90–99; RESP 16–20; TEMP 36.6–36.9; O2SAT 81–94
[2018-09-21] MEDS: Levothyroxine 50 MCG Tablet PO (06:12)
[2018-09-21] MEDS: Ipratropium/Albuterol Sulfate 3 ML AMPUL.NEB INHALATION ×2 (07:18→10:53)
[2018-09-21] MEDS: Budesonide Respules 0.5 MG/2 ML AMPUL.NEB. INHALATION (07:18)
[2018-09-21] MEDS: Aspirin 81 MG TAB.CHEW 324 MG PO (08:29)
[2018-09-21] MEDS: dilTIAZem CD 180 MG Capsule PO (08:29)
[2018-09-21] MEDS: Acetaminophen 500 MG Tablet 1000 MG PO (08:29)
[2018-09-21] MEDS: Calcium Carb/Vitamin D 1 TABLET Tablet PO (08:29)
[2018-09-21] MEDS: oxyCODONE 5 MG Tablet PO (08:29)
[2018-09-21] MEDS: FLUoxetine 20 MG Capsule PO (08:29)
[2018-09-21] MEDS: guaiFENesin 1,200 MG Tablet 1200 MG PO (08:30)
[2018-09-21] MEDS: BENZOCAINE/MENTHOL 1 LOZENGE MUCOUS MEM (08:30)
[2018-09-21] MEDS: Enoxaparin 40 MG/0.4 ML Syringe SC (08:30)
[2018-09-21] MEDS: Pantoprazole Sodium 20 MG Tablet PO (08:30)
[2018-09-21] MEDS: Magnesium Oxide 400 MG Tablet PO (08:30)
[2018-09-21] MEDS: 0.9% NaCl Peripheral Flush Adult/Peds IV (09:51)
--- NOTE | 2018-09-21 12:22 | PCM.DC ---
- Discharge Diagnoses Current Active Problems: Current Active and Chronic Problems (Last Reviewed 09/19/18 @ 07:32 by Juvencio Stone MD) Elevated troponin (Acute) RSV bronchitis (Acute) COPD with exacerbation (Acute) You will use the following diet at home:: No restrictions Your food should be the consistency of: Regular Your liquids should be the consistency of: Regular/Thin Discharge Activity: Return to Normal Activity Call your doctor if you observe: Fever of 101 or Higher, Shortness of breath Allergies/Adverse Reactions: Allergies levofloxacin [From Levaquin] Allergy (Verified 09/19/18 05:25) Itching/rash clopidogrel [From Plavix] Adverse Reaction (Intermediate, Verified 09/19/18 05:25) Blood Blisters atorvastatin calcium [From Lipitor] Adverse Reaction (Verified 09/19/18 05:25) muscle pains beta blockers Allergy (Uncoded 09/19/18 05:25) CHF pollen,animals Allergy (Uncoded 09/19/18 05:25) Unknown Medications to take at Discharge Levothyroxine [Synthroid] 50 mcg PO DAILY 02/25/14 Tiotropium [place] [Spiriva 18 MCG] 1 puff INHALATION DAILY 02/25/14 Magnesium Oxide [Magnesium] 250 mg PO BID 11/23/15 fluticasone 200 mcg-vilanterol 25 mcg/dose powder for inhalation 1 puff INHALATION DAILY 30 Days #60 11/22/17 Albuterol Aerosols [Ventolin Aerosols] 2.5 mg INHALATION BID PRN PRN 12/20/17 Ranitidine HCl [Zantac 75] 75 mg PO QHS 12/20/17 Rosuvastatin Calcium [Crestor] 5 mg PO DAILY 12/20/17 Ubidecarenone [Co Q-10] 200 mg PO DAILY 12/20/17 omeprazole 20 mg capsule,delayed release 20 mg PO BID #180 cap 01/22/18 fluoxetine 20 mg capsule 20 mg PO QDAY 04/20/18 diltiazem CD 180 mg capsule,extended release 24 hr 180 mg PO DAILY #90 cap 06/14/18 Albuterol Sulfate [Proair Hfa] 2 puff IH BID 06/28/18 Aspirin [Aspirin, Baby] 324 mg PO DAILY 06/28/18 Calcium Carbonate/Vitamin D3 [Calcium 600-Vit D3 200 Tablet] 1 tab PO BID 06/28/18 Cetirizine HCl [Zyrtec] 10 mg PO QHS 06/28/18 Cholecalciferol (Vitamin D3) [D3-2000] 2,000 unit PO DAILY 06/28/18 Nystatin 1 applicatio TP PRN PRN 06/28/18 L.acidoph,Paracasei, B.lactis [Probiotic] 1 each PO 09/19/18 Oxycodone HCl/Acetaminophen [Percocet 5-325] 1 tablet PO Q6H PRN PRN 09/19/18 Prednisone [Deltasone] 2 tab PO DAILY #10 tablet 09/21/18 The following prescriptions were given: Prednisone [Deltasone] 2 tab PO DAILY #10 tablet Primary Care Physician: Mercy Elliott NP-C [Primary Care Provider] - Within 2 Weeks Test Results: Test results from this visit will be discussed in further detail at your follow-up appointment, if applicable. Please Follow Up With: Dave Pickard MD When: 2-4 weeks. Proposed Discharge Date: 09/21/18
--- NOTE | 2018-09-21 12:25 | PCM.DC.SUM ---
Discharge Date and Diagnosis - Problem List Patient Problems: Active and Suspected Problems (Last Reviewed 09/19/18 @ 07:32 by Juvencio Stone MD) Elevated troponin (Acute) RSV bronchitis (Acute) COPD with exacerbation (Acute) Date of Admission: 09/19/18 Date of Discharge: 09/21/18 - Primary Discharge Diagnosis Active and Suspected Problems (Last Reviewed 09/19/18 @ 07:32 by Juvencio Stone MD) Elevated troponin (Acute) RSV bronchitis (Acute) COPD with exacerbation (Acute) - Secondary Discharge Diagnosis Chronic Problems (Last Reviewed 09/19/18 @ 07:32 by Juvencio Stone MD) Microcalcification of right breast on mammogram (Chronic) HTN (hypertension) (Chronic) Hypothyroidism (Chronic) GERD (gastroesophageal reflux disease) (Chronic) 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 CAD (coronary artery disease) (Chronic) Aortic valve disease (Chronic) Mitral valve disease (Chronic) MVR w/ 27mm Ivan-Men[place] bovine pericardial mitral valve. 10/14/15 COPD (chronic obstructive pulmonary disease) (Chronic) Essential tremor (Chronic) Chronic back pain (Chronic) HLD (hyperlipidemia) (Chronic) Asthma (Chronic) Hospital Course and Treatment Imaging Results: Clinical Impression(s) from Imaging Studies Chest X-Ray 09/19/18 05:50 IMPRESSION: 1. No definite acute disease or significant change. 2. Chronic lung disease with emphysema. 3. Aortic and mitral valve replacement at 0616 Reported and signed by: Bonifacio Ahuja MD Electronically Signed: Bonifacio Ahuja, at 6:15 EST Tel , Service support , Operations: None Procedures: None, Stress test Summary of Care Provided: The patient is a 73 year old F presents with shortness of breath. Shortness of breath due to RSV bronchitis and COPD exacerbation. Incidentally, she had marginally elevated troponins. Stress test performed and was negative. Troponin elevation was due to likely demand ischemia for the bronchitis/copd. Patient's pulse ox dropped down to 81% with ambulation. Was 90% at rest. Patient will require oxygen at 2L he was sent home given the acute hypoxia. 1. Acute respiratory insufficiency, hypoxic 2/2 AECOPD and RSV bronchitis supportive mgmt improved 2. AECOPD continue Solumedrol and BDs wean solumedrol, and if does ok, change to prednisone 40 for 5 days. follow up with Dr. Pickard. 3. RSV bronchitis supportive mgmt apparently her 2nd round this year. 4. Elevated troponins: known CAD suspect demand stress negative. continue ASA [] Patient Problems: Active and Suspected Problems (Last Reviewed 09/19/18 @ 07:32 by Juvencio Stone MD) Elevated troponin (Acute) RSV bronchitis (Acute) COPD with exacerbation (Acute) - Physical Exam General: Alert, No apparent distress HEENT: Atraumatic, Normocephalic Oral: Moist Mucosa, No Gingival or Mucosal Lesions/ Ulcerations Neck: No Nodes, Thyroid Normal Size and Texture Lungs: Clear to auscultation, No rhonchi, No wheeze, Diminished Cardiovascular: Regular rate, Regular Rhythm, Normal S1, Normal S2 Abdomen: Bowel Sounds Present, Soft, Non Tender, Non-Distended, No Hepato-splenomegaly Psych/Mental Status: Normal Affect, Appropriate Vital Signs Temp Pulse Resp BP Pulse Ox 36.8 C 93 20 H 117/67 94 09/21/18 08:26 09/21/18 11:00 09/21/18 10:53 09/21/18 08:26 09/21/18 08:26 Oxygen Flow Rate (L/min) 3 Oxygen Delivery Method Nasal Cannula Weight: 69.201 kg Body Mass Index (BMI) 26.2 Finger Stick Blood Glucose 100 Intake and Output for Last 24 Hours 09/19/18 09/20/18 09/21/18 23:59 23:59 23:59 Intake Total 952 / 952 1155 / 1155 998 / 998 Balance 952 / 952 1155 / 1155 998 / 998 Microbiology Past 72 Hours 09/19/18 08:15 Respiratory Panel (PCR) - Final Mucosa - Nasopharyngeal RSV B Discharge Diet: No Restrictions Discharge Activity: Return to Normal Activity Call your doctor if you observe: Fever of 101 or Higher, Shortness of breath Home Medications: Medications to take at Discharge Levothyroxine [Synthroid] 50 mcg PO DAILY 02/25/14 Tiotropium [place] [Spiriva 18 MCG] 1 puff INHALATION DAILY 02/25/14 Magnesium Oxide [Magnesium] 250 mg PO BID 11/23/15 fluticasone 200 mcg-vilanterol 25 mcg/dose powder for inhalation 1 puff INHALATION DAILY 30 Days #60 11/22/17 Albuterol Aerosols [Ventolin Aerosols] 2.5 mg INHALATION BID PRN PRN 12/20/17 Ranitidine HCl [Zantac 75] 75 mg PO QHS 12/20/17 Rosuvastatin Calcium [Crestor] 5 mg PO DAILY 12/20/17 Ubidecarenone [Co Q-10] 200 mg PO DAILY 12/20/17 omeprazole 20 mg capsule,delayed release 20 mg PO BID #180 cap 01/22/18 fluoxetine 20 mg capsule 20 mg PO QDAY 04/20/18 diltiazem CD 180 mg capsule,extended release 24 hr 180 mg PO DAILY #90 cap 06/14/18 Albuterol Sulfate [Proair Hfa] 2 puff IH BID 06/28/18 Aspirin [Aspirin, Baby] 324 mg PO DAILY 06/28/18 Calcium Carbonate/Vitamin D3 [Calcium 600-Vit D3 200 Tablet] 1 tab PO BID 06/28/18 Cetirizine HCl [Zyrtec] 10 mg PO QHS 06/28/18 Cholecalciferol (Vitamin D3) [D3-2000] 2,000 unit PO DAILY 06/28/18 Nystatin 1 applicatio TP PRN PRN 06/28/18 L.acidoph,Paracasei, B.lactis [Probiotic] 1 each PO 09/19/18 Oxycodone HCl/Acetaminophen [Percocet 5-325] 1 tablet PO Q6H PRN PRN 09/19/18 Guaifenesin [Mucinex] 1,200 mg PO BID #10 tab.er.12h 09/21/18 Prednisone [Deltasone] 2 tab PO DAILY #10 tablet 09/21/18 Following Prescrptions Were Given to Patient: Prednisone [Deltasone] 2 tab PO DAILY #10 tablet Guaifenesin [Mucinex] 1,200 mg PO BID #10 tab.er.12h Primary Care Physician: Mercy Elliott NP-C [Primary Care Provider] - Within 2 Weeks Please Follow Up With: Dave Pickard MD When: 2-4 weeks. Disposition: Home Minutes spent on discharge:: 32 Patient Condition:: Good Medical Necessity - Tobacco Use Smoking Status: Never smoker Meaningful Use Info Meaningful Use Diagnoses (Choose all that apply): None applicable Code Visit Inpatient E&M: 18263 Disch Hosp
--- NOTE | 2018-09-21 12:30 | DS.PCM_ITS ---
Discharge Date and Diagnosis - Problem List Patient Problems: Active and Suspected Problems (Last Reviewed 09/19/18 @ 07:32 by Juvencio Stone MD) Elevated troponin (Acute) RSV bronchitis (Acute) COPD with exacerbation (Acute) Date of Admission: 09/19/18 Date of Discharge: 09/21/18 - Primary Discharge Diagnosis Active and Suspected Problems (Last Reviewed 09/19/18 @ 07:32 by Juvencio Stone MD) Elevated troponin (Acute) RSV bronchitis (Acute) COPD with exacerbation (Acute) - Secondary Discharge Diagnosis Chronic Problems (Last Reviewed 09/19/18 @ 07:32 by Juvencio Stone MD) Microcalcification of right breast on mammogram (Chronic) HTN (hypertension) (Chronic) Hypothyroidism (Chronic) GERD (gastroesophageal reflux disease) (Chronic) Rheumatic aortic stenosis with regurgitation (Chronic) Atherosclerotic heart disease of [place] coronary artery without angina pectoris (Chronic) H/O mitral valve replacement (Chronic) MVR w/ 27mm Ivan-Menon bovine pericardial mitral valve. 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 10/14/15 COPD (chronic obstructive pulmonary disease) (Chronic) Essential tremor (Chronic) Chronic back pain (Chronic) HLD (hyperlipidemia) (Chronic) Asthma (Chronic) Hospital Course and Treatment Imaging Results: Clinical Impression(s) from Imaging Studies Chest X-Ray 09/19/18 05:50 IMPRESSION: 1. No definite acute disease or significant change. 2. Chronic lung disease with emphysema. 3. Aortic and mitral valve replacement at 0616 Reported and signed by: Bonifacio Ahuja MD Electronically Signed: Bonifacio Ahuja, at 6:15 EST Tel , Service support , Operations: None Procedures: None, Stress test Summary of Care Provided: The patient is a 73 year old F presents with shortness of breath. Shortness of breath due to RSV bronchitis and COPD exacerbation. Incidentally, she had marginally elevated troponins. Stress test performed and was negative. Troponin elevation was due to likely demand ischemia for the bronchitis/copd. Patient's pulse ox dropped down to 81% with ambulation. Was 90% at rest. Patient will require oxygen at 2L he was sent home given the acute hypoxia. 1. Acute respiratory insufficiency, hypoxic * 2/2 AECOPD and RSV bronchitis * supportive mgmt * improved 2. AECOPD * continue Solumedrol and BDs * wean solumedrol, and if does ok, change to prednisone 40 for 5 days. * follow up with Dr. Pickard. 3. RSV bronchitis * supportive mgmt * apparently her 2nd round this year. 4. Elevated troponins: * known CAD * suspect demand * stress negative. * continue ASA [] Patient Problems: Active and Suspected Problems (Last Reviewed 09/19/18 @ 07:32 by Juvencio Stone MD) Elevated troponin (Acute) RSV bronchitis (Acute) COPD with exacerbation (Acute) - Physical Exam General: Alert, No apparent distress HEENT: Atraumatic, Normocephalic Oral: Moist Mucosa, No Gingival or Mucosal Lesions/ Ulcerations Neck: No Nodes, Thyroid Normal Size and Texture Lungs: Clear to auscultation, No rhonchi, No wheeze, Diminished Cardiovascular: Regular rate, Regular Rhythm, Normal S1, Normal S2 Abdomen: Bowel Sounds Present, Soft, Non Tender, Non-Distended, No Hepato- splenomegaly Psych/Mental Status: Normal Affect, Appropriate Vital Signs Temp Pulse Resp BP Pulse Ox 36.8 C 93 20 H 117/67 94 09/21/18 08:26 09/21/18 11:00 09/21/18 10:53 09/21/18 08:26 09/21/18 08:26 Oxygen Flow Rate (L/min) 3 Oxygen Delivery Method Nasal Cannula Weight: 69.201 kg Body Mass Index (BMI) 26.2 Finger Stick Blood Glucose 100 Intake and Output for Last 24 Hours 09/19/18 09/20/18 09/21/18 23:59 23:59 23:59 Intake Total 952 / 952 1155 / 1155 998 / 998 Balance 952 / 952 1155 / 1155 998 / 998 Microbiology Past 72 Hours 09/19/18 08:15 Respiratory Panel (PCR) - Final Mucosa - Nasopharyngeal RSV B Discharge Diet: No Restrictions Discharge Activity: Return to Normal Activity Call your doctor if you observe: Fever of 101 or Higher, Shortness of breath Home Medications: Medications to take at Discharge Levothyroxine [Synthroid] 50 mcg PO DAILY 02/25/14 Tiotropium [place] [Spiriva 18 MCG] 1 puff INHALATION DAILY 02/25/14 Magnesium Oxide [Magnesium] 250 mg PO BID 11/23/15 fluticasone 200 mcg-vilanterol 25 mcg/dose powder for inhalation 1 puff INHALATION DAILY 30 Days #60 11/22/17 Albuterol Aerosols [Ventolin Aerosols] 2.5 mg INHALATION BID PRN PRN 12/20/17 Ranitidine HCl [Zantac 75] 75 mg PO QHS 12/20/17 Rosuvastatin Calcium [Crestor] 5 mg PO DAILY 12/20/17 Ubidecarenone [Co Q-10] 200 mg PO DAILY 12/20/17 omeprazole 20 mg capsule,delayed release 20 mg PO BID #180 cap 01/22/18 fluoxetine 20 mg capsule 20 mg PO QDAY 04/20/18 diltiazem CD 180 mg capsule,extended release 24 hr 180 mg PO DAILY #90 cap 06/14/18 Albuterol Sulfate [Proair Hfa] 2 puff IH BID 06/28/18 Aspirin [Aspirin, Baby] 324 mg PO DAILY 06/28/18 Calcium Carbonate/Vitamin D3 [Calcium 600-Vit D3 200 Tablet] 1 tab PO BID 06/28/18 Cetirizine HCl [Zyrtec] 10 mg PO QHS 06/28/18 Cholecalciferol (Vitamin D3) [D3-2000] 2,000 unit PO DAILY 06/28/18 Nystatin 1 applicatio TP PRN PRN 06/28/18 L.acidoph,Paracasei, B.lactis [Probiotic] 1 each PO 12/26/18 Oxycodone HCl/Acetaminophen [Percocet 5-325] 1 tablet PO Q6H PRN PRN 09/19/18 Guaifenesin [Mucinex] 1,200 mg PO BID #10 tab.er.12h 09/21/18 Prednisone [Deltasone] 2 tab PO DAILY #10 tablet 09/21/18 Following Prescrptions Were Given to Patient: Prednisone [Deltasone] 2 tab PO DAILY #10 tablet Guaifenesin [Mucinex] 1,200 mg PO BID #10 tab.er.12h Primary Care Physician: Mercy Elliott NP-C [Primary Care Provider] - Within 2 Weeks Please Follow Up With: Dave Pickard MD When: 2-4 weeks. Disposition: Home Minutes spent on discharge:: 32 Patient Condition:: Good Medical Necessity - Tobacco Use Smoking Status: Never smoker Meaningful Use Info Meaningful Use Diagnoses (Choose all that apply): None applicable Code Visit Inpatient E&M: 42311 Disch Hosp
--- NOTE | 2018-09-21 13:21 | CASEMGMT ---
Call placed to [facility] to verify pt's order for home oxygen and per rep, pt has order for 3liters continuous oxygen currently. Pt states she had not been using at home but did require 3liters home oxygen while here and pt is sent home on same at this time. Pt is aware by Joni WHITE that she needs the 3 liters continuous. Pt's brought a portable tank in for pt to go home on. Osmany WHITE CM
--- NOTE | 2018-09-27 14:01 | CASEMGMT ---
CHRISTOPHER BETANCUR Discharge Follow-Up Phone Call. LACE: 10 STRATA: 3 Discharge Date: 09-21-18 Adm Dx: Acute COPD Exac, Elevated Troponins. Attempted discharge follow-up phone call. No answer. Left message for pt to return call to ROAD MACHINERY INSPECTORLauren WHITE CM, if she would have any questions or concerns about discharge instructions or medications. Phone number provided. DGiausola Adler CM
== END 2018-09-21 13:20 | disposition home or self-care (01) | DRG 202 ==
LOC: ED 06:24 → PCU 06:53
PROVIDERS: Admitting Provider Hospitalist; Emergency Provider Emergency Medicine; Family Provider Nurse Practitioner; PCP Nurse Practitioner
DX: J20.5 Acute bronchitis due to respiratory syncytial virus (principal); J44.0 Chronic obstructive pulmonary disease with (acute) lower respiratory infection; I50.32 Chronic diastolic (congestive) heart failure; J44.1 Chronic obstructive pulmonary disease with (acute) exacerbation; R74.8 Abnormal levels of other serum enzymes; I25.10 Atherosclerotic heart disease of native coronary artery without angina pectoris; I11.0 Hypertensive heart disease with heart failure; E03.9 Hypothyroidism, unspecified; F32.9 Major depressive disorder, single episode, unspecified; K21.9 Gastro-esophageal reflux disease without esophagitis; Z79.899 Other long term (current) drug therapy; Z87.891 Personal history of nicotine dependence; Z99.81 Dependence on supplemental oxygen; Z95.5 Presence of coronary angioplasty implant and graft; Z95.2 Presence of prosthetic heart valve; Z95.1 Presence of aortocoronary bypass graft; I27.29 Other secondary pulmonary hypertension; E78.5 Hyperlipidemia, unspecified; Z86.73 Personal history of transient ischemic attack (TIA), and cerebral infarction without residual deficits
CPT/HCPCS: 36415; 71045; 78452; 80048; 84484; 85025; 85610; 85730; 87633; 93005; 93017; 94640; 94667; 94668; 99285; A9500; J7030; A4216; J2785

== ENCOUNTER → 2019-02-05 | Outpatient (CLI) | payer MEDICARE, OTHER, SELFPAY ==
[2018-12-19 11:09] VITALS: BMI 25.7
--- NOTE | 2019-02-05 13:31 | RAD_ITS ---
STUDY: X-RAY - PELVIS AND BILATERAL HIPS REASON FOR EXAM: Female, 73 years old. Pain TECHNIQUE: AP view of the pelvis.? 2 views of the right hip, and 2 views of the left hip were obtained. COMPARISON: None. FINDINGS: The patient is status post left hip arthroplasty with intact hardware in satisfactory alignment. There is no evidence of fracture or dislocation in the pelvis or bilateral hips. There are moderate degenerative changes in the right hip. RAD/Hips B/L min 2 views w/ Pelvis IMPRESSION: No fracture or dislocation in the pelvis or bilateral hips. Status post left hip arthroplasty with intact hardware in satisfactory alignment. Moderate degenerative changes in the right hip. Electronically Signed: Andre Macias, at 15:19 EDT Tel , Service support ,
--- NOTE | 2019-02-05 13:31 | RAD_ITS ---
STUDY: X-RAY - LEFT SHOULDER REASON FOR EXAM: Female, 73 years old. Chronic pain TECHNIQUE: 4 view(s) of the shoulder. COMPARISON: 11/12/2016 FINDINGS: There is no evidence of fracture or dislocation. There are stable mild degenerative changes. There are no radiodense foreign bodies. RAD/Shoulder min 2 Views IMPRESSION: No fracture or dislocation in the left shoulder. Stable mild degenerative change. Electronically Signed: Andre Macias, at 15:13 EDT Tel , Service support ,
--- NOTE | 2019-02-05 13:32 | RAD_ITS ---
STUDY: X-RAY - RIGHT SHOULDER REASON FOR EXAM: Female, 73 years old. Chronic pain TECHNIQUE: 4 view(s) of the shoulder. COMPARISON: 01/31/2018. FINDINGS: There is no evidence of fracture or dislocation. There are stable mild degenerative changes noted. There are no radiodense foreign bodies. RAD/Shoulder min 2 Views IMPRESSION: No fracture or dislocation in the right shoulder. Stable mild degenerative change. Electronically Signed: Andre Macias, at 14:03 EDT Tel , Service support ,
== END | disposition home or self-care (01) ==
LOC: HPRAD 13:25
PROVIDERS: Family Provider Nurse Practitioner; Referring Provider Internal Medicine Rheumatology; Visit Provider Internal Medicine Rheumatology
DX: M15.0 Primary generalized (osteo)arthritis (principal)
CPT/HCPCS: 73030; 73521

== ENCOUNTER → 2019-03-07 | Outpatient (CLI) | payer MEDICARE, OTHER, SELFPAY ==
[2018-12-19 11:09] VITALS: BMI 25.7
[2019-03-07 15:10] LABS: BNP,B-Type NATRIURETIC PEPTIDE 128.1 pg/mL (0-100)
== END | disposition home or self-care (01) ==
LOC: MTLAB 11:59
PROVIDERS: Family Provider Nurse Practitioner; PCP Nurse Practitioner; Referring Provider Internal Medicine Pulmonary Disease; Visit Provider Internal Medicine Pulmonary Disease
DX: J47.9 Bronchiectasis, uncomplicated (principal); R06.00 Dyspnea, unspecified; R63.5 Abnormal weight gain; I50.9 Heart failure, unspecified
CPT/HCPCS: 36415; 83880; 87070; 87205

== ENCOUNTER → 2019-04-24 | Outpatient (CLI) | payer MEDICARE, OTHER, SELFPAY ==
[2018-12-19 11:09] VITALS: BMI 25.7
[2019-04-16 07:45] VITALS: BMI 27.3
--- NOTE | 2019-04-24 15:05 | BI_ITS ---
MAMMOGRAPHY - BILATERAL SCREENING REASON FOR EXAM: Female, 73 years old. Routine annual screening examination. PERTINENT HISTORY: Non-contributory. Status post right stereotactic breast biopsy. TECHNIQUE: Digital bilateral breast roc (3D mammographic acquisition) in the CC and MLO projections. 2-D mediolateral oblique (MLO) and craniocaudad (CC) views of both breasts were obtained. CAD: Full Field Digital Mammography with Computer Added Detection was performed. COMPARISON: Comparison is made with prior examination dated April 12, 2018 and April 10, 2018. FINDINGS: Breast Composition: The breasts are heterogeneously dense, which may obscure small masses. There are no dominant masses or suspicious calcifications. Since prior study, the patient underwent a biopsy of the calcifications in the inferior medial aspect of the right breast. A tissue clip marker is seen at that site. Stable benign-appearing bilateral axillary lymph nodes. No other significant abnormalities are identified. BI/SCREEN MAMM (CAD) W/ROC BILAT IMPRESSION: Status post biopsy of the calcifications in the inferior medial aspect of the right breast as described. Yearly follow-up mammogram recommended. (A) ASSESSMENT CATEGORY: BIRADS Category 2: Benign. A letter regarding these results will be sent to the patient by the facility within 30 days. Approximately 10% of breast cancers are not detected by mammography. A normal mammogram should not delay biopsy of a clinically suspicious abnormality. [id number] Electronically Signed: Dino Mueller, at 14:21 EDT , Service support ,
== END | disposition home or self-care (01) ==
LOC: OPBI 15:04
PROVIDERS: Family Provider Nurse Practitioner; PCP Nurse Practitioner; Referring Provider Nurse Practitioner; Visit Provider Nurse Practitioner
DX: Z12.31 Encounter for screening mammogram for malignant neoplasm of breast (principal)
CPT/HCPCS: 77063; 77067

== ENCOUNTER → 2019-05-17 | Outpatient (CLI) | payer MEDICARE, OTHER, SELFPAY ==
[2019-04-16 07:45] VITALS: BMI 27.3
--- NOTE | 2019-05-17 11:41 | RAD_ITS ---
STUDY: X-RAY CHEST REASON FOR EXAM: Female, 73 years old. Cough 2 months TECHNIQUE: PA and lateral chest COMPARISON: 09/19/2018 FINDINGS: Median sternotomy, valve prosthetic. Normal cardiomediastinal silhouette without cardiomegaly. Normal michele and pleural margins. Minimal basilar atelectasis, otherwise clear lungs. No apparent effusion or pneumothorax. No defined infiltrate. RAD/Chest PA and Lateral IMPRESSION: No acute cardiopulmonary process is evident. There is no evidence of pneumonia and there are no convincing features of CHF. Electronically Signed: Amol Mathews MD at 14:01 EDT Tel , Service support ,
[2019-05-17 14:24] LABS: Absolute Neutrophil Count 4.5 X10^3/uL (2.0-7.7); Basophil# 0.06 X10^3/uL; Basophil% 0.8 % (0-1); Eosinophil# 0.47 X10^3/uL; Hematocrit 43.6 % (37-47); Hemoglobin 13.9 g/dL (12.0-15.0); Mean Corp Hgb Conc 31.9 g/dL (32-36); Mean Corpuscular Hgb 30.2 pg (27.0-32.0); Mean Corpuscular Volume 94.8 fL (81-99); Mean Platelet Vol. 11.6 fl (6.2-12.0); Monocyte# 1.01 X10^3/uL; Monocyte% 12.9 % (0-10); NRBC Flagged by Analyzer 0 % (0-5); Neutrophil # 4.48 X10^3/uL (2.7-7.7); Platelet Count 193 K/mm3 (150-450); RBC Distribution Width CV 13.6 % (11.6-14.6); RBC Distribution Width SD 47.9 fl (35.1-43.9); White Blood Count 7.8 K/mm3 (4.4-11.0)
[2019-05-17 14:38] LABS: ALB/GLOB Ratio 1.1 RATIO (0.9-2.4); AST(SGOT) 20 U/L (15-37); Alanine Aminotransfer ALT/SGPT 23 U/L (13-56); Albumin, Serum 3.5 g/dL (3.2-5.0); Alkaline Phosphatase 112 U/L (45-117); Anion Gap 7 (5-15); BUN 11 mg/dL (7-18); BUN/Creat Ratio 10.4 RATIO (10-20); Calcium,Total 8.8 mg/dL (8.5-10.1); Chloride 105 mmol/L (98-107); Creatinine, Serum 1.06 mg/dL (0.55-1.02); EST Glomerular Filtration Rate 54 mL/min (>60); Est Glom Filt Rate - Afr Amer 65 mL/min (>60); Globulin 3.1 g/dL (2.2-4.2); Glucose 89 mg/dL (74-106); Potassium 4.7 mmol/L (3.5-5.1); Protein, Total 6.6 g/dL (6.4-8.2); Sodium Level 138 mmol/L (136-145)
[2019-05-17 15:05] LABS: BNP,B-Type NATRIURETIC PEPTIDE 115.4 pg/mL (0-100)
== END | disposition home or self-care (01) ==
PROVIDERS: Family Provider Nurse Practitioner; PCP Nurse Practitioner; Referring Provider Internal Medicine; Visit Provider Internal Medicine
DX: R05 Cough (principal); I50.9 Heart failure, unspecified; Z51.81 Encounter for therapeutic drug level monitoring
CPT/HCPCS: 71046; 80053; 83880; 84484; 85025

== ENCOUNTER → 2019-05-22 | Outpatient (CLI) | payer MEDICARE, OTHER, SELFPAY ==
[2019-04-16 07:45] VITALS: BMI 27.3
--- NOTE | 2019-05-22 08:18 | US_ITS ---
STUDY: ABDOMINAL ULTRASOUND - RIGHT UPPER QUADRANT REASON FOR VISIT: Female, 73 years old. Increased abdominal girth. TECHNIQUE: Ultrasound evaluation of the right upper quadrant was performed with real-time and static egan-scale imaging. COMPARISON: None. FINDINGS: Liver: The liver measures 13.3 cm. There is normal echogenicity of the liver. The bile ducts are within normal limits. There is hepatic color flow. The direction of portal flow is hepatopetal. No concerning mass. 2 cysts are incidentally noted measuring 1.2 and 1.6 cm in greatest dimension, both in the right lobe. Gallbladder: Normal distended gallbladder. The gallbladder wall measures 2 mm. There is a negative sonographic Cohn's sign. There is no pericholecystic fluid. There are no gallstones. Common Bile Duct (C.B.D.): The common bile duct measures 4 mm. Pancreas: Normal size of the head, body and tail of the pancreas. There is normal echogenicity of the pancreas. There is no demonstrated pancreatic mass or cyst. Right Kidney: Normal size of the right kidney. The right kidney measures 9.0 x 3.9 x 4.6 cm. Normal renal cortex. The right cortex measures 1.2 cm. There is no demonstrated renal mass or cyst. There is no right hydronephrosis. Punctate hyperechoic focus lower pole calyx, 4 mm diameter. US/Abdomen Limited IMPRESSION: No acute findings. Probable small nonobstructing stone lower pole right kidney. Incidental small cysts right lobe of liver. Electronically Signed: Markchris Librado, at 12:50 EDT Tel , Service support ,
== END | disposition home or self-care (01) ==
PROVIDERS: Family Provider Nurse Practitioner; PCP Nurse Practitioner; Referring Provider Internal Medicine; Visit Provider Internal Medicine
DX: R19.8 Other specified symptoms and signs involving the digestive system and abdomen (principal)
CPT/HCPCS: 76705

== ENCOUNTER → 2019-08-08 11:34 | Outpatient (CLI) | payer MEDICARE, OTHER, SELFPAY ==
[2019-04-16 07:45] VITALS: BMI 27.3
[2019-08-08 14:27] LABS: Absolute Lymphocyte Count 2.29 X10^3/uL (0.83-4.51); Absolute Neutrophil Count 4.7 X10^3/uL (2.0-7.7); Basophil# 0.07 X10^3/uL; Basophil% 0.9 % (0-1); Eosinophil# 0.17 X10^3/uL; Eosinophils% 2.1 % (0-5); Hematocrit 46.2 % (37-47); Hemoglobin 14.4 g/dL (12.0-15.0); Lymphocyte # 2.29 X10^3/ul (4.0); Lymphocyte % 28.3 % (19-41); Mean Corp Hgb Conc 31.2 g/dL (32-36); Mean Corpuscular Hgb 29.6 pg (27.0-32.0); Mean Corpuscular Volume 95.1 fL (81-99); Mean Platelet Vol. 11.1 fl (6.2-12.0); Monocyte# 0.78 X10^3/uL; Monocyte% 9.6 % (0-10); NRBC Flagged by Analyzer 0 % (0-5); Neutrophil # 4.73 X10^3/uL (2.7-7.7); Neutrophil % 58.5 % (47-70); Platelet Count 211 K/mm3 (150-450); RBC Distribution Width CV 14.4 % (11.6-14.6); RBC Distribution Width SD 50.4 fl (35.1-43.9); Red Blood Count 4.86 M/mm3 (4.2-5.4); White Blood Count 8.1 K/mm3 (4.4-11.0)
== END ==
PROVIDERS: Family Provider Nurse Practitioner; PCP Nurse Practitioner; Referring Provider Internal Medicine Pulmonary Disease; Visit Provider Internal Medicine Pulmonary Disease
DX: J47.9 Bronchiectasis, uncomplicated (principal)
CPT/HCPCS: 36415; 85025

== ENCOUNTER → 2019-10-16 12:42 | Outpatient (CLI) | payer MEDICARE, OTHER, SELFPAY ==
[2019-10-04 08:13] VITALS: BMI 29.0
--- NOTE | 2019-10-16 12:46 | ECHOD_ITS ---
Reason For Study: VALVE REPL- EVAL Procedure This was a 2D Doppler, Color Flow transthoracic echocardiogram. The study was technically difficult. Exam performed in department. Left Ventricle Normal LV size. Left ventricular systolic function is normal. Post operative septal motion. No regional wall motion abnormalities noted. Right Ventricle Normal RV size. Normal systolic function. Atria Normal left atrium. Normal right atrium. Mitral Valve Mean transmitral valve gradient 6.5 mmHg. Stable appearing bioprosthetic mitral valve apparatus. Tricuspid Valve Normal tricuspid valve. Mild tricuspid valve insufficiency. Pulmonary artery systolic pressure is 34 mmHg. Aortic Valve Peak aortic valve gradient 17 mmHg. Mean aortic valve gradient 9 mmHg. Mild aortic stenosis. Calculated aortic valve area (continuity equation) is 1.5 cm2. Bioprosthetic aortic valve. Pulmonic Valve The pulmonic valve is not well visualized. Great Vessels Normal aortic root. The pulmonary artery is normal size. Normal inferior vena cava. Pericardium/Pleural No pericardial effusion. MMode/2D Measurements & Calculations LVIDd: 4.5 cm IVSd: 0.78 cm LVOT diam: 2.0 cm RVDd: 2.7 cm LVPWd: 0.93 cm LVOT area: 3.1 cm2 Ao root diam: 3.3 cm LAV(MOD-bp): 33.2 ml LA A4 area: 11.7 cm2 LAV(MOD-bp) Indexed: 18.6 ml/m2 LAV(MOD-sp2): 35.2 ml LAV(MOD-sp4): 28.9 ml LA dimension(2D): 4.7 cm RA A4 area: 7.3 cm2 Doppler Measurements & Calculations MV V2 max: 170.0 cm/sec Ao V2 max: 204.2 cm/sec LV V1 max: 99.0 cm/sec MV max P.6 mmHg Ao max P.9 mmHg LV V1 max P.9 mmHg MV V2 mean: 125.0 cm/sec Ao V2 mean: 141.2 cm/sec LV V1 mean P.4 mmHg MV mean P.5 mmHg Ao mean P.8 mmHg LV V1 mean: 74.4 cm/sec MV V2 VTI: 40.9 cm Ao V2 VTI: 39.8 cm LV V1 VTI: 20.7 cm MVA(VTI): 1.6 cm2 YORDY(I,D): 1.6 cm2 YORDY(V,D): 1.5 cm2 SV(LVOT): 63.5 ml PA V2 max: 97.1 cm/sec PI end-d reilly: 144.6 cm/sec TR max reilly: 269.9 cm/sec MV P1/2t-pr_phl: 96.4 msec TR max P.2 mmHg Interpretation Summary Normal LV size. Left ventricular systolic function is normal. Mild aortic stenosis. Mean aortic valve gradient 9 mmHg. Stable appearing bioprosthetic mitral valve apparatus. Bioprosthetic aortic valve. Mean transmitral valve gradient 6.5 mmHg. Pulmonary artery systolic pressure is 34 mmHg. Compared to prior study, there is no significant change. Ordering Physician: Abdi Acosta Referring Physician: TIFFANIE CHILEL Performed By: Trudy Phillip, BALWINDERCS, RVT
== END ==
PROVIDERS: Family Provider Nurse Practitioner; PCP Nurse Practitioner; Referring Provider Internal Medicine Cardiovascular Disease; Visit Provider Internal Medicine Cardiovascular Disease
DX: I05.2 Rheumatic mitral stenosis with insufficiency (principal)
CPT/HCPCS: 93306

== ENCOUNTER → 2019-11-14 13:46 | Outpatient (CLI) | payer MEDICARE, OTHER, SELFPAY ==
[2019-10-04 08:13] VITALS: BMI 29.0
--- NOTE | 2019-11-14 13:50 | CT_ITS ---
STUDY: CT BRAIN WITHOUT CONTRAST REASON FOR EXAM: Female, 74 years old. FALL AT HOME, HX TIA RADIATION DOSAGE (If Supplied By Facility): CTDIvol = ( 44.99 ) mGy, DLP = ( 765.18 ) mGycm TECHNIQUE: Transaxial CT imaging of the brain was performed without administration of intravenous contrast material. Individualized dose optimization techniques were used for this CT. COMPARISON: No relevant priors. FINDINGS: Normal soft tissue structures. Normal calvarium. There is mild cerebral atrophy with widening of the extra-axial spaces and ventricular dilatation. There are areas of decreased attenuation within the white matter tracts of the supratentorial brain, consistent with microvascular disease changes. There is an old infarction in the right middle cerebral artery territory. Normal basal ganglia and thalami. Normal brainstem. Old infarctions are seen in the right or left cerebellar hemispheres. There is no intracranial hemorrhage. There are no findings of an acute ischemic infarction. Normal visualized paranasal sinuses. 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 There is no acute intrathoracic abnormality. Old infarctions are seen in the right or left cerebellar hemispheres. Electronically Signed: Darnell Yost, at 8:07 EST Tel , Service support ,
== END ==
PROVIDERS: PCP Nurse Practitioner; Referring Provider Nurse Practitioner; Visit Provider Nurse Practitioner
DX: R55 Syncope and collapse (principal)
CPT/HCPCS: 70450

== ENCOUNTER → 2020-03-17 14:35 | Outpatient (CLI) | payer MEDICARE, OTHER, SELFPAY ==
[2019-10-04 08:13] VITALS: BMI 29.0
--- NOTE | 2020-03-17 14:50 | CT_ITS ---
STUDY: CT ABDOMEN AND PELVIS WITHOUT CONTRAST REASON FOR EXAM: Female, 74 years old. BILAT FLANK PAIN, HX KS, HEMATURIA RADIATION DOSAGE (If Supplied By Facility): CTDIvol = ( 12.73 ) mGy, DLP = ( 548.03 ) mGycm TECHNIQUE: Transaxial images were obtained from the dome of the diaphragm to the symphysis pubis without oral contrast, and without intravenous contrast. Sagittal and coronal images were reconstructed. Individualized dose optimization techniques were used for this CT. COMPARISON: None. FINDINGS: The visualized lung bases are unremarkable. The visualized portions of the heart demonstrate valve hardware. 2 low-attenuation lesions within the left liver are most likely cysts. Normal gallbladder and extrahepatic biliary system. Normal spleen. Normal pancreas. Normal bilateral adrenal glands. Normal right kidney. Normal left kidney. Normal visualized stomach. Normal small intestine. There are multiple colonic diverticula consistent with diverticulosis. The appendix is visualized and appears normal. There is mild atherosclerotic calcification of the abdominal aorta, without a demonstrated aneurysm. Normal inferior vena cava. Normal retroperitoneum. Normal urinary bladder. There is atrophy of the uterus. Normal abdominal wall. Left hip total arthroplasty. CT/Abdomen/Pelvis without Cont IMPRESSION: No evidence for renal stones or obstructive uropathy. No acute process is identified. Electronically Signed: Hunter Kramer, at 16:40 EDT Tel , Service support ,
== END ==
PROVIDERS: PCP Nurse Practitioner; Referring Provider Nurse Practitioner; Visit Provider Nurse Practitioner
DX: Z87.442 Personal history of urinary calculi (principal)
CPT/HCPCS: 74176

== ENCOUNTER → 2021-02-25 10:11 | Outpatient (CLI) | payer MEDICARE, OTHER, SELFPAY ==
[2021-01-08 11:25] VITALS: BMI 24.3
--- NOTE | 2021-02-25 10:20 | BD_ITS ---
STUDY: DUAL ENERGY X-RAY ABSORPTIOMETRY / DXA REASON FOR EXAM: Female, 75 years old. [id number]. The patient is postmenopausal. TECHNIQUE: Bone Mineral Density (BMD) measurements of lumbar spine and right hip were obtained. COMPARISON: Comparison is made with prior study dated 04/10/2018. FINDINGS: Lumbar Spine (L1-L4): g/cm2 (0.990) / T-score (-1.6) / Z-score (0.2) Findings are suggestive of osteopenia with a moderate fracture risk. Right Femur Total: g/cm2 (0.648) / T-score (-2.9) / Z-score (-1.2) Right Femoral Neck: g/cm2 (0.666) / T-score (-2.7) / Z-score (-0.8) The T-Scores on the most recent prior examination were: Lumbar Spine (L1-L4): There has been worsening of bone density since the previous examination. Right Femur Total: which represents a worsening of 13.9%. BD/Dexa Bone Density Study IMPRESSION: The patient is considered osteoporotic as outlined below according to World [place] A Organization (WHO) criteria with a high fracture risk. There has been worsening of bone density since the previous examination. Reference Information: The T-score is the number of standard deviations above or below the standard which is normal for young adults at their peak bone mineral density. The World Health Organization (WHO) interprets the T-scores as follows: Above -1 Normal bone density Between -1 and -2.5 Osteopenia Equal to / or below -2.5 Osteoporosis As a practical clinical guideline, osteopenia may be graded as follows: Mild -1 through -1.5 Moderate -1.6 through -2.0 Severe -2.1 through -2.4 The Z-score is the number of standard deviations above or below age-matched controls. A Z-score of less than -1.5 would be considered abnormal. References: 1. NIH Osteoporosis and Related Bone Diseases www osteo.org 2. International Society for Clinical Densitometry www iscd.org 3. National Osteoporosis Foundation www nof.org Electronically Signed: Dino Mueller MD at 9:43 EDT , Service support ,
--- NOTE | 2021-02-25 10:50 | BI_ITS ---
MAMMOGRAPHY - BILATERAL SCREENING REASON FOR EXAM: Female, 75 years old. Routine annual screening examination. PERTINENT HISTORY: Non-contributory. History of prior right stereotactic breast biopsy. TECHNIQUE: Digital bilateral breast roc (3D mammographic acquisition) in the CC and MLO projections. 2-D mediolateral oblique (MLO) and craniocaudad (CC) views of both breasts were obtained. CAD: Full Field Digital Mammography with Computer Added Detection was performed. COMPARISON: Comparison is made with prior study dated 04/24/2019 and 04/12/2008. FINDINGS: Breast Composition: The breasts are heterogeneously dense, which may obscure small masses. There are no dominant masses or suspicious calcifications. Stable calcifications in the inferior medial aspect of both breasts more prominent on the right side. A tissue clip marker seen in the inferior medial aspect of the right breast. No other significant abnormalities are identified. There has been no significant change since the prior study. BI/SCRN MAMM (CAD)W/ROC BILAT IMPRESSION: Stable bilateral screening mammogram. Yearly follow-up mammogram recommended. (A) ASSESSMENT CATEGORY: BIRADS Category 2: Benign. A letter regarding these results will be sent to the patient by the facility within 30 days. Approximately 10% of breast cancers are not detected by mammography. A normal mammogram should not delay biopsy of a clinically suspicious abnormality. [id number] Electronically Signed: Dino Mueller MD at 12:25 EDT , Service support ,
== END ==
PROVIDERS: PCP Nurse Practitioner; Referring Provider Nurse Practitioner; Visit Provider Nurse Practitioner
DX: Z12.31 Encounter for screening mammogram for malignant neoplasm of breast (principal); Z78.0 Asymptomatic menopausal state
CPT/HCPCS: 77063; 77067; 77080

== ENCOUNTER 2021-06-01 11:30 | Outpatient (RCR) | payer MEDICARE, OTHER, SELFPAY ==
[2021-01-08 11:25] VITALS: BMI 24.3
--- NOTE | 2021-02-16 12:43 | HP.PTEVAL ---
Patient's Visit Information KARINA CHRISTINA is a 75 year old F referred to Physical Therapy by BRADLY Shelton with a diagnosis of Lumbar. Date of Evaluation: 02/16/21 Physical Therapist: Carolina Melendrez DPT - Visit Plan Frequency: 2x /Week Duration: 4 Weeks Plan: Aquatic Therapy- focus on LE and core strength/stabilization for functional mobility - Subjective Patient reports that she has pain and weakness- seems like forever- weakness started a couple of months ago- Walked with a friend about a mile then went to [facility] and her leg buckled and she was able to grab on and not fall- since she has started using a cane- this was about a month ago. She has pain in the L4-L5 lumbar spine and then radiates down both legs but more on the left. Weakness is bilateral. She has not had any back surgeries but has had injections and burning of the nerves. Has had it on the right but not the left yet. Left side is scheduled in 2 weeks. That normally helps and keeps her pain manageable. Dr. Bradley has spoken to her about having a pain stimulator put in and it was approved by all the doctors but it will not help the weakness- she would like to wait until the end of the summer. Her plan is aquatic therapy and she has a pool so when she gets it open she can get in at her house to perform her home exercise program and build back up her strength. Goals is to keep moving. Worst: 04/03 Agg: walking, standing for long periods of time. Eases: pain medication, recliner, laying on her side. Best: 12/02. Describes the pain in the back as achy but sharp when it travels down the legs. Mostly the pain just radiates to the knee. No N/T in the LE. No loss or change in bowel or bladder. Sleep: not disturbed but if she does not take the pain medication she is miserable when she wakes up. Side sleeper. Saw Dr. Acevedo who also told her there may be issues with her neck- MRI was taken. Has had recent x-rays and MRI of her spine at [facility] about 3 months ago. Last injection in the lumbar spine was end of last summer. She wants to be very active but feels limited by her back. - Objective Posture: FH, RS, increased kyphosis- can correct with verbal and tacile cues but is unable to maintain. Gait: antalgic- decreased stance on the right LE with poor heel/toe bilateral. Straight cane in left hand. Can ambulate without but is slower amelia. Balance: see FGA. Stairs: asc/desc 8 recip with 2 HR- uses rails to control descent and balance. HR/TR: able with UE A. SLS: weight shift but unable to SLS. Sensation: WFL to gross touch bilateral LE. Reflex: WFL to patella. ROM: Lumbar: Flexion: hands to knees reports HS pull, Extn: neutral SB and Rot: all diminished by 50% and reports stiffness. Hip/Ankle/Knee: WFL. Strength: Core: fair minus, Hip: flexion: 4/5, Extn: 4/5, IR/ER: at neutral 4-/5, Abd/Add: 4+/5, Knee: 4/5, Ankle: 4+/5. Flex: HS: severe, Gastroc: severe. Special Test: LLD: negative, Slump: positive, Dural Signs: positive - Balance Scores Functional Gait Assessment Score: 10 % Disability: 66.6700 - Goals Goal 1:: Patient will be I with HEP and progression Goal Time Frame: 4-6 Weeks Goal 2:: Patient will ambulate >300 feet with a normalized gait pattern and LRD Goal Time Frame: 4-6 Weeks Goal 3:: Patient will maintain proper posture t/o treatment session to demo increased core s/s. Goal Time Frame: 4-6 Weeks Goal 4:: Patient will report no more than 2/10 pain for 1 week Goal Time Frame: 4-6 Weeks Goal 5:: Patient will demo 4+/5 strength in LE where deficit Goal Time Frame: 4-6 Weeks - Rehabilitation Potential Physical Therapy Diagnosis: Patient presents with hypmobility- she has decreased painfree ROM, strength, core strength/stabilization, flex and muscular endurance leading to poor posture and increased pain with ADL's. Rehabilitation Potential: Fair - Anticipated Interventions Therapeutic Exercise to Include: Strength training, Endurance training, Balance training, Agility training, Body mechanics, Postural training, Flexibilty training, Gait and locomotor training, Neuromotor development, In an aquatic setting, Dynamic Lumbar Stabilization, Scapular Strength/Stabilization For the Purpose of:: To improve muscle performance and motor function Thank you for the opportunity to evaluate your patient. For Medicare and Medicare HMO plans, please review the plan of care and approve it. It will need to be FAXED BACK to us at [phone] for Medicare purposes. For Medicare only, by signing this I certify the plan of care. Please let me know if there are questions or concerns regarding this plan of care. Physician Signature: Date:
--- NOTE | 2021-03-24 11:21 | HP.PTREVAL ---
Colleen Seals, POONAM-Bryanna, It has been my pleasure to treat KARINA CHRISTINA over the last 8 visits for Lumbar. Please see the progress note below for an update on the physical therapy plan of care! Subjective: Patient reports that she was at a 7-8/10 and now she is at a 4/10 since the procedure. She had therapy and a busy day yesterday so she is a little more sore today. Would like to continue therapy in the pool. Back to MD in 6 weeks- Seeing Dr. Acevedo and he is working on her medication- ruled out Parkinsons. Objective/Function: Posture: FH, RS, increased kyphosis- can correct with verbal and tacile cues but is unable to maintain. Gait: slightly antalgic- decreased stance on the right LE with poor heel/toe bilateral. Straight cane in left hand. Can ambulate without but is slower amelia. Stairs: asc/desc 8 recip with 1 HR- uses rails to control descent and balance. HR/TR: able with UE A. SLS: weight shift but unable to SLS. Sensation: WFL to gross touch bilateral LE. Reflex: WFL to patella. ROM: Lumbar: Flexion: hands to knees reports HS pull, Extn: neutral SB and Rot: all diminished by 50% and reports stiffness. Hip/Ankle/Knee: WFL. Strength: Core: fair, Hip: flexion: 4/5, Extn: 4/5, IR/ER: at neutral 4/5, Abd/Add: 4+/5, Knee: 4+/5, Ankle: 5/5. Flex: HS: severe, Gastroc: severe. Special Test: LLD: negative, Slump: positive, Dural Signs: positive Plan Plan: 03/24/2021: Continue with POC towards goals. *X1 more appt before f/u with supervising PT. Would recommend continued AT at this time. *f/u with new HEP piriformis stretch and SLS glute med. strengthening. *Add wall push-ups and STSs next. *Progressing to I pool program in home pool. May need to be given her own copy of page next..? Aquatic Therapy- focus on LE and core strength/stabilization for functional mobility Goals Goal 1:: Patient will be I with HEP and progression Goal Time Frame: 4-6 Weeks Goal Progress: Progressing Goal 2:: Patient will ambulate >300 feet with a normalized gait pattern and LRD Goal Time Frame: 4-6 Weeks Goal Progress: Progressing Goal 3:: Patient will maintain proper posture t/o treatment session to demo increased core s/s. Goal Time Frame: 4-6 Weeks Goal Progress: Progressing Goal 4:: Patient will report no more than 2/10 pain for 1 week Goal Time Frame: 4-6 Weeks Goal Progress: Progressing Goal 5:: Patient will demo 4+/5 strength in LE where deficit Goal Time Frame: 4-6 Weeks Anticipated Interventions Therapeutic Exercise to Include: Strength training, Endurance training, Balance training, Agility training, Body mechanics, Postural training, Flexibilty training, Gait and locomotor training, Neuromotor development, In an aquatic setting, Dynamic Lumbar Stabilization, Scapular Strength/Stabilization For the Purpose of:: To improve muscle performance and motor function Please do not hesitate to contact me at [phone] by phone or if you have questions or concerns regarding this new plan of care! Sincerely, Carolina Melendrez DPT
--- NOTE | 2021-04-29 11:41 | HP.PTREVAL ---
Colleen Seals, POONAM-C, It has been my pleasure to treat KARINA CHRISTINA over the last 15 visits for Lumbar. Please see the progress note below for an update on the physical therapy plan of care! Subjective: Patient reports that she feels that she is pretty sore today. Had massotherapy yesterday and then went home and got in the pool. Today she is a 6/10. Has an apt with Dr. Bradley to see if she can have her right side done. Objective/Function: Posture: FH, RS, increased kyphosis- can correct with verbal cues and maintain for a short time. Gait: slightly antalgic- decreased stance on the right LE with poor heel/toe bilateral. Straight cane in left hand. Stairs: asc/desc 8 recip with 1 HR- uses rails to control descent and balance. HR/TR: able with UE A. SLS: weight shift but unable to SLS. Sensation: WFL to gross touch bilateral LE. Reflex: WFL to patella. ROM: Lumbar: Flexion: hands to knees reports HS pull, Extn: neutral SB and Rot: all diminished by 50% and reports stiffness. Hip/Ankle/Knee: WFL. Strength: Core: fair, Hip: flexion: 4+/5, Extn: 4/5, IR/ER: at neutral 4/5, Abd/Add: 4+/5, Knee: 4+/5, Ankle: 5/5. Flex: HS: severe, Gastroc: severe. Special Test: LLD: negative, Slump: positive, Dural Signs: positive Plan Plan: 04/29/2021: Continue 2x a week for 3 weeks to progress towards HEP. *f/u with supervising PT next. Would recommend continued AT 1x a week to transition to I pool program at her home pool. Have discussed with pt options for [employer] membership come fall when her personal pool closes. Given paperwork. *Progressing to I pool program in home pool. Has her own copy of page. *f/u with new HEP TB scap stabilization tasks. Aquatic Therapy- focus on LE and core strength/stabilization for functional mobility Balance/Gait/Functional tests - Balance/Special Test Scores Functional Gait Assessment Score: 10 % Disability: 66.6700 Oswestry Low Back Score: 18 Goals Goal 1:: Patient will be I with HEP and progression Goal Time Frame: 4-6 Weeks Goal Progress: Progressing Goal 2:: Patient will ambulate >300 feet with a normalized gait pattern and LRD Goal Time Frame: 4-6 Weeks Goal Progress: Progressing Goal 3:: Patient will maintain proper posture t/o treatment session to demo increased core s/s. Goal Time Frame: 4-6 Weeks Goal Progress: Progressing Goal 4:: Patient will report no more than 2/10 pain for 1 week Goal Time Frame: 4-6 Weeks Goal Progress: Progressing Goal 5:: Patient will demo 4+/5 strength in LE where deficit Goal Time Frame: 4-6 Weeks Anticipated Interventions Therapeutic Exercise to Include: Strength training, Endurance training, Balance training, Agility training, Body mechanics, Postural training, Flexibilty training, Gait and locomotor training, Neuromotor development, In an aquatic setting, Dynamic Lumbar Stabilization, Scapular Strength/Stabilization For the Purpose of:: To improve muscle performance and motor function Please do not hesitate to contact me at [phone] by phone or if you have questions or concerns regarding this new plan of care! Sincerely, Carolina Melendrez DPT
--- NOTE | 2021-07-26 08:01 | HP.PT.NRP ---
KARINA CHRISTINA was seen in my office for initial evaluation on 02/16/21. The following Plan of Care was established for this patient: Initial Frequency: 2x /Week Initial Duration: 4 Weeks Therapeutic Exercise to Include: Strength training, Endurance training, Balance training, Agility training, Body mechanics, Postural training, Flexibilty training, Gait and locomotor training, Neuromotor development, In an aquatic setting, Dynamic Lumbar Stabilization, Scapular Strength/Stabilization For the Purpose of:: To improve muscle performance and motor function This patient was last seen in our office . Pertinent comments regarding their Physical therapy will appear below: Patient has not attended PT in over 4 weeks and is appropriate for discharge- return to MD for further evaluation as needed. At this point I will be discontinuing this patient from physical therapy. I would be happy to see this patient again in the future if found appropriate by the physician. Thank you! Carolina Melendrez, LACIT Balance/Gait/Functional tests - Balance/Special Test Scores Functional Gait Assessment Score: 10 % Disability: 66.6700 Oswestry Low Back Score: 15
== END 2021-06-01 19:00 | disposition home or self-care (01) ==
LOC: PT 11:30
PROVIDERS: PCP Nurse Practitioner; Referring Provider Nurse Practitioner Family; Visit Provider Nurse Practitioner Family
DX: M46.96 Unspecified inflammatory spondylopathy, lumbar region (principal); M54.16 Radiculopathy, lumbar region; M54.17 Radiculopathy, lumbosacral region; M43.16 Spondylolisthesis, lumbar region
CPT/HCPCS: 97113; 97162; 97164

== ENCOUNTER → 2021-07-01 16:30 | Outpatient (CLI) | payer MEDICARE, OTHER, SELFPAY ==
[2021-07-01 17:06] LABS: Absolute Lymphocyte Count 2.61 X10^3/uL (0.83-4.51); Absolute Neutrophil Count 4.5 X10^3/uL (2.0-7.7); Basophil# 0.06 X10^3/uL; Basophil% 0.7 % (0-1); Eosinophil# 0.11 X10^3/uL; Eosinophils% 1.3 % (0-5); Hematocrit 39.2 % (37-47); Hemoglobin 12.4 g/dL (12.0-15.0); Lymphocyte # 2.61 X10^3/ul (0.83-4.51); Lymphocyte % 31.8 % (19-41); Mean Corp Hgb Conc 31.6 g/dL (32-36); Mean Corpuscular Hgb 29.1 pg (27.0-32.0); Mean Platelet Vol. 11.3 fl (6.2-12.0); Monocyte# 0.92 X10^3/uL; Monocyte% 11.2 % (0-10); NRBC Flagged by Analyzer 0 % (0-5); Neutrophil # 4.48 X10^3/uL (2.7-7.7); Neutrophil % 54.5 % (47-70); Platelet Count 226 K/mm3 (150-450); RBC Distribution Width CV 14.3 % (11.6-14.6); RBC Distribution Width SD 48.5 fl (35.1-43.9); Red Blood Count 4.26 M/mm3 (4.2-5.4); White Blood Count 8.2 K/mm3 (4.4-11.0)
[2021-07-01 18:07] LABS: Anion Gap 5 (5-15); BUN 12 mg/dL (7-18); BUN/Creat Ratio 13.5 RATIO (10-20); Calcium,Total 8.6 mg/dL (8.5-10.1); Chloride 102 mmol/L (98-107); Creatinine, Serum 0.89 mg/dL (0.55-1.02); EST Glomerular Filtration Rate 66 mL/min (>60); Est Glom Filt Rate - Afr Amer 80 mL/min (>60); Glucose 87 mg/dL (74-106); Magnesium 2.5 mg/dL (1.6-2.6); Potassium 3.7 mmol/L (3.5-5.1); Sodium Level 138 mmol/L (136-145); Thyroid Stim Hormone (TSH) 1.57 uIU/mL (0.358-3.74)
== END ==
PROVIDERS: PCP Nurse Practitioner; Visit Provider Nurse Practitioner Gerontology
DX: I10 Essential (primary) hypertension (principal); R53.83 Other fatigue
CPT/HCPCS: 36415; 80048; 83735; 84443; 85025

== ENCOUNTER → 2021-07-07 15:20 | Outpatient (CLI) | payer MEDICARE, OTHER, SELFPAY | PROVIDERS: PCP Nurse Practitioner; Referring Provider Internal Medicine Pulmonary Disease; Visit Provider Internal Medicine Pulmonary Disease | DX: J47.9 Bronchiectasis, uncomplicated (principal); R05.9 Cough, unspecified | CPT/HCPCS: 87015; 87116; 87206 ==

== ENCOUNTER → 2021-07-08 12:54 | Outpatient (CLI) | payer MEDICARE, OTHER, SELFPAY | PROVIDERS: PCP Nurse Practitioner; Referring Provider Nurse Practitioner Gerontology; Visit Provider Nurse Practitioner Gerontology | DX: R00.0 Tachycardia, unspecified (principal) | CPT/HCPCS: 93225; 93226 ==

== ENCOUNTER → 2021-09-22 17:29 | Outpatient (CLI) | payer MEDICARE, OTHER, SELFPAY ==
--- NOTE | 2021-09-22 17:40 | CT_ITS ---
INDICATION: COPD -- HI RES EXAMINATION: CT CHEST WITHOUT CONTRAST - CT Chest High Resolution WO Contrast Injection TECHNIQUE: Helically acquired images were obtained of the chest. A radiation dose optimization technique was used for this scan. IV Contrast dosage and agent: None. COMPARISON: 02/09/2018. FINDINGS: LUNGS, PLEURA AND LARGE AIRWAYS: Scattered emphysematous disease is seen. Mild prominence of the bronchovascular interstitial lung markings is visualized bilaterally, mild bronchial wall thickening is visualized with subtle prominence of the peripheral bronchioles but no evidence of traction bronchiectasis is seen. Mild scarring visualized in the lower lung beltran. No evidence of endoluminal lesions is seen. A 2 mm calcified granulomas visualized in the anterolateral aspect of the left lower lobe consistent with the granuloma seen on axial series 2 image 79. No evidence of focal lung infiltrate or consolidation. No evidence of pneumothorax or parenchymal lung mass. No evidence of pleural effusion is seen. HEART AND PERICARDIUM: Heart size is normal. No pericardial effusion. VESSELS: Scattered atherosclerotic calcifications seen. Thoracic aorta is not dilated. MEDIASTINUM AND DEANGELO: No significant mediastinal or hilar adenopathy. Esophagus is unremarkable. No hiatal hernia. UPPER ABDOMEN: No acute pathology. Simple cysts visualized within the liver. BONES: No suspicious lytic or blastic abnormality. Degenerative bone changes. CT/Chest without Contrast IMPRESSION: Chronic interstitial lung changes. Electronically Signed: Anup Villasenor MD at 11:42 EST Tel , Service support ,
== END ==
PROVIDERS: PCP Nurse Practitioner; Visit Provider Internal Medicine Pulmonary Disease
DX: J44.9 Chronic obstructive pulmonary disease, unspecified (principal)
CPT/HCPCS: 71250

== ENCOUNTER 2021-11-30 10:53 | Outpatient (CLI) | payer MEDICARE, OTHER, SELFPAY | END 2021-11-30 23:59 | disposition home or self-care (01) | LOC: MTLAB 10:55 | PROVIDERS: PCP Nurse Practitioner; Referring Provider Internal Medicine Pulmonary Disease; Visit Provider Internal Medicine Pulmonary Disease | DX: J44.9 Chronic obstructive pulmonary disease, unspecified (principal); J47.9 Bronchiectasis, uncomplicated | CPT/HCPCS: 87015; 87116; 87206 ==

== ENCOUNTER 2022-01-06 13:12 | Outpatient (CLI) | payer MEDICARE, OTHER, SELFPAY | END 2022-01-06 23:59 | disposition home or self-care (01) | PROVIDERS: PCP Nurse Practitioner; Referring Provider Internal Medicine Pulmonary Disease; Visit Provider Internal Medicine Pulmonary Disease | DX: J47.9 Bronchiectasis, uncomplicated (principal) | CPT/HCPCS: 87070; 87077; 87186; 87205 ==

== ENCOUNTER 2022-01-12 14:29 | Outpatient (CLI) | payer MEDICARE, OTHER, SELFPAY | END 2022-01-12 23:59 | disposition home or self-care (01) | LOC: LAB 14:32 | PROVIDERS: PCP Nurse Practitioner; Visit Provider Internal Medicine Pulmonary Disease | DX: J44.9 Chronic obstructive pulmonary disease, unspecified (principal); J47.9 Bronchiectasis, uncomplicated | CPT/HCPCS: 87015; 87070; 87116; 87205; 87206 ==

== ENCOUNTER → 2022-01-13 | Outpatient (CLI) | payer MEDICARE, OTHER, SELFPAY | END | disposition home or self-care (01) | LOC: LAB 14:55 | PROVIDERS: PCP Nurse Practitioner; Visit Provider Internal Medicine Pulmonary Disease | DX: J44.9 Chronic obstructive pulmonary disease, unspecified (principal); J47.9 Bronchiectasis, uncomplicated | CPT/HCPCS: 87015; 87070; 87077; 87116; 87186; 87205; 87206 ==

== ENCOUNTER → 2022-09-12 | Outpatient (CLI) | payer MEDICARE, OTHER, SELFPAY | END | disposition home or self-care (01) | LOC: LABSPEC 13:02 | PROVIDERS: PCP Nurse Practitioner Family; Referring Provider Internal Medicine Pulmonary Disease; Visit Provider Internal Medicine Pulmonary Disease | DX: J47.9 Bronchiectasis, uncomplicated (principal); R05.9 Cough, unspecified | CPT/HCPCS: 87015; 87070; 87116; 87205; 87206 ==

== ENCOUNTER → 2022-10-03 | Outpatient (CLI) | payer MEDICARE, OTHER, SELFPAY ==
--- NOTE | 2022-10-03 11:03 | ECHOD_ITS ---
Reason For Study: VALVE REPLACEMENT Procedure Exam performed in department. Left Ventricle Normal LV size. Left ventricular systolic function is normal. The estimated ejection fraction is 60 %. No regional wall motion abnormalities noted. Right Ventricle Normal RV size. Normal systolic function. Atria Normal left atrium. Normal right atrium. Mitral Valve Peak transmitral valve gradient 12 mmHg. Mean transmitral valve gradient 6.5 mmHg. Stable appearing bioprosthetic mitral valve apparatus. Tricuspid Valve Normal tricuspid valve. Mild (1+) tricuspid valve insufficiency. Pulmonary artery systolic pressure is 34 mmHg. Aortic Valve Peak aortic valve gradient 60 mmHg. Mean aortic valve gradient 36 mmHg. Bioprosthetic aortic valve. Pulmonic Valve Normal pulmonic valve. Great Vessels Normal aortic root. The pulmonary artery is normal size. Normal inferior vena cava. Pericardium/Pleural No pericardial effusion. MMode/2D Measurements & Calculations RVDd: 2.7 cm LVOT diam: 2.4 cm Ao root diam: 2.9 cm LVOT area: 4.7 cm2 LAV(MOD-sp4): 45.2 ml SV(MOD-sp4): 28.8 ml LVAd ap4: 17.3 cm2 LVLd ap4: 5.4 cm EDV(MOD-sp4): 45.6 ml EDV(sp4-el): 47.3 ml LVAs ap4: 9.3 cm2 LVLs ap4: 4.3 cm ESV(MOD-sp4): 16.8 ml ESV(sp4-el): 17.2 ml EF(MOD-sp4): 63.2 % EF(sp4-el): 63.7 % SV(sp4-el): 30.1 ml LA A4 area: 17.8 cm2 RA A4 area: 8.2 cm2 Time Measurements MV dec time: 0.16 sec Doppler Measurements & Calculations MV E max phill: 137.1 cm/sec Lat Peak E' Phill: 5.4 cm/sec Med Peak E' Phill: 4.8 cm/sec MV A max phill: 142.3 cm/sec E/E' lat: 25.3 E/E' med: 28.5 MV E/A: 0.96 MV V2 max: 173.7 cm/sec MV dec slope: 873.5 cm/sec2 Ao V2 max: 386.1 cm/sec MV max P.1 mmHg Ao max P.7 mmHg MV V2 mean: 122.1 cm/sec Ao V2 mean: 278.2 cm/sec MV mean P.5 mmHg Ao mean P.7 mmHg MV V2 VTI: 41.6 cm Ao V2 VTI: 85.8 cm MVA(VTI): 3.5 cm2 AV (velocity ratio): 0.37 YORDY(I,D): 1.7 cm2 OYRDY(V,D): 1.7 cm2 LV V1 max: 139.9 cm/sec SV(LVOT): 147.4 ml PA V2 max: 128.5 cm/sec LV V1 max P.8 mmHg PA max PG (full): 4.1 mmHg LV V1 mean P.5 mmHg PA V2 mean: 86.1 cm/sec LV V1 mean: 99.1 cm/sec PA mean PG (full): 1.7 mmHg LV V1 VTI: 31.7 cm TR max phill: 276.7 cm/sec TR max P.6 mmHg ECHO/Echo Complete Interpretation Summary Normal LV size. Left ventricular systolic function is normal. The estimated ejection fraction is 60 %. Mean transmitral valve gradient 6.5 mmHg. Stable appearing bioprosthetic mitral valve apparatus. Bioprosthetic aortic valve. Pulmonary artery systolic pressure is 34 mmHg. Prior to the previous echocardiogram the gradients across the aortic valve appe ared to be significantly increased. The gradients across the mitral valve are stable. Mean aortic valve gradient 36 mmHg. Ordering Physician: Mary Schmid Referring Physician: KARINA HARDIN Performed By: Capri Rodriguez RCS
--- NOTE | 2022-10-03 12:01 | BI_ITS ---
MAMMOGRAPHY - BILATERAL SCREENING REASON FOR EXAM: Female, 77 years old. Routine annual screening examination. PERTINENT HISTORY: Non-contributory. History of prior right stereotactic breast biopsy. TECHNIQUE: Digital bilateral breast roc (3D mammographic acquisition) in the CC and MLO projections. 2-D mediolateral oblique (MLO) and craniocaudad (CC) views of both breasts were obtained. CAD: Full Field Digital Mammography with Computer Added Detection was performed. COMPARISON: Comparison is made with prior study dated 02/25/2021 and 04/24/2019. FINDINGS: Breast Composition: The breasts are heterogeneously dense, which may obscure small masses. Since prior study, there has been progressive clustering of microcalcifications in the inferior medial aspects of both breasts more prominent on the right side. Correlation with ultrasound of both clusters recommended. No other significant abnormalities are identified. BI/SCRN MAMM (CAD)W/ROC BILAT IMPRESSION: Increasing clustering of microcalcifications in the inferior medial aspect of both breasts as described. Biopsy recommended. ASSESSMENT CATEGORY: BIRADS Category 4: Suspicious - Biopsy Should Be Considered. A letter regarding these results will be sent to the patient by the facility within 30 days. Approximately 10% of breast cancers are not detected by mammography. A normal mammogram should not delay biopsy of a clinically suspicious abnormality. [id number] Electronically Signed: Dino Mueller MD at 14:16 EST ,
== END | disposition home or self-care (01) ==
PROVIDERS: PCP Nurse Practitioner Family; Visit Provider Nurse Practitioner Family
DX: Z12.31 Encounter for screening mammogram for malignant neoplasm of breast (principal); R92.0 Mammographic microcalcification found on diagnostic imaging of breast; Z95.2 Presence of prosthetic heart valve
CPT/HCPCS: 77063; 77067; 93306

== ENCOUNTER → 2022-10-04 | Outpatient (CLI) | payer MEDICARE, OTHER, SELFPAY ==
[2022-10-04 12:43] LABS: Absolute Lymphocyte Count 2.14 X10^3/uL (0.83-4.51); Absolute Neutrophil Count 7.5 X10^3/uL (2.0-7.7); Basophil# 0.09 X10^3/uL; Basophil% 0.8 % (0-1); Eosinophil# 0.36 X10^3/uL; Eosinophils% 3.2 % (0-5); Hematocrit 37.9 % (37-47); Lymphocyte # 2.14 X10^3/ul (0.83-4.51); Lymphocyte % 18.9 % (19-41); Mean Corp Hgb Conc 31.7 g/dL (32-36); Mean Corpuscular Hgb 28.2 pg (27.0-32.0); Mean Platelet Vol. 11.9 fl (6.2-12.0); Monocyte# 1.22 X10^3/uL; Monocyte% 10.8 % (0-10); NRBC Flagged by Analyzer 0 % (0-5); Neutrophil # 7.47 X10^3/uL (2.7-7.7); Neutrophil % 65.8 % (47-70); Platelet Count 293 K/mm3 (150-450); RBC Distribution Width CV 17.1 % (11.6-14.6); RBC Distribution Width SD 55.6 fl (35.1-43.9); Red Blood Count 4.26 M/mm3 (4.2-5.4); White Blood Count 11.3 K/mm3 (4.4-11.0)
[2022-10-04 13:10] LABS: ALB/GLOB Ratio 1.1 RATIO (0.9-2.4); AST(SGOT) 20 U/L (15-37); Alanine Aminotransfer ALT/SGPT 27 U/L (13-56); Albumin, Serum 3.5 g/dL (3.2-5.0); Alkaline Phosphatase 66 U/L (45-117); Anion Gap 9 (5-15); BUN 22 mg/dL (7-18); BUN/Creat Ratio 25.5 RATIO (10-20); Calcium,Total 8.9 mg/dL (8.5-10.1); Chloride 103 mmol/L (98-107); Creatinine, Serum 0.86 mg/dL (0.55-1.02); EST Glomerular Filtration Rate 68 mL/min (>60); Est Glom Filt Rate - Afr Amer 82 mL/min (>60); Globulin 3.2 g/dL (2.2-4.2); Glucose 104 mg/dL (74-106); Potassium 4.5 mmol/L (3.5-5.1); Protein, Total 6.7 g/dL (6.4-8.2); Sodium Level 138 mmol/L (136-145)
== END | disposition home or self-care (01) ==
PROVIDERS: PCP Nurse Practitioner Family; Referring Provider Internal Medicine Pulmonary Disease; Visit Provider Internal Medicine Pulmonary Disease
DX: R05.9 Cough, unspecified (principal); R63.4 Abnormal weight loss
CPT/HCPCS: 80053; 85025; 87015; 87070; 87116; 87205; 87206

== ENCOUNTER → 2022-10-05 | Outpatient (CLI) | payer MEDICARE, OTHER, SELFPAY | END | disposition home or self-care (01) | LOC: LABSPEC 13:17 | PROVIDERS: PCP Nurse Practitioner Family; Referring Provider Internal Medicine Pulmonary Disease; Visit Provider Internal Medicine Pulmonary Disease | DX: R05.9 Cough, unspecified (principal) | CPT/HCPCS: 87015; 87070; 87116; 87205; 87206 ==

== ENCOUNTER → 2022-10-12 | Outpatient (CLI) | payer MEDICARE, OTHER, SELFPAY ==
--- NOTE | 2022-10-12 08:30 | BRBX_PTH ---
PATIENT: KARINA CHRISTINA LOC: [facility] U#:[id number] AGE/SX: 77/F ROOM: RE10/12/[address]: Dr. Becky Amaya MD : [id number] BED: DIS: 10/12/2022 SPEC #: [id number] RECD: 10/12/22 09:51 STATUS: DEVAN DAMARIS #: [id number] VANESSA: 10/12/22 08:[address]: Becky Amaya DEPT: SURGICAL PATHOLOGY RECD BY: Belkys Gonzalez ENTERED: 10/12/22 11:14 SP TYPE: BREAST BX OTHR DR: Karina Jack, PUBLIC SAFETY TELECOMMUNICATOR-C Tissues: A - Right breast, NOS B - Left breast, NOS Procedures: Surgery Specimen Level IV HEADER OPERATION: Bilateral breast stereotactic biopsy PRE-OP DIAGNOSIS: Bilateral inferior medial breast calcifications TISSUE SUBMITTED: A - Right breast lower quadrant microcalcifications, B ? Left breast lower quadrant micro-calcifications ISCHEMIC TIME: 2 minutes FIXATION TIME: 11 hours MICROSCOPIC DIAGNOSIS A. Right breast, lower outer quadrant, core biopsy: Densely collagenized tissue. Focal lobular involution. Focal Banal microcalcifications. B. Left breast, lower outer quadrant, core biopsy: Densely collagenized tissue. Focal lobular involution. Focal Banal microcalcifications. Minute fragment of unremarkable skin. AM:haroon 10/13/2022 MICROSCOPIC DESCRIPTION Slides are reviewed. GROSS DESCRIPTION A - Received in fixative is one container labeled with the patient's name and designated right breast. The specimen consists of multiple irregular and elongated fragments of owen-yellow soft tissue that in aggregate measure 5.5 x 3 x 0.2 cm. The specimen is totally submitted in two cassettes. B - Received in fixative is one container labeled with the patient's name and designated left breast. The specimen consists of multiple irregular and elongated fragments of owen-yellow soft tissue that in aggregate measure 5 x 2.5 x 0.2 cm. The specimen is totally submitted in two cassettes. / AM:haroon 10/12/2022 TC:5 CPT: 78312 x2
--- NOTE | 2022-10-12 10:01 | PCM.OPRPT ---
Report of Operation Date of Procedure: 10/12/22 Pre-Operative Diagnosis: Bilateral breast microcalcifications Post-Operative Diagnosis: Same Surgery/Procedure Performed:: Bilateral stereotactic biopsies Surgeon: Becky Amaya Type of Anesthesia: Local Specimen's removed: 1. Right breast microcalcifications inferior medial, #2 left breast microcalcifications inferior medial Estimated Blood Loss (mL): 10 cc Description of Procedure: Procedure: Bilateral stereotactic core biopsy Indications: 77year-old female with increased microcalcifications in the inferior medial of the bilateral breast. Risk benefits were discussed the patient and she elected to proceed with stereotactic core biopsy with clip placement Description of procedure: Both procedures were done similarly. Patient was brought into the mammography suite and laid prone on the stereotactic table. A timeout was completed verifying correct patient, procedure, site, specially, prior to beginning procedure. The appropriate breast was prepped and draped in usual sterile fashion and using local anesthesia was obtained with 1% lidocaine with epi. Patient's breast was positioned and placed into compression. Initial film showed calcifications are in the center of the compression paddle. 15? views were then taken. The calcifications were localized. The breast was prepped draped in usual sterile fashion. An 8-gauge mammotome was set up according to the digital coordinates. The tract of the mammotome was anesthetized with local anesthesia and an incision was made with the 11 blade scalpel at the entry site. The mammotome was advanced to the prefire state. Pre-prior films were checked and verified. The mammotome was fired. Post fire films were also checked and verified. Biopsies were taken from from 1:00 to 12:00 on the right and from 1:00 to 6:00 on the left. The specimen was x-rayed and good representation of the calcifications were within the specimen?right breast previous biopsy clip also removed and the specimen. HydroMark coil clip was placed at the 12 o'clock position bilaterally. The mammotome was removed from the breast. An additional films were taken which showed good representation calcifications were removed and a clip was in place. Pressure was held for hemostasis. Once hemostasis was assured the wound was dressed with Steri-Strips and OpSite. The patient tolerated the procedure well and was discharged from the mammography suite good condition. Complications none
== END | disposition home or self-care (01) ==
LOC: BIRAD 08:03
PROVIDERS: PCP Nurse Practitioner Family; Visit Provider Surgery
DX: R92.1 Mammographic calcification found on diagnostic imaging of breast (principal)
CPT/HCPCS: 19082; 19081; 88305; J7050

== ENCOUNTER 2022-10-17 12:32 | Emergency (ER) | payer MEDICARE, OTHER, SELFPAY ==
[2022-10-17 12:33] VITALS: BP 80/50; PULSE 136; RESP 16; TEMP 36.6; O2SAT 97
[2022-10-17 13:01] VITALS: BP 113/67; PULSE 114; RESP 19; O2SAT 95
[2022-10-17 13:07] VITALS: O2SAT 97
--- NOTE | 2022-10-17 13:12 | EKG12_ITS ---
Test Reason : Blood Pressure : / mmHG Vent. Rate : 117 BPM Atrial Rate : 117 BPM P-R Int : 164 ms QRS Dur : 080 ms QT Int : 332 ms P-R-T Axes : 058 024 070 degrees QTc Int : 463 ms Sinus tachycardia Poor R wave progression Confirmed by NEEMA WHATLEY, BOBBY ([id number]), general expeditor NIVIA CAO ([id number]) on 10/19/2022 8:57:48 AM Referred By: JALEN Confirmed By:BOBBY BETHEA MD
--- NOTE | 2022-10-17 13:12 | RAD_ITS ---
STUDY: X-RAY CHEST REASON FOR EXAM: Female, 77 years old. Chest pain, weight loss TECHNIQUE: PA and lateral views of the chest. COMPARISON: Comparison is made with prior study dated 08/24/2022. FINDINGS: EKG electrodes are seen. There is hyperinflation of the lungs consistent with chronic obstructive lung disease (COPD). Stable mild increased interstitial markings at the lung bases suggestive of scarring. There is no demonstrated pleural abnormality. Sternal cerclage wires are present from a prior sternotomy. The patient is status post mitral valve replacement. Normal mediastinum and michele. Normal visualized pulmonary arteries. Normal visualized aortic arch and descending thoracic aorta. There are diffuse degenerative changes of the visualized thoracic spine. Normal visualized ribs, clavicles, and shoulders. There is no demonstrated abnormality of the visualized soft tissue structures of the upper abdomen. RAD/Chest PA and Lateral IMPRESSION: Hyperinflation. Stable mild degree of increased interstitial markings at the lung bases suggestive of scarring. Status post mitral valve replacement. Electronically Signed: Dino Mueller MD at 13:59 EST ,
[2022-10-17 13:28] LABS: Absolute Lymphocyte Count 1.74 X10^3/uL (0.83-4.51); Absolute Neutrophil Count 5.8 X10^3/uL (2.0-7.7); Basophil# 0.07 X10^3/uL; Basophil% 0.8 % (0-1); Eosinophil# 0.25 X10^3/uL; Eosinophils% 2.8 % (0-5); Hematocrit 41.1 % (37-47); Hemoglobin 12.8 g/dL (12.0-15.0); Lymphocyte # 1.74 X10^3/ul (0.83-4.51); Lymphocyte % 19.4 % (19-41); Mean Corp Hgb Conc 31.1 g/dL (32-36); Mean Corpuscular Hgb 27.5 pg (27.0-32.0); Mean Corpuscular Volume 88.2 fL (81-99); Mean Platelet Vol. 11.7 fl (6.2-12.0); Monocyte# 1.03 X10^3/uL; Monocyte% 11.5 % (0-10); NRBC Flagged by Analyzer 0 % (0-5); Neutrophil # 5.84 X10^3/uL (2.7-7.7); Neutrophil % 64.9 % (47-70); Platelet Count 324 K/mm3 (150-450); RBC Distribution Width CV 16.3 % (11.6-14.6); RBC Distribution Width SD 53.2 fl (35.1-43.9); Red Blood Count 4.66 M/mm3 (4.2-5.4)
[2022-10-17 13:52] LABS: ALB/GLOB Ratio 0.9 RATIO (0.9-2.4); AST(SGOT) 27 U/L (15-37); Alanine Aminotransfer ALT/SGPT 35 U/L (13-56); Albumin, Serum 3.6 g/dL (3.2-5.0); Alkaline Phosphatase 73 U/L (45-117); Anion Gap 11 (5-15); BUN 24 mg/dL (7-18); BUN/Creat Ratio 20.9 RATIO (10-20); Calcium,Total 9.2 mg/dL (8.5-10.1); Chloride 100 mmol/L (98-107); Creatinine, Serum 1.15 mg/dL (0.55-1.02); EST Glomerular Filtration Rate 49 mL/min (>60); Est Glom Filt Rate - Afr Amer 59 mL/min (>60); Estimated Creatinine Clearance 34.87 ml/min; Glucose 80 mg/dL (74-106); Potassium 3.7 mmol/L (3.5-5.1); Protein, Total 7.6 g/dL (6.4-8.2); Sodium Level 136 mmol/L (136-145); Troponin-I HS 43 pg/mL (3.0-54.0)
--- NOTE | 2022-10-17 14:54 | EDS_ITS ---
HPI History of Present Illness Chief Complaint: Chest Pain Detail of Chief Complaint: Chest pain is fleeting over the past several days. And read HPI narrative Informant: patient and spouse/S.O. Onset/Context/Timing Onset: Days (Chest pain is been over the past several days.) and Month(s) (27 pound weight loss over the past 1 to 2 months, unintentional) Context: Sudden Onset (With regards to the chest pain) Timing: Intermittent (Seconds) Quality: Pain Location: Left-sided Current Severity: Gone Maximum Severity: Moderate Worsened by: Nothing Relieved by: Nothing Associated Symptoms Associated Symptoms: Unintentional weight loss Narrative Narrative: Patient is a 77-year-old woman with history of coronary disease, status post aortic and mitral valve replacement as well as single-vessel coronary bypass surgery. The valve and bypass surgery was at the [facility] September 2015. Patient does not know her EF. She denies change in color, consistency, caliber or frequency of stool. She had a colonoscopy performed by Dr. Diego Apodaca within the past 12 months. Records are not available through [facility]. She denies black or maroon-colored stool. She denies headache, visual, ocular auditory symptoms. She denies upper respiratory symptoms. She denies abdominal pain. She denies urologic symptoms. She states she has no appetite. Prior similar symptoms: No Recent Illness/Hospitalization: No PFSH PFS Medical History Asthma Atherosclerotic heart disease of [place] coronary artery without angina pectoris Chronic back pain Chronic diastolic heart failure COPD (chronic obstructive pulmonary disease) CVA (cerebral vascular accident) Essential (primary) hypertension Essential tremor GERD (gastroesophageal reflux disease) History of non-ST elevation myocardial infarction (NSTEMI) (09/19/18) Hyperlipidemia Hypothyroidism Microcalcification of right breast on mammogram Other secondary pulmonary hypertension Premature ventricular contractions 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 Home Medications levothyroxine 50 mcg tablet 50 mcg PO DAILY THYROID 02/25/14 [History Last Taken 06/28/18] magnesium oxide 250 mg PO BID SUPPLEMENT 11/23/15 [History Last Taken 06/27/18] albuterol sulfate 2.5 mg/3 mL (0.083 %) solution for nebulization 2.5 mg i nhalation BID PRN PRN Sob &/Or Wheezing 12/20/17 [History Last Taken 12/20/17] albuterol sulfate 90 mcg/actuation aerosol inhaler 2 puff IH BID 06/28/18 [History Last Taken 06/28/18] calcium carbonate 600 mg-vitamin D3 5 mcg (200 unit) tablet 1 tab PO BID 06/28/18 [History Last Taken 06/28/18] cholecalciferol (vitamin D3) 50 mcg (2,000 unit) capsule 2,000 unit PO DAILY 06/28/18 [History Last Taken 06/28/18] L.acidoph, paracasei,B. lactis 10 billion cell capsule 1 ea PO Stomach health 09/19/18 [History Last Taken 09/19/18] oxycodone-acetaminophen 5 mg-325 mg tablet 1 tab PO Q6H PRN PRN Pain 09/19/18 [History Last Taken Unknown] fluoxetine 20 mg capsule (Prozac) 40 mg PO QDAY 12/19/18 [History Last Taken Unknown] aspirin 81 mg tablet,delayed release (Adult Low Dose Aspirin) 162 mg PO DAILY 0 01/05/21 [History Last Taken Unknown] budesonide 1 mg/2 mL suspension for nebulization 1 mg inhalation BID 01/05/21 [History Last Taken Unknown] fluticasone furoate 200 mcg-vilanterol 25 mcg/dose inhalation powder 1 ea inhalation DAILY COPD 30 days ##60 01/05/21 [History Last Taken Unknown] omeprazole 20 mg capsule,delayed release 20 mg PO DAILY 01/05/21 [History Last Taken Unknown] roflumilast 250 mcg tablet 250 mcg PO DAILY 01/05/21 [History Last Taken Unknown] tiotropium bromide 18 mcg capsule with inhalation device 18 mcg inhalation DAILY COPD 01/05/21 [History Last Taken Unknown] guaifenesin 1,200 mg tablet, extended release 12 hr 1,200 mg PO BID PRN 07/01/21 [History Last Taken Unknown] primidone 50 mg tablet 50 mg PO BID 07/01/21 [History Last Taken Unknown] diltiazem HCl 120 mg capsule,extended release 24 hr 120 mg PO DAILY #90 caps 01/06/22 [Rx Last Taken Unknown] diltiazem HCl 240 mg capsule,extended release 24 hr 240 mg PO DAILY #90 caps 02/14/22 [Rx Last Taken Unknown] omeprazole 40 mg capsule,delayed release 40 mg PO QDAY #30 caps 10/07/22 [Rx Last Taken Unknown] furosemide 20 mg tablet 40 mg PO DAILY edema #30 tabs 10/14/22 [Rx Last Taken Unknown] Allergy/AdvReac Type Severity Reaction Status Date / Time levofloxacin [From Levaquin] Allergy Itching/debi Verified 10/17/22 12:36 h clopidogrel [From Plavix] AdvReac Intermediate Blood Verified 10/17/22 12:36 Blisters animal dander AdvReac NEEDS Verified 10/17/22 12:36 FOLLOW-UP atorvastatin calcium AdvReac muscle Verified 10/17/22 12:36 [From Lipitor] pains Beta-Blockers AdvReac Other Verified 10/17/22 12:36 (Beta-Adrenergic Bloc pollen extracts AdvReac NEEDS Verified 10/17/22 12:36 FOLLOW-UP Family History Father , age 65 CAD (coronary artery disease) Arthritis Heart disease Hypertension Mother , valve replacement Asthma Arthritis Heart disease Hypertension Thyroid disorder Daughter Autoimmune disease Other Family history of ischemic heart disease Surgical History H/O coronary artery bypass surgery (10/14/15) H/O mitral valve replacement (10/14/15) History of aortic valve replacement (10/14/15) History of coronary artery stent placement (12/03/13) History of left heart catheterization (07/20/15) History of left hip replacement Hx of colonoscopy Hx of foot surgery Hx of tonsillectomy Social History Smoking Status: Never smoker how long ago did patient quit smokin alcohol intake: current alcohol intake frequency: a few times a month Alcohol type: wine substance use type: does not use caffeine: Yes Type: carbonated beverages and coffee what type of physical activity do you participate in: walking frequency: 1-2 times per week duration: 30-45 minutes/day seatbelt use: always do you feel safe at home: Yes ROS ROS ED Constitutional Constitutional ED: Reports weight loss; Denies chills, fever(s), subjective or sweats Eyes Eyes: Denies blurry vision, change in vision or diplopia ENT ENT ED: Denies ear pain, rhinorrhea or sore throat Cardiovascular Cardiovascular: Reports chest pain; Denies orthopnea, palpitations, paroxysmal nocturnal dyspnea or racing heartbeat Respiratory/Chest Respiratory/Chest: Denies cough, dyspnea, dyspnea on exertion, orthopnea or paroxysmal nocturnal dyspnea Gastrointestinal Gastrointestinal: Denies abdominal pain, constipation, diarrhea, melena, nausea or vomiting Genitourinary Genitourinary ED: Denies dysuria, hematuria or urinary frequency Musculoskeletal Musculoskeletal: Denies arthralgias, back pain, myalgias or neck pain Integumentary Denies abscess, Abrasions or rash Neurologic Neurologic: Reports weakness; Denies headache(s) or paresthesias Psychiatric Psychiatric: Denies anxiety Endocrine Endocrinology: Denies cold intolerance or heat intolerance Hematologic/Lymphatic Hematologic/Lymphatic: Reports systems reviewed and no addt'l complaints, except as documented EXAM Physical Exam Const Vital Signs: 10/17/22 12:33 10/17/22 13:01 10/17/22 13:07 Temperature 97.9 F Temperature Source Temporal Pulse Rate 136 H 114 H Respiratory Rate 16 19 H Blood Pressure 80/50 L 113/67 Blood Pressure Mean 60 82 Pulse Ox 97 95 97 Oxygen Delivery Method Room Air Room Air Room Air Positive well nourished and well developed General Appearance ED: well developed and NAD; Negative for cyanotic or pallor HEENT HEENT Narrative: Head is atraumatic normocephalic. Ears normal. Nares patent. Uvula midline. No deviation with protrusion. No erythema or exudate the posterior pharynx. Eyes PERRL and EOMs intact bilaterally General Eye ED: Negative for pale conjunctiva or scleral icterus Neck no lymphadenopathy, supple and no JVD Neck Narrative: Trachea is midline. There is no cervical lymphadenopathy. Chest Wall palpation of chest normal; Negative for inspection of chest normal Chest Narrative: Midsternotomy scar noted. Scars well-healed. Resp normal respiratory effort and clear to auscultation bilaterally Cardio regular rhythm, S1 normal heart sound, S2 normal heart sound and no murmurs Rate: tachycardic GI normal to inspection, nondistended, normoactive bowel sounds, non-tender, non- distended and no masses; Negative for hepatosplenomegaly Back/Spine no CVA tenderness Cervical Spine: Negative for cervical spine tenderness Thoracic Spine / Upper Back: Negative for thoracic spinal tenderness Lumbar Spine / Lower Back: Negative for lumbar spinal tenderness Extremity normal to inspection General Extremety ED: Negative for edema or tenderness General Extremity: Negative for edema Neuro oriented x3, CN's II-XII intact bilaterally and no sensory deficits noted Sensorium / Orientation: alert Motor Exam: strength 5/5 throughout Psych mental status grossly normal Mood & Affect: Negative for depressed or anxious Skin no rashes or lesions noted, no wounds and No skin turgor normal General Skin Exam: Negative for jaundice or pallor MDM MDM MDM Narrative Medical decision making narrative: KG was obtained per nurse protocol and reveals a sinus tachycardia. Since this is fleeting chest discomfort unlikely this is cardiac. There is greater concern for unintentional weight loss. Will obtain chest x-ray to assess for any mass. CBC to evaluate for anemia. Competence metabolic panel to determine if there is any elevation of the liver enzymes, calcium, alkaline phosphatase. Doubt colonic etiology since patient had a recent colonoscopy by Dr. Diego Apodaca. Mammogram from outside facility performed October 04, 2022 was reviewed. Patient had microcalcification lower quadrants both breast. She was referred to Dr. Dave Castellano. We will determine if she is seeing Dr. Guerrero for biopsy. This may explain her 25 pound weight loss. Of note on the mammogram note the physician/alter documented to 2.5 pound weight loss. We will need to clarify. Patient states she is lost 25 pounds. The path report for breast biopsy was negative for malignancy. In light of this we will have patient follow-up with her primary care physician for unintentional weight loss. She is also been seen by Dr. Dave Pickard from a pulmonary standpoint. Lab Data Attestation: I reviewed the patient's lab results. Lab results narrative: CBC is unremarkable. Comprehensive metabolic panel for slight elevation in creatinine of 1.15 with a GFR of 49. BUN/creatinine ratio is 20.9-1. Calcium, alkaline phosphatase and liver enzymes. Labs: Laboratory Results - last 24 hr 10/17/22 10/17/22 12:55 12:55 WBC 9.0 RBC 4.66 Hgb 12.8 Hct 41.1 MCV 88.2 MCH 27.5 MCHC 31.1 L RDW Std Deviation 53.2 H RDW Coeff of Juaquin 16.3 H Plt Count 324 MPV 11.7 Immature Gran % (Auto) 0.600 Neut % (Auto) 64.9 Lymph % (Auto) 19.4 [place] % (Auto) 11.5 H Eos % (Auto) 2.8 Baso % (Auto) 0.8 Absolute Neuts (auto) 5.8 Absolute Lymphs (auto) 1.74 Nucleated RBC % 0 Sodium 136 Potassium 3.7 Chloride 100 Carbon Dioxide 25.0 Anion Gap 11 BUN 24 H Creatinine 1.15 H Estim Creat Clear Calc 34.87 Est GFR (MDRD) Af Amer 59 L Est GFR (MDRD) Non-Af 49 L BUN/Creatinine Ratio 20.9 H Glucose 80 Calcium 9.2 Total Bilirubin 0.30 AST 27 ALT 35 Alkaline Phosphatase 73 Troponin I High Sens 43 Total Protein 7.6 Albumin 3.6 Globulin 4.0 Albumin/Globulin Ratio 0.9 Radiography Chest X-Ray - ED: 2 View and Read by ED Physician (Chronic changes with hyper aeration. Question of atelectasis at the bases. Cardiac silhouette and size unremarkable. Perihilar region unremarkable. Osseous structures are unremarkable. This was independently reviewed and interpreted by.) Diagnostic Testing: Clinical Impression(s) from Imaging Studies Chest X-Ray 10/17/22 13:12 IMPRESSION: Hyperinflation. Stable mild degree of increased interstitial markings at the lung bases suggestive of scarring. Status post mitral valve replacement. Electronically Signed: Dino Mueller MD at 13:59 EST Reading Location ID and State: [facility] / [place] , Service support , Discharge Plan Triage Chief Complaint: Chest Pain ED Provider: Richi Parker Dx/Rx/DC Orders Clinical Impression: Fatigue, Atherosclerotic heart disease of [place] coronary artery without angina pectoris, Essential (primary) hypertension, Hyperlipidemia, Weight loss, non- intentional, Left-sided chest pain Instructions: ED Chest Pain, Noncardiac, ED Weakness (Uncertain Cause) Prescriptions: No Action fluticasone furoate-vilanterol 200-25 mcg/dose blister with device 1 ea INHALATION DAILY 30 Days Qty: 60 Label Comments: INHALE 1 PUFF EVERY DAY fluoxetine [Prozac] 20 mg capsule 40 mg PO QDAY primidone 50 mg tablet 50 mg PO BID Rx Instructions: 50mg in AM, 100mg at night budesonide 1 mg/2 mL suspension for nebulization 1 mg INHALATION BID Label Comments: INHALE 1 VIAL PER NEBULIZER TWICE DAILY aspirin [Adult Low Dose Aspirin] 81 mg tablet,delayed release (DR/EC) 162 mg PO DAILY omeprazole 20 mg capsule,delayed release(DR/EC) 20 mg PO DAILY roflumilast 250 mcg tablet 250 mcg PO DAILY Label Comments: TAKE 1 TABLET BY MOUTH EVERY DAY diltiazem HCl 120 mg capsule,extended release 24hr 120 mg PO DAILY Qty: 90 3RF guaifenesin 1,200 mg tablet extended release 12hr 1,200 mg PO BID PRN omeprazole 40 mg capsule,delayed release(DR/EC) 40 mg PO QDAY Qty: 30 4RF Rx Instructions: swallow whole; do not crush, chew, dissolve, cut, break levothyroxine 50 MCG tablet 50 mcg PO DAILY Label Comments: thyroid tiotropium bromide 18 mcg capsule, w/inhalation device 18 mcg INHALATION DAILY Label Comments: copd magnesium oxide 250 MG tablet 250 mg PO BID albuterol sulfate 2.5 MG/3 ML solution for nebulization 2.5 mg INHALATION BID PRN PRN (Reason: Sob &/Or Wheezing) cholecalciferol (vitamin D3) 2,000 UNIT capsule 2,000 unit PO DAILY calcium carbonate-vitamin D3 1 EACH tablet 1 tab PO BID albuterol sulfate 8.5 GM HFA aerosol inhaler 2 puff IH BID L.acidoph, paracasei,B. lactis 1 EACH capsule 1 ea PO oxycodone-acetaminophen 1 TABLET tablet 1 tab PO Q6H PRN PRN (Reason: Pain) diltiazem HCl 240 mg capsule,extended release 24hr 240 mg PO DAILY Qty: 90 5RF furosemide 20 mg tablet 40 mg PO DAILY Qty: 30 3RF Primary Care Provider: Yulia Jack Referrals: Yulia Jack, POONAM-C [Primary Care Provider] - 5-7 Days Disposition Disposition: Home, Self Care
[2022-10-17 15:15] VITALS: BP 120/73; PULSE 110; RESP 17; O2SAT 95
[2022-10-17 15:47] VITALS: BP 116/63; PULSE 110; RESP 17; O2SAT 95
== END 2022-10-17 15:48 | disposition home or self-care (01) ==
PROVIDERS: Emergency Provider Emergency Medicine; PCP Nurse Practitioner Family; Visit Provider Emergency Medicine
DX: R07.89 Other chest pain (principal); J44.9 Chronic obstructive pulmonary disease, unspecified; I11.0 Hypertensive heart disease with heart failure; I50.32 Chronic diastolic (congestive) heart failure; I25.10 Atherosclerotic heart disease of native coronary artery without angina pectoris; Z95.2 Presence of prosthetic heart valve; E78.5 Hyperlipidemia, unspecified; R63.4 Abnormal weight loss
CPT/HCPCS: 71046; 80048; 80053; 84484; 85025; 93005; 99284; A4216

== ENCOUNTER → 2022-10-19 | Outpatient (CLI) | payer MEDICARE, OTHER, SELFPAY ==
--- NOTE | 2022-10-19 16:01 | CT_ITS ---
STUDY: CT CHEST, ABDOMEN T PELVIS WITH CONTRAST REASON FOR EXAM: Female, 77 years old. Chest pain. Weight loss. RADIATION DOSAGE (If Supplied By Facility): CTDIvol = ( 8.91 ) mGy, DLP = ( 650.68 ) mGycm TECHNIQUE: Transaxial imaging was performed following intravenous administration of 100 mL of Isovue-300. Oral contrast was also utilized. Individualized dose optimization techniques were used for this CT. COMPARISON: Chest, October 17, 2022. CTA of the chest, February 09, 2018. FINDINGS: CHEST The lungs are normal. There is no demonstrated pleural abnormality. Sternal cerclage wires are present from a prior sternotomy. The heart is normal in size. There is evidence of aortic and mitral valve replacement. Mild coronary artery calcifications. Nonspecific subcentimeter mediastinal lymphadenopathy. Normal hilar regions. Normal unenhanced pulmonary arteries. Normal aorta arch and descending thoracic aorta. There are multi-level degenerative changes of the thoracic spine. ABDOMEN There are small cysts in segment 3. Otherwise normal liver. No enhancing mass. Normal gallbladder and extrahepatic biliary system. Normal spleen. Normal pancreas. Normal bilateral adrenal glands. Upper pole right renal cyst. Normal left kidney. Normal visualized ureters. Stomach is poorly distended but grossly normal. Normal small intestine. Normal colon. There are surgical clips in the region of the appendix consistent with a prior appendectomy. There is diffuse atherosclerotic calcification of the abdominal aorta with elongation and tortuosity, but without a demonstrated aneurysm. Normal inferior vena cava. Normal retroperitoneum. PELVIS Normal urinary bladder. Normal uterus and adnexa. There is no pelvic fluid. No free air. There is no pelvic lymphadenopathy or mass lesion. Normal visualized pelvic arteries. Normal abdominal wall. Left hip replacement. Degenerative changes of the lumbar spine. There is slight anterolisthesis of L4 on L5 without pars defect. CT/CT Chest, Abd, Pel w/Contrast IMPRESSION: 1. No acute pulmonary disease. 2. Evidence of median sternotomy with aortic and mitral valve replacement. 3. Hepatic and right renal cysts. 4. No evidence of acute intra-abdominal or pelvic process. 5. Degenerative changes of the lumbar spine. 6. Left hip replacement. Electronically Signed: Hector Alberts DO at 18:25 EST ,
== END | disposition home or self-care (01) ==
LOC: CT 15:59
PROVIDERS: PCP Nurse Practitioner Family; Referring Provider Nurse Practitioner Family; Visit Provider Nurse Practitioner Family
DX: R63.4 Abnormal weight loss (principal); R11.0 Nausea; R07.9 Chest pain, unspecified
CPT/HCPCS: 71260; 74177; Q9967

== ENCOUNTER → 2022-10-21 | Outpatient (CLI) | payer MEDICARE, OTHER, SELFPAY ==
--- NOTE | 2022-10-21 09:50 | RAD_ITS ---
EXAMINATION: Air-contrast upper GI series. INDICATION: Female, 77 years 3 month history of unexplained weight loss. FLUOROSCOPY TIME (if supplied): (1:23) minutes/seconds. 33 images were obtained. TECHNIQUE: Radiographic and fluoroscopic images of the distal esophagus, stomach, and proximal small intestine were obtained following the oral ingestion of barium. COMPARISON: None. FINDINGS: There is no evidence for organomegaly, abnormal calcifications, or abnormal bowel gas pattern. The psoas margins and flank stripes are normal. Degenerative changes of the thoracic spine. There is a small Zenker''s diverticulum at the origin of the esophagus. Tertiary contractions of the mid and distal esophagus. No evidence of obstruction. No evidence of gastroesophageal reflux. The stomach and duodenum are unremarkable. RAD/Upper GI Dual Contrast IMPRESSION: 1. There is a small Zenker''s diverticulum at the origin of the esophagus. 2. Tertiary contractions of the mid and distal esophagus. Electronically Signed: Dino Mueller MD at 10:45 EST ,
[2022-10-21 11:01] LABS: Absolute Lymphocyte Count 2.39 X10^3/uL (0.83-4.51); Absolute Neutrophil Count 4.9 X10^3/uL (2.0-7.7); Basophil# 0.11 X10^3/uL; Basophil% 1.2 % (0-1); Eosinophils% 5.5 % (0-5); Hemoglobin 11.6 g/dL (12.0-15.0); Lymphocyte # 2.39 X10^3/ul (0.83-4.51); Lymphocyte % 26.4 % (19-41); Mean Corp Hgb Conc 30.5 g/dL (32-36); Mean Corpuscular Hgb 27.4 pg (27.0-32.0); Mean Corpuscular Volume 89.8 fL (81-99); Mean Platelet Vol. 11.9 fl (6.2-12.0); Monocyte# 1.15 X10^3/uL; Monocyte% 12.7 % (0-10); NRBC Flagged by Analyzer 0 % (0-5); Neutrophil # 4.87 X10^3/uL (2.7-7.7); Neutrophil % 53.6 % (47-70); Platelet Count 281 K/mm3 (150-450); RBC Distribution Width CV 16.3 % (11.6-14.6); RBC Distribution Width SD 53.6 fl (35.1-43.9); Red Blood Count 4.23 M/mm3 (4.2-5.4); White Blood Count 9.1 K/mm3 (4.4-11.0)
[2022-10-21 11:25] LABS: Anion Gap 9 (5-15); BUN 20 mg/dL (7-18); BUN/Creat Ratio 20.9 RATIO (10-20); Calcium,Total 8.7 mg/dL (8.5-10.1); Chloride 101 mmol/L (98-107); Creatinine, Serum 0.96 mg/dL (0.55-1.02); EST Glomerular Filtration Rate 60 mL/min (>60); Est Glom Filt Rate - Afr Amer 73 mL/min (>60); Glucose 107 mg/dL (74-106); Potassium 3.4 mmol/L (3.5-5.1); Sodium Level 139 mmol/L (136-145)
[2022-10-21 11:34] LABS: CRP, High Sensitivity Cardiac 6.46 mg/L
[2022-10-21 12:11] LABS: Erythrocyte Sedimentation Rate 20 mm/hr (0-30)
== END | disposition home or self-care (01) ==
PROVIDERS: Internal Medicine Cardiovascular Disease; Nurse Practitioner Gerontology; PCP Nurse Practitioner Family; Referring Provider Nurse Practitioner Family; Visit Provider Nurse Practitioner Family
DX: R63.4 Abnormal weight loss (principal); I50.32 Chronic diastolic (congestive) heart failure; R07.9 Chest pain, unspecified; R53.83 Other fatigue; R06.02 Shortness of breath; Z95.2 Presence of prosthetic heart valve
CPT/HCPCS: 36415; 74246; 80048; 83880; 85025; 85652; 86141

== ENCOUNTER → 2022-10-25 | Outpatient (CLI) | payer MEDICARE, OTHER, SELFPAY | END | disposition home or self-care (01) | LOC: MTLAB 15:32 | PROVIDERS: PCP Nurse Practitioner Family; Referring Provider Internal Medicine Pulmonary Disease; Visit Provider Internal Medicine Pulmonary Disease | DX: R05.9 Cough, unspecified (principal) | CPT/HCPCS: 87070; 87205 ==

== ENCOUNTER → 2022-10-31 | Outpatient (CLI) | payer MEDICARE, OTHER, SELFPAY ==
[2022-10-31 17:22] LABS: Anion Gap 10 (5-15); BUN 18 mg/dL (7-18); BUN/Creat Ratio 17.8 RATIO (10-20); Calcium,Total 8.7 mg/dL (8.5-10.1); Chloride 100 mmol/L (98-107); Creatinine, Serum 1.01 mg/dL (0.55-1.02); EST Glomerular Filtration Rate 57 mL/min (>60); Est Glom Filt Rate - Afr Amer 69 mL/min (>60); Glucose 100 mg/dL (74-106); Potassium 3.7 mmol/L (3.5-5.1); Sodium Level 136 mmol/L (136-145)
== END | disposition home or self-care (01) ==
LOC: LAB 15:59
PROVIDERS: PCP Nurse Practitioner Family; Referring Provider Nurse Practitioner Gerontology; Visit Provider Nurse Practitioner Gerontology
DX: I10 Essential (primary) hypertension (principal)
CPT/HCPCS: 36415; 80048

== ENCOUNTER → 2022-11-08 | Outpatient (CLI) | payer MEDICARE, OTHER, SELFPAY ==
--- NOTE | 2022-11-08 17:31 | STRESSREP ---
Stress Test Report Pharmacologic myocardial perfusion stress test. 77-year-old lady with a history of coronary artery disease and presenting with chest pain and chest tightness. Resting EKG demonstrates sinus rhythm with a rate of 88 bpm. Resting blood pressure is 112/66 mmHg. 0.4 mg of regadenoson was infused per usual protocol followed by rapid intravenous saline flush injection. Continuous EKG monitoring was performed. The maximum heart rate was 102 bpm which was 70% of max impacted heart rate the maximum workload was 1 metabolic equivalent. At rest there were no ST or T wave changes noted to suggest ischemia and at peak infusion nonspecific ST changes were noted which did not meet the criteria for ischemia. No clinical angina is noted. The final blood pressure was 110/62 mmHg. Myocardial perfusion protocol. 11.1 mCi of technetium 99m sestamibi was injected at rest. 0.4 mg of regadenoson was infused per usual protocol. At peak infusion 32.6 mCi of technetium 99m sestamibi was injected stress images were obtained stress and rest images were reconstructed and compared in the short axis vertical long and horizontal long axis. Gated images were also obtained. Perfusion SPECT analysis: Review of the stress images demonstrate normal uptake of tracer noted in all areas of the myocardium except for small portion of the anterolateral wall with reduced perfusion. The resting images similar demonstrated near normal uptake of tracer noted in all areas of the myocardium. The above is suggestive of mild reversible ischemia in the anterolateral wall. Gated SPECT analysis: The gated ejection fraction is 70%. Conclusion: Abnormal pharmacologic myocardial perfusion stress test with mild anterolateral ischemia. Preserved ejection fraction.
== END | disposition home or self-care (01) ==
LOC: CVS 06:32
PROVIDERS: PCP Nurse Practitioner Family; Visit Provider Nurse Practitioner Gerontology
DX: R07.9 Chest pain, unspecified (principal); Z95.1 Presence of aortocoronary bypass graft
CPT/HCPCS: 78452; 93017; A9500; A4216; J2785

== ENCOUNTER 2022-11-14 08:00 | Day surgery (SDC) | payer MEDICARE, OTHER, SELFPAY ==
[2022-11-10 11:38] VITALS: BMI 20.5
--- NOTE | 2022-11-14 10:15 | ECHOTEE_ITS ---
Reason For Study: Valve Replacement Eval Medication POR probe 6VT-D (SN [id number]) passed without difficulty. No complications were noted. Cetacaine Topical Jasper given X3 orally. Versed 1 mg given slow IVP. Fentanyl 50 mcg given slow IVP. Performed a rapid injection of agitated mix of 9 cc saline and 1cc air to assess for atrial septal defect. Left Ventricle Normal LV size. Left ventricular systolic function is normal. The estimated ejection fraction is 60 %. No regional wall motion abnormalities noted. Right Ventricle Normal RV size. Normal systolic function. Atria Normal atrial septum. Intact atrial septum. Normal left atrium. No thrombus is detected in the left atrial appendage. Normal right atrium. Mitral Valve Status post mitral valve repair with annuloplasty ring. Tricuspid Valve Normal tricuspid valve. Aortic Valve Bioprosthetic aortic valve functioning normally. Pulmonic Valve Normal pulmonic valve. Vessels Normal aortic root. Normal arch. The pulmonary artery is normal size. Pericardium No pericardial effusion. ECHO/Echo Transesophageal (PRO) Interpretation Summary Normal LV size. Left ventricular systolic function is normal. The estimated ejection fraction is 60 %. Status post mitral valve repair with annuloplasty ring. Bioprosthetic aortic valve functioning normally. Ordering Physician: Mary Schmid Referring Physician: Yulia Jack Performed By: Narcisa Drake, KEIRY, RVT
--- NOTE | 2022-11-14 12:21 | CL.D_ITS ---
Patient Name: KARINA CHRISTINA Study Date: 11/14/2022 Performing: Abdi Acosta MD Ht: 64 inches 162.56 cm : 1945 Wt: 120.2 lbs 54.43 kg Age: 77 Gender: female BSA: 1.57 PROCEDURE(S) PERFORMED [id number])[facility] CLINICAL PROFILE AND INDICATIONS Indications: Suspected CAD Heart Failure: None CONCLUSIONS Nonobstructive coronary artery disease with mild LAD and mild left main disease and a patent saphenous vein graft to the right coronary artery Stable mitral valve apparatus status post repair and stable aortic valve operative status postrepair RECOMMENDATIONS Medical therapy DESCRIPTION OF PROCEDURE The patient arrived to the procedure lab. The risks and benefits of the procedure as well as a full description of our services here and current unavailability of surgical backup were fully explained to the patient and/or their significant other prior to the catheterization. The Timeout was completed, verifying the correct patient and procedure. The patient's procedural site was prepped and draped in the usual fashion. Local anesthetic was given subcutaneously to right radial region with Lidocaine 2%. Using a modified Seldinger technique, arterial access was obtained via the right radial artery, a 6Fr sheath was inserted. Left Coronary Artery selective angiography was performed in multiple views using a 5 Fr. JL3.5 catheter. Right Coronary Artery selective angiography was then performed in multiple views using a 5 Fr. JR 5 catheter. Saphenous Vein graft to the RCA selective angiography was performed in multiple views using a 5 Fr. JR 5 catheter.The arterial sheath was pulled and a TR Band was applied for hemostasis CORONARY ANGIOGRAPHY DOMINANCE: Right Dominant LEFT HEART ASSESSMENT Left Ventricular Ejection Fraction: by Echo 60 % Normal Left Ventricular systolic function LEFT MAIN: Distal 30 mg LEFT ANTERIOR DESCENDING ARTERY: Mild proximal disease and mild mid segment disease and mild diffuse distal disease CIRCUMFLEX ARTERY: No significant disease noted RIGHT CORONARY ARTERY: Not imaged GRAFTS: Saphenous Vein graft to the RPDA is patent VALVE FINDINGS: Aortic Valve Post TAVR - Normal valve function Status post mitral valve repair and stable COMPLICATIONS No Complications PROCEDURE MEDICATIONS Versed .5 mg IV Oxygen: 2 L/min via nasal cannula Heparin given IA 11/14/2022 11:35:00 Verapamil 2.5mg, 3000 units of Heparin given IA 11/14/2022 11:35:00 SUMMARY OF HEMODYNAMIC DATA Time AIR REST ECG 11:13:27 AO 110/42 (69) SA 11:36:08 Signed By Abdi Acosta MD On 11/14/2022 12:20:13 Abdi Acosta MD
== END 2022-11-14 16:15 | disposition home or self-care (01) ==
LOC: CVS 08:00
PROVIDERS: PCP Nurse Practitioner Family; Visit Provider Internal Medicine Cardiovascular Disease
DX: I25.10 Atherosclerotic heart disease of native coronary artery without angina pectoris (principal); J44.9 Chronic obstructive pulmonary disease, unspecified; I27.20 Pulmonary hypertension, unspecified; I11.0 Hypertensive heart disease with heart failure; I50.32 Chronic diastolic (congestive) heart failure; R00.0 Tachycardia, unspecified; K21.9 Gastro-esophageal reflux disease without esophagitis; Z79.82 Long term (current) use of aspirin; Z79.890 Hormone replacement therapy; Z79.899 Other long term (current) drug therapy; I25.2 Old myocardial infarction; Z95.1 Presence of aortocoronary bypass graft; Z95.3 Presence of xenogenic heart valve; Z86.73 Personal history of transient ischemic attack (TIA), and cerebral infarction without residual deficits
CPT/HCPCS: 87811; 93312; 93320; 93325; 93454; 99152; 99153; C9803; J7040; Q9967; A4216; C1769; C1894

== ENCOUNTER → 2023-01-18 | Outpatient (CLI) | payer MEDICARE, OTHER, SELFPAY | END | disposition home or self-care (01) | LOC: LABSPEC 15:57 | PROVIDERS: PCP Nurse Practitioner Family; Referring Provider Internal Medicine Pulmonary Disease; Visit Provider Internal Medicine Pulmonary Disease | DX: J47.9 Bronchiectasis, uncomplicated (principal); R06.02 Shortness of breath | CPT/HCPCS: 87015; 87116; 87206 ==

== ENCOUNTER → 2023-11-21 | Outpatient (CLI) | payer MEDICARE, OTHER, SELFPAY ==
--- NOTE | 2023-11-21 12:48 | ECHOD_ITS ---
Reason For Study: CHF Procedure This was a 2D Doppler, Color Flow transthoracic echocardiogram. The study was technically difficult. Exam performed in department. Left Ventricle Normal LV size. Left ventricular systolic function is normal. The estimated ejection fraction is 55 %. No regional wall motion abnormalities noted. Right Ventricle Normal RV size. Normal systolic function. Atria Normal left atrium. Normal right atrium. Mitral Valve Peak transmitral valve gradient 13.6 mmHg. Mean transmitral valve gradient 7.6 mmHg. Bioprosthetic mitral valve. Tricuspid Valve Normal tricuspid valve. Mild to moderate (1-2+) tricuspid valve insufficiency. Pulmonary artery systolic pressure is 54 mmHg. Aortic Valve Peak aortic valve gradient 73 mmHg. Mean aortic valve gradient 48 mmHg. Mild (1+) aortic valve insufficiency. Bioprosthetic aortic valve. Pulmonic Valve Normal pulmonic valve. Great Vessels Normal aortic root. The pulmonary artery is normal size. Normal inferior vena cava. Pericardium/Pleural No pericardial effusion. MMode/2D Measurements & Calculations LVIDd: 3.6 cm IVSd: 1.1 cm LVOT diam: 1.9 cm LVIDs: 2.3 cm LVPWd: 1.1 cm LVOT area: 2.9 cm2 RVDd: 2.3 cm FS: 36.3 % LAV(MOD-bp): 40.8 ml LVAd ap4: 17.8 cm2 LVAd ap2: 18.6 cm2 LAV(MOD-bp) Indexed: 25.6 ml/m2 LVLd ap4: 5.5 cm LVLd ap2: 5.6 cm LAV(MOD-sp2): 41.7 ml EDV(MOD-sp4): 47.6 ml EDV(MOD-sp2): 51.8 ml LAV(MOD-sp4): 40.3 ml EDV(sp4-el): 48.8 ml EDV(sp2-el): 52.6 ml LVAs ap4: 10.8 cm2 LVAs ap2: 11.2 cm2 LVLs ap4: 4.9 cm LVLs ap2: 5.1 cm ESV(MOD-sp4): 20.0 ml ESV(MOD-sp2): 21.5 ml ESV(sp4-el): 20.2 ml ESV(sp2-el): 21.0 ml EF(MOD-sp4): 58.0 % EF(MOD-sp2): 58.5 % EF(sp4-el): 58.5 % SV(MOD-sp4): 27.6 ml SV(MOD-sp2): 30.3 ml SV(sp4-el): 28.5 ml TAPSE: 1.5 cm LA A4 area: 14.7 cm2 RA A4 area: 8.1 cm2 Time Measurements MV dec time: 0.33 sec Doppler Measurements & Calculations MV E max phill: 154.0 cm/sec Lat Peak E' Phill: 4.9 cm/sec Med Peak E' Phill: 4.3 cm/sec MV A max phill: 166.9 cm/sec E/E' lat: 31.5 E/E' med: 36.0 MV E/A: 0.92 MV V2 max: 185.3 cm/sec MV P1/2t max phill: 168.4 cm/sec Ao V2 max: 428.6 cm/sec MV max P.8 mmHg MV P1/2t: 58.4 msec Ao max P.5 mmHg MV V2 mean: 133.5 cm/sec MV dec slope: 844.4 cm/sec2 Ao V2 mean: 331.2 cm/sec MV mean P.6 mmHg Ao mean P.9 mmHg MV V2 VTI: 36.4 cm MVA(P1/2t): 3.8 cm2 Ao V2 VTI: 85.4 cm MVA(VTI): 2.8 cm2 AV (velocity ratio): 0.42 YORDY(I,D): 1.2 cm2 YORDY(V,D): 1.1 cm2 AI max phill: 366.8 cm/sec LV V1 max: 162.3 cm/sec SV(LVOT): 103.7 ml AI max P.0 mmHg LV V1 max P.5 mmHg AI dec slope: 408.2 cm/sec2 LV V1 mean P.8 mmHg AI P1/2t: 263.2 msec LV V1 mean: 112.9 cm/sec LV V1 VTI: 35.5 cm PA V2 max: 86.1 cm/sec TR max phill: 353.1 cm/sec PA V2 mean: 60.6 cm/sec TR max P.9 mmHg ECHO/Echo Complete Interpretation Summary Normal LV size. Left ventricular systolic function is normal. The estimated ejection fraction is 55 %. No regional wall motion abnormalities noted. Mean aortic valve gradient 48 mmHg. Mean transmitral valve gradient 7.6 mmHg. Bioprosthetic aortic and mitral valves both with increased gradients. The aorti c valve gradient appears to be much worse, compared to a year ago. Ordering Physician: Abdi Acosta Referring Physician: Yulia Jack Performed By: Gisele Dietrich, KEIRY, RVT
== END | disposition home or self-care (01) ==
LOC: CVS 12:47
PROVIDERS: PCP Nurse Practitioner Family; Referring Provider Internal Medicine Cardiovascular Disease; Visit Provider Internal Medicine Cardiovascular Disease
DX: I50.32 Chronic diastolic (congestive) heart failure (principal)
CPT/HCPCS: 93306

== ENCOUNTER → 2024-01-23 | Outpatient (CLI) | payer MEDICARE, OTHER, SELFPAY ==
--- NOTE | 2024-01-23 16:18 | MRI_ITS ---
STUDY: MR CHOLANGIOPANCREATOGRAPHY (MRCP) REASON FOR EXAM: Female, 78 years old. SOFT TISSUE CHANGES SEEN AT LEVEL OF AMPULLA/DUODENUM; ATTN PD AND CBD TECHNIQUE: Standard MRCP technique was utilized. 3-D reconstructions were performed. COMPARISON: CT 10/19/2022 FINDINGS: Gall Bladder: Normal with no distention or demonstrated fixed intraluminal filling defect. Cystic duct: Normal with no demonstrated fixed filling defect. Intrahepatic ducts: Mild intrahepatic biliary ductal dilatation. Common hepatic duct: Moderately dilated measuring 10 mm. Common bile duct: Fusiform dilatation of the common bile duct to the level of the ampulla worrisome for ampullary stricture. Pancreatic duct: Normal with no demonstrated fixed filling defect, dilation or stricture. 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 ERCP would be useful. Electronically Signed: Amol Paris MD at 23:18 EDT ,
== END | disposition home or self-care (01) ==
LOC: MRI 16:15
PROVIDERS: PCP Nurse Practitioner Family; Referring Provider Nurse Practitioner Family; Visit Provider Nurse Practitioner Family
DX: R93.89 Abnormal findings on diagnostic imaging of other specified body structures (principal)
CPT/HCPCS: 74181